=== PATIENT | female | born 1950 | race Caucasian/White ===

== ENCOUNTER 2018-01-25 16:06 | Outpatient (REF) | payer OTHER, SELFPAY | END 2018-01-25 16:26 | LOC: LBN 16:06 | PROVIDERS: PCP Nurse Practitioner; Visit Provider Nurse Practitioner Family | DX: J02.9 Acute pharyngitis, unspecified (principal) | CPT/HCPCS: 87070 ==

== ENCOUNTER 2018-03-23 11:44 | Emergency (ER) | payer OTHER, SELFPAY ==
[2018-03-23 11:50] VITALS: BP 147/70; PULSE 59; RESP 16; TEMP 36.7; O2SAT 98
--- NOTE | 2018-03-23 12:03 | W.ED.GENAD ---
Discharge Plan Disposition Patient Disposition: HOME Condition: Improving Discharge Details Chief Complaint: Headache Clinical Impression: Migraine Primary Care Provider: Sheree Deng ED Provider: Albert Paige Home Meds and New Rx's Prescriptions: Continue vit B fjrr-C-JN-iron-vit E [Vitamins B Complex] 1 EACH tablet 1 ea PO DAILY RF: 0 cholecalciferol (vitamin D3) 1,000 UNIT tablet 1,000 unit PO DAILY RF: 0 nujiagieutl-zqkhoyeio-rrv C-Mn 1 EACH tablet 1 ea PO DAILY RF: 0 sumatriptan succinate [Imitrex] 100 MG tablet 100 mg PO as directed Qty: 27 RF: 6 levothyroxine [Synthroid] 75 MCG tablet 75 mcg PO DAILY Qty: 90 RF: 3 atenolol 25 mg tablet 25 mg PO DAILY Qty: 90 RF: 3 citalopram [Celexa] 20 mg tablet 20 mg PO DAILY Qty: 90 RF: 3 Discharge Instructions Instructions: Migraine Headache (ED) Additional Instructions: Please follow-up with Sheree Deng in the office for recheck. Return to emerge department for worsening headache, or any other acute concerns. Home to rest this evening. Small, frequent sips of fluids to maintain hydration. Continue all regular medications Stand Alone Forms: Work Release Medical Decision Making 68-year-old female presents from primary care physician's office with severe right-sided headache. She had 2 migraine type headaches yesterday which responded to Imitrex. Recurrent again today and associated with some mild numbness of the tongue and a different pain type of pattern. She arrives afebrile, with unremarkable neurologic examination. Differential diagnosis includes typical versus atypical migraine such as basilar migraine or hemiplegic migraine, must exclude intracranial mass or hemorrhage. Patient IV access established, given parenteral medications and fluids, referred for laboratory testing and CT scan of the head. Labs are reassuring and CT without acute findings. Patient slept over 2+ hours time, awoke and felt near complete resolution. I did discuss with her the intermittent episodes of right-sided facial pain may be due to Tic Doloreaux/trigeminal neuralgia. We discussed treatment of this and she elects to defer medication such as carbamazepine. Patient will follow-up in Sheree Deng's office for recheck. She stable and improved, appropriate for discharge home at this time Medical Records Medical records reviewed: Yes I reviewed the patient's medical records. Lab Data Lab results reviewed: Yes I reviewed the patient's lab results. Laboratory Results - last 24 hr 03/23/18 03/23/18 12:15 12:15 WBC 4.36 L RBC 4.37 Hgb 13.4 Hct 40.6 MCV 92.9 MCH 30.7 MCHC 33.0 RDW 12.5 Plt Count 298 MPV 10.3 Immature Gran % 0.0 Neutrophils % 56.1 Lymphocytes % 27.1 Monocytes % 9.9 Eosinophils % 6.7 Basophils % 0.2 Absolute Neutrophils 2.45 Absolute Lymphocytes 1.18 L Absolute Monocytes 0.43 Absolute Eosinophils 0.29 Absolute Basophils 0.01 Sodium 142 Potassium 4.0 Chloride 102 Carbon Dioxide 31.5 Anion Gap 8.5 BUN 10 Creatinine 0.70 Estimated GFR/1.73 m2 >= 60.00 Glucose 98 Calcium 9.1 Total Bilirubin 1.0 AST 17 ALT 18 Alkaline Phosphatase 77 Total Protein 7.5 Albumin 3.1 L HPI General Mode of arrival: ambulatory. Date/Time Provider Initiated Documentation: 03/23/18 11:45. Limitations to Documentation: no limitations. Information obtained by: patient. History of Present Illness 68 year old F presents to the emergency department with the chief complaint of Severe right-sided headache, described as severe, Quality is described as stabbing and aching, and is localized to the head and right. Patient neck. Patient started experiencing this day(s) and it has been constant. No relieving factors improve symptom(s), No exacerbating factors reported . Patient notes no other symptoms.. 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 Today she developed severe right-sided headache that radiates to her ear and neck. Associated with sensation of numbness of her tongue. She has had no difficulty with speech or gait. No recent fall or illness. She denies fever, stiff neck, rash Related Data Home Medications Medication Instructions Recorded Confirmed vit B lnfc-T-BN-iron-vit E 1 ea PO DAILY 08/03/12 03/23/18 [Vitamins B Complex] cholecalciferol (vitamin D3) 1,000 unit PO DAILY 10/12/13 03/23/18 pweixkborrj-ugxjamdrx-kuv C-Mn 1 ea PO DAILY 12/16/16 03/23/18 levothyroxine [Synthroid] 75 mcg PO DAILY #90 tab 04/09/17 03/23/18 sumatriptan succinate [Imitrex] 100 mg PO as directed #27 tab 04/09/17 03/23/18 atenolol 25 mg tablet 25 mg PO DAILY #90 tab-cap 03/08/18 03/23/18 citalopram 20 mg tablet 20 mg PO DAILY #90 tab 03/08/18 03/23/18 Previous Rx's Medication Instructions Recorded levothyroxine [Synthroid] 75 mcg PO DAILY #90 tab 04/09/17 sumatriptan succinate [Imitrex] 100 mg PO as directed #27 tab 04/09/17 atenolol 25 mg tablet 25 mg PO DAILY #90 tab-cap 03/08/18 citalopram 20 mg tablet 20 mg PO DAILY #90 tab 03/08/18 Allergies Allergy/AdvReac Type Severity Reaction Status Date / Time No Known Allergies Allergy Verified 03/23/18 11:54 General Stated Complaint: Headache ESTEFANI: 3 Review of Systems Review of Systems 6 systems reviewed and otherwise negative PFSH Breast cancer Depression Hypothyroidism Family History Grandmother Personal history of malignant neoplasm Medical History Breast cancer Depression Hypothyroidism Social History caregiver/support person: No foster care: No household members: significant other housing: house number of children: 2 frequency: 3-4 times per week Smoking/Tobacco Use Status: Never alcohol intake: current alcohol intake frequency: holidays/special occasions only substance use type: does not use Surgical History Arthroplasty of knee (12/12/15) Breast, Mastectomy Social History caregiver/support person: No foster care: No household members: significant other housing: house number of children: 2 frequency: 3-4 times per week Smoking/Tobacco Use Status: Never alcohol intake: current alcohol intake frequency: holidays/special occasions only substance use type: does not use Exam Narrative Exam Narrative: GEN: awake, alert, oriented 3. Pleasant, well groomed, interactive. HEAD: Normocephalic, atraumatic ENT: Mucous membranes moist, oropharynx unremarkable, the right tympanic membrane is distended, no lesions appreciated. Normal sensation of the tongue EYES: PERRL, EOMI NECK: Full ROM, no STEVEN, no menigismus CHEST/RESP: Nontender, clear to auscultation bilateral, no wheeze/rhonchi/rales CARDIOVASCULAR: RRR, no murmur, rub torsten. 2+ Rad pulse bilateral ABDOMEN: Soft, nontender, no mass. +Bowel sounds EXT: Full ROM, no edema, no rash Neuro: Grossly normal neurologic exam, conversant, interactive. Psych: Speech fluent, thoughts congruent, affect normal Course Vital Signs Temperature 36.7 C 03/23/18 11:50 Pulse 59 L 03/23/18 11:50 Respiratory Rate 16 03/23/18 11:50 Blood Pressure 147/70 H 03/23/18 11:50 Pulse Oximetry 98 03/23/18 11:50 Temperature 36.7 C 03/23/18 11:50 Temperature Source Skin 03/23/18 11:50 Pulse 59 L 03/23/18 11:50 Respiratory Rate 16 03/23/18 11:50 Respiratory Effort Non-Labored 03/23/18 11:50 Blood Pressure 147/70 H 03/23/18 11:50 Blood Pressure Position Sitting 03/23/18 11:50 Pulse Oximetry 98 03/23/18 11:50 Oxygen Delivery Method Room Air 03/23/18 11:50 Oxygen Flow Rate 0 03/23/18 11:50 Pain Level 6 03/23/18 11:50
--- NOTE | 2018-03-23 12:07 | ED.GENADUL_ITS ---
Discharge Plan Disposition Patient Disposition: HOME Condition: Improving Discharge Details Chief Complaint: Headache Clinical Impression: Migraine Primary Care Provider: Sheree Deng ED Provider: Albert Paige Home Meds and New Rx's Prescriptions: Continue vit B zmxc-F-BX-iron-vit E [Vitamins B Complex] 1 EACH tablet 1 ea PO DAILY RF: 0 cholecalciferol (vitamin D3) 1,000 UNIT tablet 1,000 unit PO DAILY RF: 0 kiyllmucxrb-wqrjjcjjm-qmk C-Mn 1 EACH tablet 1 ea PO DAILY RF: 0 sumatriptan succinate [Imitrex] 100 MG tablet 100 mg PO as directed Qty: 27 RF: 6 levothyroxine [Synthroid] 75 MCG tablet 75 mcg PO DAILY Qty: 90 RF: 3 atenolol 25 mg tablet 25 mg PO DAILY Qty: 90 RF: 3 citalopram [Celexa] 20 mg tablet 20 mg PO DAILY Qty: 90 RF: 3 Discharge Instructions Instructions: Migraine Headache (ED) Additional Instructions: Please follow-up with Sheree Deng in the office for recheck. Return to emerge department for worsening headache, or any other acute concerns. Home to rest this evening. Small, frequent sips of fluids to maintain hydration. Continue all regular medications Stand Alone Forms: Work Release Medical Decision Making 68-year-old female presents from primary care physician's office with severe right-sided headache. She had 2 migraine type headaches yesterday which responded to Imitrex. Recurrent again today and associated with some mild numbness of the tongue and a different pain type of pattern. She arrives afebrile, with unremarkable neurologic examination. Differential diagnosis includes typical versus atypical migraine such as basilar migraine or hemiplegic migraine, must exclude intracranial mass or hemorrhage. Patient IV access established, given parenteral medications and fluids, referred for laboratory testing and CT scan of the head. Labs are reassuring and CT without acute findings. Patient slept over 2+ hours time, awoke and felt near complete resolution. I did discuss with her the intermittent episodes of right-sided facial pain may be due to Tic Doloreaux/ trigeminal neuralgia. We discussed treatment of this and she elects to defer medication such as carbamazepine. Patient will follow-up in Sheree Deng's office for recheck. She stable and improved, appropriate for discharge home at this time Medical Records Medical records reviewed: Yes I reviewed the patient's medical records. Lab Data Lab results reviewed: Yes I reviewed the patient's lab results. Laboratory Results - last 24 hr 03/23/18 03/23/18 12:15 12:15 WBC 4.36 L RBC 4.37 Hgb 13.4 Hct 40.6 MCV 92.9 MCH 30.7 MCHC 33.0 RDW 12.5 Plt Count 298 MPV 10.3 Immature Gran % 0.0 Neutrophils % 56.1 Lymphocytes % 27.1 Monocytes % 9.9 Eosinophils % 6.7 Basophils % 0.2 Absolute Neutrophils 2.45 Absolute Lymphocytes 1.18 L Absolute Monocytes 0.43 Absolute Eosinophils 0.29 Absolute Basophils 0.01 Sodium 142 Potassium 4.0 Chloride 102 Carbon Dioxide 31.5 Anion Gap 8.5 BUN 10 Creatinine 0.70 Estimated GFR/1.73 m2 >= 60.00 Glucose 98 Calcium 9.1 Total Bilirubin 1.0 AST 17 ALT 18 Alkaline Phosphatase 77 Total Protein 7.5 Albumin 3.1 L HPI General Mode of arrival: ambulatory . Date/Time Provider Initiated Documentation: 03/23/18 11:45 . Limitations to Documentation: no limitations . Information obtained by: patient . History of Present Illness 68 year old F presents to the emergency department with the chief complaint of Severe right-sided headache, described as severe, Quality is described as stabbing and aching, and is localized to the head and right. Patient neck. Patient started experiencing this day(s) and it has been constant. No relieving factors improve symptom(s), No exacerbating factors reported . Patient notes no other symptoms.. 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 Today she developed severe right-sided headache that radiates to her ear and neck. Associated with sensation of numbness of her tongue. She has had no difficulty with speech or gait. No recent fall or illness. She denies fever, stiff neck, rash Related Data Home Medications Medication Instructions Recorded Confirmed vit B qjds-N-TF-iron-vit E 1 ea PO DAILY 08/03/12 03/23/18 [Vitamins B Complex] cholecalciferol (vitamin D3) 1,000 unit PO DAILY 10/12/13 03/23/18 tkhqlbdabpc-ltnpvbuvz-atn C-Mn 1 ea PO DAILY 12/16/16 03/23/18 levothyroxine [Synthroid] 75 mcg PO DAILY #90 tab 04/09/17 03/23/18 sumatriptan succinate [Imitrex] 100 mg PO as directed #27 tab 04/09/17 03/23/18 atenolol 25 mg tablet 25 mg PO DAILY #90 tab-cap 03/08/18 03/23/18 citalopram 20 mg tablet 20 mg PO DAILY #90 tab 03/08/18 03/23/18 Previous Rx's Medication Instructions Recorded levothyroxine [Synthroid] 75 mcg PO DAILY #90 tab 04/09/17 sumatriptan succinate [Imitrex] 100 mg PO as directed #27 tab 04/09/17 atenolol 25 mg tablet 25 mg PO DAILY #90 tab-cap 03/08/18 citalopram 20 mg tablet 20 mg PO DAILY #90 tab 03/08/18 Allergies Allergy/AdvReac Type Severity Reaction Status Date / Time No Known Allergies Allergy Verified 03/23/18 11:54 General Stated Complaint: Headache ESTEFANI: 3 Review of Systems Review of Systems 6 systems reviewed and otherwise negative PFSH Breast cancer Depression Hypothyroidism Family History Grandmother Personal history of malignant neoplasm Medical History Breast cancer Depression Hypothyroidism Social History caregiver/support person: No foster care: No household members: significant other housing: house number of children: 2 frequency: 3-4 times per week Smoking/Tobacco Use Status: Never alcohol intake: current alcohol intake frequency: holidays/special occasions only substance use type: does not use Surgical History Arthroplasty of knee (12/12/15) Breast, Mastectomy Social History caregiver/support person: No foster care: No household members: significant other housing: house number of children: 2 frequency: 3-4 times per week Smoking/Tobacco Use Status: Never alcohol intake: current alcohol intake frequency: holidays/special occasions only substance use type: does not use Exam Narrative Exam Narrative: GEN: awake, alert, oriented 3. Pleasant, well groomed, interactive. HEAD: Normocephalic, atraumatic ENT: Mucous membranes moist, oropharynx unremarkable, the right tympanic membrane is distended, no lesions appreciated. Normal sensation of the tongue EYES: PERRL, EOMI NECK: Full ROM, no STEVEN, no menigismus CHEST/RESP: Nontender, clear to auscultation bilateral, no wheeze/rhonchi/rales CARDIOVASCULAR: RRR, no murmur, rub torsten. 2+ Rad pulse bilateral ABDOMEN: Soft, nontender, no mass. +Bowel sounds EXT: Full ROM, no edema, no rash Neuro: Grossly normal neurologic exam, conversant, interactive. Psych: Speech fluent, thoughts congruent, affect normal Course Vital Signs Temperature 36.7 C 03/23/18 11:50 Pulse 59 L 03/23/18 11:50 Respiratory Rate 16 03/23/18 11:50 Blood Pressure 147/70 H 03/23/18 11:50 Pulse Oximetry 98 03/23/18 11:50 Temperature 36.7 C 03/23/18 11:50 Temperature Source Skin 03/23/18 11:50 Pulse 59 L 03/23/18 11:50 Respiratory Rate 16 03/23/18 11:50 Respiratory Effort Non-Labored 03/23/18 11:50 Blood Pressure 147/70 H 03/23/18 11:50 Blood Pressure Position Sitting 03/23/18 11:50 Pulse Oximetry 98 03/23/18 11:50 Oxygen Delivery Method Room Air 03/23/18 11:50 Oxygen Flow Rate 0 03/23/18 11:50 Pain Level 6 03/23/18 11:50
[2018-03-23] MEDS: Normal Saline 1,000 ML 1000 ML IV (12:12)
[2018-03-23] MEDS: Ketorolac 30 MG/ML VIAL IVP (12:12)
[2018-03-23] MEDS: Dexamethasone 10 MG/ML VIAL IVP (12:13)
[2018-03-23] MEDS: diphenhydrAMINE 50 MG/ML VIAL 25 MG IVP (12:13)
[2018-03-23 12:25] LABS: Absolute Basophil Count 0.01 k/cumm (0.0-0.2); Absolute Eosinophil Count 0.29 k/cumm (0.0-0.7); Absolute Lymphocyte Count 1.18 k/cumm (1.2-3.4); Absolute Monocyte Count 0.43 k/cumm (0.11-0.7); Absolute Neutrophil Count 2.45 k/cumm (1.2-6.7); Basophils % 0.2; Eosinophils % 6.7; HCT 40.6 % (36.0-46.0); HGB 13.4 g/dL (12.0-15.5); Lymphocytes % 27.1; Mean Corpuscular Hemoglobin 30.7 pg (27.0-33.0); Mean Corpuscular Volume 92.9 fL (80-95); Mean Platelet Volume 10.3 fL (8.0-11.0); Monocytes % 9.9; Neutrophils % 56.1; Platelet Count 298 x1000/uL (130-400); RBC 4.37 m/cumm (4.00-5.20); RBC Distribution Width 12.5 % (11.7-14.6); White Blood Cell Count 4.36 k/cumm (4.4-10.8)
--- NOTE | 2018-03-23 12:31 | DI.CT_ITS ---
SYMPTOM/DIAGNOSIS: RT SIDED HEADACHE RADIATING TO NECK AND EAR NONCONTRAST HEAD CT: There are no prior comparison exams. No intracranial hemorrhage, mass or infarct is seen. The ventricles are normal in size. The orbits and visualized portions of the sinuses and mastoid air cells are unremarkable. IMPRESSION: Negative head CT.
[2018-03-23 12:41] LABS: ALT 18 U/L (12-78); AST 17 U/L (15-37); Albumin 3.1 g/dL (3.4-5.0); Alkaline Phosphatase 77 U/L (46-116); Anion Gap 8.5 mmol/L (3-11); BUN 10 mg/dL (7-18); CO2 31.5 mmol/L (21.0-32.0); Calcium 9.1 mg/dL (8.5-10.1); Chloride 102 mmol/L (98-107); Glucose 98 mg/dL (70-100); Sodium 142 mmol/L (136-145); Total Protein 7.5 g/dL (6.4-8.2)
--- NOTE | 2018-03-23 12:53 | NUR.NOTE ---
Pt. returned from CT scan, is still complaining of significant pain. MD Paige at the bedside assessing patient, no further medication orders at this time.
--- NOTE | 2018-03-23 14:06 | NUR.NOTE ---
Pt. resting, in NAD. Call hawkins in reach.
--- NOTE | 2018-03-23 14:42 | NUR.NOTE ---
continues to sleep, RR WNL.
[2018-03-23 15:59] VITALS: BP 134/57; PULSE 77; RESP 16; O2SAT 100
== END 2018-03-23 16:12 | disposition home or self-care (01) ==
PROVIDERS: Emergency Provider Emergency Medicine; PCP Nurse Practitioner
DX: G43.909 Migraine, unspecified, not intractable, without status migrainosus (principal)
CPT/HCPCS: 36415; 80053; 96361; 96374; 96375; 99284; 70450; 85025; J1100; J1200; J1885

== ENCOUNTER 2018-04-05 00:25 | Outpatient (CLI) | payer OTHER, SELFPAY ==
--- NOTE | 2018-04-05 11:10 | DI.MRI_ITS ---
SYMPTOMS/DIAGNOSIS: FACIAL DROOP, HEADACHE, TONGUE NUMBNESS, WORSE; FACIAL WEAKNESS, R29.810, R51, R20.0-ANESTHESIA OF SKIN BRAIN MRI: MRI examination of the brain was performed according to the usual protocol. Ventricular system is normal in appearance. No signal abnormality identified in the brain. There is normal flow void in the [place] vasculature. The orbital and temporal bone structures appear intact. Diffusion weighted imaging is within normal limits with no evidence of cerebral infarction. Susceptibility weighted imaging shows no evidence of hemorrhage. CONCLUSION: Normal brain MRI.
== END 2018-04-05 00:45 ==
PROVIDERS: PCP Nurse Practitioner; Visit Provider Nurse Practitioner
DX: R29.810 Facial weakness (principal); R51 Headache; R20.0 Anesthesia of skin; K14.8 Other diseases of tongue
CPT/HCPCS: 70551

== ENCOUNTER 2018-04-12 15:47 | Outpatient (CLI) | payer OTHER, SELFPAY ==
[2018-04-12 20:07] LABS: Cholesterol 220 mg/dL (50-200); HDL Cholesterol 78 mg/dL (40-60); LDL CHOLESTEROL 122 mg/dL (<100); TSH (W/Ref FT4) 0.65 uIU/mL (0.358-3.74); Triglyceride 60 mg/dL (30-150)
[2018-04-15 10:29] LABS: Lyme Ab w Rflx to Lyme Confirm Negative
== END 2018-04-12 16:07 ==
PROVIDERS: Family Medicine; PCP Nurse Practitioner; Visit Provider Nurse Practitioner
DX: G51.0 Bell's palsy (principal); E03.9 Hypothyroidism, unspecified; G43.909 Migraine, unspecified, not intractable, without status migrainosus
CPT/HCPCS: 36415; 80061; 83721; 84443; 86618

== ENCOUNTER 2019-03-31 11:00 | Outpatient (CLI) | payer OTHER, SELFPAY ==
--- NOTE | 2019-03-31 11:23 | DI.RAD_ITS ---
EXAM: XR FOOT LT COMPLETE CLINICAL HISTORY: FOOT PAIN TECHNIQUE: COMPARISON: No exams were available for comparison FINDINGS: Three views were obtained. There is a mild hallux valgus deformity with mild degenerative changes at the 1st MTP joint. Mild DJD also noted involving multiple joints of the midfoot. No other signific ant bony or soft tissue abnormality seen. IMPRESSION:
--- NOTE | 2019-03-31 11:25 | DI.RAD_ITS ---
EXAM: XR KNEE RT 3V AP,LAT,EDITH CLINICAL HISTORY: KNEE PAIN TECHNIQUE: COMPARISON: RIGHT KNEE 3 VIEWS from 05/11/2012 FINDINGS: Three views were obtained. There is marked narrowing of the medial tibiofemoral cartilaginous joint space with marked subchondral sclerosis and mild marginal osteophyte formation. There is mild medial subluxation of the femur on the tibia. Mild marginal osteophyte formation also noted involving torres llo femoral and to a lesser degree lateral tibiofemoral joints. IMPRESSION: Severe DJD predominantly involving medial tibiofemoral joint
== END 2019-03-31 11:20 ==
PROVIDERS: PCP Nurse Practitioner; Visit Provider Student in an Organized Health Care Education/Training Program
DX: M79.672 Pain in left foot (principal); M25.561 Pain in right knee; M20.12 Hallux valgus (acquired), left foot; M19.072 Primary osteoarthritis, left ankle and foot; M17.11 Unilateral primary osteoarthritis, right knee
CPT/HCPCS: 73562; 73630

== ENCOUNTER 2019-04-19 07:53 | Outpatient (CLI) | payer OTHER, SELFPAY ==
[2019-04-19 09:47] LABS: ALT 19 U/L (14-59); AST 15 U/L (15-37); Albumin 3.7 g/dL (3.4-5.0); Alkaline Phosphatase 75 U/L (46-116); BUN 23 mg/dL (7-18); Bilirubin, Total 0.8 mg/dL (0.2-1.0); CREATININE 0.87 mg/dL (0.55-1.02); Calcium 9.1 mg/dL (8.5-10.1); Calculated LDL 123 mg/dL; Chloride 106 mmol/L (98-107); Cholesterol 208 mg/dL (<200); Glucose 95 mg/dL (74-106); HDL Cholesterol 74 mg/dL (40-60); Sodium 144 mmol/L (136-145); TSH (W/Ref FT4) 1.31 uIU/mL (0.36-3.74); Total Protein 6.7 g/dL (6.4-8.2); Triglyceride 58 mg/dL (<150)
== END 2019-04-19 08:13 ==
PROVIDERS: PCP Nurse Practitioner; Visit Provider Nurse Practitioner
DX: I10 Essential (primary) hypertension (principal); E03.9 Hypothyroidism, unspecified; E78.00 Pure hypercholesterolemia, unspecified
CPT/HCPCS: 36415; 80053; 80061; 84443

== ENCOUNTER 2019-07-12 05:58 | Emergency (ER) | payer OTHER, SELFPAY ==
[2019-07-12] VITALS (50 sets, daily range): BP systolic 122–152; BP diastolic 55–84; PULSE 61–84; RESP 10–23; TEMP 36.4–37.1; O2SAT 94–99
--- NOTE | 2019-07-12 06:09 | ED.GENADUL_ITS ---
Discharge Plan Disposition Patient Disposition: HOME Condition: Stable Discharge Details Chief Complaint: Dizzy/Sync Clinical Impression: Chest discomfort, Syncope Primary Care Provider: Sheree Deng ED Provider: Wilder Cox Home Meds and New Rx's Prescriptions: New aspirin 81 mg tablet,delayed release (DR/EC) 81 mg PO DAILY Qty: 30 RF: 0 Continued ondansetron HCl [Zofran] 4 mg tablet 4 mg PO QID PRN (Reason: nausea and vomiting) Qty: 60 RF: 2 Vitamins B Complex 1 EACH tablet 1 ea PO DAILY RF: 0 cholecalciferol (vitamin D3) 1,000 UNIT tablet 1,000 unit PO DAILY RF: 0 levothyroxine [Synthroid] 75 mcg tablet 75 mcg PO DAILY Qty: 90 RF: 3 atenolol 25 mg tablet 25 mg PO DAILY Qty: 90 RF: 3 citalopram [Celexa] 20 mg tablet 20 mg PO DAILY Qty: 90 RF: 3 sumatriptan succinate [Imitrex] 100 mg tablet 100 mg PO as directed Qty: 27 RF: 6 Discharge Instructions Instructions: Chest Pain (ED), Syncope (ED) Additional Instructions: Please take aspirin 81 mg daily. Please schedule outpatient stress test to be performed ideally within the next 72 hours. Contact your primary care physician to arrange close outpatient follow-up. Please rest over the next few days with no exertional activities. Return to the ER for any worsening or new concerning symptoms. Referrals: Sheree Deng, [employer] [Primary Care Provider] - Discharge Data Discharge Date/Time-TO BE ENTERED AT DEPARTURE: 07/12/19 12:16 Medical Decision Making <Albert Paige MD - Last Filed: 07/12/19 19:56> 69-year-old female presents from home via EMS. States she awoke early this morning, went to the bathroom and while urinating felt lightheaded and simply passed out. She states she separately had one episode of nausea with emesis while being evaluated by EMS. She states she is now feeling improved. She was recently staying in [place] for the winter where she was evaluated at [facility] for transient chest pain. She was discharged uneventfully and recently traveled back home to [place] uneventfully. We have requested records from this visit. She arrives with unremarkable vital signs. She does state that her nausea seems to be somewhat worsened with movement of the head. She does not demonstrate nystagmus and her cranial nerves are otherwise unremarkable. She does have some mild right-sided abdominal tenderness on exam. IV was placed, labs obtained. Differential diagnosis includes vertigo, must exclude intracranial mass or hemorrhage. Given the abdominal tenderness, would consider ileus, small bowel obstruction, colitis or diverticulitis. Patient given fluids and antiemetic. Referred for chest x-ray, CT scan of the head, CT scan of the abdomen. Will sign out to Dr. Cox pending review of the diagnostic studies. Please see his note regarding final impression and disposition. Lab Data Lab results reviewed: Yes I reviewed the patient's lab results. Labs: Laboratory Results - last 24 hr 07/12/19 07/12/19 07/12/19 06:35 06:35 06:35 WBC 5.21 RBC 4.16 Hgb 12.5 Hct 37.8 MCV 90.9 MCH 30.0 MCHC 33.1 RDW 12.5 Plt Count 263 MPV 10.5 Immature Gran % 0.0 Neutrophils % 60.5 Lymphocytes % 23.6 Monocytes % 8.4 Eosinophils % 7.3 Basophils % 0.2 Absolute Neutrophils 3.15 Absolute Lymphocytes 1.23 Absolute Monocytes 0.44 Absolute Eosinophils 0.38 Absolute Basophils 0.01 Sodium 144 Potassium 3.7 Chloride 107 Carbon Dioxide 28.2 Anion Gap 8.8 BUN 24 H Creatinine 0.82 Estimated GFR/1.73 m2 >= 60.00 Glucose 125 H Calcium 8.9 Magnesium 2.0 Total Bilirubin 0.8 AST 15 ALT 18 Alkaline Phosphatase 67 Troponin I < 0.05 Total Protein 6.6 Albumin 3.6 Lipase 96 ECG Data Attestation: I personally reviewed and interpreted this ECG (s) as follows: Interpretation: Normal sinus rhythm, rate of 67, the QRS is narrow, there is no ST segment elevation present, QTC 433 <Wilder Cox MD - Last Filed: 07/12/19 12:01> 8:00 --care signed out by Dr. Paige. Please see his documentation regarding initial ED presentation and course. Briefly this is a 69-year-old female that presents after syncopal episode, presumed micturition syncope, also with recent chest discomfort and right lower quadrant abdominal pain. Work-up thus far has been nondiagnostic. CT of the head revealed no acute process. CT of the abdomen and pelvis noted no acute findings. Small hiatal hernia. Chest x-ray noted no acute findings. Initial ECG was nondiagnostic. Initial troponin negative. Patient receiving IVF. --Patient was reassessed and continues to note some mild chest pressure that seems positional. Given recent travel and nondiagnostic work-up thus far, consider pulmonary embolism. D-dimer was checked and noted to be slightly elevated. Plan to proceed to CT of the chest to assess for pulmonary embolism. -- Pt noted by nursing to be feeling much better. 11:00 -- Initial ECG was reviewed by me: There are very subtle ST depressions noted in leads II, 3, aVF, V3 to V6. Repeat ECG reviewed and interpreted by me: Sinus rhythm 63 bpm, normal axis, continues to have very subtle ST depressions noted with no change. Repeat troponin pending. 11:45 --repeat troponin negative. CT of the chest was reviewed and interpreted by radiology: FINDINGS: Pulmonary Arteries: No evidence of filling defect to suggest pulmonary emboli. Tracheobronchial tree: Patent where visualized. Mediastinum and Gail: No dominant adenopathy or fluid collection. Pulmonary parenchyma: No consolidation or dominant measurable mass. No architectural distortion. Pleura: No effusion or pneumothorax. Heart: The heart is not dilated. No coronary artery calcifications are seen. Aorta: Thoracic aorta non-dilated. Upper abdomen: Unremarkable. Bones: Degenerative changes are seen in the mid thoracic spine. Tubes, Catheters, and Lines: None A left breast implant is seen. A goiter is noted. IMPRESSION: No evidence of pulmonary embolism or other acute abnormality. Patient was reassessed and feeling better. I reviewed telemetry and patient has had no events here over the past 5 hours. Plan for discharge with outpatient follow-up. Patient should have outpatient stress test performed ideally within the next 72 hours. I have ordered the stress test to expedite outpatient work-up. Patient will also likely benefit from holter cardiac monitoring. Will ask care management to assist in scheduling outpatient care. Disposition decision was made weighing the risks and benefits of hospitalization versus outpatient treatment, the risk for further decompensation, and the patient's wishes. The patient was stable and requested discharge. Prior to discharge, my usual and customary return precautions were reviewed with the patient - this included follow-up instructions and reason to return to the emergency department if condition worsens, does not improve as expected, or other new concerns arise. I spoke with the patient's PCP and care management about outpatient plan and followup. HPI <Albert Paige MD - Last Filed: 07/12/19 19:56> General Mode of arrival: EMS . Date/Time Provider Initiated Documentation: 07/12/19 06:12 . Limitations to Documentation: no limitations . Information obtained by: patient and EMS . History of Present Illness 69 year old F presents to the emergency department with the chief complaint of Micturition syncope, described as mild, and is localized to the head. Patient reports no radiation. Patient started experiencing this minute(s) and it has been other (Improving). No relieving factors improve symptom(s), No exacerbating factors reported . Patient notes nausea/vomiting and syncope; denies chest pain and shortness of breath. Patient did receive the following treatments prior to arrival, other (Zofran) Related Data Home Medications Medication Instructions Recorded Confirmed Vitamins B Complex 1 ea PO DAILY 08/03/12 07/12/19 cholecalciferol (vitamin D3) 1,000 unit PO DAILY 10/12/13 07/12/19 ondansetron HCl 4 mg tablet 4 mg PO QID PRN #60 tab 04/12/18 07/12/19 atenolol 25 mg tablet 25 mg PO DAILY #90 tab-cap 03/02/19 07/12/19 citalopram 20 mg tablet 20 mg PO DAILY #90 tab 03/02/19 07/12/19 levothyroxine 75 mcg tablet 75 mcg PO DAILY #90 tab 03/02/19 07/12/19 sumatriptan succinate 100 mg tablet 100 mg PO as directed #27 tab 03/02/19 07/12/19 aspirin 81 mg PO DAILY #30 tab 07/12/19 Previous Rx's Medication Instructions Recorded ondansetron HCl 4 mg tablet 4 mg PO QID PRN #60 tab 04/12/18 atenolol 25 mg tablet 25 mg PO DAILY #90 tab-cap 03/02/19 citalopram 20 mg tablet 20 mg PO DAILY #90 tab 03/02/19 levothyroxine 75 mcg tablet 75 mcg PO DAILY #90 tab 03/02/19 sumatriptan succinate 100 mg tablet 100 mg PO as directed #27 tab 03/02/19 aspirin 81 mg PO DAILY #30 tab 07/12/19 Allergies Allergy/AdvReac Type Severity Reaction Status Date / Time No Known Allergies Allergy Verified 07/12/19 06:16 General ESTEFANI: 3 Review of Systems <Albert Paige MD - Last Filed: 07/12/19 19:56> Narrative: Recently returned from [facility] after a month stay. States she was seen at [facility] for chest pain recently. She denies cough, no known sick contacts. States she feels slightly vertiginous. 8 sy stems reviewed and otherwise negative. See HPI. PFSH <Albert Paige MD - Last Filed: 07/12/19 19:56> Medical History Toro's palsy (Chronic) Breast cancer Depressive disorder (Chronic 02/11/02) Hypothyroidism Migraine (Chronic) Surgical History Arthroplasty of knee (12/12/15) Dr Archuleta. right knee w/partial medial menisectomy Breast, Mastectomy L, 2009 Family History Grandmother , Cancer at age 70. Personal history of malignant neoplasm Colon CA, throat CA Social History Smoking/Tobacco Use Status: Never Alcohol Intake: current Alcohol Intake frequency: holidays/special occasions only Drug use: Never Substance use type: does not use Caregiver/Support person: No Foster care: No Household members: significant other Housing: house Number of Children: 2 What is your relationship status?: living with partner Panel score (0-1 are the most socially isolated patients): 1 What type of physical activity do you participate in: walking Frequency: 3-4 times per week Do you feel safe at home: Yes Do you feel safe in your relationship?: Yes Exam <Albert Paige MD - Last Filed: 07/12/19 19:56> Narrative Exam Narrative: GEN: awake, alert, oriented 3. Pleasant, well groomed, interactive. HEAD: Normocephalic, atraumatic ENT: Mucous membranes dry, oropharynx unremarkable, External ear exam unremarkable EYES: PERRL, EOMI NECK: Full ROM, no STEVEN, no menigismus CHEST/RESP: Nontender, clear to auscultation bilateral, no wheeze/rhonchi/rales CARDIOVASCULAR: RRR, no murmur, rub torsten. 2+ Rad pulse bilateral ABDOMEN: Soft, tender to palpation right mid abdomen, no mass. +Bowel sounds EXT: Full ROM, no edema, no rash Neuro: Cranial nerves II through XII intact. Did not appreciate nystagmus. Grossly normal neurologic exam, conversant, interactive. Psych: Speech fluent, thoughts congruent, affect normal Sign Out <Albert Paige MD - Last Filed: 07/12/19 19:56> Sign Out Data: Sign Out Comment: followup diagnostic studies and re-eval Last updated by Albert Paige MD at 07/12/19 07:25
--- NOTE | 2019-07-12 06:30 | DI.CT_ITS ---
EXAM: CT HEAD WO CLINICAL HISTORY: syncope, nausea. TECHNIQUE: Imaging Protocol: Axial computed tomography images with coronal and sagittal reformatted images were created and reviewed COMPARISON: CT HEAD WO from 03/23/2018 FINDINGS: Ventricles and Extra axial spaces: Normal in size and morphology for the patient's age. Hemorrhage: None. Cerebral parenchyma: Normal. Midline shift: None. Brainstem/Cerebellum: Normal. Calvarium: Normal. Visualized Paranasal sinuses/Mastoids: Clear. Soft Tissues: Unremarkable. IMPRESSION: No acute intracranial process. RADIATION DOSE DELIVERED: DATA REPOSITORY: All CT scans at this facility are submitted to the National Radiology Data Registry (NRDR) Dose Index Registry (DIR) with the [employer] (ACR). RADIATION OPTIMIZATION: All CT scans at this facility use at least one of these dose optimization te chniques: automated exposure control; mA and/or kV adjustment per patient size (includes targeted exa ms where dose is matched to clinical indication); or iterative reconstruction.
--- NOTE | 2019-07-12 06:30 | DI.CT_ITS ---
EXAM: CT ABDOMEN PELVIS W CLINICAL HISTORY: R mid abd pain, vomiting. Wait forCr. TECHNIQUE: Imaging Protocol: Axial computed tomography images with coronal and sagittal reformatted images were created and reviewed CONTRAST MATERIAL: Intravenous: Omnipaque 350 Contrast volume:100 cc Oral: no COMPARISON: No exams were available for comparison FINDINGS: Lung Bases: Normal where visualized. There is a left breast implant. Liver: Normal density. No measurable mass. Gallbladder and biliary tract: No radiodense calculus or dilation. Pancreas: Normal density, no abnormal calcifications or inflammatory process. Spleen: Normal. Kidneys: Normal size, contour and axis. No radiodense stones or obstructive uropathy. No masses seen. Adrenal glands: No masses seen. Abdominal Aorta: Abdominal portion non-dilated. Bladder: Symmetric distention, no gross wall thickening. Bowel: There is a small hiatal hernia. The stomach is decompressed. There is no obstruction or carlee l wall thickening. There is no evidence of a appendicitis. There is a moderate quantity of stool. Peritoneal cavity: No ascites, collection or mesenteric inflammatory response. Bones: Degenerative disc changes are seen in the lower lumbar spine. Reproductive organs: The ovaries are unremarkable. There is a small uterine fibroid. Lymph nodes: Unremarkable. Impression: Unremarkable CT scan of the abdomen and pelvis. DATA REPOSITORY: All CT scans at this facility are submitted to the National Radiology Data Registry (NRDR) Dose Index Registry (DIR) with the [employer] (ACR). RADIATION OPTIMIZATION: All CT scans at this facility use at least one of these dose optimization te chniques: automated exposure control; mA and/or kV adjustment per patient size (includes targeted exa ms where dose is matched to clinical indication); or iterative reconstruction.
--- NOTE | 2019-07-12 06:30 | DI.RAD_ITS ---
EXAM: XR PORTABLE CHEST AP CLINICAL HISTORY: syncope TECHNIQUE: 2D digital imaging was performed. COMPARISON: CHEST 2 VIEWS PA,LAT from 12/06/2013 FINDINGS: LUNGS: The lungs are suboptimally inflated but clear. No pleural abnormality seen. HEART: Normal. MEDIASTINUM: Normal. OTHER FINDINGS: There are degenerative changes in the spine and shoulders. IMPRESSION: No acute pulmonary findings.
[2019-07-12] MEDS: Normal Saline 1,000 ML 1000 ML IV (06:34)
[2019-07-12] MEDS: Ondansetron 4 MG/2 ML VIAL IVP (06:47)
[2019-07-12 06:51] LABS: Absolute Basophil Count 0.01 k/cumm (0.0-0.2); Absolute Eosinophil Count 0.38 k/cumm (0.0-0.7); Absolute Lymphocyte Count 1.23 k/cumm (1.2-3.4); Absolute Monocyte Count 0.44 k/cumm (0.11-0.7); Absolute Neutrophil Count 3.15 k/cumm (1.2-6.7); Basophils % 0.2; Eosinophils % 7.3; HCT 37.8 % (36.0-46.0); HGB 12.5 g/dL (12.0-15.5); Lymphocytes % 23.6; Mean Corp. HGB Concentration 33.1 g/dL (32.0-36.0); Mean Corpuscular Volume 90.9 fL (80-95); Mean Platelet Volume 10.5 fL (8.0-11.0); Monocytes % 8.4; Neutrophils % 60.5; Platelet Count 263 x1000/uL (130-400); RBC 4.16 m/cumm (4.00-5.20); RBC Distribution Width 12.5 % (11.7-14.6); White Blood Cell Count 5.21 k/cumm (4.4-10.8)
[2019-07-12 07:14] LABS: Lipase 96 U/L (73-393)
[2019-07-12 07:18] LABS: ALT 18 U/L (14-59); AST 15 U/L (15-37); Albumin 3.6 g/dL (3.4-5.0); Alkaline Phosphatase 67 U/L (46-116); Anion Gap 8.8 mmol/L (3-11); BUN 24 mg/dL (7-18); Bilirubin, Total 0.8 mg/dL (0.2-1.0); CO2 28.2 mmol/L (21.0-32.0); CREATININE 0.82 mg/dL (0.55-1.02); Calcium 8.9 mg/dL (8.5-10.1); Chloride 107 mmol/L (98-107); Glucose 125 mg/dL (74-106); Potassium 3.7 mmol/L (3.5-5.1); Sodium 144 mmol/L (136-145); Total Protein 6.6 g/dL (6.4-8.2)
[2019-07-12 07:26] LABS: Troponin I < 0.05 ng/Ml (<0.06)
[2019-07-12] MEDS: Omnipaque 350 MG/ML 100 ML BTL IJ ×2 (07:40→10:32)
[2019-07-12] MEDS: Normal Saline Flush 10 ML SYR IVP (07:40)
[2019-07-12] MEDS: Normal Saline - Diluent 50 ML VIAL IV ×2 (07:41→10:31)
--- NOTE | 2019-07-12 07:55 | DI.VRAD_ITS ---
PROCEDURE INFORMATION: Exam: CT Head Without Contrast Exam date and time: 07/12/2019 7:42 AM Age: 69 years old Clinical indication: Pain; Other: Nausea syncope TECHNIQUE: Imaging protocol: Computed tomography of the head without contrast. COMPARISON: CT HEAD WO 03/23/2018 12:24 PM FINDINGS: Generalized volume loss and periventricular white matter hypodensity consistent with chronic small vessel ischemic change. There is atherosclerotic calcification in the internal carotid arteries . There is no evidence of intraparenchymal hemorrhage, mass effect or extra-axial collection. Ventricular size is concordant with degree of volume loss. Visualized intraorbital soft tissues are normal. The sinuses are well-aerated. IMPRESSION: No acute intracranial process. Dictated and Authenticated by: Nimisha Pierce MD. Ordering:DASH Price MD
[2019-07-12] MEDS: Normal Saline 1,000 ML 150 ML IV (07:58)
--- NOTE | 2019-07-12 07:58 | DI.VRAD_ITS ---
PROCEDURE INFORMATION: Exam: XR Chest, 1 View Exam date and time: 07/12/2019 7:38 AM Age: 69 years old Clinical indication: Other: Syncope; Patient HX: Laparotomy, c section TECHNIQUE: Imaging protocol: XR of the chest Views: 1 view. COMPARISON: No relevant prior studies available. FINDINGS: Lungs: Unremarkable. No consolidation. Pleural space: Unremarkable. No pleural effusion. No pneumothorax. Heart/Mediastinum: Unremarkable. No cardiomegaly. Diaphragm: Mild elevation of the left hemidiaphragm. Bones/joints: Age related osseous changes. IMPRESSION: No acute findings. Dictated and Authenticated by: Nimisha Pierce MD. Ordering:DASH Price MD
--- NOTE | 2019-07-12 08:07 | DI.VRAD_ITS ---
PROCEDURE INFORMATION: Exam: CT Abdomen And Pelvis With Contrast Exam date and time: 07/12/2019 7:48 AM Age: 69 years old Clinical indication: Other: RT mid abd pain vomiting TECHNIQUE: Imaging protocol: Computed tomography of the abdomen and pelvis with intravenous contrast. Radiation optimization: All CT scans at this facility use at least one of these dose optimization techniques: automated exposure control; mA and/or kV adjustment per patient size (includes targeted exams where dose is matched to clinical indication); or iterative reconstruction. Contrast material: OMNI 350; Contrast volume: 100 ml; Contrast route: IV; COMPARISON: No relevant prior studies available. FINDINGS: Mediastinum: Small hiatus hernia. Liver: 1 cm enhancing finding is seen in the left liver which likely represents a hemangioma. There are a few scattered tiny hypodensities throughout the liver too small to characterize, likely cysts. Gallbladder and bile ducts: Normal. No calcified stones. No ductal dilation. Pancreas: Normal. No ductal dilation. Spleen: Normal. No splenomegaly. Adrenals: Normal. No mass. Kidneys and ureters: No renal stones or hydronephrosis. Stomach and bowel: Stomach is decompressed and not well evaluated. Small bowel is unremarkable. Unremarkable colon. Appendix: Normal appendix seen. Intraperitoneal space: Unremarkable. No free air. No significant fluid collection. Vasculature: Unremarkable. No abdominal aortic aneurysm. Lymph nodes: Unremarkable. No enlarged lymph nodes. Bladder: Unremarkable as visualized. Reproductive: Unremarkable as visualized. Bones/joints: Degenerative changes throughout the spine. Grade 1 anterolisthesis of L3 on L4. Soft tissues: There is a left breast implant. Small fat containing umbilical hernia. IMPRESSION: No acute findings. Small hiatus hernia. Dictated and Authenticated by: Nimisha Pierce MD. Ordering:DASH Price MD
[2019-07-12 08:15] LABS: Bilirubin Negative (Negative); Blood Negative (Negative); Clarity Clear (Clear); Glucose Negative (Negative); Ketones Negative (Negative); Leukocyte Esterase Negative (Negative); Nitrite Negative (Negative); Specific Gravity 1.025 (1.005-1.025); Urobilinogen 0.2 EU/dL (Up TO 0.2)
[2019-07-12 09:18] LABS: D-Dimer 750 ng/mlFEU (<500)
[2019-07-12 10:09] LABS: Troponin I < 0.05 ng/Ml (<0.06)
--- NOTE | 2019-07-12 10:44 | DI.CT_ITS ---
EXAM: CT CHEST PE CTA CLINICAL HISTORY: chest pressure, presyncope, ddimer elevated. TECHNIQUE: Imaging Protocol: Axial CT angiography was performed with multi-slice acquisition and mu lti-planar and/or 3D reconstructions. CONTRAST MATERIAL: Intravenous: Omnipaque 350 Contrast volume:100 cc COMPARISON: XR PORTABLE CHEST AP from 07/12/2019 FINDINGS: Pulmonary Arteries: No evidence of filling defect to suggest pulmonary emboli. Tracheobronchial tree: Patent where visualized. Mediastinum and Gail: No dominant adenopathy or fluid collection. Pulmonary parenchyma: No consolidation or dominant measurable mass. No architectural distortion. Pleura: No effusion or pneumothorax. Heart: The heart is not dilated. No coronary artery calcifications are seen. Aorta: Thoracic aorta non-dilated. Upper abdomen: Unremarkable. Bones: Degenerative changes are seen in the mid thoracic spine. Tubes, Catheters, and Lines: None A left breast implant is seen. A goiter is noted. IMPRESSION: No evidence of pulmonary embolism or other acute abnormality.. DATA REPOSITORY: All CT scans at this facility are submitted to the National Radiology Data Registry (NRDR) Dose Index Registry (DIR) with the [employer] (ACR). RADIATION OPTIMIZATION: All CT scans at this facility use at least one of these dose optimization te chniques: automated exposure control; mA and/or kV adjustment per patient size (includes targeted exa ms where dose is matched to clinical indication); or iterative reconstruction.
--- NOTE | 2019-07-12 18:33 | NUR.NOTE ---
Nursing Note: FAXED TO [facility]
== END 2019-07-12 12:16 | disposition home or self-care (01) ==
PROVIDERS: Emergency Medicine; Emergency Provider Student in an Organized Health Care Education/Training Program; PCP Nurse Practitioner
DX: R55 Syncope and collapse (principal)
CPT/HCPCS: 36415; 71275; 80053; 83690; 93005; 96361; 96374; 99285; 70450; 71045; 74177; 81003; 83735; 84484; 85025; 85379; 93010; J2405; J3490

== ENCOUNTER 2019-07-14 01:56 | Outpatient (CLI) | payer OTHER, SELFPAY ==
--- NOTE | 2019-07-14 09:00 | ETT_ITS ---
APPROVED REPORT Exam: Exercise Treadmill Patient Location: Out-Patient Room/Bed: Stress Nurse: Chloe Turpin RN BMI: 29.95 Baseline Rhythm: Sinus Bradycardia Indications: Patient presented to the ER on 07/12/2019 after she ???passed out??? at home while allanin g. She states when she woke she ???felt so weak??? and ???felt like I couldn???t move???. She denies any other associated symptoms until EMS was moving her in a chair to bring her down stairs, when she then become nauseated and vomited. Medical History Medical History: Toro???s Palsy, Hypothyroidism, Migraines, Depression. Cardiac Medications: Aspirin, Atenolol (for Migraines). Allergies: No known drug allergies Cardiac Risk Factors: FHX of CAD Previous Cardiac Procedures: None Pretest Chest Pain Characteristics: None Exercise History: Physically active Physical Disabilities: None Lung Sounds: Clear to auscultation Heart Sounds: Regular Stress Test Details Test: Exercise stress testing was performed using a Jimbo protocol. Rest Stress HR Resting HR Supine: 55 bpm Max Heart Rate (APMHR): 152 bpm Resting HR Standin bpm Target HR (85% APMHR): 129 bpm Max HR Achieved: 141 bpm % of APMHR: 92 HR response to stress: Normal HR response to stress BP Resting BP Supine: 140/76 mmHg Resting BP Standin/80 mmHg Max BP: 160/70 mmHg BP response to stress: Normal blood pressure response to stress. ECG Resting ECG: Sinus Bradycardia ST Change: Downsloping ST depression in Leads II, III, AVF and ST Depressions in Leads V3, V4, V5, and V 6 Stage: 2 and 3 Recovery ECG: Downsloping ST depression leads II III, aVF, V4 through V6 persisting through minute 8 Clinical Reason for Termination: Fatigue Stress Symptoms: Chest Heavyness (2/10) at 2 minutes 47 seconds of exercise and Bilateral Arm Weaknes s at 3 minutes and 51 seconds of exercise, both of which disapated upon immediate recovery. Exercise duration: 7 min35 sec Highest Stage Reached: Stage 3: 3.4 mph at 14% grade. Exercise capacity: 9.49 METs Functional Capacity: Above average capacity Stress ECG Conclusion 1. Resting electrocardiogram was within normal limits 2. Patient exercised on Jimbo protocol and completed a workload of 9.49 METS. She achieved 92% of pr edicted heart rate for age. Blood pressure and heart rate response to exercise were normal 3. Patient described chest heaviness with exertion which resolved with rest, consistent with angina p ectoris 4. Electrocardiographically the test was consistent with myocardial ischemia 5. There were no significant dysrhythmias Protocol Used: Jimbo Protocol Stress Test Summary STAGE Time (mins) Speed (mph) Grade (%) HR BP SYMPTOMS METS Supine 55 140/76 Standing 69 138/80 1 3 1.7 10 105 144/82 4.6 2 6 2.5 12 122 160/70 7 3 9 3.4 14 10.2 4 12 4.2 16 12.9 5 15 5.0 18 17.2 1 min recovery 91 160/58 3 min recovery 69 152/68 6 min recovery 65 144/60 9 min recovery 67 142/60 12 min recovery
== END 2019-07-14 02:16 ==
PROVIDERS: PCP Nurse Practitioner; Visit Provider Student in an Organized Health Care Education/Training Program
DX: R07.9 Chest pain, unspecified (principal); I20.8 Other forms of angina pectoris; R55 Syncope and collapse; E03.9 Hypothyroidism, unspecified; Z82.49 Family history of ischemic heart disease and other diseases of the circulatory system
CPT/HCPCS: 93016; 93018; 93017

== ENCOUNTER → 2019-08-11 11:18 | Outpatient (BNVA) | payer MEDICARE, OTHER, SELFPAY | PROVIDERS: PCP Nurse Practitioner; Referring Provider Nurse Practitioner; Visit Provider Internal Medicine Cardiovascular Disease | DX: R94.39 Abnormal result of other cardiovascular function study (principal) | CPT/HCPCS: 99204; 99443 ==

== ENCOUNTER 2019-09-06 10:07 | Outpatient (CLI) | payer OTHER, SELFPAY ==
[2019-09-07 14:44] LABS: COVID-19 RT-PCR UVMMC Result Negative (Negative)
== END 2019-09-06 10:27 ==
PROVIDERS: Nurse Practitioner Adult Health; PCP Nurse Practitioner; Visit Provider Nurse Practitioner
DX: Z11.59 Encounter for screening for other viral diseases (principal)
CPT/HCPCS: U0003

== ENCOUNTER 2019-09-14 01:52 | Outpatient (CLI) | payer OTHER, SELFPAY ==
--- NOTE | 2019-09-14 15:18 | DI.MAMMO_ITS ---
EXAM: MG MAMMO SCREENING 60 MIN DUR CLINICAL HISTORY: screening Z12.39, PERS HX BREAST CANCER, LT MASTECTOMY TECHNIQUE: Mammograms were interpreted according to the usual protocol including computer analysis w [employer] CAD system, tomosynthesis and C-view imaging. COMPARISON: FINDINGS: The patient has had a prior left mastectomy. No mass or clumped microcalcification identified in the right breast. Current examination is compared with previous examinations including January 2017 and there has been no gross interval change in appearance in comparison with the previous studies. IMPRESSION: No specific evidence of malignancy at this time. Routine screening examinations are suggested at yea rly intervals due to the history of breast carcinoma. Category: BI-RADS Cat 1 - Negative Breast Density - Category B - Scattered areas of fibroglandular density
== END 2019-09-14 02:12 ==
PROVIDERS: PCP Nurse Practitioner; Visit Provider Nurse Practitioner Adult Health
DX: Z12.31 Encounter for screening mammogram for malignant neoplasm of breast (principal); Z85.3 Personal history of malignant neoplasm of breast; Z90.12 Acquired absence of left breast and nipple
CPT/HCPCS: 77063; 77067

== ENCOUNTER 2019-10-03 08:27 | Outpatient (CLI) | payer OTHER, SELFPAY ==
[2019-10-04 23:52] LABS: SARS-CoV-2 RNA Undetected (Undetected); SARS-CoV-2 Specimen Source Nasopharynx
== END 2019-10-03 08:47 ==
PROVIDERS: PCP Nurse Practitioner; Visit Provider Surgery
DX: Z11.59 Encounter for screening for other viral diseases (principal)
CPT/HCPCS: U0003

== ENCOUNTER 2020-01-31 14:21 | Outpatient (CLI) | payer OTHER, SELFPAY ==
--- NOTE | 2020-01-31 14:30 | DI.RAD_ITS ---
EXAM: XR STANDING ALIGNMENT CLINICAL HISTORY: pre op TECHNIQUE: 2D digital imaging was performed. COMPARISON: No exams were available for comparison FINDINGS: Standing AP views were performed from the pelvis through the ankles. The hip joint spaces are well m aintained show mild periarticular spurring. There is no significant overall leg length discrepancy a t the level of the femoral heads. There are severe degenerative changes of the medial femoral tibial joint of the right knee causing mild varus angulation. The left knee joint spaces are well maintain ed. There is mild to moderate narrowing of both ankle joint spaces. IMPRESSION: Severe degenerative changes of the medial femoral tibial joint of the right knee.
== END 2020-01-31 14:41 ==
PROVIDERS: PCP Nurse Practitioner; Referring Provider Nurse Practitioner; Visit Provider Physician Assistant
DX: M17.11 Unilateral primary osteoarthritis, right knee (principal)
CPT/HCPCS: 77073

== ENCOUNTER 2020-02-03 01:40 | Outpatient (CLI) | payer OTHER, SELFPAY ==
[2020-02-03 14:34] LABS: HCT 37.1 % (36.0-46.0); HGB 12.4 g/dL (11.2-15.7); MCH 30.3 pg (27.0-33.0); MCHC 33.4 % (32.0-36.0); MCV 90.7 fL (80-95); MPV 10.4 fL (8.0-11.0); Platelet Count 270 10^3/uL (130-400); RBC 4.09 10^6/uL (3.93-5.22); RDW 12.3 % (11.7-14.6); RDW-SD 40.7 fL; WBC 4.26 10^3/uL (4.4-10.8)
[2020-02-03 15:01] LABS: Anion Gap 7.8 mmol/L (3-11); BUN 22 mg/dL (7-18); CO2 28.2 mmol/L (21.0-32.0); CREATININE 0.88 mg/dL (0.55-1.02); Calcium 8.7 mg/dL (8.5-10.1); Chloride 106 mmol/L (98-107); Glucose 105 mg/dL (74-106); Potassium 3.9 mmol/L (3.5-5.1); Sodium 142 mmol/L (136-145)
== END 2020-02-03 02:00 ==
PROVIDERS: PCP Nurse Practitioner; Visit Provider Student in an Organized Health Care Education/Training Program
DX: Z01.818 Encounter for other preprocedural examination (principal); M17.11 Unilateral primary osteoarthritis, right knee
CPT/HCPCS: 36415; 80048; 85027; U0003

== ENCOUNTER 2020-02-03 08:38 | Outpatient (CLI) | payer OTHER, SELFPAY ==
[2020-02-06 12:41] LABS: COVID-19 RT-PCR UVMMC Result Negative (Negative)
== END 2020-02-03 08:58 ==
PROVIDERS: PCP Nurse Practitioner; Visit Provider Student in an Organized Health Care Education/Training Program
DX: Z01.818 Encounter for other preprocedural examination (principal)
CPT/HCPCS: U0003

== ENCOUNTER 2020-02-08 09:59 | Observation (INO) | payer OTHER, SELFPAY ==
[2020-02-08] VITALS (7 sets, daily range): BP systolic 109–124; BP diastolic 47–66; PULSE 40–60; RESP 12–18; TEMP 36.1–36.7; O2SAT 92–100
--- NOTE | 2020-02-08 09:35 | DSE_ITS ---
Documented by User: Sharita Hewitt 02/08/20 09:40 DS: Diagnosis Discharge Diagnosis (1) Primary osteoarthritis of right knee: Status: Chronic Discharge Plan Disposition Patient Disposition: HOME Condition: Good Discharge Details Reason For Visit: Right knee TKA Admit Date/Time: 02/08/20 09:59 Admit Provider: Ta Mcgee Attending Provider: Ta Mcgee Primary Care Provider: Sheree Deng Hospital Course Hospital Course: Patient was admitted to the medical/surgical floor following the procedure. The surgery was tolerated well without any notable medical, surgical, or anesthetic complications. Mobilization began post-operatively. They were voiding spontaneously. Vitals were stable. Physical therapy worked with the patient and was cleared for discharge home. No acute medical issues. Pain was controlled on oral regimen. Home Meds and New Rx's Prescriptions: New acetaminophen 500 mg tablet 500 mg PO Q6H PRN (Reason: pain) Qty: 60 RF: 2 aspirin 81 mg tablet,delayed release (DR/EC) 81 mg PO BID 30 Days Qty: 60 RF: 0 celecoxib [Celebrex] 200 mg capsule 200 mg PO BID Qty: 60 RF: 1 docusate sodium [Colace] 100 mg capsule 100 mg PO BID Qty: 30 RF: 0 oxycodone 5 mg tablet 5 mg PO Q4H PRN (Reason: severe post-operative pain) Qty: 18 RF: 0 pantoprazole 40 mg tablet,delayed release (DR/EC) 40 mg PO DAILY Qty: 30 RF: 0 Continued ondansetron HCl [Zofran] 4 mg tablet 4 mg PO QID PRN (Reason: nausea and vomiting) Qty: 60 RF: 2 Vitamins B Complex 1 EACH tablet 1 ea PO DAILY RF: 0 cholecalciferol (vitamin D3) 1,000 UNIT tablet 1,000 unit PO DAILY RF: 0 levothyroxine [Synthroid] 75 mcg tablet 75 mcg PO DAILY Qty: 90 RF: 3 atenolol 25 mg tablet 25 mg PO DAILY Qty: 90 RF: 3 citalopram [Celexa] 20 mg tablet 20 mg PO DAILY Qty: 90 RF: 3 sumatriptan succinate [Imitrex] 100 mg tablet 100 mg PO as directed Qty: 27 RF: 6 Discontinued ibuprofen 200 mg Tablet 600 mg PO DAILY PRNRF: 0 aspirin 81 mg Capsule,Delayed Release(Dr/Ec) 81 mg PO DAILY RF: 0 No Action ibuprofen 600 mg Tablet 600 mg PO Q6H PRNRF: 0 Discharge Instructions Additional Instructions: Total Knee Discharge Instructions Activity: The most important activity is to walk. You should try to take short walks a few times a day. It is important that when resting you work on keeping the knee straight. Avoid putting a pillow behind the knee as this will encourage flexion. Work on range of motion exercises as provided by Physical Therapy. - Start outpatient physical therapy within 2 weeks. - You should wear the KAMI hose on both legs for 2 weeks. Dressing: Keep the surgical dressing in place for at least one week. After the first week it may be removed and replace with light gauze and tape or nothing. It may get wet after 3 days but avoid soaking the dressing. If it gets wet, just lightly pat dry. Medications: - You should take Tylenol and anti-inflammatory Celebrex as your primary pain control medications. If the Celebrex is too expensive or not covered, you may take Naproxen (Aleve) 2 tables twice a day. - You have been prescribed a stronger pain medication Oxycodone for breakthrough pain, take as needed as prescribed. - You have also been prescribed a stomach acid reduction agent Pantoprozole to help reduce stomach acid and reflux. - You will be taking Aspirin 81mg twice a day for DVT prevention unless instructed otherwise. - If you have constipation you should take Colace (which has been prescribed) or Miralax (which you may purchase [id number]). It takes most people 3-4 days to have a bowel movement. Follow-up: 2 weeks If you have any acute concerns or questions, please do not hesitate to contact the office at [phone]. You may contact Dr. Mcgee with any questions after hours through the hospital at [phone] or on his cell phone at [phone]. Referrals: Ta Mcgee MD [ [facility] STAFF PHYSICIAN] - Activity:: Activity as Tolerated Equipment/Supplies:: Walker Diet:: As Tolerated Discharge Orders Discharge Orders: Discharge Order (Routine); Ordered 02/08/20 Ordered By: Ta Mcgee DS: Data Vitals/I&O Vitals and I&O: Vital Signs Respiratory Effort 10/26/20 14:33 PFSH Medical History Abnormal stress test Toro's palsy Breast cancer In remission 10 years Depressive disorder (02/11/02) Hypothyroidism Migraine Surgical History Breast, Mastectomy L, 2009 History of section (~1973) History of laparotomy (~1971) Status post arthroscopy of right knee (12/12/15) Dr Archuleta - right knee w/partial medial menisectomy Status post left knee surgery For torn meniscus - unsure if arthroscopic or open Family History Grandmother , Cancer at age 70. Personal history of malignant neoplasm Colon CA, throat CA Social History Smoking/Tobacco Use Status: Never Smoking risk assessment performed?: Yes Alcohol Intake: current Alcohol Intake frequency: holidays/special occasions only Drug use: Never Substance use type: does not use Caregiver/Support person: No Foster care: No Household members: significant other Housing: house Number of Children: 2 What is your relationship status?: living with partner Panel score (0-1 are the most socially isolated patients): 1 What type of physical activity do you participate in: walking Frequency: 3-4 times per week Do you feel safe at home: Yes Do you feel safe in your relationship?: Yes Documented by User: Ta Mcgee MD 02/08/20 17:22 Date of service: 02/08/20 Time of Service: 17:21 Discharge Plan Disposition Patient Disposition: HOME Condition: Good Discharge Details Reason For Visit: Right knee TKA Admit Date/Time: 02/08/20 09:59 Admit Provider: Ta Mcgee Attending Provider: aT Mcgee Primary Care Provider: Sheree Deng Hospital Course Hospital Course: Patient was admitted to the medical/surgical floor following the procedure. The surgery was tolerated well without any notable medical, surgical, or anesthetic complications. Mobilization began post-operatively. They were voiding spontaneously. Vitals were stable. Physical therapy worked with the patient and was cleared for discharge home. No acute medical issues. Pain was controlled on oral regimen. Home Meds and New Rx's Prescriptions: New acetaminophen 500 mg tablet 500 mg PO Q6H PRN (Reason: pain) Qty: 60 RF: 2 aspirin 81 mg tablet,delayed release (DR/EC) 81 mg PO BID 30 Days Qty: 60 RF: 0 celecoxib [Celebrex] 200 mg capsule 200 mg PO BID Qty: 60 RF: 1 docusate sodium [Colace] 100 mg capsule 100 mg PO BID Qty: 30 RF: 0 oxycodone 5 mg tablet 5 mg PO Q4H PRN (Reason: severe post-operative pain) Qty: 18 RF: 0 pantoprazole 40 mg tablet,delayed release (DR/EC) 40 mg PO DAILY Qty: 30 RF: 0 Continued ondansetron HCl [Zofran] 4 mg tablet 4 mg PO QID PRN (Reason: nausea and vomiting) Qty: 60 RF: 2 Vitamins B Complex 1 EACH tablet 1 ea PO DAILY RF: 0 cholecalciferol (vitamin D3) 1,000 UNIT tablet 1,000 unit PO DAILY RF: 0 levothyroxine [Synthroid] 75 mcg tablet 75 mcg PO DAILY Qty: 90 RF: 3 atenolol 25 mg tablet 25 mg PO DAILY Qty: 90 RF: 3 citalopram [Celexa] 20 mg tablet 20 mg PO DAILY Qty: 90 RF: 3 sumatriptan succinate [Imitrex] 100 mg tablet 100 mg PO as directed Qty: 27 RF: 6 Discontinued ibuprofen 200 mg Tablet 600 mg PO DAILY PRNRF: 0 aspirin 81 mg Capsule,Delayed Release(Dr/Ec) 81 mg PO DAILY RF: 0 No Action ibuprofen 600 mg Tablet 600 mg PO Q6H PRNRF: 0 Discharge Instructions Additional Instructions: Total Knee Discharge Instructions Activity: The most important activity is to walk. You should try to take short walks a few times a day. It is important that when resting you work on keeping the knee straight. Avoid putting a pillow behind the knee as this will encourage flexion. Work on range of motion exercises as provided by Physical Therapy. - Start outpatient physical therapy within 2 weeks. - You should wear the KAMI hose on both legs for 2 weeks. Dressing: Keep the surgical dressing in place for at least one week. After the first week it may be removed and replace with light gauze and tape or nothing. It may get wet after 3 days but avoid soaking the dressing. If it gets wet, just lightly pat dry. Medications: - You should take Tylenol and anti-inflammatory Celebrex as your primary pain control medications. If the Celebrex is too expensive or not covered, you may take Naproxen (Aleve) 2 tables twice a day. - You have been prescribed a stronger pain medication Oxycodone for breakthrough pain, take as needed as prescribed. - You have also been prescribed a stomach acid reduction agent Pantoprozole to help reduce stomach acid and reflux. - You will be taking Aspirin 81mg twice a day for DVT prevention unless instructed otherwise. - If you have constipation you should take Colace (which has been prescribed) or Miralax (which you may purchase [id number]). It takes most people 3-4 days to have a bowel movement. Follow-up: 2 weeks If you have any acute concerns or questions, please do not hesitate to contact the office at [phone]. You may contact Dr. Mcgee with any questions after hours through the hospital at [phone] or on his cell phone at [phone]. Referrals: Ta Mcgee MD [ [facility] STAFF PHYSICIAN] - Activity:: Activity as Tolerated Equipment/Supplies:: Walker Diet:: As Tolerated Discharge Orders Discharge Orders: Discharge Order (Routine); Ordered 02/08/20 Ordered By: Ta Mcgee DS: Summary Status at Discharge Functional status at discharge: uses cane/walker Overall status at discharge: patient is progressing back to baseline Mental Status: mental status grossly normal Speech and Movement: speech and movement normal Mood: congruent mood Affect: normal affect Exam Psych Mental Status: mental status grossly normal Speech and Movement: speech and movement normal Mood: congruent mood Affect: normal affect [facility] Medical History Abnormal stress test Toro's palsy Breast cancer In remission 10 years Depressive disorder (02/11/02) Hypothyroidism Migraine Surgical History Breast, Mastectomy L, 2009 History of section (~1973) History of laparotomy (~1971) Status post arthroscopy of right knee (12/12/15) Dr Archuleta - right knee w/partial medial menisectomy Status post left knee surgery For torn meniscus - unsure if arthroscopic or open Family History Grandmother , Cancer at age 70. Personal history of malignant neoplasm Colon CA, throat CA Social History Smoking/Tobacco Use Status: Never Smoking risk assessment performed?: Yes Alcohol Intake: current Alcohol Intake frequency: holidays/special occasions only Drug use: Never Substance use type: does not use Caregiver/Support person: No Foster care: No Household members: significant other Housing: house Number of Children: 2 What is your relationship status?: living with partner Panel score (0-1 are the most socially isolated patients): 1 What type of physical activity do you participate in: walking Frequency: 3-4 times per week Do you feel safe at home: Yes Do you feel safe in your relationship?: Yes
[2020-02-08] MEDS: Acetaminophen 500 MG TAB 1000 MG PO ×2 (10:55→19:51)
[2020-02-08] MEDS: Celecoxib 200 MG CAP 400 MG PO (10:56)
[2020-02-08] MEDS: Gabapentin 300 MG CAP PO ×2 (10:57→22:54)
[2020-02-08] MEDS: Lactated Ringers 1,000 ML 80 ML IV ×2 (11:10→19:53)
[2020-02-08] MEDS: Midazolam 2 MG/2 ML VIAL (13:30)
[2020-02-08] MEDS: ceFAZolin 2 GM/50 ML BAG IVPB (13:34)
[2020-02-08] MEDS: Ondansetron 4 MG/2 ML VIAL 8 MG (13:35)
[2020-02-08] MEDS: Bupivacaine 0.25% Pres-Free 30 ML VIAL ×2 (14:50→15:45)
[2020-02-08] MEDS: Ketorolac 30 MG/ML VIAL (14:50)
[2020-02-08] MEDS: Normal Saline 20 ML VIAL (14:50)
[2020-02-08] MEDS: oxyCODONE 5 MG TAB PO (16:40)
--- NOTE | 2020-02-08 18:11 | NUR.NOTE ---
Nursing Note: 18:11 02/08/2020 Patient came up to floor reporting 2/10 pain at rest that jumped to a 7/10 with movement/ambulation. Patient reported feeling dizzy upon arrival to the floor and reported this is normal for her and she often passes out. Nurse administered oxycodone 10 mg for pain prior to physical therapy working with patient. Physical therapist was informed of patient reporting dizziness. Tonight at around 1800 patient reported feeling woozy and became nauseous with vomiting. Nurse informed patient that she does not need to go home if she is not comfortable being discharged tonight and can stay here at the hospital overnight, patient verbalized understanding.
[2020-02-08] MEDS: Aspirin E.C. 81 MG TABEC PO (19:51)
[2020-02-08] MEDS: Celecoxib 200 MG CAP PO (19:52)
[2020-02-08] MEDS: ceFAZolin 1 GM/50 ML BAG IVPB (19:52)
--- NOTE | 2020-02-08 21:09 | W.PM.OP ---
Date of service: 02/08/20 Time of Service: 15:09 Operative Note Operative Note DATE OF PROCEDURE: 02/08/20 PRE-OP DIAGNOSIS: Right Knee Osteoarthritis POST-OP DIAGNOSIS: same PROCEDURE: Right Total Knee Replacement SURGEON: Ta Mcgee HEAVY EQUIPMENT OPERATING ENGINEER: Sharita Hewitt ANESTHESIA: regional and spinal ESTIMATED BLOOD LOSS: 200 PATHOLOGY: none sent TOURNIQUET TIME: 0 COMPLICATIONS: None Patient was transported to: PACU Patient's condition: stable Implants: 1. Depuy Attune Cementless Cruciate Retaining Femoral Component, Size 7 2. Depuy Attune Cementless Rotating Platform Tibial Component, Size 5 3. Depuy Attune 7x7 CR/RP Poly 4. Depuy Attune Patellar Component, Size 38mm Indications: I have seen Karen in clinic for symptoms of knee arthritis, confirmed with radiographic findings. Karen has exhausted nonoperative methods and was having significant limitations in daily function and desired better function and less pain. I discussed the technical details of a knee replacement. I explained the risks of the procedure to include, but not limited to, bleeding, infection, pain, stiffness, fracture, damage to nerves and vessels, damage to muscles and tendons, loosening, need for repeat procedure, blood clot and cardiopulmonary demise. Despite these risks, she elected to proceed. Findings: There was significant signs of arthritis throughout the knee. Procedure Description: Karen was greeted in the preoperative holding area where the correct side was identified and marked. The consent was reviewed with the patient and signed. The history and physical was updated. All questions were answered. Preoperative medications were administered: Acetaminophen 1000mg, Celebrex 400mg, and Gabapentin 300mg. An adductor canal block was then administered by the anesthesia team in the PACU. Karen was taken back to the operating room. A spinal anesthestic was then administered. The patient was placed into the supine position on the operating room table. A nonsterile tourniquet was placed high onto the leg but only used for cementing. Posts were placed for positioning during the procedure. All bony prominences were well padded. Prophylactic antibiotics in the form of Cefazolin were administered. 1g of Tranxemic Acid was given intravenously within 30 minutes of incision. The right leg was then prepped with Chloraprep and draped in a standard fashion with impervious stockinette. A second prep with Chloraprep was performed prior to application of Iodine impregnated skin protection. A timeout to confirm correct identity, side and site, procedure, allergies, anesthesia, and medical concerns was performed. With the knee in some flexion, a midline incision was made overlying the knee. Full thickness skin flaps were raised once the extensor mechanism was encountered. These were raised medially and laterally. Any bleeding was controlled with electrocautery. Once the extensor mechanism was fully exposed, a medial parapatellar arthrotomy was performed in a flexed position. All bleeding from the arthrotomy and the geniculate arteries was coagulated. A medial subperiosteal peel was performed with electrocautery to the midcoronal plane. The fat pad was removed while keeping the patellar tendon protected. The anterior distal femur synovium was removed for later visualization. The ACL and PCL were resected and the anterior horn of the lateral meniscus was transected. The knee was then flexed with the patella everted. Large osteophytes from the tibia were removed. Large osteophytes from the femur were removed. Using a step drill, and based on preoperative templating, the femoral canal was entered. This was done with a step drill without any difficulty. The intramedullary distal femoral cut guide was inserted, set to a 5 degree valgus cut and 9mm cut thickness. The distal femoral cut guide was then held in position and pinned. With the soft tissues protected, the distal cut was performed. This was passed over a few times to ensure a planar cut. I then turned attention to the tibia. The extramedullary guide was placed onto the leg. The distal aspect was slid medial to adjust for position of center of ankle and stay in line with shaft of the tibia. Approximately 3-5 degrees of posterior slope was kept in the proximal cutting guide. The center of the guide was aligned with the PCL. The stylus was used to assess cut thickness. The medial side, most involved side, was set for a 3mm cut. This was then held in position and pinned into place with 2 additional pins and a cross pin for stability. The medial and lateral collateral ligaments were protected and the cut was performed. With this completed, it was assessed and noted to be of appropriate dimensions. The guide was removed. A spacer block was inserted and the knee was brought into extension. The 7mm spacer block provided full extension, without hyperextension and with stability of both the medial and lateral collateral ligaments was assessed. The pins from the femur and the tibia were then removed. The distal femur was then sized. The anterior stylus was placed onto the lateral ridge of the anterior femur. This indicated a size 7 femur. The external rotation of the guide was adjusted to 3 degrees to match the epicondylar axis, perpendicular to [place]?s line. The 4-in-1 cutting guide was the placed. The posterior medial femur cut was evaluated and appeared of good thickness. The spacer block was inserted underneath the cutting guide and stability was confirmed in 90 degrees of flexion. An nallely wing was used to confirm appropriate position of the anterior cut to avoid notching. This cutting guide was ensured to be flush on the cut surface and then pinned into place with headed pins. While protecting the soft tissues, quad tendon, and collateral ligaments, the anterior and posterior cuts were performed with a saw. The central two pins were removed and the posterior and anterior chamfers were cut next. The notch-cutting guide was placed. This was pinned to lateralize the femoral component as much as possible while keeping it flush on the cut surface. This was then pinned into position. A reciprocating saw was used to make the notch cut. A rasp smoothed the cut surfaces. The medial and lateral menisci were removed. A trial femoral component was then inserted, impacted down to the cut surfaces, and the lug holes were drilled. A provisional trial tibial component was placed and the knee was brought through range of motion. There was noted to be excellent extension and flexion. There was no significant instability. The patella was tracking without thumbs. A size 7mm polyethylene component provided the best range of motion and stability with less than 2mm gapping with medial and lateral stress and full extension without significant hyperextension. The tibial cut surface was fully exposed. The tibia was then sized as a 5. The tibia had been previously marked during trialing to correspond to the center of the tibial component to help with rotation. The trial was aligned to this giovanna, approximately rotated to the medial 1/3rd of the tibial tubercle. The trial was pinned into place. The tibia was prepared with a reamer and a keel punch and lug holes. The knee was then brought into extension and the patella was measured as 25mm. Using the patellar clamp and cut guide, this was resected to a flat surface with at least 13mm of thickness remaining. The size 38mm patella fit the best. This was oriented and then clamped into position. The lugs were drilled. The trial components were removed. The final components were opened on the back table. The periosteal and capsular tissues, especially posteriorly, around the knee were then systematically injected with a periarticular cocktail consisting of 50cc 0.25% Marcaine, 30mg Ketorolac, 20cc of Exparal and 50cc of injectable saline. The knee was thoroughly irrigated with a pulse lavage and dried. Irrisept was also used to irrigate the tissues. On the back table, with the implants opened, the cement was mixed. One batche of high viscosity cement were prepared with vacuum assistance. After the cement was ready a small amount was placed on the cut surface of the patella and the patellar button was clamped into position and held. During this process attention was turned to the gutters of the knee and for all interfaces for any excess cement. While the cement was hardening, the cementless knee components were placed. Starting with the tibial component, the tibia was subluxed anteriorly and the lug holes of the component were lined up. The tibia was then impacted with an impactor and mallet until the tibial component was in contact with the tibia. The final polyethylene component was inserted. Then, the femoral component was inserted. The lug holes were aligned and the component was impacted into position. The knee was irrigated with Irrisept chlorhexadine solution. This was allowed to sit in the knee for 3 minutes. After the cement had finally cured, approximately 15min, the clamp was removed from the patella and the knee was taken through range of motion. The patella was tracking with a no-thumbs technique. The capsule was then reapproximated with a No. 1 Vicryl at multiple locations. The capsule was finally closed with a No. 2 Stratafix, barbed suture. The tourniquet was then released and the arthrotomy appeared watertight without significant bleeding. The second dosing of 1g TXA was started. Deep tissues were then reapproximated with 0 Vicryl and 2-0 Vicryl. The skin was closed with a running 3-0 Monocryl in a subcuticular fashion. This was reinforced with skin glue. A Mepilex silver dressing was applied along with a [id number] BRONSON wrap. A CryoCuff was applied. Karen was transferred to the hospital bed without difficulty an suffering no apparent complication. Karen has a good prognosis. Physical therapy will start today and without restrictions, weight-bearing as tolerated. Aspirin 81mg BID will be used for DVT prophylaxis.
[2020-02-09 03:05] VITALS: BP 143/66; PULSE 65; RESP 17; TEMP 36.6; O2SAT 94
[2020-02-09] MEDS: ceFAZolin 1 GM/50 ML BAG IVPB (04:26)
[2020-02-09] MEDS: Levothyroxine 75 MCG TAB PO (06:22)
--- NOTE | 2020-02-09 07:07 | PT.INIE ---
PT Notes Visit Reasons: Right knee TKA Date: 02/08/2020 Referring: Ta Mcgee MD MD diagnosis: Status post right TKA PT diagnosis: Status post right TKA Subjective: Patient is alert and oriented x3 with complaints of some mild discomfort throughout the anterior aspect the knee with endrange knee flexion. No complaints of lightheadedness, dizziness or nausea. Objective: A 70-year-old female with osteoarthritis of the right knee, status post right TKA earlier today. Functional mobility: She is independent with assuming the supine to sitting to standing positions. She was independent with all ADLs prior to today's surgery. Social: Owns a home but is currently living with a significant other who can assist her with some of her ADLs such as donning and doffing her shoes and socks, meals and head athletic trainer. She is retired. She has a ranch-style home without adaptive equipment in her bathroom although she has a walk-in shower. Gait: Ambulated approximately 200 feet with a wheeled walker weightbearing as tolerated right lower extremity with stable gait. I provided standby supervision with minimal contact guarding. She was able to ascend and descend 4 steps with a railing with proper technique. Articular: She has good functional range of motion of her right hip, talocrural, subtalar joints without pain on movement. Right assistive right knee motion is -5 to 90 degrees with endrange joint throughout the anterior aspect of her knee. Her tibial external rotation is 30 degrees and internal rotation 10 degrees. She has +2 PA glides at the tibiofemoral joint. Did not test her patella movement. Neuro: Able to actively flex and extend her right ankle and digits are sensations intact to light touch. Treatment: [id number] Total treatment time: 45 minutes Assessment: Patient is a 70-year-old female with osteoarthritis of the right knee status post right total knee replacement earlier today. She was independent with all of her bed mobility activities and gait with appropriate range of motion of her right knee. Short-term goals: 6 weeks Increase range of motion of the right knee from -5 to 115 degrees, with ambulation up to 1/4 mile without an assistive device, independent with all ADLs Long-term goals: 12 weeks Range of motion 0 to 120 degrees and return to normal functional activities Plan: Today consisted of evaluation, patient education, manual mobilization of the right tibiofemoral joint and issuing her written and illustrated home exercise program consisting of quad and gluteal sets, ankle pumping, gentle prolonged stretch into knee flexion and extension as well as total knee replacement precautions. She will discuss outpatient PT appointments with her surgeon. Disclaimer: This note was created using [employer] voice recognition software. It was reviewed for major content. However, there may be multiple small discrepancies and errors due to the voice recognition aspects of the software. Please sign and return this document to [facility] as soon as possible if you agree with the above POC. Thank you. Provider Signature Date [facility]
[2020-02-09 07:37] VITALS: BP 122/62; PULSE 54; RESP 17; TEMP 36.7; O2SAT 96
[2020-02-09] MEDS: Vitamins B Comp w/C TAB 1 TAB PO (07:59)
[2020-02-09] MEDS: Cholecalciferol (Vitamin D3) 1,000 UNIT TAB 1000 UNITS PO (08:00)
[2020-02-09] MEDS: Citalopram 20 MG TAB PO (08:00)
[2020-02-09] MEDS: Pantoprazole 40 MG TABCR PO (08:00)
[2020-02-09] MEDS: Aspirin E.C. 81 MG TABEC PO (08:00)
[2020-02-09] MEDS: Acetaminophen 500 MG TAB 1000 MG PO (08:00)
[2020-02-09 08:04] VITALS: PULSE 58
[2020-02-09] MEDS: Celecoxib 200 MG CAP PO (08:04)
--- NOTE | 2020-02-09 08:05 | W.PM.PROGNOT ---
Date of Service Date of service: 02/09/20 Time of Service: 08:08 Assessment and Plan Assessment and plan (1) Localized osteoarthritis of right knee: Status: Acute Assessment and plan: Karen is a 70-year-old who is status post right knee replacement for knee arthritis. She is doing well. She did have some significant nausea yesterday with emesis. However, she is much better now. She does have some pain this morning but it is controlled on oral agents. We will discharge home today. Nursing may remove the Jonathan wrap and place a KAMI hose on the operative side. Subjective Subjective Interval history since last seen: Karen reports be doing better this morning. She was planning to discharge home yesterday but developed some nausea. She eventually had emesis x1 last night. She has been able to ambulate with nursing assistance. She has had some pain but can manage it with oral medications. She denies any chest pain or shortness of breath. Exam Narrative Exam Narrative: Right knee dressing is clean dry and intact. Straight leg raise intact. Knee is held about 15 degrees of flexion. She has intact ankle dorsiflexion, plantarflexion, eversion, inversion, EHL, FHL. Sensation intact light touch over the deep and superficial peroneal nerves and tibial nerve. Objective Last Vital Signs Temp 36.7 C 02/09/20 07:37 Pulse 58 L 02/09/20 08:04 Resp 17 02/09/20 07:37 BP 122/62 02/09/20 07:37 Pulse Ox 96 02/09/20 07:37
--- NOTE | 2020-02-09 09:38 | PT.INTREAT ---
PT Notes Visit Reasons: Right knee TKA Inpatient Physical Therapy Treatment Note [facility] Date: 02/09/20 PRECAUTIONS: R TKA, fall risk SUBJECTIVE: Karen reports being nauseous and faint feeling this morning. Seems to be getting better at time of PT visit. She is resting in bed with ice on right knee. Did have some breakfast. She is eager to get up this morning. OBJECTIVE: PAIN: right knee BED MOBILITY/TRANSFERS Supine-sit: Ind with use of rails Sit-supine: Ind with use of rails Sit-stand: SBA - cues for hand on bed Stand-sit: SBA Poor control GAIT Assistive Device: FWW Weight bearing: WBAT Assist: CGA to supervision Distance: 110' x2 Deviation: Posterior lean with ambulation, unsteady on feet, sometimes gets ahead of herself THEREX: Supine glute & quad sets, knee flexion, ankle pumps STAIRS: Step to gait with bilaterl rails, 5 steps up and down ASSESSMENT: Karen is independent with bed mobility. She needs a couple attempts for sit to stand and reminded to keep one hand on bed for better stability. She was able to walk 110' and take seated rest before doing stairs and returning to room. Her balance is unsteady in standing. Overall she reports pain in right knee and fatigue. At end of session returned to bed with ice on right knee and call light in reach. Instructed her to schedule outpatient PT, ice at home, do exercises given in protocol. PLAN: D/C home today with significant other, outpatient PT TREATMENT CODE/TIME: [id number] 9:00-9:25 25 minutes
== END 2020-02-09 11:40 | disposition home or self-care (01) ==
LOC: PDS 10:09 → MS 16:10 → PDS 21:33
PROVIDERS: Admitting Provider Student in an Organized Health Care Education/Training Program; PCP Nurse Practitioner; Visit Provider Student in an Organized Health Care Education/Training Program
PROC: (CPT 27447; principal; 2020-02-08 14:15)
DX: M17.11 Unilateral primary osteoarthritis, right knee (principal); E03.9 Hypothyroidism, unspecified; Z85.3 Personal history of malignant neoplasm of breast; F32.9 Major depressive disorder, single episode, unspecified
CPT/HCPCS: 27447; 76942; 97110; 97140; 97161; 97530; NC; G0378; J0690; J1885; J2001; J2250; J2405

== ENCOUNTER 2020-02-20 16:54 | Outpatient (REF) | payer OTHER, SELFPAY | END 2020-02-20 17:14 | LOC: LBN 16:54 | PROVIDERS: PCP Nurse Practitioner; Visit Provider Nurse Practitioner Adult Health | DX: R35.0 Frequency of micturition (principal) | CPT/HCPCS: 87077; 87086; 87186 ==

== ENCOUNTER 2020-02-23 15:08 | Outpatient (CLI) | payer OTHER, SELFPAY ==
--- NOTE | 2020-02-23 13:45 | DI.RAD_ITS ---
EXAM: XR STANDING ALIGNMENT and XR knee RT 1 the CLINICAL HISTORY: f/u R TKA. TECHNIQUE: 2D digital imaging was performed. COMPARISON: CR XR STANDING ALIGNMENT from 01/31/2020 FINDINGS: The hips are unremarkable. Postsurgical changes of a right total knee replacement are present. The orthopedic hardware appears in good position. The bones are intact. The soft tissues are unremarkab le. The left hip is grossly unremarkable. There is a well-circumscribed osseous density medial to t he medial femoral condyle which appears old. The ankles are unremarkable. The right lower extremity measures 89.8 cm. The left lower extremity measures 89.4 cm. IMPRESSION: 1. Stable right THR. 2. No significant leg length discrepancy. DATA REPOSITORY: RADIATION DOSE DELIVERED:
== END 2020-02-23 15:28 ==
PROVIDERS: PCP Nurse Practitioner; Referring Provider Nurse Practitioner; Visit Provider Student in an Organized Health Care Education/Training Program
DX: Z96.651 Presence of right artificial knee joint (principal)
CPT/HCPCS: 73560; 77073

== ENCOUNTER 2020-03-20 04:34 | Outpatient (CLI) | payer OTHER, SELFPAY ==
[2020-03-20 10:12] LABS: ALT 13 U/L (14-59); AST 12 U/L (15-37); Albumin 3.8 g/dL (3.4-5.0); Alkaline Phosphatase 85 U/L (46-116); Anion Gap 9.6 mmol/L (3-11); BUN 28 mg/dL (7-18); Bilirubin, Total 0.6 mg/dL (0.2-1.0); CO2 28.4 mmol/L (21.0-32.0); CREATININE 0.96 mg/dL (0.55-1.02); Calcium 8.6 mg/dL (8.5-10.1); Calculated LDL 101 mg/dL (<100); Chloride 104 mmol/L (98-107); Cholesterol 175 mg/dL (<200); Estimated GFR 57.63 (mL/min/1.73m2); Glucose 100 mg/dL (74-106); HDL Cholesterol 57 mg/dL (40-60); Sodium 142 mmol/L (136-145); TSH (W/Ref FT4) 1.25 uIU/mL (0.36-3.74); Total Protein 6.8 g/dL (6.4-8.2); Triglyceride 85 mg/dL (<150)
== END 2020-03-20 04:54 ==
PROVIDERS: PCP Nurse Practitioner; Visit Provider Nurse Practitioner
DX: E03.9 Hypothyroidism, unspecified (principal); I10 Essential (primary) hypertension
CPT/HCPCS: 36415; 80053; 80061; 84443

== ENCOUNTER 2020-10-25 01:34 | Outpatient (CLI) | payer OTHER, MEDICARE, SELFPAY ==
--- NOTE | 2020-10-25 07:05 | DI.MAMMO_ITS ---
Exam(s) MG MAMMO SCREENING 60 MIN DUR EXAM: MG MAMMO SCREENING 60 MIN DUR CLINICAL HISTORY: breast cancer screening,PERSONAL H/O BREAST CA,Z85.3,Z12.39. TECHNIQUE: Unilateral right full field digital CC and MLO mammographic images were obtained with 3D tomosynthesis and utilizing computer aided detection (CAD). This patient has had prior left mastectom y. COMPARISON: Prior mammograms dating back to 2010, the most recent being September 2019. FINDINGS: There are multiple asymmetric densities in the right breast which are unchanged from prior studies. Benign-appearing macro calcification also again noted. There are no new spiculated masses nor malignant appearing microcalcification groups. There is no significant architectural distortion nor skin thickening-retraction. IMPRESSION: Stable benign findings. No obvious radiographic evidence of malignancy in the right breast. BI-RADS Category 2 - Benign Findings Breast Density - Category B - Scattered areas of fibroglandular density Breast density Category C or D implies that the patient has dense breast tissue. Dense breast tissue can make it harder to find cancer on a mammogram. Dense breast tissue is also associated with an incr eased risk of breast cancer. This information about the result of the mammogram report was provided to the patient to raise their awareness. Use this report when you speak with the patient about their risks for breast cancer, which includes their family history. At that time, you may recommend additional screening tests (Ultrasoun d or MRI) as these tests may add significant information. A negative radiographic report should not delay biopsy if a dominant or clinically suspicious mass is present. Up to ten percent of cancers are not identified on mammography. A negative report may reinforce clinical impression. Adenosis and dense breasts may obscure an underlying neoplasm. False positive reports average 6 to 10%. Patient will receive a letter notifying them of these results.
== END 2020-10-25 01:54 ==
PROVIDERS: PCP Nurse Practitioner; Visit Provider Nurse Practitioner
DX: Z12.31 Encounter for screening mammogram for malignant neoplasm of breast (principal); R92.8 Other abnormal and inconclusive findings on diagnostic imaging of breast; Z85.3 Personal history of malignant neoplasm of breast
CPT/HCPCS: 77063; 77067

== ENCOUNTER 2021-03-14 10:36 | Outpatient (CLI) | payer OTHER, SELFPAY ==
--- NOTE | 2021-03-14 10:03 | DI.RAD_ITS ---
Exam(s) XR KNEE RT 2V AP,LAT EXAM: XR KNEE RT 2V AP,LAT CLINICAL HISTORY: ANNUAL F/U R TKA. TECHNIQUE: 2D digital imaging was performed. COMPARISON: CR XR KNEE RT 1V from 02/23/2020 FINDINGS: Is stable position alignment of the components of the prosthesis. No fracture or loosening evident IMPRESSION: DATA REPOSITORY: RADIATION DOSE DELIVERED:
== END 2021-03-14 10:37 | disposition home or self-care (01) ==
LOC: DIORS 10:38
PROVIDERS: PCP Nurse Practitioner; Visit Provider Student in an Organized Health Care Education/Training Program
DX: Z96.651 Presence of right artificial knee joint (principal)
CPT/HCPCS: 73560

== ENCOUNTER 2021-05-17 00:46 | Outpatient (CLI) | payer OTHER, SELFPAY ==
--- NOTE | 2021-05-17 08:00 | DI.DEXA_ITS ---
Exam(s) XR DEXA BONE DENSITY W/WO ANGIE EXAM: XR DEXA BONE DENSITY W/WO ANGIE CLINICAL HISTORY: screening FOR OSTEOPOROSIS IN POSTMENOPAUSAL WOMAN,Z78.0 TECHNIQUE: COMPARISON: Comparison examination is 01/16/2009. FINDINGS: Lateral Spine Image: Unremarkable. No compression deformities identified. Left hip: Total T-Score: -1.3. This compares to 0.4 on the prior examination. Total Z-Score: 0.3 T- and Z-scores: Findings consistent with osteopenia. Lumbar Spine: Total T-Score: -0.8. This compares to 1.9 on the prior examination. Total Z-Score: 1.3 T- and Z-scores: Within normal limits. IMPRESSION: Osteopenia in the left hip. No evidence of osteoporosis.
== END 2021-05-17 01:06 ==
PROVIDERS: PCP Nurse Practitioner; Visit Provider Nurse Practitioner
DX: M85.88 Other specified disorders of bone density and structure, other site (principal); Z78.0 Asymptomatic menopausal state
CPT/HCPCS: 77080

== ENCOUNTER 2021-09-24 02:36 | Outpatient (CLI) | payer OTHER, SELFPAY ==
[2021-09-24 08:55] LABS: Abs Immature Grans 0.01 10^3/uL (0.0-0.06); Absolute Basophil Count 0.02 10^3/uL (0.0-0.2); Absolute Eosinophil Count 0.37 10^3/uL (0.0-0.7); Absolute Lymphocyte Count 1.39 10^3/uL (1.2-3.4); Absolute Monocyte Count 0.49 10^3/uL (0.1-0.8); Absolute Neutrophil Count 2.32 10^3/uL (1.2-6.7); Basophils % 0.4; HCT 37.6 % (36.0-46.0); HGB 12.7 g/dL (11.2-15.7); Immature Grans % 0.2; Lymphocytes % 30.2; MCH 30.8 pg (27.0-33.0); MCHC 33.8 % (32.0-36.0); MCV 91 fL (80-95); MPV 10.6 fL (8.0-11.0); Monocytes % 10.7; Neutrophils % 50.5; Platelet Count 242 10^3/uL (130-400); RBC 4.12 10^6/uL (3.93-5.22); RDW 12.7 % (11.7-14.6); RDW-SD 41.8 fL
[2021-09-24 09:38] LABS: ALT < 6 U/L (14-59); AST 10 U/L (15-37); Albumin 3.7 g/dL (3.4-5.0); Alkaline Phosphatase 77 U/L (46-116); Anion Gap 8.2 mmol/L (3-11); BUN 27 mg/dL (7-18); Bilirubin, Total 0.6 mg/dL (0.2-1.0); CO2 27.8 mmol/L (21.0-32.0); CREATININE 0.9 mg/dL (0.55-1.02); Calcium 8.5 mg/dL (8.5-10.1); Calculated LDL 112 mg/dL (<100); Chloride 105 mmol/L (98-107); Cholesterol 198 mg/dL (<200); Glucose 102 mg/dL (74-106); HDL Cholesterol 76 mg/dL (40-60); Potassium 4.1 mmol/L (3.5-5.1); Sodium 141 mmol/L (136-145); TSH (W/Ref FT4) 1.01 uIU/mL (0.36-3.74); Total Protein 6.8 g/dL (6.4-8.2); Triglyceride 52 mg/dL (<150)
== END 2021-09-24 02:37 | disposition home or self-care (01) ==
LOC: LBO 02:37
PROVIDERS: Absent Provider Nurse Practitioner; PCP Nurse Practitioner; Referring Provider Nurse Practitioner; Visit Provider Nurse Practitioner
DX: I10 Essential (primary) hypertension (principal); E03.9 Hypothyroidism, unspecified; J45.909 Unspecified asthma, uncomplicated; Z13.220 Encounter for screening for lipoid disorders
CPT/HCPCS: 36415; 80053; 80061; 84443; 85025

== ENCOUNTER → 2021-10-10 01:36 | Outpatient (CLI) | payer OTHER, SELFPAY ==
--- NOTE | 2021-10-10 07:45 | DI.MRI_ITS ---
Exam(s) MR UPPER JOINT RT WO EXAM: MR UPPER JOINT RT WO CLINICAL HISTORY: rt shoulder pain, h/o rotator cuff tear,m25.511,r52,z87.39. TECHNIQUE: Multiplanar multisequence MRI was performed. COMPARISON: MR MRI R UPPER JOINT WO CONT from 07/05/2014 FINDINGS: The examination is limited due to patient motion artifact. BONES: There is no fracture or contusion pattern. There are postsurgical changes of a prior rotator c uff repair. JOINTS: Mild degenerative changes are seen at the acromioclavicular joint. There are degenerative ch anges seen at the glenohumeral joint with cartilage thinning and spurring of the humeral head. There is also superior subluxation of the humeral head relative to the glenoid consistent with rotator cuf f tear. TENDONS: Supraspinatus: There is a re-tear of the supraspinatus tendon with mild retraction almost to the acro mioclavicular joint. Infraspinatus: There is hyperintense signal seen in the region of the infraspinatus tendon near its i nsertion site next to supraspinatus tendon suspicious for partial tear. Subscapularis: Unremarkable. Teres Minor: Unremarkable. Biceps and [place]: Unremarkable. MUSCLES: Unremarkable. GLENOID LABRUM: Unremarkable on this noncontrast examination. SOFT TISSUES: Unremarkable. LIGAMENTS: The cortical clavicular ligaments are intact. OTHER: There is fluid in the subacromial subdeltoid bursa. IMPRESSION: 1. Examination limited by patient motion artifact. 2. Findings of a re-tear of the supraspinatus tendon with mild retraction almost to the acromioclavic ular joint. 3. Findings suspicious for tear of the superior aspect of the infraspinatus tendon. 4. Postsurgical changes seen in the humeral head consistent with prior rotator cuff repair. 5. Degenerative changes of the acromioclavicular and glenohumeral joints. DATA REPOSITORY:
--- NOTE | 2021-10-10 07:45 | DI.RAD_ITS ---
Exam(s) XR STERNUM EXAM: XR STERNUM CLINICAL HISTORY: bony abnormality,prominent sternum,q79.9. TECHNIQUE: 2D digital imaging was performed. Three images were obtained. COMPARISON: CT CT ABDOMEN PELVIS W from 07/12/[address] CHEST PE CTA from 07/12/2019 FINDINGS: BONES: No acute fracture is present. No bony destructive lesion is seen. There is mild prominence of the sternal costal joint, right greater than left. This has a similar appearance to that seen on th e CT scan of the chest from 07/12/2019. JOINTS: No dislocation present. SOFT TISSUE: Normal. IMPRESSION: No acute abnormality of the sternum. DATA REPOSITORY: RADIATION DOSE DELIVERED:
== END ==
PROVIDERS: PCP Nurse Practitioner; Visit Provider Nurse Practitioner
DX: M19.011 Primary osteoarthritis, right shoulder (principal); Z87.39 Personal history of other diseases of the musculoskeletal system and connective tissue
CPT/HCPCS: 71120; 73221

== ENCOUNTER 2021-10-22 11:19 | Outpatient (CLI) | payer OTHER, SELFPAY ==
--- NOTE | 2021-10-22 10:45 | DI.RAD_ITS ---
Exam(s) XR SHOULDER RT COMPLETE 2+V EXAM: XR SHOULDER RT COMPLETE 2+V CLINICAL HISTORY: right shoulder pain. TECHNIQUE: 2D digital imaging was performed of the right shoulder. Two images were obtained. AP an d axillary views were obtained. COMPARISON: CR RIGHT SHOULDER COMPLETE from 06/24/2014 MR MR UPPER JOINT RT WO from 10/10/2021 FINDINGS: BONES: No acute fracture is present. No bony destructive lesion is seen. Note is again made of an os acromiale. JOINTS: No dislocation present. Degenerative changes are seen at the acromioclavicular joint and the greater tuberosity. SOFT TISSUE: Normal. IMPRESSION: Mild degenerative changes about the shoulder. DATA REPOSITORY: RADIATION DOSE DELIVERED:
== END 2021-10-22 11:20 | disposition home or self-care (01) ==
LOC: DIORS 11:19
PROVIDERS: PCP Nurse Practitioner; Referring Provider Nurse Practitioner; Visit Provider Student in an Organized Health Care Education/Training Program
DX: M25.511 Pain in right shoulder (principal)
CPT/HCPCS: 73030

== ENCOUNTER 2021-10-28 14:37 | Outpatient (REF) | payer OTHER, SELFPAY | END 2021-10-28 14:38 | disposition home or self-care (01) | LOC: LBN 14:37 | PROVIDERS: PCP Nurse Practitioner; Visit Provider Nurse Practitioner | DX: R35.0 Frequency of micturition (principal) | CPT/HCPCS: 87086 ==

== ENCOUNTER → 2021-11-01 00:38 | Outpatient (CLI) | payer OTHER, SELFPAY ==
--- NOTE | 2021-11-01 10:45 | DI.MAMMO_ITS ---
Exam(s) MG MAMMO SCREENING 60 MIN DUR EXAM: MG MAMMO SCREENING 60 MIN DUR CLINICAL HISTORY: breast cancer screening,H/O BREAST CA,Z85.3 TECHNIQUE: Right mammogram images were performed according to the usual protocol including compute r analysis with CAD system, tomosynthesis and C-view imaging. COMPARISON: 2011 through 2020 FINDINGS: The right breast is composed of scattered fibroglandular densities, Breast Density category B. No suspicious masses or suspicious microcalcifications are seen. Mild post biopsy scarring is again noted inferiorly. No skin thickening or abnormal axillary lymph nodes are seen. . IMPRESSION: BI-RADS Cat 2 - Benign Findings Yearly screening mammography is recommended. Breast Density - Category B, scattered fibroglandular densities. A negative radiographic report should not delay biopsy if a dominant or clinically suspicious mass is present. Up to ten percent of cancers are not identified on mammography. A negative report may reinforce clinical impression. Adenosis and dense breasts may obscure an underlying neoplasm. False positive reports average 6 to 10%. Patient will receive a letter notifying them of these results.
== END ==
PROVIDERS: PCP Nurse Practitioner; Visit Provider Nurse Practitioner
DX: Z12.31 Encounter for screening mammogram for malignant neoplasm of breast (principal); R92.8 Other abnormal and inconclusive findings on diagnostic imaging of breast; Z85.3 Personal history of malignant neoplasm of breast
CPT/HCPCS: 77063; 77067

== ENCOUNTER 2022-03-14 10:44 | Outpatient (CLI) | payer OTHER, SELFPAY ==
--- NOTE | 2022-03-14 09:45 | DI.RAD_ITS ---
Exam(s) XR KNEE RT 2V AP,LAT EXAM: XR KNEE RT 2V AP,LAT INDICATION: ANNUAL F/U R TKA. COMPARISON: CR XR KNEE RT 2V AP,LAT from 03/14/2021 TECHNIQUE: 2D digital imaging was performed. Two views. FINDINGS: There has been no change in the alignment of the total knee prosthesis or appearance of the surroundi ng bone. DATA REPOSITORY: RADIATION DOSE DELIVERED:
== END 2022-03-14 10:45 | disposition home or self-care (01) ==
LOC: DIORS 10:44
PROVIDERS: PCP Nurse Practitioner; Referring Provider Nurse Practitioner; Visit Provider Student in an Organized Health Care Education/Training Program
DX: Z96.651 Presence of right artificial knee joint (principal)
CPT/HCPCS: 73560

== ENCOUNTER 2022-09-27 18:38 | Emergency (ER) | payer OTHER, SELFPAY ==
--- NOTE | 2022-09-27 18:30 | RT.EKG_ITS ---
APPROVED REPORT Exam: Resting ECG Reason for Exam: chest pain Patient Location: E HR:62 bpm ECG Measurements Heart Rate 62 AXIS RI 191 P 64 QRSd 74 QRS 61 QT 382 T 71 QTc 387 Conclusion Sinus rhythm...normal P axis, V-rate 60- 99 Consider left ventricular hypertrophy...(S V1+R V5/V6) >3.25mV I have reviewed and interpreted ECG and agree with software generated interpretation. There are no significant changes compared to prior EKG performed on 07/12/2019 at 10:18.
[2022-09-27 18:41] VITALS: BP 141/63; PULSE 63; RESP 18; TEMP 36.7; O2SAT 98
--- NOTE | 2022-09-27 18:44 | ED.GENADUL_ITS ---
Discharge Plan Disposition Patient Disposition: Home Condition: Good Discharge Details Clinical Impression: Mild reactive airways disease, URI (upper respiratory infection), Right thyroid nodule Primary Care Provider: Sheree Deng ED Provider: Walter Lua [place] Meds and New Rx's Prescriptions: New albuterol sulfate [Ventolin HFA] 90 mcg/actuation Hfa Aerosol Inhaler 2 puff inhalation Q4H PRN (Reason: cough, wheeze) Qty: 8.5 0RF Inhaler, Assist Devices [Pocket Chamber] 1 ea miscellaneous DIRECTED Qty: 1 0RF Continued ibuprofen 200 mg capsule 200 mg PO Q6H PRN Vitamins B Complex 1 EACH tablet 1 ea PO DAILY cholecalciferol (vitamin D3) 1,000 UNIT tablet 1,000 unit PO DAILY atenolol 25 mg tablet 25 mg PO DAILY Qty: 90 3RF Rx Instructions: migraine prevention levothyroxine [Synthroid] 75 mcg tablet 75 mcg PO DAILY Qty: 90 3RF Rx Instructions: thyroid hormone sertraline 50 mg tablet 75 mg PO DAILY Qty: 135 3RF sumatriptan succinate [Imitrex] 100 mg tablet 100 mg PO as directed Qty: 27 6RF Patient Comments: pt took half a pill 0n 02/07/2020 Rx Instructions: for Headaches, as directed, may repeat x1:up to 3 days/wk acetaminophen 500 mg tablet 500 mg PO Q6H PRN (Reason: pain) Qty: 60 2RF Discharge Instructions Instructions: Upper Respiratory Infection (ED), Reactive Airways Disease (ED) Additional Instructions: There is no evidence of pneumonia and your symptoms improved with use of nebulizer. Likely viral URI with reactive airway. You may use albuterol in haler 2 puffs every 4-6 hours to help with symptoms. Your labs were otherwise reassuring. As we discussed there is an enlarging nodule in the right side of your thyroid. Please follow-up with primary care and consider referral to ENT. Return to ED for any increased shortness of breath, new or worsening chest pain, confusion, other concerns. Medical Decision Making Patient presenting to ED with complaint of chest discomfort/heaviness, cough and shortness of breath. She does describe some pleuritic component but also reports cough caused by deep breathing. EKG is sinus rhythm with LVH no acute ST changes. There is no change from prior. Her lungs are clear but her symptoms seem consistent with reactive airway. Will give DuoNeb to see if there is any improvement. Will obtain chest x-ray and labs including one troponin though this does not appear to be cardiac. We will also check D-dimer given her complaint of shortness of breath and pleuritic type pain. Patient's laboratory studies with a normal white count and hemoglobin. Chemistries unremarkable. Troponin negative. D-dimer positive. Chest x-ray canceled and CTA chest obtained. There is no pulmonary embolus. There is no evidence of pneumonia or infiltrate. Of note there is an enlarging nodule in the right thyroid. She has a history of goiter but she is felt that things were changing. She will need to follow-up with primary care and may need referral to ENT given that the nodule has enlarged since 2019. Otherwise we will provide albuterol inhaler with spacer to help with her symptoms as the DuoNeb treatment did seem to help with her cough and her feeling of tightness and shortness of breath. Return precautions provided. Lab Data Lab results reviewed: Yes I reviewed the patient's lab results. ECG Data Attestation: I personally reviewed and interpreted this ECG (s) as follows: Prior ECG tracings: available for review Interpretation: see EKG HPI General Mode of arrival: ambulatory . Date/Time Provider Initiated Documentation: 09/27/22 18:43 . Limitations to Documentation: no limitations . Information obtained by: patient . HPI Narrative: Patient presents to ED with cough and URI type symptoms that began 4 days ago. She has had some chest discomfort but today it has been worse. She describes it as a tightness and heaviness in her chest. Her cough continues and she actually feels a little short of breath. Discomfort is not radiating. No fever that she is aware of. She has no abdominal pain but did have some nausea and diarrhea on Thursday when it started. She has no prior history of lung disease and does not smoke. Related Data Home Medications Medication Instructions Recorded Confirmed vit B gadyjad-U-UL-iron fum-vit E 1 ea PO DAILY 08/03/12 09/27/22 500 mg-400 mcg-18 mg iron tablet (Vitamins B Complex) cholecalciferol (vitamin D3) 25 1,000 unit PO DAILY 10/12/13 09/27/22 mcg (1,000 unit) tablet acetaminophen 500 mg tablet 500 mg PO Q6H PRN pain #60 tabs 02/08/20 09/27/22 ibuprofen 200 mg capsule 200 mg PO Q6H PRN 10/22/21 09/27/22 atenolol 25 mg tablet 25 mg PO DAILY #90 tab-caps 03/05/22 09/27/22 levothyroxine 75 mcg tablet 75 mcg PO DAILY #90 tabs 05/05/22 09/27/22 (Synthroid) sertraline 50 mg tablet 75 mg PO DAILY #135 tabs 05/05/22 09/27/22 sumatriptan succinate 100 mg 100 mg PO as directed #27 tabs 06/19/22 09/27/22 tablet (Imitrex) Inhaler, Assist Devices [Pocket 1 ea miscellaneous DIRECTED #1 09/27/22 Chamber] unit albuterol sulfate 90 mcg/actuation 2 puff inhalation Q4H PRN cough, 09/27/22 aerosol inhaler (Ventolin HFA) wheeze #8.5 grams Previous Rx's Medication Instructions Recorded acetaminophen 500 mg tablet 500 mg PO Q6H PRN pain #60 tabs 02/08/20 atenolol 25 mg tablet 25 mg PO DAILY #90 tab-caps 03/05/22 levothyroxine 75 mcg tablet 75 mcg PO DAILY #90 tabs 05/05/22 (Synthroid) sertraline 50 mg tablet 75 mg PO DAILY #135 tabs 05/05/22 sumatriptan succinate 100 mg 100 mg PO as directed #27 tabs 06/19/22 tablet (Imitrex) Inhaler, Assist Devices [Pocket 1 ea miscellaneous DIRECTED #1 09/27/22 Chamber] unit albuterol sulfate 90 mcg/actuation 2 puff inhalation Q4H PRN cough, 09/27/22 aerosol inhaler (Ventolin HFA) wheeze #8.5 grams Allergies Allergy/AdvReac Type Severity Reaction Status Date / Time No Known Allergies Allergy Verified 09/27/22 18:44 General Stated Complaint: Chest Pain ESTEFANI: 3 Review of Systems Narrative: Per HPI PFSH All Active Problems (Updated 09/27/22 @ 21:11 by Walter Lua MD) Mild reactive airways disease (Acute) URI (upper respiratory infection) (Acute) Right thyroid nodule (Acute) Rotator cuff arthropathy of right shoulder (Acute) Osteoarthritis of right shoulder (Acute) Mild cognitive impairment (Acute) Contact dermatitis and eczema due to plant (Acute) Screening for skin cancer (Acute) Numerous moles (Acute) Skin tag (Acute) Status post total right knee replacement (Acute 02/08/20) Chronic pain of right knee (Acute 09/20/15) Cyst of Bartholin's gland duct (Acute 10/14/11) Goiter (Acute 08/10/97) Hx of breast cancer (Acute 04/18/09) s/p L Mastectomy 04/18/2009 Hypothyroidism (Acute 12/06/98) Joint pain (Acute 05/27/11) Olvera's cyst R knee; DJD Migraine (Acute 04/12/93) ENT eval 2011 for vertigo; 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, UMASHANKAR Unspecified urinary incontinence (Acute 05/27/11) Primary osteoarthritis of right knee (Chronic) Posterior tibial tendon dysfunction (PTTD) of both lower extremities (Acute) Right hamstring muscle strain (Acute) Fatigue (Acute) Tubular adenoma (Chronic 10/19/19) Abnormal stress test (Acute) Depressive disorder (Chronic 02/11/02) [facility] 05/2021 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 Personal history of malignant neoplasm Colon CA, throat CA Father Emphysema lung Mother Arthritis Social History Smoking/Tobacco Use Status: Never Second Hand Exposure: No Smoking risk assessment performed?: Yes Alcohol Intake: current Alcohol Intake frequency: holidays/special occasions only Drug use: Never Substance use type: does not use Adopted: No Caregiver/Support person: No Foster care: No Household members: none Housing: house Number of Children: 2 number of grandchildren: 7 Communication Needs: Corrective Lenses Education Level: vocational Do you need help understanding health information?: Rarely current occupation: retired [employer] Pets and animals: Yes Pets and animals: cat(s), dog(s) and other Details: rabbit Sexually active: No Do you think of yourself as: straight/heterosexual Current gender identity: female What is your relationship status?: How often do you talk on the phone with friends or family?: three or more times per week How often do you get together with friends or relatives?: twice per week Do you belong to any clubs or organized social groups?: no Panel score (0-1 are the most socially isolated patients): 1 What type of physical activity do you participate in: walking and other Details: Kayaking Duration: 15-30 minutes/day Frequency: 1-2 times per week Desire/Buddhist: Mu-Ism Special desire needs: No Seatbelt use: always Helmet use: Yes Helmet use: never Drive intox or ride w/intox hook up driver: No Do you feel safe at home: Yes Do you feel safe in your relationship?: Yes Exam Narrative Exam Narrative: Const: WDWN female in NAD. HEENT: NC/AT. Normal facial exam. Eyes: Normal conjunctiva and sclera. Neck: Supple. Trachea midline. Lungs: Normal respiratory effort. Lungs are clear. Cor: RRR without murmur/gallop. Good radial pulses. GI: Soft. NT/ND. No guarding or rebound. Neuro: A+O x 3. Normal speech, mentation, gait. Cranial nerves II - XII grossly intact. No gross motor or sensory deficit. Ext: No C/C/E. Skin: Warm and dry without rash. Course Vital Signs Vital signs: Vital Signs Temperature 98.0 F 09/27/22 18:41 Pulse 63 09/27/22 18:41 Respiratory Rate 18 09/27/22 18:41 Blood Pressure 141/63 H 09/27/22 18:41 Pulse Oximetry 98 09/27/22 18:41 Temperature 98.0 F 09/27/22 18:41 Temperature Source Oral 09/27/22 18:41 Pulse 63 06/17/23 18:41 Respiratory Rate 18 09/27/22 18:41 Blood Pressure 141/63 H 09/27/22 18:41 Pulse Oximetry 98 09/27/22 18:41 Oxygen Delivery Method Room Air 09/27/22 18:41 Oxygen Flow Rate 0 09/27/22 18:41
[2022-09-27 19:16] VITALS: RESP 18
[2022-09-27 19:18] LABS: Abs Immature Grans 0.02 10^3/uL (0.0-0.06); Absolute Basophil Count 0.03 10^3/uL (0.0-0.2); Absolute Eosinophil Count 0.39 10^3/uL (0.0-0.7); Absolute Lymphocyte Count 1.67 10^3/uL (1.2-3.4); Absolute Monocyte Count 0.49 10^3/uL (0.1-0.8); Absolute Neutrophil Count 4.17 10^3/uL (1.2-6.7); Basophils % 0.4; Eosinophils % 5.8; HCT 39.2 % (36.0-46.0); Immature Grans % 0.3; Lymphocytes % 24.7; MCH 30.4 pg (27.0-33.0); MCHC 33.2 % (32.0-36.0); MCV 92 fL (80-95); Monocytes % 7.2; Neutrophils % 61.6; Platelet Count 304 10^3/uL (130-400); RBC 4.28 10^6/uL (3.93-5.22); RDW 12.6 % (11.7-14.6); RDW-SD 41.6 fL; WBC 6.77 10^3/uL (4.4-10.8)
[2022-09-27 19:19] VITALS: RESP 1
[2022-09-27] MEDS: Albuterol/Ipratropium 3 ML UPD VIAL UPD (19:19)
[2022-09-27 19:40] LABS: ALT 23 U/L (14-59); AST 17 U/L (15-37); Albumin 3.9 g/dL (3.4-5.0); Alkaline Phosphatase 92 U/L (46-116); Anion Gap 8.8 mmol/L (3-11); BUN 23 mg/dL (7-18); Bilirubin, Total 0.8 mg/dL (0.2-1.0); CO2 30.2 mmol/L (21.0-32.0); CREATININE 0.9 mg/dL (0.55-1.02); Calcium 9.2 mg/dL (8.5-10.1); Chloride 107 mmol/L (98-107); Estimated GFR 68.35 (mL/min/1.73m2); Glucose 101 mg/dL (74-106); Magnesium 2.2 mg/dL (1.8-2.4); Potassium 3.6 mmol/L (3.5-5.1); Sodium 146 mmol/L (136-145); Total Protein 7.6 g/dL (6.4-8.2); Troponin I < 50 ng/L (<or=60)
--- NOTE | 2022-09-27 19:45 | DI.CT_ITS ---
Exam(s) CT CHEST PE CTA EXAM: CT CHEST PE CTA CLINICAL HISTORY: pleuritic pain, + d-dimer. TECHNIQUE: Imaging Protocol: CT angiography of the chest was performed using pulmonary embolus daisha col. Multi planar reconstructions were performed. CONTRAST MATERIAL: Intravenous: Omnipaque 350 Contrast volume: 100 cc COMPARISON: CT CT CHEST PE CTA from 07/12/2019 FINDINGS: CHEST: Unilateral left breast prosthesis again noted. PULMONARY ARTERIES: No obvious intraluminal filling defects to suggest acute pulmonary emboli. LUNGS: There are no infiltrates nor evidence of pulmonary infarction.. No ominous pulmonary nodules. No pleural effusions. MEDIASTINUM: There is no hilar nor mediastinal adenopathy. Grossly enlarged thyroid gland, particular ly the isthmus and none left lobes with shift of the trachea to the right side. Left lobe measures 6 .5 cm AP x 5 cm wide by 7.5 cm cephalocaudal. Also peripherally calcified nodule in the right lobe. CARDIAC: Heart size is upper normal. There is no pericardial effusion.Caliber of the thoracic aorta is within normal limits. No evidence of aortic dissection. There is no significant shift of the inte rventricular septum. PARTIALLY VISUALIZED UPPERMOST ABDOMEN: No significant findings. OSSEOUS: No significant osseous lesions.. IMPRESSION: 1. No evidence of acute pulmonary emboli. No evidence of pulmonary infarction.No pleural effusions. No ominous pulmonary nodules. No confluent infiltrates. 2. Grossly enlarged thyroid gland again noted. Both lobes are enlarged and contain nodules. The lef t lobe is again noted be significantly larger than the right and there is shift of the trachea again noted to the right side. Recommend follow-up thyroid ultrasound. Cannot exclude significant maligna ncy here. 3. Other findings as above RADIATION DOSE DELIVERED: 331.79mGy.cm Total DLP DATA REPOSITORY: All CT scans at this facility are submitted to the National Radiology Data Registry (NRDR) Dose Index Registry (DIR) with the [employer] (ACR). RADIATION OPTIMIZATION: All CT scans at this facility use at least one of these dose optimization te chniques: automated exposure control; mA and/or kV adjustment per patient size (includes targeted exa ms where dose is matched to clinical indication); or iterative reconstruction.
[2022-09-27 19:48] LABS: D-Dimer 965 ng/mlFEU (<500)
[2022-09-27] MEDS: Normal Saline - Diluent 50 ML VIAL IV (20:00)
[2022-09-27] MEDS: Omnipaque 350 MG/ML 100 ML BTL IJ (20:01)
--- NOTE | 2022-09-27 20:59 | DI.VRAD_ITS ---
PROCEDURE INFORMATION: Exam: CTA Chest With Contrast Exam date and time: 09/27/2022 8:02 PM Age: 72 years old Clinical indication: Cough and shortness of breath; Other: Pleuritic pain TECHNIQUE: Imaging protocol: Computed tomographic angiography of the chest with contrast. Exam focused on the arteries. 3D rendering (Not supervised by radiologist): MIP and/or 3D reconstructed images were created by the technologist. Contrast material: OMNIPAQUE 350; Contrast volume: 100 ml; Contrast route: INTRAVENOUS (IV); COMPARISON: CT CHEST PE CTA 07/12/2019 10:20 AM FINDINGS: Pulmonary arteries: No large central pulmonary emboli were identified. Assessment of the small peripheral subsegmental branches in the left lung base was nondiagnostic due to gross respiratory motion. Aorta: Mild aortic ectasia/tortuosity and calcific atherosclerosis. Variant ductus bump configuration again noted. No aortic aneurysm or dissection. No mediastinal hematoma. Thyroid: There is a large mass lesion arising in the left thyroid lobe measuring up to 6.7 cm AP x 5.0 cm transverse and at least 8 cm craniocaudal. This appears mildly increased in size from 07/12/2019. The right thyroid lobe and isthmus are also enlarged with calcifications and smaller nodules in the right thyroid lobe. This may represent chronic changes of multinodular goiter, however the enlarging left lobe mass raises concern for potential neoplasm. Consider ENT referral and excisional biopsy. There is 1.8 cm rightward tracheal shift which is mildly increased from 2020, with no significant airway stenosis. Lungs: No acute tracheobronchial abnormalities. No gross pulmonary infiltrates or edema pattern. Mild atelectasis in the lung bases. No pulmonary mass lesions are identified. Pleural spaces: No pleural effusion. No pneumothorax. Heart: Mild cardiomegaly. No coronary artery calcification. No pericardial effusion. Lymph nodes: No supraclavicular or axillary adenopathy. No mediastinal or hilar adenopathy. Diaphragm: Small hiatal hernia. Liver: Subcentimeter low-density probable cysts in the left hepatic lobe measuring up to 5 mm, too small to characterize well. These do not require further assessment based on current consensus criteria. Bones/joints: No acute osseous abnormalities are identified. Osteopenia. Moderate thoracic spondylosis. Soft tissues: Left breast prosthesis without gross complication or change. IMPRESSION: 1. No large central pulmonary emboli are identified. Assessment of the small peripheral branches in the left base was nondiagnostic due to gross respiratory motion in this region. No suspected peripheral emboli were identified however. 2. Thyroid enlargement, with a large mass in the left lobe measuring at least 8 cm maximum dimension, which is increased in size from 07/12/2019. Although there are diffuse underlying changes of probable multinodular goiter in the thyroid, the enlarging mass raises concern for the possibility of neoplasm, recommend ENT referral with consideration for excisional biopsy. There is mildly increased rightward tracheal shift of 1.8 cm without tracheal stenosis. No regional adenopathy. 3. Additional nonemergent findings detailed above. Dictated and Authenticated by: Aristides Loyd MD. Ordering:DANA Watson MD
[2022-09-27] MEDS: Albuterol HFA 8 GM 60 PUFF INH IH (21:20)
[2022-09-27 21:38] VITALS: BP 128/70; PULSE 70; RESP 18; O2SAT 99
== END 2022-09-27 21:31 | disposition home or self-care (01) ==
PROVIDERS: Emergency Provider Emergency Medicine; PCP Nurse Practitioner
DX: J45.909 Unspecified asthma, uncomplicated (principal); J06.9 Acute upper respiratory infection, unspecified; E04.1 Nontoxic single thyroid nodule; R06.02 Shortness of breath
CPT/HCPCS: 71275; 80053; 93005; 94640; 99285; 83735; 84484; 85025; 85379; 93010; 99284; J3490; J7620

== ENCOUNTER 2022-10-15 02:36 | Outpatient (CLI) | payer OTHER, SELFPAY ==
[2022-10-15 08:38] LABS: ALT 21 U/L (14-59); AST 16 U/L (15-37); Albumin 3.4 g/dL (3.4-5.0); Alkaline Phosphatase 78 U/L (46-116); Anion Gap 8.6 mmol/L (3-11); BUN 21 mg/dL (7-18); Bilirubin, Total 0.6 mg/dL (0.2-1.0); CO2 28.4 mmol/L (21.0-32.0); CREATININE 0.8 mg/dL (0.55-1.02); Calcium 8.8 mg/dL (8.5-10.1); Calculated LDL 110 mg/dL (<100); Chloride 108 mmol/L (98-107); Cholesterol 179 mg/dL (<200); Estimated GFR 78.72 (mL/min/1.73m2); Glucose 102 mg/dL (74-106); HDL Cholesterol 58 mg/dL (40-60); Sodium 145 mmol/L (136-145); TSH (W/Ref FT4) 0.68 uIU/mL (0.36-3.74); Total Protein 6.9 g/dL (6.4-8.2); Triglyceride 56 mg/dL (<150)
== END 2022-10-15 02:37 | disposition home or self-care (01) ==
LOC: LBO 02:36
PROVIDERS: PCP Nurse Practitioner; Visit Provider Nurse Practitioner
DX: E03.9 Hypothyroidism, unspecified (principal); I10 Essential (primary) hypertension
CPT/HCPCS: 36415; 80053; 80061; 84443

== ENCOUNTER 2022-10-31 00:13 | Outpatient (CLI) | payer OTHER, SELFPAY ==
--- NOTE | 2022-10-31 07:45 | DI.US_ITS ---
Exam(s) US THYROID EXAM: US THYROID CLINICAL HISTORY: enlargement THYROID ON CHEST CT,THYROI NODULE,E04.1,E04.9. TECHNIQUE: Ultrasound thyroid performed using standard protocol. COMPARISON: CT CT CHEST PE CTA from 09/27/2022 FINDINGS: ISTHMUS: 10 mm RIGHT LOBE: Size: 5.5 x 2.4 x 2.4 cm Echogenicity: heterogeneous. Vascularity: Normal. Nodules: Innumerable nodules. Largest nodule midportion 2.9 x 1.7 x 1.9 cm solid isoechoic with smoo th margins without echogenic foci. Three points, TR 3 in a recommended. LEFT LOBE: Size: 9.7 x 5.2 x 6.3 cm Echogenicity: heterogeneous. Vascularity: Normal. Nodules: Large nodule mid to lower pole measuring 5.4 x 4.4 x 5.5 cm, solid, decreased echogenicity, smoothly marginated with macrocalcifications, 5 points, FNA recommended. OTHER FINDINGS: None. IMPRESSION: Findings consistent with multinodular goiter. FNA of the largest nodules is recommended. DATA REPOSITORY:
== END 2022-10-31 00:33 ==
LOC: DI 00:13
PROVIDERS: PCP Nurse Practitioner; Visit Provider Nurse Practitioner
DX: E04.2 Nontoxic multinodular goiter (principal)
CPT/HCPCS: 76536

== ENCOUNTER → 2022-12-16 01:05 | Outpatient (CLI) | payer OTHER, SELFPAY ==
--- NOTE | 2022-12-16 08:00 | DI.US_ITS ---
Exam(s) US NEEDLE LOCAL OTHER WO RAD EXAM: Multinodular thyroid goiter, 2 nodules,ultrasound guided bx,e04.1,e04.9,nod COMPARISON: No exams were available for comparison TECHNIQUE: Ultrasound performed using standard protocol. FINDINGS: Sonography was provided for Dr. Ca during the performance of a ultrasound-guided biopsy of bilat eral thyroid nodules. Please refer to the procedure report for complete details. DATA REPOSITORY:
--- NOTE | 2022-12-16 12:50 | PAPNONF_PTH ---
PATIENT: Karen Stratton LOC: [facility] U#:[id number] AGE/SX: 75/F ROOM: RE12/16/[address]: Luiza Birmingham : 1950 BED: DIS: SPEC #: [id number] RECD: 12/16/22 14:02 STATUS: REMBERTO MCDANIELS #: [id number] JAQUAN: 12/16/22 12:[address]: Luiza Birmingham DEPT: [facility] Cytology RECD BY: Chari Sal ENTERED: 12/16/22 14:04 SP TYPE: JAVIER LEONG DR: Sheree Deng APRN Tissues: 1 - BODY FLUID CYTO-FINE NEEDLE [facility] 2 - BODY FLUID CYTO-FINE NEEDLE [facility]ATE[facility] Procedures: BODY FLUID CYTO-FINE NEEDLE ASPIRATE[facility] Comments: [id number] (PATH FNA CONSULT) (REFRIGERATED)
--- NOTE | 2022-12-16 13:17 | OPPNE_ITS ---
Date of service: 12/16/22 Time of Service: 13:22 Procedure Note Date of procedure: 12/16/22 Procedure: Ultrasound-guided FNA, bilateral thyroid nodules, pathology available Surgeon/Proceduralist/Physician: Mike Ca Procedure Diagnosis: Bilateral thyroid nodules meeting criteria for biopsy Procedure Indications: Patient with the above diagnosis. Options were explained to the patient regarding further management. She elected to undergo the above procedure. Consent was obtained prior to the procedure. Procedure Description: The patient was prepped and draped in appropriate fashion after being positioned in supine position with her head slightly extended. Ultrasound was used to localize the thyroid nodules of concern and 1% lidocaine with 1/100,000 epinephrine injected into the skin and subcutaneous tissues overlying the nodules. The left was approached first. A 25-gauge needle was passed into the thyroid nodule and pathology confirmed adequate cellularity. Following this 2 additional passes for potential Afirma testing were taken. Attention was then turned to the right nodule. Using the ultrasound for guidance once again, a 25- gauge needle was passed into the thyroid nodule. Slide preparations revealed significant colloid but only scattered clusters of cells. As such, 2 additional passes were made into the thyroid nodule, with similar colloid, but no significant cellularity. On both in the subsequent passes, a significant amount of heme entered the needle before it was withdrawn. All of the additional heme and aspirate was placed in CytoLyt and sent to pathology. 2 additional passes were made for potential Afirma. The patient tolerated the procedure well. Sterile dressing was applied. The patient was then allowed to sit and then stand. Her vital signs remained stable. She was able to ambulate without difficulty. There was no significant bleeding. She will call if she does not hear from me within 1 week. She will call with any signs of infection. She will use ibuprofen or Tylenol for any discomfort. She will remove the bandage tonight and not replace it.
== END ==
PROVIDERS: PCP Nurse Practitioner; Visit Provider Registered Nurse Maternal Newborn
DX: E04.2 Nontoxic multinodular goiter; C73 Malignant neoplasm of thyroid gland
CPT/HCPCS: 10005; 76942; 88104

== ENCOUNTER → 2022-12-23 00:37 | Outpatient (CLI) | payer OTHER, SELFPAY ==
--- NOTE | 2022-12-23 11:26 | DI.MAMMO_ITS ---
Exam(s) MG MAMMO SCREENING 60 MIN DUR EXAM: MG MAMMO SCREENING 60 MIN DUR CLINICAL HISTORY: breast cancer screening,personal h/o breast ca,z12.39,z85.3 TECHNIQUE: Mammograms were interpreted according to the usual protocol including computer analysis w [employer] CAD system, tomosynthesis and C-view imaging. COMPARISON: 2013 through 2021 FINDINGS: The patient is status post left mastectomy. The right breast is composed of scattered fibroglandular densities, Breast Density category B. No suspicious masses or suspicious microcalcifications are seen. Mild scarring again noted. No skin thickening or abnormal axillary lymph nodes are seen. There has been no significant change from prior exams. IMPRESSION: BI-RADS Cat 2 - Benign Findings Yearly screening mammography is recommended. Breast Density - Category B, scattered fibroglandular densities. A negative radiographic report should not delay biopsy if a dominant or clinically suspicious mass is present. Up to ten percent of cancers are not identified on mammography. A negative report may reinforce clinical impression. Adenosis and dense breasts may obscure an underlying neoplasm. False positive reports average 6 to 10%. Patient will receive a letter notifying them of these results.
== END ==
PROVIDERS: PCP Nurse Practitioner; Visit Provider Nurse Practitioner
DX: Z12.39 Encounter for other screening for malignant neoplasm of breast (principal); Z85.3 Personal history of malignant neoplasm of breast
CPT/HCPCS: 77063; 77067

== ENCOUNTER 2023-05-21 15:55 | Outpatient (CLI) | payer OTHER, SELFPAY ==
[2023-05-21 16:07] LABS: Abs Immature Grans 0.01 10^3/uL (0.0-0.06); Absolute Basophil Count 0.04 10^3/uL (0.0-0.2); Absolute Eosinophil Count 0.26 10^3/uL (0.0-0.7); Absolute Lymphocyte Count 1.78 10^3/uL (1.2-3.4); Absolute Monocyte Count 0.41 10^3/uL (0.1-0.8); Absolute Neutrophil Count 2.56 10^3/uL (1.2-6.7); Basophils % 0.8; Eosinophils % 5.1; HCT 36.8 % (36.0-46.0); HGB 12.3 g/dL (11.2-15.7); Immature Grans % 0.2; Lymphocytes % 35.2; MCH 30.4 pg (27.0-33.0); MCHC 33.4 % (32.0-36.0); MCV 91 fL (80-95); MPV 9.9 fL (8.0-11.0); Monocytes % 8.1; Neutrophils % 50.6; Platelet Count 276 10^3/uL (130-400); RBC 4.04 10^6/uL (3.93-5.22); RDW 13.1 % (11.7-14.6); WBC 5.06 10^3/uL (4.4-10.8)
[2023-05-21 16:29] LABS: ALT 15 U/L (14-59); AST 15 U/L (15-37); Albumin 3.7 g/dL (3.4-5.0); Alkaline Phosphatase 77 U/L (46-116); Anion Gap 10.8 mmol/L (3-11); BUN 23 mg/dL (7-18); Bilirubin, Direct 0.2 mg/dL (0.0-0.2); Bilirubin, Total 0.7 mg/dL (0.2-1.0); CO2 28.2 mmol/L (21.0-32.0); CREATININE 0.8 mg/dL (0.55-1.02); Calcium 8.7 mg/dL (8.5-10.1); Chloride 105 mmol/L (98-107); Estimated GFR 78.24 (mL/min/1.73m2); Glucose 96 mg/dL (74-106); Potassium 3.8 mmol/L (3.5-5.1); Sodium 144 mmol/L (136-145); TSH 4.13 uIU/mL (0.36-3.74); Total Protein 7.2 g/dL (6.4-8.2)
== END 2023-05-21 15:56 | disposition home or self-care (01) ==
LOC: LBO 15:56
PROVIDERS: PCP Nurse Practitioner; Visit Provider Emergency Medicine
DX: R21 Rash and other nonspecific skin eruption (principal); I10 Essential (primary) hypertension; E03.9 Hypothyroidism, unspecified
CPT/HCPCS: 36415; 80048; 80076; 84443; 85025

== ENCOUNTER → 2023-06-18 09:12 | Outpatient (CLI) | payer OTHER, SELFPAY ==
--- NOTE | 2023-06-18 11:03 | DI.RAD_ITS ---
Exam(s) XR LUMBAR SPINE COMPLETE EXAM: XR LUMBAR SPINE COMPLETE CLINICAL HISTORY: right sciatica, M54.31. TECHNIQUE: 2D digital imaging was performed. Five views. COMPARISON: CR XR DEXA BONE DENSITY W/WO ANGIE from 05/17/[address] CHEST PE CTA from 09/27/2022 FINDINGS: BONES: No fracture or destructive lesion. There is a mild compression fracture of the superior endpl ate of L3. This appears chronic. The remain vertebral body heights are maintained. DISKS: The L1-2 and L2-3 intervertebral disc spaces are maintained. There is moderate narrowing of the L 3 4 disc. There is mild retro wrist listhesis secondary to facet degenerative changes. There is severe narrowing of the L4-5 disc. Facet degenerative changes are present at this level. There a re mild degenerative changes at L5-S1. SOFT TISSUE: Normal. IMPRESSION: Degenerative disc changes greatest at L3-4 and L4-5. Mild L3 compression fracture. DATA REPOSITORY: RADIATION DOSE DELIVERED:
== END ==
PROVIDERS: PCP Nurse Practitioner; Visit Provider Emergency Medicine
DX: M54.31 Sciatica, right side (principal)
CPT/HCPCS: 72110

== ENCOUNTER 2023-06-19 13:03 | Emergency (ER) | payer OTHER, SELFPAY ==
[2023-06-19] VITALS (7 sets, daily range): BP systolic 150–174; BP diastolic 69–89; PULSE 53–65; RESP 12–16; TEMP 36.5–37.1; O2SAT 95–98
--- NOTE | 2023-06-19 13:15 | DI.CT_ITS ---
Exam(s) CT ABDOMEN PELVIS WO/W EXAM: CT ABDOMEN PELVIS WO/W CLINICAL HISTORY: RUQ pain, to flank, stone vs. GB TECHNIQUE: Imaging Protocol: Axial computed tomography images with coronal and sagittal reformatted images were created and reviewed. CONTRAST MATERIAL: Intravenous: Omnipaque 350 Contrast volume:100 mL Oral: No COMPARISON: CT CT ABDOMEN PELVIS W from 07/12/[address] CHEST PE CTA from 07/12/2019 CR XR DEXA BONE DENSITY W/WO ANGIE from 05/17/[address] CHEST PE CTA from 09/27/2022 CR XR LUMBAR SPINE COMPLETE from 06/18/2023 FINDINGS: ABDOMEN: Lung Bases: Normal where visualized. Liver: Normal density. There are few tiny hypodensities in the liver. They are too small for further characterization but likely reflect small cysts. There is a well-circumscribed homogeneously enhanc ing lesion in the left lobe of the liver measuring 1.3 cm most consistent with a hemangioma. This is unchanged compared to the prior examination. No suspicious hepatic masses are seen. Portal, Superior Mesenteric, and Splenic Veins: Unremarkable. Gallbladder and Biliary Tract: No radiodense calculus or dilation. Pancreas: Normal density, no abnormal calcifications or inflammatory process. Spleen: Normal. Adrenals: No masses seen. Kidneys: Normal size, contour and axis. No nephrolithiasis. There is mild prominence of the renal co llecting systems bilaterally. No masses seen. Abdominal Aorta: Abdominal portion non-dilated. Atherosclerotic calcification is present. Bowel: No obstruction or bowel wall thickening. Appendix is unremarkable. Peritoneal Cavity: No ascites, collection or mesenteric inflammatory response. No free air. Lymph Nodes: Within normal limits. Bones: Within normal limits for the patient's age. There is again seen mild compression of the super ior endplate of L3. This was not present on the DEXA scan from 05/17/2021. However, the acuity is ind eterminate. Soft Tissues: The inferior aspect of the patient's left breast implant is seen. There is a small fat containing umbilical hernia. PELVIS: Bladder: There is mild thickening of the wall of the urinary bladder. Reproductive Organs: Unremarkable as visualized. Lymph Nodes: Within normal limits. Bones: Within normal limits for the patient's age. IMPRESSION: 1. No evidence of nephrolithiasis. No ureterolithiasis is seen. 2. There is mild dilatation of the ureters bilaterally. No obstructing calcified stone is seen. Thi s may represent noncalcified stone or infection. Recently passed stones can not be excluded. Please correlate clinically. 3. Age-indeterminate mild L3 superior endplate compression fracture deformity. 4. Mild thickening of the wall of the urinary bladder. This may in part be due to underdistention bu t infectious or inflammatory process can not be excluded. Chronic bladder outlet obstruction should also be considered. Please correlate clinically. RADIATION DOSE DELIVERED: Total DLP Total DLP DATA REPOSITORY: All CT scans at this facility are submitted to the National Radiology Data Registry (NRDR) Dose Index Registry (DIR) with the [employer] (ACR). RADIATION OPTIMIZATION: All CT scans at this facility use at least one of these dose optimization te chniques: automated exposure control; mA and/or kV adjustment per patient size (includes targeted exa ms where dose is matched to clinical indication); or iterative reconstruction.
--- NOTE | 2023-06-19 13:16 | ED.GENADUL_ITS ---
Discharge Plan Disposition Patient Disposition: Home Condition: Good Discharge Details Clinical Impression: Kidney stone, Stress at home, Abdominal pain Primary Care Provider: Sheree Deng ED Provider: Marla Peralta Home Meds and New Rx's Prescriptions: Continued ibuprofen 200 mg capsule 200 mg PO Q6H PRN triamcinolone acetonide 0.1 % ointment 1 applic topical DAILY Qty: 80 0RF Vitamins B Complex 1 EACH tablet 1 ea PO DAILY cholecalciferol (vitamin D3) 1,000 UNIT tablet 1,000 unit PO DAILY sumatriptan succinate [Imitrex] 100 mg tablet 100 mg PO as directed Qty: 27 6RF Patient Comments: pt took half a pill 0n 02/07/2020 Rx Instructions: for Headaches, as directed, may repeat x1:up to 3 days/wk atenolol 25 mg tablet 25 mg PO DAILY Qty: 90 3RF Hold Instructions: Adverse Reaction Rx Instructions: migraine prevention sertraline 50 mg tablet 75 mg PO DAILY Qty: 20 3RF levothyroxine 125 mcg tablet 125 mcg PO DAILY Qty: 90 1RF acetaminophen 500 mg tablet 500 mg PO Q6H PRN (Reason: pain) Qty: 60 2RF albuterol sulfate [Ventolin HFA] 90 mcg/actuation Hfa Aerosol Inhaler 2 puff inhalation Q4H PRN (Reason: cough, wheeze) Qty: 8.5 0RF Inhaler, Assist Devices [Pocket Chamber] 1 ea miscellaneous DIRECTED Qty: 1 0RF Discharge Instructions Instructions: Kidney Stones (ED), Abdominal Pain (ED) Additional Instructions: Labs are reassuring. No acute abnormalities. Imaging shows dilation of your ureters. As we discussed, this could be a kidney stone that has passed or stone that is not able to be visualized. No evidence of infection in the urine. Please continue to encourage hydration. Tylenol and ibuprofen as needed for discomfort. Please take as directed the packaging. Please follow-up with primary care next week. If you develop fever/chills, increased pain, inability stay hydrated or other new/worsening symptoms to seek care urgently once again. I am Also worried about the amount of stress that you are currently dealing with. Please consider counseling further. You may call [facility] at any time, please call at [phone] Referrals: Sheree Deng, [employer]INE[employer] [Primary Care Provider] - [facility] General Date/Time Provider Initiated Documentation: 06/19/23 13:08 . Limitations to Documentation: no limitations . Information obtained by: patient and RN notes reviewed . History of Present Illness 73 year old F presents to the emergency department with the chief complaint of RUQ pain, described as moderate, Quality is described as aching, Patient started experiencing this hour(s) and it has been intermittent. No relieving factors improve symptom(s), No exacerbating factors reported . Patient notes loss of appetite; denies chest pain, fever/chills, headaches, nausea/vomiting, rash, shortness of breath and weakness. Patient did receive the following treatments prior to arrival, none Related Data Home Medications Medication Instructions Recorded Confirmed vit B [id number] fum-vit E 1 ea PO DAILY 08/03/12 06/12/23 500 mg-400 mcg-18 mg iron tablet (Vitamins B Complex) cholecalciferol (vitamin D3) 25 1,000 unit PO DAILY 10/12/13 06/12/23 mcg (1,000 unit) tablet acetaminophen 500 mg tablet 500 mg PO Q6H PRN pain #60 tabs 02/08/20 06/12/23 ibuprofen 200 mg capsule 200 mg PO Q6H PRN 10/22/21 06/12/23 sumatriptan succinate 100 mg 100 mg PO as directed #27 tabs 06/19/22 06/12/23 tablet (Imitrex) Inhaler, Assist Devices [Pocket 1 ea miscellaneous DIRECTED #1 09/27/22 06/12/23 Chamber] unit albuterol sulfate 90 mcg/actuation 2 puff inhalation Q4H PRN cough, 09/27/22 06/12/23 aerosol inhaler (Ventolin HFA) wheeze #8.5 grams atenolol 25 mg tablet 25 mg PO DAILY #90 tab-caps 03/09/23 06/12/23 triamcinolone acetonide 0.1 % 1 applic topical DAILY #80 grams 05/21/23 06/12/23 topical ointment sertraline 50 mg tablet 75 mg (1.5 x 50 mg) PO DAILY #20 05/29/23 06/12/23 tabs levothyroxine 125 mcg tablet 125 mcg PO DAILY #90 tabs 06/03/23 06/12/23 Previous Rx's Medication Instructions Recorded acetaminophen 500 mg tablet 500 mg PO Q6H PRN pain #60 tabs 02/08/20 sumatriptan succinate 100 mg 100 mg PO as directed #27 tabs 06/19/22 tablet (Imitrex) Inhaler, Assist Devices [Pocket 1 ea miscellaneous DIRECTED #1 09/27/22 Chamber] unit albuterol sulfate 90 mcg/actuation 2 puff inhalation Q4H PRN cough, 09/27/22 aerosol inhaler (Ventolin HFA) wheeze #8.5 grams atenolol 25 mg tablet 25 mg PO DAILY #90 tab-caps 03/09/23 triamcinolone acetonide 0.1 % 1 applic topical DAILY #80 grams 05/21/23 topical ointment sertraline 50 mg tablet 75 mg (1.5 x 50 mg) PO DAILY #20 05/29/23 tabs levothyroxine 125 mcg tablet 125 mcg PO DAILY #90 tabs 06/03/23 Allergies Allergy/AdvReac Type Severity Reaction Status Date / Time No Known Allergies Allergy Verified 06/12/23 11:01 General Stated Complaint: Abd Prob ESTEFANI: 3 Review of Systems Constitutional Constitutional: Reports as per HPI, Denies chills, Denies fatigue, Denies fever(s) and Denies headache(s) ENT Ears, Nose, Mouth, and Throat: Denies headache(s) Cardiovascular Cardiovascular: Reports as per HPI, Denies chest pain, Denies syncope, Reports rapid heart rate, Reports lightheadedness (constant today) and Denies dyspnea Respiratory Respiratory: Reports as per HPI, Denies cough and Denies dyspnea Gastrointestinal Gastrointestinal: Reports as per HPI, Reports abdominal pain, Denies melena, De nies bloating, Denies hematochezia, Denies change in bowel habits, Denies coffee ground emesis, Denies constipation, Denies cramping and Denies vomiting Genitourinary Genitourinary: Reports as per HPI, Denies abnormal vaginal bleeding and Denies vaginal discharge Musculoskeletal Musculoskeletal: Reports as per HPI and Denies back pain Integumentary/Breasts Skin/Breast: Reports as per HPI and Denies rash Neurologic Neurologic: Reports as per HPI, Denies confusion, Denies syncope and Denies headache(s) Psychiatric Psychiatric: Denies abnormal sleep pattern, Reports anxiety, Denies confusion, Reports anhedonia, Denies mood swings, Denies panic attacks, Denies homicidal ideation and Denies suicidal ideation Endocrine Endocrine: Denies fatigue Exam Const General: cooperative, healthy appearing, comfortable, no acute distress and well developed Nutritional Appearance: average body habitus and well nourished Orientation: alert and awake [facility] Head: normal to inspection Mouth: moist mucous membranes Resp Effort & Inspection: normal respiratory effort, able to speak in complete sentences and no respiratory distress Auscultation: clear to auscultation bilaterally, no rales, no rhonchi and no wheezes Cardio Rate: tachycardic Rhythm: regular rhythm Heart Sounds: S1 normal and S2 normal GI Inspection: normal to inspection Palpation: soft, no hepatosplenomegaly, not firm, no guarding, no masses, not rigid and nontender Percussion: normal to percussion Auscultation: hypoactive bowel sounds Back/Spine/Pelvis Back: CVA tenderness (right sided) Skin General skin exam: no rashes or lesions noted Trauma: no lacerations or abrasions Neuro General: patient alert and patient awake Cognition: normal cognition Speech: speech normal Gait: normal gait Extrem General: normal to inspection, capillary refill normal, no edema and other (2+ distal pulses) Psych Appearance: grossly normal and well kempt Mental Status: mental status grossly normal Speech and Movement: speech and movement normal Course Vital Signs Vital signs: Vital Signs Temperature 36.5 C 06/19/23 13:07 Pulse 63 06/19/23 13:07 Respiratory Rate 14 06/19/23 13:07 Blood Pressure 153/83 H 06/19/23 13:07 Pulse Oximetry 95 06/19/23 13:07 Temperature 36.5 C 06/19/23 13:07 Temperature Source Oral 06/19/23 13:07 Pulse 63 06/19/23 13:07 Respiratory Rate 14 06/19/23 13:07 Blood Pressure 153/83 H 06/19/23 13:07 Blood Pressure Position Sitting 06/19/23 13:07 Pulse Oximetry 95 06/19/23 13:07 Oxygen Delivery Method Room Air 06/19/23 13:07 Oxygen Flow Rate 0 06/19/23 13:07 Pain Level 5 06/19/23 13:07 Medical Decision Making Patient is a pleasant 73 year old female with H signficant for Diana palsy, breast cancer, hypothyroid, presenting with intermittent RUQ pain that began this AM. Not associated with PO intake. Endorses nausea, no vomiting. No change in bowel habits, no black/bloody stool. Has had increased urination but no dysurea. Past surgical history is pertinent for exploratory laparotomy associated with vaginal bleeding. She has not had any surgical excisions. states the pain has been very intermittent. States that when it comes on it can be quite severe and that she can have some nausea associated with this but otherwise no nausea or vomiting. On exam, patient appears non-toxic. Lungs are clear, normal cardiac exam. She denies any shortness of breath or chest pain. Indicates fairly far right lower lateral side as area of tenderness. She does have some CVA tenderness along the side with percussion. Some generalized discomfort, no peritoneal findings. Indicates the right upper quadrant as area of maximal tenderness but this is not reproducible on exam, she is not actively having pain. Negative Hsu's. 2+ distal pulses in lower extremities. No calf tenderness. No lower extremity edema. Shortly after the exam, patient became very anxious will speak with the nurse, tearful. She reports to me that she has a large amount of social stressors. She denies any suicidality or thoughts of self-harm. Her brother has committed suicide in the past. Multiple family members are struggling with substance use disorder. She is agreeable to speaking with mental health but has not unsafe at this time. Primarily concerned at this time for nephrolithiasis. She does report that she has had a decrease in her fluid intake with her increasing stress. Also consi dered gallbladder pathology also low arthritis less likely given the description, negative Hsu's and lack of association with p.o. intake. She has had previous surgeries, considered potential obstruction although she is still passing flatus and having bowel movements. Will obtain CT. Will obtain a Noncon and a contrast CT as I am concerned for potential stone versus other pathology. Discussed this plan with the patient who is in agreement. She declines any analgesics at this time. Labs reviewed, no significant abnormality. No leukocytosis. Stable H&H. No significant abnormalities on CMP. Urinalysis without blood or evidence of infection. ABDOMEN: Lung Bases: Normal where visualized. Liver: Normal density. There are few tiny hypodensities in the liver. They are too small for further characterization but likely reflect small cysts. There is a well-circumscribed homogeneously enhancing lesion in the left lobe of the liver measuring 1.3 cm most consistent with a hemangioma. This is unchanged compared to the prior examination. No suspicious hepatic masses are seen. Portal, Superior Mesenteric, and Splenic Veins: Unremarkable. Gallbladder and Biliary Tract: No radiodense calculus or dilation. Pancreas: Normal density, no abnormal calcifications or inflammatory process. Spleen: Normal. Adrenals: No masses seen. Kidneys: Normal size, contour and axis. No nephrolithiasis. There is mild prominence of the renal collecting systems bilaterally. No masses seen. Abdominal Aorta: Abdominal portion non-dilated. Atherosclerotic calcification is present. Bowel: No obstruction or bowel wall thickening. Appendix is unremarkable. Peritoneal Cavity: No ascites, collection or mesenteric inflammatory response. No free air. Lymph Nodes: Within normal limits. Bones: Within normal limits for the patient's age. There is again seen mild compression of the superior endplate of L3. This was not present on the DEXA scan from 05/17/2021. However, the acuity is indeterminate. Soft Tissues: The inferior aspect of the patient's left breast implant is seen. There is a small fat containing umbilical hernia. PELVIS: Bladder: There is mild thickening of the wall of the urinary bladder. Reproductive Organs: Unremarkable as visualized. Lymph Nodes: Within normal limits. Bones: Within normal limits for the patient's age. IMPRESSION: 1. No evidence of nephrolithiasis. No ureterolithiasis is seen. 2. There is mild dilatation of the ureters bilaterally. No obstructing calcified stone is seen. This may represent noncalcified stone or infection. Recently passed stones can not be excluded. Please correlate clinically. 3. Age-indeterminate mild L3 superior endplate compression fracture deformity. 4. Mild thickening of the wall of the urinary bladder. This may in part be due to underdistention but infectious or inflammatory process can not be excluded. Chronic bladder outlet obstruction should also be considered. Please correlate clinically. Discussed these findings with the patient. Advised that likely she had recent stone or noncalcified stone given her symptoms and findings on imaging. No evidence to suggest infectious etiology at this time. Encouraged hydration and supportive care. Encourage close follow-up with primary care. Return precautions were discussed. She was able to meet with mental health. Does not want to schedule follow-up with them acutely but is agreeable to considering a therapist. Mental health provider feels that she is safe for discharge home and patient agrees with this is URI. She is aware that she may contact them at any time and contact information was given. Strict return precautions discussed. All of her questions and concerns were addressed and she is in agreement this plan. Quality:[facility] Health Related Social Needs: No Data to Display PFSH All Active Problems (Updated 06/19/23 @ 15:25 by LIZETTE Castellanos) Abdominal pain (Acute) Stress at home (Acute) Kidney stone (Chronic) Rash (Acute) History of total thyroidectomy (Acute) with Central neck dissection 01/24/[address] 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, UMASHANKAR Unspecified urinary incontinence (Acute 05/27/11) Primary osteoarthritis of right knee (Chronic) Posterior tibial tendon dysfunction (PTTD) of both lower extremities (Acute) Right hamstring muscle strain (Acute) Abnormal stress test (Acute) Fatigue (Acute) Tubular adenoma (Chronic 10/19/19) Status post total right knee replacement (Acute 02/08/20) Skin tag (Acute) Numerous moles (Acute) Screening for skin cancer (Acute) Contact dermatitis and eczema due to plant (Acute) Mild cognitive impairment (Acute) Osteoarthritis of right shoulder (Acute) Rotator cuff arthropathy of right shoulder (Acute) Multinodular thyroid (Acute) Medical History Toro's palsy Breast cancer In remission 10 years Generalized anxiety disorder (05/16/21) [facility] Hypothyroidism Migraine Surgical History Breast, Mastectomy L, 2009 History of section (~1973) History of laparotomy (~1971) Status post arthroscopy of right knee (12/12/15) Dr Archuleta - right knee w/partial medial menisectomy Status post left knee surgery For torn meniscus - unsure if arthroscopic or open Family History Grandmother , Cancer at age 70. Personal history of malignant neoplasm Colon CA, throat CA Father Emphysema lung Mother Arthritis Social History Smoking/Tobacco Use Status: Never Second Hand Exposure: No Smoking risk assessment performed?: Yes Alcohol Intake: current Alcohol Intake frequency: holidays/special occasions only Drug use: Never Substance use type: does not use Adopted: No Caregiver/Support person: No Foster care: No Household members: none Housing: house Number of Children: 2 number of grandchildren: 7 Communication Needs: Corrective Lenses Education Level: vocational Do you need help understanding health information?: Rarely 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 Pets and animals: Yes Pets and animals: cat(s), dog(s) and other Details: rabbit Sexually active: No Do you think of yourself as: straight/heterosexual Current gender identity: female What is your relationship status?: How often do you talk on the phone with friends or family?: three or more times per week How often do you get together with friends or relatives?: twice per week Do you belong to any clubs or organized social groups?: no Panel score (0-1 are the most socially isolated patients): 1 What type of physical activity do you participate in: walking and other Details: Kayaking Duration: 15-30 minutes/day Frequency: 1-2 times per week Desire/Nondenominational: Mandaeism Special desire needs: No Seatbelt use: always Helmet use: Yes Helmet use: never Drive intox or ride w/intox 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
[2023-06-19 13:32] LABS: Absolute Basophil Count 0.02 10^3/uL (0.0-0.2); Absolute Eosinophil Count 0.35 10^3/uL (0.0-0.7); Absolute Lymphocyte Count 1.07 10^3/uL (1.2-3.4); Absolute Monocyte Count 0.37 10^3/uL (0.1-0.8); Absolute Neutrophil Count 3.56 10^3/uL (1.2-6.7); Basophils % 0.4; Eosinophils % 6.5; HCT 37.4 % (36.0-46.0); HGB 12.4 g/dL (11.2-15.7); Lymphocytes % 19.9; MCH 30.1 pg (27.0-33.0); MCHC 33.2 % (32.0-36.0); MCV 91 fL (80-95); Monocytes % 6.9; Neutrophils % 66.3; Platelet Count 250 10^3/uL (130-400); RBC 4.12 10^6/uL (3.93-5.22); RDW 12.8 % (11.7-14.6); RDW-SD 42.5 fL; WBC 5.37 10^3/uL (4.4-10.8)
[2023-06-19 13:47] LABS: ALT 17 U/L (14-59); AST 17 U/L (15-37); Albumin 3.7 g/dL (3.4-5.0); Alkaline Phosphatase 87 U/L (46-116); BUN 22 mg/dL (7-18); Bilirubin, Total 0.5 mg/dL (0.2-1.0); CREATININE 0.9 mg/dL (0.55-1.02); Calcium 9.1 mg/dL (8.5-10.1); Chloride 106 mmol/L (98-107); Estimated GFR 67.92 (mL/min/1.73m2); Glucose 100 mg/dL (74-106); Lipase 35 U/L (16-77); Magnesium 2.1 mg/dL (1.8-2.4); Sodium 145 mmol/L (136-145); Total Protein 7.1 g/dL (6.4-8.2)
[2023-06-19 14:07] LABS: Bilirubin Negative (Negative); Blood Negative (Negative); Clarity Clear (Clear); Glucose Negative (Negative); Ketones Negative (Negative); Leukocyte Esterase Negative (Negative); Nitrite Negative (Negative); Specific Gravity 1.015 (1.005-1.025); Urobilinogen 0.2 mg/dL (Up to 0.2)
[2023-06-19] MEDS: Normal Saline - Diluent 50 ML VIAL IJ (14:13)
[2023-06-19] MEDS: Omnipaque 350 MG/ML 100 ML BTL IJ (14:14)
[2023-06-19] MEDS: Normal Saline Flush 10 ML SYR IVP (14:15)
[2023-06-19] MEDS: Ondansetron 4 MG/2 ML VIAL IVP (14:30)
== END 2023-06-19 15:41 | disposition home or self-care (01) ==
PROVIDERS: Emergency Provider Physician Assistant; PCP Nurse Practitioner
DX: R10.11 Right upper quadrant pain (principal); Z63.8 Other specified problems related to primary support group; N20.0 Calculus of kidney
CPT/HCPCS: 80053; 83690; 96374; 99285; 74178; 81003; 83735; 85025; 99284; J2405; J3490

== ENCOUNTER 2023-09-22 16:26 | Outpatient (CLI) | payer OTHER, SELFPAY ==
[2023-09-22 16:27] LABS: Bilirubin Negative (Negative); Blood Negative (Negative); Clarity Clear (Clear); Glucose Negative (Negative); Ketones Negative (Negative); Leukocyte Esterase Negative (Negative); Nitrite Negative (Negative); Specific Gravity 1.025 (1.005-1.025); Urobilinogen 0.2 mg/dL (Up to 0.2); pH 5.5 (5-8)
[2023-09-22 16:29] LABS: Absolute Basophil Count 0.02 10^3/uL (0.0-0.2); Absolute Lymphocyte Count 1.09 10^3/uL (1.2-3.4); Absolute Neutrophil Count 1.58 10^3/uL (1.2-6.7); Basophils % 0.6 %; Eosinophils % 2.9 %; HCT 38.6 % (36.0-46.0); HGB 12.7 g/dL (11.2-15.7); Lymphocytes % 31.2 %; MCH 30.9 pg (27.0-33.0); MCHC 32.9 % (32.0-36.0); MCV 94 fL (80-95); MPV 10.1 fL (8.0-11.0); Monocytes % 20.1 %; Neutrophils % 45.2 %; Platelet Count 200 10^3/uL (130-400); RBC 4.11 10^6/uL (3.93-5.22); RDW 12.3 % (11.7-14.6); RDW-SD 42.9 fL; WBC 3.49 10^3/uL (4.4-10.8)
[2023-09-22 17:10] LABS: ALT 22 U/L (14-59); AST 18 U/L (15-37); Albumin 3.6 g/dL (3.4-5.0); Alkaline Phosphatase 80 U/L (46-116); BUN 20 mg/dL (7-18); Bilirubin, Total 0.8 mg/dL (0.2-1.0); CREATININE 0.9 mg/dL (0.55-1.02); Calcium 8.7 mg/dL (8.5-10.1); Chloride 105 mmol/L (98-107); Estimated GFR 67.92 (mL/min/1.73m2); Glucose 102 mg/dL (74-106); Potassium 3.8 mmol/L (3.5-5.1); Sodium 141 mmol/L (136-145); TSH (W/Ref FT4) 0.14 uIU/mL (0.36-3.74)
[2023-09-22 17:28] LABS: FREE T4 0.98 ng/dL (0.76-1.46)
[2023-09-24 12:00] LABS: Lyme Ab w Rflx to Lyme Confirm Negative (Negative)
[2023-09-25 23:37] LABS: Anaplasma phagocytophilum Negative (Negative); B. miyamotoi PCR Negative (Negative); Babesia divergens/MO-1 Negative (Negative); Babesia duncani Negative (Negative); Babesia microti Negative (Negative); Ehrlichia chaffeensis Negative (Negative); Ehrlichia ewingii/canis Negative (Negative); Ehrlichia muris eauclairensis Negative (Negative)
== END 2023-09-22 16:27 | disposition home or self-care (01) ==
LOC: LBO 16:27
PROVIDERS: PCP Nurse Practitioner; Visit Provider Nurse Practitioner
DX: E03.9 Hypothyroidism, unspecified (principal); R10.9 Unspecified abdominal pain; R11.0 Nausea; R14.3 Flatulence; R50.9 Fever, unspecified
CPT/HCPCS: 36415; 80053; 87798; 81003; 84439; 84443; 85025; 86618; 87086

== ENCOUNTER 2023-09-23 11:36 | Emergency (ER) | payer OTHER, SELFPAY ==
[2023-09-23] VITALS (12 sets, daily range): BP systolic 120–163; BP diastolic 66–97; PULSE 51–57; RESP 16; TEMP 36.7; O2SAT 95–99
--- NOTE | 2023-09-23 11:30 | RT.EKG_ITS ---
APPROVED REPORT Exam: Resting ECG Reason for Exam: syncope Patient Location: E HR:57 bpm ECG Measurements Heart Rate 57 AXIS SC 203 P 63 QRSd 71 QRS 65 QT 401 T 68 QTc 392 Conclusion Sinus bradycardia...rate< 60 Abnrm R prog, consider ASMI or lead placement...Q >30mS, diminished R, V1-V2 PHysician: no stemi, unchanged from prior
--- NOTE | 2023-09-23 12:00 | ED.GENADUL_ITS ---
Discharge Plan Disposition Patient Disposition: Home Condition: Stable Discharge Details Clinical Impression: Dizzinesses, Chest pain Primary Care Provider: Sheree Deng ED Provider: Lakeshia Bowden Home Meds and New Rx's Prescriptions: Continued ibuprofen 200 mg capsule 200 mg PO Q6H PRN levothyroxine [Synthroid] 125 mcg tablet 125 mcg PO DAILY Qty: 90 3RF Rx Instructions: Brand name medically necessary. sumatriptan succinate [Imitrex] 100 mg tablet 100 mg PO as directed Qty: 27 6RF Patient Comments: pt took half a pill 0n 02/07/2020 Rx Instructions: for Headaches, as directed, may repeat x1:up to 3 days/wk levothyroxine [Synthroid] 150 mcg tablet 150 mcg PO DAILY ondansetron HCl 4 mg tablet 4 mg PO TID PRN (Reason: nausea and vomiting) Qty: 20 0RF Vitamins B Complex 1 EACH tablet 1 ea PO DAILY cholecalciferol (vitamin D3) 1,000 UNIT tablet 1,000 unit PO DAILY atenolol 25 mg tablet 25 mg PO DAILY Qty: 90 3RF Hold Instructions: Adverse Reaction Rx Instructions: migraine prevention sertraline 50 mg tablet 75 mg PO DAILY Qty: 20 3RF acetaminophen 500 mg tablet 500 mg PO Q6H PRN (Reason: pain) Qty: 60 2RF Inhaler, Assist Devices [Pocket Chamber] 1 ea miscellaneous DIRECTED Qty: 1 0RF Discharge Instructions Instructions: Dizziness, Adult ED, Chest pain Additional Instructions: At this time head CT is within normal limits, reported no evidence for cardiac involvement to explain the dizziness and chest pain. No evidence of pneumonia. This could be an exacerbation of your vertigo, please continue take the meclizine at night as previously scheduled. Please follow-up closely with your primary care provider. Return to the ER for any worsening chest pain, shortness of breath, fainting episodes or concerns. Thank you for allowing us to care for you today. Referrals: Sheree Deng PERSONNEL INTERVIEWER [Primary Care Provider] - 3 days (ER follow up ) Discharge Data Discharge Date/Time-TO BE ENTERED AT DEPARTURE: 09/23/23 15:27 HPI General Mode of arrival: ambulatory . Date/Time Provider Initiated Documentation: 09/23/23 11:39 . Limitations to Documentation: no limitations . Information obtained by: patient, RN notes reviewed and old records reviewed . HPI Narrative: 73-year-old female presents to the ER with a chief complaint of near syncopal, lightheadedness with chest heaviness which began on Thursday. She describes this as intermittent and achiness. She reports that her whole body hurts. She does have a history of thyroidectomy and thyroid cancer she just recently increased her levothyroxine medication. Denies any nausea vomiting diarrhea. She reports couple head injuries 3 weeks ago and another head injury with a branch last week, no loss of consciousness she reports that it did days her. She does have a history of vertigo. She reports that this feels different. Other past medical history include breast cancer, Toro's palsy, migraines generalized anxiety disorder, hypertension she has had a mastectomy. Thyroidectomy, C- section. She also reports some intermittent right lower leg swelling which has resolved. None currently upon arrival. Denies any other associated symptoms or concerns. Related Data Home Medications Medication Instructions Recorded Confirmed vit B [id number] fum-vit E 1 ea PO DAILY 08/03/12 09/23/23 500 mg-400 mcg-18 mg iron tablet (Vitamins B Complex) cholecalciferol (vitamin D3) 25 1,000 unit PO DAILY 10/12/13 09/23/23 mcg (1,000 unit) tablet acetaminophen 500 mg tablet 500 mg PO Q6H PRN pain #60 tabs 02/08/20 09/23/23 ibuprofen 200 mg capsule 200 mg PO Q6H PRN 10/22/21 09/23/23 Inhaler, Assist Devices [Pocket 1 ea miscellaneous DIRECTED #1 09/27/22 09/23/23 Chamber] unit atenolol 25 mg tablet 25 mg PO DAILY #90 tab-caps 03/09/23 09/23/23 sertraline 50 mg tablet 75 mg (1.5 x 50 mg) PO DAILY #20 05/29/23 09/23/23 tabs Synthroid 125 mcg tablet 125 mcg PO DAILY #90 tabs 07/08/23 09/23/23 (levothyroxine) sumatriptan succinate 100 mg 100 mg PO as directed #27 tabs 07/08/23 09/23/23 tablet (Imitrex) levothyroxine 150 mcg tablet 150 mcg PO DAILY 09/22/23 09/23/23 (Synthroid) ondansetron HCl 4 mg tablet 4 mg PO TID PRN nausea and 09/22/23 09/23/23 vomiting #20 tabs Previous Rx's Medication Instructions Recorded acetaminophen 500 mg tablet 500 mg PO Q6H PRN pain #60 tabs 02/08/20 Inhaler, Assist Devices [Pocket 1 ea miscellaneous DIRECTED #1 09/27/22 Chamber] unit atenolol 25 mg tablet 25 mg PO DAILY #90 tab-caps 03/09/23 sertraline 50 mg tablet 75 mg (1.5 x 50 mg) PO DAILY #20 05/29/23 tabs Synthroid 125 mcg tablet 125 mcg PO DAILY #90 tabs 07/08/23 (levothyroxine) sumatriptan succinate 100 mg 100 mg PO as directed #27 tabs 07/08/23 tablet (Imitrex) ondansetron HCl 4 mg tablet 4 mg PO TID PRN nausea and 09/22/23 vomiting #20 tabs Allergies Allergy/AdvReac Type Severity Reaction Status Date / Time No Known Allergies Allergy Verified 09/23/23 11:46 General Stated Complaint: Chest Pain ESTEFANI: 3 Review of Systems All systems reviewed & are unremarkable except as noted in HPI and below ENT Ears, Nose, Mouth, and Throat: Reports dizziness Cardiovascular Cardiovascular: Reports chest pain and Reports lightheadedness Neurologic Neurologic: Reports dizziness Exam Narrative Exam Narrative: Constitutional: Alert and oriented x3. Appears stated age. Normal body habitus. Head: Normocephalic, no trauma. She does have a slight right-sided facial droop with which patient reports is at her baseline. Eyes: Pupils PERRL, Red reflex noted, EOM's intact. Eyelids symmetrical without lesions, discharge, or swelling. ENT: Bilateral TM's WNL, External ear normal to inspection, no mastoid TTP, swelling, or erythema, Nasal turbinates WNL, no nasal discharge. Normal dentition, Posterior pharynx WNL, no exudate. Chest: RRR, Normal S1, S2, distal pulses intact. Resp: Lungs clear to auscultation bilaterally, no wheezes, rales, or rhonchi. Abdomen: Soft, non-distended, Normoactive bowel sounds all 4 quads. Musculoskeletal: Normal gait, Moves all 4 extremities without difficulty. Does have some kyphosis, no pitting edema noted to bilateral lower extremities. Skin: No suspicious rashes or lesions. Capillary refill less than 2 sec. Neurologic: Cranial nerves II-XII intact. Alert and oriented x 3. Motor: No de ficits noted. Sensory: Intact bilaterally all 4 extremities. Hematologic/Lymphatic: No ecchymosis, no lymphadenopathy. Course Vital Signs Vital signs: Vital Signs Temperature 36.7 C 09/23/23 11:42 Pulse 57 L 09/23/23 11:42 Respiratory Rate 16 09/23/23 11:42 Blood Pressure 143/81 H 09/23/23 11:42 Pulse Oximetry 98 09/23/23 11:42 Temperature 36.7 C 09/23/23 11:42 Pulse 57 L 09/23/23 11:42 Respiratory Rate 16 09/23/23 11:42 Respiratory Effort Normal 09/23/23 11:49 Blood Pressure 143/81 H 09/23/23 11:42 Pulse Oximetry 98 09/23/23 11:42 Oxygen Delivery Method Room Air 09/23/23 11:42 Oxygen Flow Rate 0 09/23/23 11:42 Medical Decision Making 73-year-old female presents to the ER with a chief complaint of near syncopal, lightheadedness with chest heaviness which began on Thursday. She describes this as intermittent and achiness. She reports that her whole body hurts. She does have a history of thyroidectomy and thyroid cancer she just recently increased her levothyroxine medication. Denies any nausea vomiting diarrhea. She reports couple head injuries 3 weeks ago and another head injury with a branch last week, no loss of consciousness she reports that it did days her. She does have a history of vertigo. She reports that this feels different. Other past medical history include breast cancer, Toro's palsy, migraines generalized anxiety disorder, hypertension she has had a mastectomy. Thyroidectomy, C- section. She also reports some intermittent right lower leg swelling which has resolved. None currently upon arrival. Denies any other associated symptoms or concerns. Cardiac workup ordered including serial troponins, chest x-ray head CT without contrast TSH with reflex free T4, urinalysis reviewed from yesterday's lab draw, no UTI, TSH was 0.14 T4 within normal limits. Those were canceled and urinalysis not needed at this time. EKG was reviewed by Dr. Taylor and myself ER attending, old EKG available for review. Please see official report. Does show sinus bradycardia, no obvious STEMI. On patient reevaluation she has no new complaints, she is complaining of little bit of nausea little bit of dizziness. She does have meclizine at home which she does take periodically, I did offer some nausea antiemetic or meclizine which she declines at this time. CT head shows no acute findings, chest x-ray also within normal limits, will repeat troponin now give 500 cc bolus and discharged with close follow-up with PCP. Instructed on plan of care and discussed she verbalized understanding. This text was generated using [employer] system, please disregard any oddities of phrase or misspellings. Medical Records Medical records reviewed: Yes I reviewed the patient's medical records. Lab Data Lab results reviewed: Yes I reviewed the patient's lab results. ECG Data Prior ECG tracings: available for review Quality:SDOH Health Related Social Needs: No Data to Display PFSH All Active Problems (Updated 09/23/23 @ 15:10 by Lakeshia Bowden NP) Chest pain (Acute) Dizzinesses (Acute) Blood pressure instability (Acute) Osteopenia (Acute) per 2021 DEXA (hip)(worse from 2008, but still osteopenia) Rash (Acute) History of total thyroide[place] (Acute) with [place] [facility] [place]illary carcinoma of thyroid (Acute) Chronic pain of right knee (Acute 09/20/15) Cyst of Bartholin's gland duct (Acute 10/14/11) Depressive disorder (Chronic 02/11/02) [facility] 05/2021 Goiter (Acute 08/10/97) Hx of breast cancer (Acute 04/18/09) s/p L Mastectomy 04/18/2009 Hypothyroidism (Acute 12/06/98) Joint pain (Acute 05/27/11) Olvera's cyst R knee; DJD Migraine (Acute 04/12/93) ENT eval 2011 for vertigo; 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, UMASHANKAR Unspecified urinary incontinence (Acute 05/27/11) Primary osteoarthritis of right knee (Chronic) Posterior tibial tendon dysfunction (PTTD) of both lower extremities (Acute) Right hamstring muscle strain (Acute) Abnormal stress test (Acute) Fatigue (Acute) Tubular adenoma (Chronic 10/19/19) Status post total right knee replacement (Acute 02/08/20) Skin tag (Acute) Numerous moles (Acute) Screening for skin cancer (Acute) Contact dermatitis and eczema due to plant (Acute) Mild cognitive impairment (Acute) Osteoarthritis of right shoulder (Acute) Rotator cuff arthropathy of right shoulder (Acute) Multinodular thyroid (Acute) Medical History Generalized anxiety disorder (05/16/21) [facility] Migraine 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 Personal history of malignant neoplasm Colon CA, throat CA Father Emphysema lung Mother Arthritis Social History Smoking/Tobacco Use Status: Never Second Hand Exposure: No Smoking risk assessment performed?: Yes Alcohol Intake: current Alcohol Intake frequency: holidays/special occasions only Drug use: Never Substance use type: does not use Counseling given: Yes Adopted: No Caregiver/Support person: No Foster care: No Household members: none Housing: house Number of Children: 2 number of grandchildren: 7 Communication Needs: Corrective Lenses Education Level: vocational Do you need help understanding health information?: Rarely current occupation: retired [employer] Pets and animals: Yes Pets and animals: cat(s), dog(s) and other Details: rabbit Sexually active: No Do you think of yourself as: straight/heterosexual Current gender identity: female What is your relationship status?: How often do you talk on the phone with friends or family?: three or more times per week How often do you get together with friends or relatives?: twice per week Do you belong to any clubs or organized social groups?: no Panel score (0-1 are the most socially isolated patients): 1 What type of physical activity do you participate in: walking and other Details: Kayaking Duration: 15-30 minutes/day Frequency: 1-2 times per week Desire/Yazidi: Tenriism Special desire needs: No Seatbelt use: always Helmet use: Yes Helmet use: never Drive intox or ride w/intox rivet driver: No Working smoke detector in home: Yes Fire extinguisher in home: No Carbon monox detector in home: Yes Do you feel safe at home: Yes Do you feel safe in your relationship?: Yes
--- NOTE | 2023-09-23 12:00 | DI.CT_ITS ---
Exam(s) CT HEAD WO EXAM: CT HEAD WO CLINICAL HISTORY: Dizziness, Near Syncope. TECHNIQUE: Imaging Protocol: Axial computed tomography images with coronal and sagittal reformatted images were created and reviewed COMPARISON: CT CT HEAD WO from 07/12/2019 FINDINGS: There are no skull fractures. There is no fluid in the visualized paranasal sinuses. There is no evidence of intracranial hemorrhage, mass effect, or shift of midline structures. There are no extra-axial fluid collections. The ventricles are not enlarged or shifted and there is no blo od within the ventricular system nor within the basal cisterns. IMPRESSION: No acute intracranial findings on this noninfused CT scan of the brain. Called by myself to ER. RADIATION DOSE DELIVERED: 781.69mGy.cm Total DLP DATA REPOSITORY: All CT scans at this facility are submitted to the National Radiology Data Registry (NRDR) Dose Index Registry (DIR) with the [employer] (ACR). RADIATION OPTIMIZATION: All CT scans at this facility use at least one of these dose optimization te chniques: automated exposure control; mA and/or kV adjustment per patient size (includes targeted exa ms where dose is matched to clinical indication); or iterative reconstruction.
[2023-09-23 12:11] LABS: Absolute Basophil Count 0.02 10^3/uL (0.0-0.2); Absolute Eosinophil Count 0.14 10^3/uL (0.0-0.7); Absolute Lymphocyte Count 1.22 10^3/uL (1.2-3.4); Basophils % 0.5 %; Eosinophils % 3.8 %; HCT 38.7 % (36.0-46.0); HGB 12.8 g/dL (11.2-15.7); Lymphocytes % 33.2 %; MCH 31.1 pg (27.0-33.0); MCHC 33.1 % (32.0-36.0); MCV 94 fL (80-95); MPV 10.7 fL (8.0-11.0); Monocytes % 16.3 %; Neutrophils % 46.2 %; Platelet Count 193 10^3/uL (130-400); RBC 4.11 10^6/uL (3.93-5.22); RDW 12.4 % (11.7-14.6); WBC 3.68 10^3/uL (4.4-10.8)
[2023-09-23 12:35] LABS: ALT 22 U/L (14-59); AST 16 U/L (15-37); Albumin 3.5 g/dL (3.4-5.0); Alkaline Phosphatase 78 U/L (46-116); Anion Gap 7.4 mmol/L (3-11); BUN 27 mg/dL (7-18); Bilirubin, Total 0.6 mg/dL (0.2-1.0); CO2 28.6 mmol/L (21.0-32.0); CREATININE 0.9 mg/dL (0.55-1.02); Calcium 8.6 mg/dL (8.5-10.1); Chloride 105 mmol/L (98-107); Estimated GFR 67.92 (mL/min/1.73m2); Glucose 101 mg/dL (74-106); Potassium 3.9 mmol/L (3.5-5.1); Sodium 141 mmol/L (136-145); TSH (W/Ref FT4) 0.19 uIU/mL (0.36-3.74); Total Protein 6.9 g/dL (6.4-8.2); Troponin I < 50 ng/L (< or =60)
--- NOTE | 2023-09-23 12:37 | DI.RAD_ITS ---
Exam(s) XR CHEST 2V PA LATERAL EXAM: XR CHEST 2V PA LATERAL CLINICAL HISTORY: Near Syncope Chest Pains,. TECHNIQUE: 2D digital imaging was performed. COMPARISON: CR XR STERNUM from 10/10/2021 FINDINGS: 2 views: Heart size is normal. The mediastinum is not widened. Lungs are clear. No infiltrates nor pleural effusions. IMPRESSION: No acute pulmonary findings. DATA REPOSITORY: RADIATION DOSE DELIVERED:
[2023-09-23] MEDS: Normal Saline 500 ML IV (14:25)
[2023-09-23 14:59] LABS: Troponin I < 50 ng/L (< or =60)
== END 2023-09-23 15:27 | disposition home or self-care (01) ==
PROVIDERS: Emergency Provider Registered Nurse Emergency; PCP Nurse Practitioner
DX: R07.9 Chest pain, unspecified (principal); R42 Dizziness and giddiness; Z79.899 Other long term (current) drug therapy; I10 Essential (primary) hypertension; R55 Syncope and collapse
CPT/HCPCS: 36415; 80053; 93005; 99284; 70450; 71046; 83735; 84443; 84484; 85025; 93010; 93306

== ENCOUNTER 2023-11-18 17:35 | Outpatient (CLI) | payer OTHER, SELFPAY ==
[2023-11-18 17:31] LABS: Vitamin B12 471 pg/mL (193-986)
--- OUTSIDE RECORDS SUMMARY | 2023-11-18 17:37 | XMS_ITS | Encounter Summary ---
Author Organization [facility] Address [facility] [place] [address] Care Team Providers Care Adobe Cq Developer Name Role Phone Sheree Deng APRN Primary Care Provider [phone] Encounter Details Date Type Department Care Team (Latest Contact Info) Description 03/11/2023 Travel Social History Tobacco Use Types Packs/Day Years Used Date Smoking Tobacco: Never Smokeless Tobacco: Never Alcohol Use Standard Drinks/Week Comments No 0 (1 standard drink = 0.6 oz pur e alcohol) once in a while [facility] Utilities Answer Date Recorded In the past 12 months has e electric, gas, oil, or water company threatened to shut off services in your home? No 03/11/2023 Overall Financial Resource Strain (CARDIA) Answe r Date Recorded How hard is it for you to pa y for the very basics like food, housing, medical care, and heating? Not hard at all 03/11/2023 Hunger Vital Sign Answer Date Recorded Within the past 12 months, y ou worried that your food would run out before you got the money to buy more. Never true 03/11/20 23 Within the past 12 months, t he food you bought just didn't last and you didn't have money to get more. Never true 03/11/2023 PRAPARE - Transportation Answer Date Re corded In the past 12 months, has l ack of transportation kept you from medical appointments or from getting medications? No 02/12 In the past 12 months, has l ack of transportation kept you from meetings, work, or from getting things needed for daily living? No 03/11/2023 Housing Stability Vital Sign Answer Surinder e Recorded In the last 12 months, was t here a time when you were not able to pay the mortgage or rent on time? No 03/11/2023 In the last 12 months, how many places have you lived? 1 03/11/2023 In the last 12 months, was t here a time when you did not have a steady place to sleep or slept in a jail (including now)? No 03/11/2023 DH IPV Inpatient Questions Answer Date Recorded Does Anyone Try to Keep You From Having Contact with Others or Doing Things Outside Your Home? unable to answer (comment required) 2023 Feels Threatened by Someone unable to an swer (comment required) 2023 Feels Unsafe at Home or Work/School unab le to answer (comment required) 2023 Physical Signs of Abuse Present no 2023 Sex and Gender Information Value Date Recorded Sex Assigned at Not on file Gender Identity Not on file Sexual Orientation Not on file documented as of this encounter Plan of Treatment Not on file documented as of this encounter Visit Diagnoses Not on filedocumented in this encounter Care Teams Adobe Cq Developer Relationship Specialty Start Date End Date Sheere Deng APRN [address] [place] [address] PCP - General Internal Medicine 08/12/19 documented as of this encounter
--- OUTSIDE RECORDS SUMMARY | 2023-11-18 17:37 | XMS_ITS | Encounter Summary ---
Author Organization [facility] [place] [address] Care Team Providers Care Technologist Development Name Role Phone Sheree Deng Kenzie SOLARES Primary Care Provider [phone] Reason for Visit * Auth/Cert (Routine) Specialty Diagnoses / Procedures Referred By Contac t Referred To Contact Diagnoses Malignant neoplasm of thyroid gland Nontoxic multinodular goiter THYROID CANCER Procedures PRO THYROIDECTOMY, MALIG, LTD NECK SURG PRG EMG, LARYNX THYROIDECTOMY, FOR MALIGNANCY, LIMITED NECK DISSECTION (WRVU 22.01) FACIAL NERVE MONITORING, SETUP LARYNGEAL (WRVU 1.57) Ita Mueller MD [facility] [place] [address] [facility] Referral ID Status Reason Start Date Expiration Date Visits Re quested Visits Authorized [id number] 1 1 Encounter Details Date Type Department Care Team (Late st Contact Info) Description 2023 1:29 PM EDT Anesthesia Event [place] [address] Nimisha Carrillo MD [facility] [place] [address] Rakan Bañuelos MD [facility] [place] [address] Anesthesia Record Procedure Summary Procedure Name Responsible Anesthesiologist Anesthesia Start Time Anesthesia Stop Time THYROIDECTOMY, FOR MALIGNANCY, LIMITED NECK DISSECTION [facility] (Neck) Nimisha Carrillo MD 01/23/23 1329 01/23/23 1625 Events Date Time Event Comment 2023 1227 1329 AN Verify 1329 Start 1331 An Start Data 1339 An Induction 1341 An Intubation 1345 Anesthesia Ready 1355 Procedure Start Time out com plete. Team does not want abx 1617 Extubation/LMA Out 1625 an stop data 1625 Recovery or ICU Handoff Radha ent care was transferred to the destination unit staff after review of the patient's medical history, current anesthetic/surgical status and plan, according to the Provider Handoff Checklist. 1625 Stop Meds Name Total Propofol 400 mg ePHEDrine 15 mg Ondansetron 8 mg Dexamethasone 8 mg Succinylcholine 100 mg Propofol INF 767 mg REMIfentanil INF 1.47 mg HYDROmorphone (PF) 1 mg/mL 0.2 mg lactated ringers infusion 600 mL Lactated Ringers 50 mL * Agents Name O2 * Blood No blood administrations on file. Lines, Drains, and Airways Type Details Placement Removal Incision 01/23/23; 1409; thro at; horizontal; thyroidectomy incision: dermabond over sutures 01/23/23 1409 by Allie Jiménez, RN (RETIRED) Peripheral IV Line - Single Lumen 01/23/23; 1157; median cubital vein (antecubital fossa), left; pfys-mib-bslqih catheter system; 20 gauge; age-appropriate response; 01/24/23; 1114 01/23/23 1157 by Duran Sams, RN 01/24/23 1114 by Prosper Rice, RN ETT Mask Ventilation: Ea sy (1); ETT Type: Cuffed, Oral, NIM; ETT Size: 6 mm; Mac Blade: 3; Indirect: Video; Notes: Asleep, Pre-O2, Cricoid Pressure, Stylette; Attempts: 1; Laryngoscopy Grade: 2; ETT Placement Verified By: Visual, Capnometry; Secured at Teeth: 20 cm; Inserted by: Abrahan Haq CRNA; Removal Date: 01/23/23; Removal Time: 1617 01/23/23 1346 by Karo Haq CRNA 01/23/23 1617 by Karo Haq CRNA (RETIRED) Peripheral IV Line - Single Lumen 01/23/23; 1349; metacarpal vein (top of hand), right; pywy-rwd-kyvtvt catheter system; 18 gauge; Abrahan Haq CRNA; (under GA); 01/24/23; 1114 01/23/23 1349 by Karo Haq CRNA 01/24/23 1114 by Prosper Rice RN documented in this encounter Social History Tobacco Use Types Packs/Day Years Used Date Smoking Tobacco: Never Smokeless Tobacco: Never Alcohol Use Standard Drinks/Week Comments No 0 (1 standard drink = 0.6 oz pur e alcohol) once in a while DH IPV Inpatient Questions Answer Date Recorded [...] on file documented as of this encounter OR Notes * Anesthesia Postprocedure Evaluation - Nimisha Carrillo MD - 2023 4:57 PM EDT Department of Anesthesiology Post-procedure Note Patient: Karen Stratton Procedure Summary Date: 01/23/23 Room / Location: [facility] OR [address] [place] [address] MAIN OR Anesthesia Start: 1329 Anesthesia Stop: 1625 Procedures: THYROIDECTOMY, FOR MALIGNANCY, LIMITED NECK DISSECTION (WRVU 22.01) (Neck) FACIAL NERVE MONITORING, SETUP LARYNGEAL (WRVU 1.57) (Neck) Diagnosis: (THYROID CANCER) Surgeons: Ita Mueller MD Responsible Provider: Nimisha Carrillo MD Anesthesia Type: general ASA Status: 2 All Anesthesia Providers: Anesthesiologist: Nimisha Carrillo MD; Naina Cueto MD INSTRUMENT MAKER APPRENTICE: Karo Haq CRNA Vitals Value Taken Time BP 177/81 01/23/23 1648 Temp Pulse 76 01/23/23 1656 Resp 10 01/23/23 1656 SpO2 90 % 01/23/23 1656 Pain Level 5 01/23/23 1647 Vitals shown include unvalidated device data. Patient Location: PACU/[facility] Level of Consciousness: Conscious but Sleepy Pain Management: Satisfactory Analgesia PONV: None Cardiovascular Status: At Baseline Respiratory Status: At Baseline Postoperative Fluid Status: Intravascular EUvolemia Possible Anesthetic Complications: NONE apparent at time of evaluation Final Primary Anesthesia Type: General (The anesthetic type performed was the same as planned.) Comments: * Anesthesia Preprocedure Evaluation - Nimisha Carrillo MD - 01/22/2023 1:54 PM EDT Pre-Anesthesia Evaluation for: Karen Stratton a 72 y.o. female. Procedure(s): THYROIDECTOMY, FOR MALIGNANCY, LIMITED NECK DISSECTION (WRVU 22.01) FACIAL NERVE MONITORING, SETUP LARYNGEAL (WRVU 1.57) Patient Active Problem List Diagnosis Date Noted Primary osteoarthritis of right knee 08/03/2020 Syncope 08/03/2020 Skin tag Multiple melanocytic nevi Tubular adenoma 10/19/2019 Osteoarthrosis 10/04/2019 Chronic pain of right knee 09/20/2015 Cyst of Bartholin's gland duct 10/14/2011 Urinary incontinence 05/27/2011 History of malignant neoplasm of breast 04/18/2009 Depressive disorder 02/11/2002 Hypothyroidism 12/06/1998 Past Medical History: Diagnosis Date Abnormal cardiovascular stress test 08/03/2020 Toro's palsy Breast cancer Depression H/O breast reconstruction, left 01/26/2013 Hypothyroid Hypothyroidism Migraines Multiple melanocytic nevi Skin tag Status post total right knee replacement 02/08/2020 Past Surgical History: Procedure Laterality Date 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 Physical Exam: Preprocedure Vitals Current as of 01/22/23 1354 No BP, pulse, respiration, SpO2, or temperature recorded. Height: Weight: BMI: IBW: Airway Assessment: Mallampati: II TM distance: >3 FB Neck ROM: limited Cardiovascular Assessment: Rhythm: regular Rate: normal Pulmonary Assessment: unlabored breathing Dental Assessment: - normal exam Misc Assessment: IV access: Peripheral line Last Filed Perioperative Cognitive Screening None Anesthesia Plan: ASA 2 general, with a(n) intravenous induction Karen Stratton is a 73 y.o. female with BMI of 29.18 kg/m2 scheduled for the following: Procedure(s): THYROIDECTOMY, FOR MALIGNANCY, LIMITED NECK DISSECTION (WRVU 22.01) FACIAL NERVE MONITORING, SETUP LARYNGEAL (WRVU 1.57) Medical History: - Hypothyroid on Synthroid - OA - Thyroid malignancy with compression symptoms (dysphagia, voice changes) - Angina with abnormal stress test s/p [facility] Other notable medications: Atenolol (for migraine), Methylprednisolone Surgical History: R TKA, breast surgeries, laparoscopies Anesthetic History: None on file Relevant allergies: tape Notable Labs: Lab Results Component Value Date HGB 12.1 08/19/2019 PLATELET 256 08/19/2019 NA 145 08/19/2019 K 4.4 08/19/2019 CREATININE 0.75 08/19/2019 Exercise tolerance: >4 mets per chart review EKG: Sinus bradycardia ECHO: TTE 2019- LVEF 65%, no valvulopathy or wma Other Testing: Stress test 2019- EKG evidence of ischemia [facility] 2019- normal coronary arteries, elevated LVEDP NPO status at time of surgery: NPO > 8 hours Anesthetic Plan: -GA w/ NIM ETT. No long-term NMBs (facial nerve monitoring) -Standard ASA monitoring -PIV access Rakan Bañuelos MD Purse Maker, PGY2/CA1 Pager # [phone] Region - Other Informed Consent: Anesthetic plan and risks discussed with patient. Plan discussed with attending and resident. Anesthesia Screening documented in this encounter Plan of Treatment Not on file documented as of this encounter Visit Diagnoses Not on filedocumented in this encounter Administered Medications Inactive Administered Medications - up to 3 most recent administrations Medication Order MAR Action Action Date Dose Rate Site dexAMETHasone (Decadron) injection Intravenous, PRN, Starting on Thu01/23/23 at 1350, Until Thu01/23/23 at 1629, Anesthesia Intra-op, Routine Given 2023 1:50 PM EDT 8 mg ePHEDrine sulfate (5 mg/mL) multi-dose injection Intravenous, PRN, Starting on Thu01/23/23 at 1422, Until Thu01/23/23 at 1629, Anesthesia Intra-op, Routine Given 2023 4:07 PM EDT 5 mg Given 2023 3:16 PM EDT 5 mg Given 2023 2:22 PM EDT 5 mg HYDROmorphone (PF) (Dilaudid) (1 mg/mL) injection solution Intravenous, PRN, Starting on Thu01/23/23 at 1559, Until Thu01/23/23 at 1629, Anesthesia Intra-op, Routine Given 2023 3:59 PM EDT 0.2 mg lactated ringers infusion 1,000 mL, at 100 mL/hr, Intravenous, CONTINUOUS, Starting on Thu01/23/23 at 1200, Until Thu01/23/23 at 1812, Day of Surgery (Day of Procedure) New Bag 2023 1:29 PM EDT lactated ringers infusion Intravenous, CONTINUOUS PRN, Starting on Thu01/23/23 at 1345, Until Thu01/23/23 at 1629, Anesthesia Intra-op New Bag 2023 1:45 PM EDT ondansetron (pf) (Zofran) (2 mg/mL) injection Intravenous, PRN, Starting on Thu01/23/23 at 1350, Until Thu01/23/23 at 1629, Anesthesia Intra-op, Routine Given 2023 4:04 PM EDT 4 mg Given 2023 1:50 PM EDT 4 mg propofoL (Diprivan) (10 mg/mL) infusion Intravenous, CONTINUOUS PRN, Starting on Thu01/23/23 at 1345, Until Thu01/23/23 at 1629, Anesthesia Intra-op, Routine Rate/Dose Change 2023 2:22 PM EDT 75 mcg/kg/min 34.515 mL/hr New Bag 2023 1:45 PM EDT 100 mcg/kg/min 46.02 mL/ hr propofoL (Diprivan) 10 mg/mL bolus injection (Anesthesia) Intravenous, PRN, Starting on Thu01/23/23 at 1339, Until Thu01/23/23 at 1629, Anesthesia Intra-op Given 2023 1:49 PM EDT 50 mg Given 2023 1:47 PM EDT 50 mg Given 2023 1:45 PM EDT 50 mg remifentaniL (Ultiva) (0.02 mg/mL) infusion (Anesthesia) Intravenous, CONTINUOUS PRN, Starting on Thu01/23/23 at 1345, Until Thu01/23/23 at 1629, Anesthesia Intra-op Rate/Dose Change 2023 3:11 PM EDT 0.15 mcg/kg/min 34.515 mL/hr Rate/Dose Change 2023 2:51 PM EDT 0.2 mcg/kg/min 46. 02 mL/hr Rate/Dose Change 2023 2:33 PM EDT 0.15 mcg/kg/min 34 .515 mL/hr succinylcholine (Anectine;Quelicin) (20 mg/mL) injection Intravenous, PRN, Starting on Thu01/23/23 at 1339, Until Thu01/23/23 at 1629, Anesthesia Intra-op, Routine Given 2023 1:39 PM EDT 100 mg documented in this encounter Care Teams Technologist Development Relationship Specialty Start Date End Date Sheree Deng APRN [address] [place] [address] PCP - General Internal Medicine 08/12/19 documented as of this encounter
--- OUTSIDE RECORDS SUMMARY | 2023-11-18 17:37 | XMS_ITS | Encounter Summary ---
[place] [address] Care Team Providers Care Customer Account Coordinator Name Role Phone Sheree Deng APRN Primary Care Provider [phone] Encounter Details Date Type Department Care Team (Late st Contact Info) Description 12/31/2022 [place] [id number] Provider, Scanning Social History Tobacco Use Types Packs/Day Years Used Date Smoking Tobacco: Never Smokeless Tobacco: Never Alcohol Use Standard Drinks/Week Comments No 0 (1 standard drink = 0.6 oz pur e alcohol) Sex and Gender Information Value Date Recorded Sex Assigned at Not on file Gender Identity Not on file Sexual Orientation Not on file documented as of this encounter Plan of Treatment Not on file documented as of this encounter Procedures Procedure Name Priority Date/Time Associated Diagnosis Comments CYTOLOGY SCAN Routine 12/31/2022 documented in this encounter Results * Scan Doc: Cytology (12/31/2022) Historical Provider MD VÁZQUEZ MGR SCAN EX T ORDR/RSLT documented in this encounter Visit Diagnoses Not on filedocumented in this encounter Care Teams Customer Account Coordinator Relationship Specialty Start Date End Date Sheree Deng APRN [address] [place] [address] PCP - General Internal Medicine 08/12/19 documented as of this encounter
--- OUTSIDE RECORDS SUMMARY | 2023-11-18 17:37 | XMS_ITS | Encounter Summary ---
[place] [address] Care Team Providers Care Community Health Planning Director Name Role Phone Sheree Deng MAGNETO REPAIRER Primary Care Provider [phone] Encounter Details Date Type Department Care Team (Late st Contact Info) Description 10/31/2022 Ancillary Procedure [place] [address] Sheree Deng, MAGNETO REPAIRER [address] [place], [place] [address] Social History Tobacco Use Types Packs/Day Years [...] Procedure Name Priority Date/Time Associated Diagnosis Comments FILM LIBRARY STORAGE ONLY ULTRASOUND STUDY Routine 10/31/2022 12:00 AM EDT documented in this encounter Results * Film Library- Storage Only Ultrasound Study (10/31/2022 12:00 AM EDT) Narrative [facility] - 01/05/2023 4:48 PM EDT This exam is auto-finalizing. It's purpose is for storage only. Sheree Deng APRN IM FILM LIBRARY ORD ERABLES [facility] [place], [place] documented in this encounter Visit Diagnoses Not on filedocumented in this encounter Care Teams Community Health Planning Director Relationship Specialty Start Date End Date Sheree Deng APRN [address] [place] [address] PCP - General Internal Medicine 08/12/19 documented as of this encounter
--- OUTSIDE RECORDS SUMMARY | 2023-11-18 17:37 | XMS_ITS | Encounter Summary ---
Author Organization [facility] [place] [address] Care Team Providers Care Medical Lab Assistant Name Role Phone Sheree Deng APRN Primary Care Provider [phone] Encounter Details Date Type Department Care Team (Late st Contact Info) Description 08/08/2020 External [place] [id number] Provider, Scanning Social History Tobacco Use Types [...] Procedure Name Priority Date/Time Associated Diagnosis Comments SURGICAL PATHOLOGY SCAN Routine 08/08/2020 documented in this encounter Results * Scan Doc: Surgical Pathology (08/08/2020) Historical Provider MEDIA MGR SCAN EX T ORDR/RSLT documented in this encounter Visit Diagnoses Not on filedocumented in this encounter Care Teams Medical Lab Assistant Relationship Specialty Start Date End Date Sheree Deng APRN [address] [place] [address] PCP - General Internal Medicine 08/12/19 documented as of this encounter
--- OUTSIDE RECORDS SUMMARY | 2023-11-18 17:37 | XMS_ITS | Clinical Summary ---
Author Organization [facility] Address [facility] [place] [address] Care Team Providers Care Site Acquisition Specialist Name Role Phone Aleida Dengyce Kenzie SOLARES Primary Care Provider [phone] Allergies Active Allergy Reactions Criticality Noted Date Comments Adhesive Tape Rash High Medications Medication Sig Dispensed Refills Start Date End Date Status SUMAtriptan (IMITREX) 50 mg tablet 50mg, PO, QID,PRN 12/20/2009 Activ e atenolol (TENORMIN) 25 mg tablet Take 25 mg by mouth daily. 12/20/2009 Active b complex vitamins (VITAMIN B COMPLEX) tablet 12/20/2009 Active SUMAtriptan (Imitrex) 100 mg tablet 12/15/2022 Active sertraline (Zoloft) 50 mg tablet Take 75 mg by mouth daily. 1.5 tablets daily 11/13/2022 Active ergocalciferol, vitamin D2, (VITAMIN D ORAL) Take by mouth. Active acetaminophen (Tylenol) 325 mg tablet Take 3 tablets by mouth every 6 hours. 30 tablet 1 01/24/2023 Active ibuprofen (Motrin) 400 mg tablet Take 1 tablet by mouth every 6 hours as needed for Pain. 30 tablet 12 01/24/2023 Active Synthroid 150 mcg tablet Take 1 tablet by mouth daily. 90 tablet 3 08/18/2023 Active Active Problems Problem Noted Date Diagnosed Date Thyroid cancer 2023 Cancer Staging:Pathologic:Stage II(pT3a, pN0, cM0, Age at diagnosis: >= 55 years) - Signed by Bethel Prater MD on 03/11/2023 Primary osteoarthritis of right knee 08/03/2020 Syncope 08/03/2020 Tubular adenoma 10/19/2019 Osteoarthrosis 10/04/2019 Chronic pain of right knee 09/20/2015 Cyst of Bartholin's gland duct 10/14/2011 Urinary incontinence 05/27/2011 History of malignant neoplasm of breast 04/18/19 10 Depressive disorder 02/11/2002 Hypothyroidism 12/06/1998 Skin tag Multiple melanocytic nevi Resolved Problems Problem Noted Date Diagnosed Date Resolved Date Abnormal cardiovascular stress test 08/03/2020 08/03/2020 Status post total right knee replacement 02/08/2020 08/03/2020 H/O breast reconstruction, left 01/26/2013 08/03/2020 Encounters Date Type Department Care Team Description 08/18/2023 Telephone [place] [address] Fartun Sherwood MD from Last 3 Months Social History Tobacco Use Types Packs/Day Years Used Date Smoking Tobacco: Never Smokeless Tobacco: Never Tobacco Cessation:Counseling Given: Not Answered Alcohol Use Standard Drinks/Week Comments No 0 (1 standard drink = 0.6 oz pur e alcohol) once in a while [facility] Utilities Answer Date Recorded In the past [...] place to sleep or slept in a longterm (including now)? No 03/11/2023 DH IPV Inpatient [...] on file Sexual Orientation Not on file Last Filed Vital Signs Vital Sign Reading Time Taken Comments Blood Pressure 125/66 08/17/2023 3:00 PM EDT Pulse 63 08/17/2023 3:00 PM EDT Temperature 36.2 ??C (97.1 ??F) 08/17/2023 3:00 PM ED T Respiratory Rate 16 03/11/2023 10:08 AM EST Oxygen Saturation 98% 08/17/2023 3:00 PM EDT Inhaled Oxygen Concentration - - Weight 82.1 kg (181 lb) 08/17/2023 3:00 PM EDT Height 162.6 cm (5' 4) 08/17/2023 3:00 PM EDT Body Mass Index 31.07 08/17/2023 3:00 PM EDT Plan of Treatment Health Maintenance Due Date Last Done Comments CT Colonography 1951 Colonoscopy 1951 Colorectal Cancer Screening 1951 FIT DNA 1951 FIT 1951 Sigmoidoscopy (10 year) with FIT yearly 1951 Sigmoidoscopy 1950 Hepatitis C Screening 1969 Lipid Screening 1969 Tdap adult 1970 Tetanus vaccine 1970 Breast Cancer Share Decision Needed 1991 Breast Cancer screening 1991 Zoster vaccine (1 of 2) 2001 Advance Directive 2006 Bone Density Scan 01/24/2016 Pneumoccocal Vaccine: 65+ (1 of 1 - PCV) 01/24/2016 Covid-19 Vaccine (1 - 2022-24 season) 2022 Influenza (Flu) vaccine (1 o f 1 - Influenza standard series) 12/13/2023 Diabetes Screening (HgbA1C or Glucose) Discontinued Procedures Procedure Name Priority Date/Time Associated Diagnosis Comments HC VENIPUNCTURE STAT 08/19/2019 9:33 AM EDT from Last 3 Months or Most Recently Relevant to Health Maintenance Results * (ABNORMAL) BMP w/fasting Glucose (08/19/2019 9:33 AM EDT) Glucose Fasting 100(H) 65 - 99 mg/dL [facility] Comment: ?Fasting* Glucose Interpretive Criteria Normal ?65-99 mg/dL Impaired Fasting glucose ?100-125 mg/dL Consistent with Diabetes Mellitus ? >or= 126 mg/dL *Fasting is defined as no caloric intake for at least 8 hours In the absence of unequivocal hyperglycemia a plasma glucose value of >or= 126 mg/dL should be repeated on a subsequent day. Diagnosis and Classification of Diabetes Mellitus, Position Statement from the [place] [employer]. ??Diabetes Care, Volume 33, Supplement 1, Apr 2009 Blood Urea Nitrogen 19(H) 8 - 18 mg/dL [facility] Creatinine 0.75 0.70 - 1.20 mg/dL [facility] Sodium 145 135 - 145 mmol/L [facility] Potassium 4.4 3.5 - 5.0 mmol/L [facility] Comment: Please note: ??Patients with WBC >100,000 may have falsely elevated Potassium levels. ??For accurate Potassium quantification in these patients send serum separator tube (gold top) for subsequent determinations. ??Contact the Clinical Chemistry Laboratory if there are any questions. Chloride 106 98 - 107 mmol/L [facility] Carbon Dioxide 26 22 - 31 mmol/L [facility] Anion Gap 13 5 - 15 mmol/L [facility] Calcium 9.4 8.5 - 10.5 mg/dL [facility] Est Glomerular Filtration Rate 82 >=60 mL/min/1. 73 m?? [facility] Comment: The eGFR was calculated using the CKD-EPI equation. As with all creatinine based estimates of kidney function, eGFR values calculated with the CKD-EPI equation are not accurate in patients with acute kidney failure, extremes of body mass or the acutely ill. http://[employer]/Figgunkf eGFR 95 >=60 mL/min/1. 73 m?? [facility] Comment: The eGFR was calculated using the CKD-EPI equation. As with all creatinine based estimates of kidney function, eGFR values calculated with the CKD-EPI equation are not accurate in patients with acute kidney failure, extremes of body mass or the acutely ill. [email or web address]/DHMCnkf Blood specimen (specimen) 08/19/2019 9:33 AM EDT 08/19/2019 9:50 AM EDT Narrative Resulting Agency Comment Spec In Lab Aristides Jurado MD CHEMISTRY ORDERABLES [facility] [place] [address] from Last 3 Months or Most Recently Relevant to Health Maintenance Advance Directives * Attempt Cardiopulmonary Resuscitation - Inpatient (Latest Code Status on File) Date Activated Date Inactivated Comments 2023 4:39 PM 01/24/2023 1:35 PM Question Answer Comments Code Status decision made by: Patient * Full Code Date Activated Date Inactivated Comments 08/19/2019 10:01 AM 08/19/2019 5:38 PM Question Answer Comments Does patient have capacity to make decision: Yes Care Teams Site Acquisition Specialist Relationship Specialty Start Date End Date Sheree Deng, GARMENT SORTER [address] [place] [address] PCP - General Internal Medicine 08/12/19
--- OUTSIDE RECORDS SUMMARY | 2023-11-18 17:37 | XMS_ITS | Encounter Summary ---
[facility] [place] [address] Care Team Providers Care Sql Report Analyst Name Role Phone Sheree Deng Kenzie SOLARES Primary Care Provider + [phone] Reason for Referral * Consultation (Routine) - Closed Specialty Diagnoses / Procedures Referred By Contakua t Referred To Contact General Surgery Diagnoses Malignant neoplasm of thyroid gland Mike Ca MD [address] [place] [address] [place] [address] [place] [address] Referral ID Status Reason Start Date Expiration Date V isits Requested Visits Authorized [id number] Closed Consult, Test & Treat 12/24/2022 12/24/2023 1 1 Encounter Details Date Type Department Care Team (Late st Contact Info) Description 12/24/2022 Transcribe Orders eDH Incoming Referrals [phone] Mike Ca MD [address] [place] [address] [place], [place] [id number] Malignant neoplasm of thyroid gland Social History Tobacco Use Types Packs/Day Years Used Date Smoking Tobacco: Never Smokeless Tobacco: Never Alcohol Use Standard Drinks/Week Comments No 0 (1 standard drink = 0.6 oz pur e alcohol) Sex and Gender Information Value Date Recorded Sex Assigned at Not on file Gender Identity Not on file Sexual Orientation Not on file documented as of this encounter Plan of Treatment Scheduled Referrals Name Type Priority Associated Diagnoses Orde r Schedule Referral to General Surgery Outpatient Referral Routine Malignant neoplasm of thyroid gland Ordered: 12/24/2022 documented as of this encounter Visit Diagnoses Diagnosis Malignant neoplasm of thyroid gland documented in this encounter Care Teams Sql Report Analyst Relationship Specialty Start Date End Date Sheree Deng APRN [address] [place] [address] PCP - General Internal Medicine 08/12/19 documented as of this encounter
--- OUTSIDE RECORDS SUMMARY | 2023-11-18 17:37 | XMS_ITS | Encounter Summary ---
Author Organization [facility] [place] [address] Care Team Providers Care Boiler Tester Name Role Phone Sheree Deng BECK Primary Care Provider [phone] Encounter Details Date Type Department Care Team (Late st Contact Info) Description 02/19/2023 Multidisciplinary Ca re Committee [place] [id number] Ita Mueller MD [facility] [place] [address] Social History Tobacco Use Types Packs/Day Years Used Date Smoking Tobacco: Never Smokeless Tobacco: Never Alcohol Use Standard Drinks/Week Comments No 0 (1 standard drink = 0.6 oz pur e alcohol) once in a while [facility] Inpatient Questions Answer Date Recorded Does Anyone [...] on file documented as of this encounter Progress Notes * Ita Mueller MD - 02/19/2023 4:21 PM EST Endocrine - Tumor Board Note Date Presented: 02/19/2023 Presenting Physician: Ami Diagnosis/Tumor Site: Thyroid Is this Metastatic Disease: No Synopsis of History/HPI: Ms. Karen Stratton is a 72 y.o. year old female with multiple thyroid nodules, the left sided nodule enlarging over the past several months, and FNA demonstrating suspicious for malignancy ([place] 5) cytology on the left and AUS on the right. She does not have suspicious adenopathy on CT or ultrasound. I therefore recommended total thyroidectomy with central node dissection, which she underwent on 01/23. Imaging: Thyroid Isthmus: Thickness: 0.61 cm Nodules: none Right lobe: Lobe: 4.32 x 1.99 x 1.93 cm Nodules: There is a hypoechoic nodule measuring 2.24 x 1.30 x1.24 cm. It has irregular borders. There are macrocalcifications. There is no/low vascularity Left lobe: Lobe: difficult to measure due to enlargement and ? 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) Mitotic Rate: 13 mitoses per 2 mm2 Tumor Necrosis: Present Angioinvasion (vascular invasion): Not identified Lymphatic Invasion: Not identified Extrathyroidal Extension: Not identified Margin Status: All margins negative for carcinoma Distance from Invasive Carcinoma to Closest Margin: Less than 1 mm Regional Lymph Nodes Regional Lymph Node Status: All regional lymph nodes negative for tumor Number of Lymph Nodes Examined: 3 Nicole Level(s) Examined: Cannot be determined - One lymph node at level 6/7 (left central neck), two other lymph nodes identified on the surface of thyroid tissue Stage: Pathologic Stage Classification (pTNM, AJCC 8th Edition) pT Category: pT3a pN Category: pN0a Clinical Data (Exams, Labs, etc.): post-operative Tg due 03/13 Molecular Pathology Results: N/A Recommendations: Radiation Oncology consult for I-131 (already scheduled 03/11). Referral to endocrinology for surveillance. DISCLAIMER: The patient was discussed and the tumor board made recommendations but it is ultimatelyup to the treatment provider(s) and the patient to determine the patient???s care. documented in this encounter Plan of Treatment Not on file documented as of this encounter Visit Diagnoses Not on filedocumented in this encounter Care Teams Boiler Tester Relationship Specialty Start Date End Date Sheree Deng, BECK [address] [place] [address] PCP - General Internal Medicine 08/12/19 documented as of this encounter
--- OUTSIDE RECORDS SUMMARY | 2023-11-18 17:37 | XMS_ITS | Encounter Summary ---
Author Organization [facility] [place] [address] Care Team Providers Care Belling Machine Operator Name Role Phone Aleida Dengyce Kenzie SOLARES Primary Care Provider [phone] Reason for Visit * Auth/Cert (Routine) Specialty Diagnoses / Procedures Referred By Contac t Referred To Contact Diagnoses Malignant neoplasm of thyroid gland Nontoxic multinodular goiter THYROID CANCER Procedures PRO THYROIDECTOMY, MALIG, LTD NECK SURG PRG EMG, LARYNX THYROIDECTOMY, FOR MALIGNANCY, LIMITED NECK DISSECTION (WRVU 22.01) FACIAL NERVE MONITORING, SETUP LARYNGEAL (WRVU 1.57) Sophia Mcwilliams MD [facility] [place] [address] [facility] Referral ID Status Reason Start Date Expiration Date Visits Re quested Visits Authorized [id number] 1 1 Encounter Details Date Type Department Care Team (Latest Contact Info) Description 2023 11:13 AM EDT - 01/24/2023 11:35 AM EDT Hospital Encounter [place] [address] Sophia Mcwilliams MD [facility] [place] [address] Thyroid cancer Discharge Disposition: Home Social History Tobacco Use Types Packs/Day Years [...] on file documented as of this encounter Last Filed Vital Signs Vital Sign Reading Time Taken Comments Blood Pressure 116/59 01/24/2023 7:35 AM EDT Pulse 68 2023 6:00 PM EDT Temperature 36.5 ??C (97.7 ??F) 01/24/2023 7:35 AM ED T Respiratory Rate 14 2023 6:00 PM EDT Oxygen Saturation 95% 01/24/2023 7:35 AM EDT Inhaled Oxygen Concentration - - Weight 76.7 kg (169 lb) 2023 11:30 AM EDT Height 162.6 cm (5' 4) 2023 11:30 AM EDT Body Mass Index 29.01 2023 11:30 AM EDT documented in this encounter Discharge Summaries * Pio Ray MD - 01/24/2023 9:13 AM EDT Images from the original note were not included. Endocrine Surgery Inpatient - Discharge Summary Patient Name: Karen Stratton Patient Age: 73 y.o. Birthdate: 1950 Admit date: 2023 Discharge date: 01/24/23 Admitting Physician: Sophia Mcwilliams MD Primary Diagnosis: Thyroid cancer Secondary Diagnosis: Active Hospital Problems Diagnosis Thyroid cancer Resolved Hospital Problems No resolved problems to display. Active Non-Hospital Problems Diagnosis Primary osteoarthritis of right knee Syncope Skin tag Multiple melanocytic nevi Tubular adenoma Osteoarthrosis Chronic pain of right knee Cyst of Bartholin's gland duct Urinary incontinence History of malignant neoplasm of breast Depressive disorder Hypothyroidism HPI: Karen Stratton is a 73 y.o. female with a history of multiple thyroid nodules including a rapidly enlarging left-sided nodule suspicious for malignancy who presents to [facility] for total thyroidectomy and central neck dissection. Please see Dr. Lua's 01/07 clinic note for additional information. Operations/Major Procedures: Operations: 2023 Surgeon(s) and Role: * Sophia Mcwilliams MD - Primary * Cortez Brenner Jr., MD - Resident - Assisting: Procedure(s): THYROIDECTOMY, FOR MALIGNANCY, LIMITED NECK DISSECTION (WRVU 22.01) FACIAL NERVE MONITORING, SETUP LARYNGEAL (WRVU 1.57) Operative Findings: Massive left thyroid lobe with macrocalcifications. Nodular right thyroid lobe with macrocalcifications. Both RLNs preserved. Both lower parathyroids and candidates for both upperparathyroids preserved. Limited left central neck dissection done, but no obvious gross disease Other Major Procedures: N/A Hospital Course: Karen Stratton was [facility]. She was brought to the operating room on [address] Nugent for total thyroidectomy and central neck dissection. She tolerated the operation well and without complication. She was admitted post-operatively for continued rehabilitation, clinical monitoring and further management. The patient's hospital course was uncomplicated and she was determined to be ready fordischarge on post-op day 1. Important Studies and Lab Data: See below. Pathology: Final surgical pathology pending Microbiology: N/A Labs: N/A Pending Lab Data at Discharge: N/A Studies: N/A Discharge Exam: Last value Range last 12 hrs Temperature Temp: 36.5 ??C (97.7 ??F) Temp: [36.5 ??C (97.7 ??F)-36.7 ??C (98.1 ??F)] Heart Rate Heart Rate: 68 Heart Rate: -- Blood Pressure BP: 116/59 BP: (116-129)/(59-61) Respiratory Rate Resp: 14 Resp: -- SpO2 SpO2: 95 % SpO2: [92 %-95 %] I/Os: I/O last 3 completed shifts: In: 920 [P.O.:270; I.V.:650] Out: 1043 [Urine:1000; Blood:43] No intake/output data recorded. GEN: A&O, NAD, resting comfortably HEENT: anicteric sclerae, neck incision intact without hematoma CV: regular rate and rhythm PULM: no increased work of breathing on RA ABD: soft, non-tender, non-distended EXT: WWP, no LE edema NEURO: grossly intact Drains/lines at discharge: None Discharge Plans: Discharge to: Home VNA: No Discharge Conditions/Prognosis: Stable Discharge Medications: The following medications have been prescribed for you. If you notice any adverse reactions to your medications, please contact your primary care physician immediately or go tothe nearest Emergency Department. Your Medications Continued medications with new dosing Dose Details * acetaminophen 325 mg tablet Commonly known as: Tylenol What changed: Another medication with the same name was added. Make sure you understand how and when to take each. Refills: 0 * acetaminophen 325 mg tablet Commonly known as: Tylenol Take 3 tablets by mouth every 6 hours. What changed: You were already taking a medication with the same name, and this prescription was added. Make sure you understand how and when to take each. 975 mg Quantity: 30 tablet Refills: 1 * AdviL 200 mg tablet Generic drug: ibuprofen What changed: Another medication with the same name was added. Make sure you understand how and when to take each. Refills: 0 * ibuprofen 400 mg tablet Commonly known as: Motrin Take 1 tablet by mouth every 6 hours as needed for Pain. What changed: You were already taking a medication with the same name, and this prescription was added. Make sure you understand how and when to take each. 400 mg Quantity: 30 tablet Refills: 12 levothyroxine 125 mcg tablet Commonly known as: Synthroid Take 1 tablet by mouth daily. What changed: medication strength how much to take 125 mcg Quantity: 30 tablet Refills: 3 * This list has 4 medication(s) that are the same as other medications prescribed for you. Read thedirections carefully, and ask your doctor or other care provider to review them with you. Continued medications, unchanged Dose Details atenoloL 25 mg tablet Commonly known as: Tenormin 50mg, PO, QD Refills: 0 * Imitrex 50 mg tablet 50mg, PO, QID,PRN Generic drug: SUMAtriptan Refills: 0 * SUMAtriptan 100 mg tablet Commonly known as: Imitrex Refills: 0 sertraline 50 mg tablet Commonly known as: Zoloft Refills: 0 VITAMIN D ORAL Take by mouth. Refills: 0 Vitamins B Complex Tablet Generic drug: b complex vitamins Refills: 0 * This list has 2 medication(s) that are the same as other medications prescribed for you. Read thedirections carefully, and ask your doctor or other care provider to review them with you. Updated Allergies/ADRs: Allergies Allergen Reactions Adhesive Tape Rash Scheduled Appointments: Future Appointments Date Time Provider Department Center 03/13/2023 10:00 AM LAB[facility] 03/13/2023 11:00 AM Lisa Cortes APRN [facility] SURG [facility] Outpatient Services/Studies: PTH Standing Status: Future Standing Exp. Date: 01/24/24 TSH Standing Status: Future Standing Exp. Date: 08/25/23 Calcium Standing Status: Future Standing Exp. Date: 08/25/23 Thyroglobulin Standing Status: Future Standing Exp. Date: 08/25/23 Instructions Given to Patient at Discharge:. An After Visit Summary was printed and given to the patient. Patient Instructions TOTAL THYROIDECTOMY PATIENT DISCHARGE INSTRUCTIONS What to Expect Following Surgery: Swelling and/or bruising under and around the incision is normal. It is usually greatest on the second or third day following surgery. You may also feel the sensation of swelling or firmness that canlast for a month or more Your scar will be most visible for 1-2 months following your operation and will gradually fade overthe next 6-8 months. As it heals, a scar often looks more pink or red than the skin around it. You may feel a ???healing ridge?? directly under the incision. This is completely normal and is the result of swelling, healing, and scar formation. Usually, this will go away when healing is complete in 3-6 months. The skin just above and below your incision will feel numb. This will improve over several months but some patients may have a long-term decrease in sensation over these areas. You may notice minor difficulty in swallowing which will improve over time. Your voice may be hoarse or weak at first--this is normal and does not mean there was damage done to the nerves that make the vocal cords move. Your voice will usually go back to normal after severaldays to a few weeks. Incision Care: Neck incisions heal rapidly--usually within a week or two. The incision can get wet in the shower 24 hours after surgery. However, do not submerge the incision underwater (i.e. bath tub, swimming pool, hot tub, etc.) for at least 2 weeks after your operation. Pat the incision dry immediately following your shower. Do not scrub the area vigorously for the next 2 weeks. You have a skin glue closure, and you may notice tiny pieces of yellow/white/love material on your washcloth or there may be a thin clear or purplish/love crust around the edges of the incision. Thisis normal. The glue will start to come off about a week after surgery. Do not pull off the skin glue in order to allow time for the incision to heal completely. If there is still some glue on your skin 2 weeks after surgery, you may gently wash it away. Do not use any ointments/salves/Vitamin E on the incision for 2 weeks as these may impair early wound healing. After 2 weeks (and after the skin glue is gone), you may apply vitamin E oil or scar creams to the incision. Gentle massage may help soften your scar tissue. Incisions are sensitive to sunlight. For at least 1 year after surgery you should use sunscreen when outdoors for long periods of time to prevent permanent darkening of the scar. This includes tanning booths. Pain Management: You may apply ice or cold packs to the incision for 15-20 minutes several times a day for the first2-3 days following surgery to help with discomfort. You may feel some stiffness/soreness in your shoulders, back, and neck. This may take a few days orweeks to go away completely. You may use moist warm heat, a heating pad, or massage to these areas for 15-20 minutes several times a day. Do not be afraid to move your neck - gently flexing and stretching your neck muscles and light massage will help prevent stiffness NSAIDs (non-steroidal anti-inflammatory drugs) such as ibuprofen (Motrin, Advil) and naproxen (Naprosyn, Aleve) or acetaminophen (Tylenol) are most helpful for the pain experienced after surgery. Generally, these are even more effective than the stronger pain medications (narcotics or opioids) after thyroid surgery. Take NSAIDS and/or Tylenol every 6 hours [id number] for the first 3-5 days following surgery to help minimize pain. It is unusual to require opioid pain medications after thyroid surgery. If you were prescribed oxycodone, use only for severe pain, and never take with alcohol. Opioid medications typically cause constipation, so we suggest using a stool softener in addition (metamucil, colace...etc.). Diet & Activity: No restrictions in your diet are necessary. Activity as tolerated by your comfort level. You may return to work as soon as you would like. However, if your job requires heavy lifting or strenuous physical activity, your surgeon may ask you to wait to return to work for two weeks. NO DRIVING for at least 8 hours following any dose of an opioid pain medication if one was prescribed for you. Thyroid Hormone: If you had a total thyroid operation, you will be prescribed thyroid hormone replacement (levothyroxine, synthroid, levothroid) to take daily. Take this at the same time each day. You should take your thyroid hormone on an empty stomach and by itself. If possible, avoid taking your calcium supplementation or any other medication within one hour of taking your thyroid hormone pill. A blood test will performed in approximately 6 weeks (the same day as your follow-up visit) to ensure dosing is correct for you. Pathology Report: All specimens removed at surgery are analyzed by a pathologist. This report usually takes approximately 5-7 business days to be ready. As of July 2020, the reports are released directly to your electronic patient portal as soon as they are available. THIS MAY MEAN THAT YOU WILL SEE THE RESULTS BEFORE YOUR SURGEON DOES!!! Dr. Mcwilliams or Lisa Cortes APRN, will call you to discuss the report within 72 hours of its release. Follow-up Appointment: Will be scheduled with Dr. Mcwilliams and/or Lisa Cortes APRN, in 6 weeks If you do not already have a follow up appointment, the date and time as well as any required labs will be mailed to you Please call [phone] to confirm the date and time of your appointment if you do not hear from us in the next 2 weeks Call Doctor for: Call if you have trouble talking or breathing (call [phone] if this is severe) Call if you develop numbness or tingling around your mouth/lips or on the tips of your fingers or your hands, as this may mean your calcium is low. This may also be related to pain medication, where the breathing tube was positioned against your lips, the positioning of your arms and hands in the operating room, or how you were positioned when sleeping. If the sensation does not go away within a half hour, or if it worsens prior to that, call us immediately so we can discuss increasing your calcium if we think you need it. Call if your incision becomes red or begins to drain fluid. Call if you have fevers greater than 101 degrees F Call if you have persistent nausea or vomiting (this may be related to opioid pain medications). Call if you begin feeling worse, rather than better, several days after surgery. Information about Calcium Supplementation WHAT IS THE EFFECT OF SURGERY ON MY CALCIUM LEVELS? The parathyroid glands are responsible for controlling the body???s calcium levels, and they frequently do not work perfectly after surgery on the thyroid. This can result in a decrease in blood calcium levels. This is usually temporary and the parathyroid glands almost always make a full recovery. WHAT ARE THE SYMPTOMS OF LOW CALCIUM? If the calcium level in the blood stream decreases after surgery, you may experience symptoms of numbness, tingling, or cramps in the fingers, toes, legs, or around the mouth. WHAT ARE CALCIUM SUPPLEMENTS? Each over the counter calcium supplement tablet is approximately 500-600 mg. There are several different types of calcium sold over the counter. Some of the more common brands you will see include: Tums, Viactiv, Citracal, Caltrate. The two main forms of calcium in supplements are carbonate and citrate. Calcium carbonate (Tums, Viactiv) is absorbed most efficiently when taken with food, whereas calcium citrate (Citracal) is absorbed equally well when taken with or without food. HOW MUCH CALCIUM SHOULD I TAKE AFTER SURGERY? The exact dose of calcium that is right for you after surgery depends on several factors including the type and extent of surgery. After a total thyroidectomy, most patients will temporarily require some extra calcium as the parathyroid glands recover. You probably already purchased calcium supplements after reviewing your preoperative handout. A good guideline is to start with 600-1200 mg (1-2 over the counter supplements) twice a day. If you notice symptoms of numbness/tingling, you may need to take it more frequently (up to 3-4 times perday). If you have no symptoms, the dose can be gradually decreased and the extra calcium stopped altogether within a few days of surgery. WHAT ABOUT VITAMIN D? Vitamin D can be very helpful with calcium levels, as adequate vitamin D stores in the body help your body absorb calcium. If you were on Vitamin D prior to surgery, this should be resumed post-operatively. Additional Vitamin D may be included in your calcium supplement, this is fine as well. If you are not on Vitamin D and would like to start after surgery, an over the counter supplement of 400-800 IU is the usual recommended dosage, however, if you are on other medications or have otherhealth issues, you will want to discuss this with your PCP. If your surgeon is concerned about your calcium levels, (s)he may prescribe a different form of vitamin D called Rocaltrol (Calcitriol). This should be taken as instructed. Note that this is not a replacement for calcium, it should be taken in addition to the recommended calcium supplements to helpwith absorption. COMMONLY ASKED QUESTIONS: Are there side effects to calcium supplements? The most common side effect is constipation and stomach upset. If you are taking high doses of calcium after surgery, be sure to include a stool softener or laxative as needed. Minimize narcotics, as these can also cause constipation. Finally, decreaseyour calcium supplements if you note no symptoms of low calcium as noted above. Do I need a blood test after surgery to check my calcium levels? No, not usually. Your body will signal you that the calcium level is low with the symptoms noted above. If you do not have these symptoms, then most likely your calcium level is just fine. Phone number for questions: [phone] before 5 PM on weekdays [phone] after 5 PM and on weekends/holidays. Ask for the general surgery resident quality control director. General Instructions None Future Appointments and Orders Future Appointments and Orders Future Appointments Provider Department Dept Phone 03/13/2023 10:00 AM LAB, THREE L Lab 3L [facility] Arrive at: [facility] 03/13/2023 11:00 AM Lisa Cortes APRN General Surgery at [facility] Arrive at: [facility] 4L [phone] Future Orders Complete By Expires Calcium [LAB53 Custom] 02/23/2023 (Approximate) 08/25/2023 Process Instructions: Scheduling Instructions: Comments: Questions: PTH [[id number] Custom] 02/23/2023 (Approximate) 01/24/2024 Process Instructions: Interpretation of PTH results should include a recent calcium concentration Scheduling Instructions: Comments: Questions: Thyroglobulin [[id number] Custom] 02/23/2023 (Approximate) 08/25/2023 Process Instructions: This order includes both Thyroglobulin and Thyroglobulin Antibody assays. Scheduling Instructions: Comments: Questions: TSH [[id number] Custom] 02/23/2023 (Approximate) 08/25/2023 Process Instructions: Scheduling Instructions: Comments: Questions: Discharge References/Attachments: Discharge References/Attachments None Follow-up Recommendations for Providers: Medication changes: Synthroid dose increased to 125mcg daily to reflect full thyroid hormone replacement dose Diet changes: None Other: N/A CC: Sheree Deng, BECK [phone] Signed: Pio Ray MD Endocrine Surgery Service Team Pager #[phone] 01/24/2023 9:14 AM For questions regarding this document or issues relating to this hospitalization on the Endocrine Surgery Service, please contact Radha Nichols MD's office at [phone] (Endocrine Surgery) documented in this encounter Discharge Instructions * Patient Instructions* Cortez Brenner Jr., MD - 2023 4:44 PM EDT TOTAL THYROIDECTOMY PATIENT DISCHARGE INSTRUCTIONS What to Expect Following Surgery: Swelling and/or bruising under and around the incision is normal. It is usually greatest on the second or third day following surgery. You may also feel the sensation of swelling or firmness that canlast for a month or more Your scar will be most visible for 1-2 months following your operation and will gradually fade overthe next 6-8 months. As it heals, a scar often looks more pink or red than the skin around it. You may feel a ???healing ridge?? directly under the incision. This is completely normal and is the result of swelling, healing, and scar formation. Usually, this will go away when healing is complete in 3-6 months. The skin just above and below your incision will feel numb. This will improve over several months but some patients may have a long-term decrease in sensation over these areas. You may notice minor difficulty in swallowing which will improve over time. Your voice may be hoarse or weak at first--this is normal and does not mean there was damage done to the nerves that make the vocal cords move. Your voice will usually go back to normal after severaldays to a few weeks. Incision Care: Neck incisions heal rapidly--usually within a week or two. The incision can get wet in the shower 24 hours after surgery. However, do not submerge the incision underwater (i.e. bath tub, swimming pool, hot tub, etc.) for at least 2 weeks after your operation. Pat the incision dry immediately following your shower. Do not scrub the area vigorously for the next 2 weeks. You have a skin glue closure, and you may notice tiny pieces of yellow/white/love material on your washcloth or there may be a thin clear or purplish/love crust around the edges of the incision. Thisis normal. The glue will start to come off about a week after surgery. Do not pull off the skin glue in order to allow time for the incision to heal completely. If there is still some glue on your skin 2 weeks after surgery, you may gently wash it away. Do not use any ointments/salves/Vitamin E on the incision for 2 weeks as these may impair early wound healing. After 2 weeks (and after the skin glue is gone), you may apply vitamin E oil or scar creams to the incision. Gentle massage may help soften your scar tissue. Incisions are sensitive to sunlight. For at least 1 year after surgery you should use sunscreen when outdoors for long periods of time to prevent permanent darkening of the scar. This includes tanning booths. Pain Management: You may apply ice or cold packs to the incision for 15-20 minutes several times a day for the first2-3 days following surgery to help with discomfort. You may feel some stiffness/soreness in your shoulders, back, and neck. This may take a few days orweeks to go away completely. You may use moist warm heat, a heating pad, or massage to these areas for 15-20 minutes several times a day. Do not be afraid to move your neck - gently flexing and stretching your neck muscles and light massage will help prevent stiffness NSAIDs (non-steroidal anti-inflammatory drugs) such as ibuprofen (Motrin, Advil) and naproxen (Naprosyn, Aleve) or acetaminophen (Tylenol) are most helpful for the pain experienced after surgery. Generally, these are even more effective than the stronger pain medications (narcotics or opioids) after thyroid surgery. Take NSAIDS and/or Tylenol every 6 hours [id number] for the first 3-5 days following surgery to help minimize pain. It is unusual to require opioid pain medications after thyroid surgery. If you were prescribed oxycodone, use only for severe pain, and never take with alcohol. Opioid medications typically cause constipation, so we suggest using a stool softener in addition (metamucil, colace...etc.). Diet & Activity: No restrictions in your diet are necessary. Activity as tolerated by your comfort level. You may return to work as soon as you would like. However, if your job requires heavy lifting or strenuous physical activity, your surgeon may ask you to wait to return to work for two weeks. NO DRIVING for at least 8 hours following any dose of an opioid pain medication if one was prescribed for you. Thyroid Hormone: If you had a total thyroid operation, you will be prescribed thyroid hormone replacement (levothyroxine, synthroid, levothroid) to take daily. Take this at the same time each day. You should take your thyroid hormone on an empty stomach and by itself. If possible, avoid taking your calcium supplementation or any other medication within one hour of taking your thyroid hormone pill. A blood test will performed in approximately 6 weeks (the same day as your follow-up visit) to ensure dosing is correct for you. Pathology Report: All specimens removed at surgery are analyzed by a pathologist. This report usually takes approximately 5-7 business days to be ready. As of July 2020, the reports are released directly to your electronic patient portal as soon as they are available. THIS MAY MEAN THAT YOU WILL SEE THE RESULTS BEFORE YOUR SURGEON DOES!!! Dr. Mcwilliams or Lisa Cortes APRN, will call you to discuss the report within 72 hours of its release. Follow-up Appointment: Will be scheduled with Dr. Mcwilliams and/or Lisa Cortes APRN, in 6 weeks If you do not already have a follow up appointment, the date and time as well as any required labs will be mailed to you Please call [phone] to confirm the date and time of your appointment if you do not hear from us in the next 2 weeks Call Doctor for: Call if you have trouble talking or breathing (call [phone] if this is severe) Call if you develop numbness or tingling around your mouth/lips or on the tips of your fingers or your hands, as this may mean your calcium is low. This may also be related to pain medication, where the breathing tube was positioned against your lips, the positioning of your arms and hands in the operating room, or how you were positioned when sleeping. If the sensation does not go away within a half hour, or if it worsens prior to that, call us immediately so we can discuss increasing your calcium if we think you need it. Call if your incision becomes red or begins to drain fluid. Call if you have fevers greater than 101 degrees F Call if you have persistent nausea or vomiting (this may be related to opioid pain medications). Call if you begin feeling worse, rather than better, several days after surgery. Information about Calcium Supplementation WHAT IS THE EFFECT OF SURGERY ON MY CALCIUM LEVELS? The parathyroid glands are responsible for controlling the body???s calcium levels, and they frequently do not work perfectly after surgery on the thyroid. This can result in a decrease in blood calcium levels. This is usually temporary and the parathyroid glands almost always make a full recovery. WHAT ARE THE SYMPTOMS OF LOW CALCIUM? If the calcium level in the blood stream decreases after surgery, you may experience symptoms of numbness, tingling, or cramps in the fingers, toes, legs, or around the mouth. WHAT ARE CALCIUM SUPPLEMENTS? Each over the counter calcium supplement tablet is approximately 500-600 mg. There are several different types of calcium sold over the counter. Some of the more common brands you will see include: Tums, Viactiv, Citracal, Caltrate. The two main forms of calcium in supplements are carbonate and citrate. Calcium carbonate (Tums, Viactiv) is absorbed most efficiently when taken with food, whereas calcium citrate (Citracal) is absorbed equally well when taken with or without food. HOW MUCH CALCIUM SHOULD I TAKE AFTER SURGERY? The exact dose of calcium that is right for you after surgery depends on several factors including the type and extent of surgery. After a total thyroidectomy, most patients will temporarily require some extra calcium as the parathyroid glands recover. You probably already purchased calcium supplements after reviewing your preoperative handout. A good guideline is to start with 600-1200 mg (1-2 over the counter supplements) twice a day. If you notice symptoms of numbness/tingling, you may need to take it more frequently (up to 3-4 times perday). If you have no symptoms, the dose can be gradually decreased and the extra calcium stopped altogether within a few days of surgery. WHAT ABOUT VITAMIN D? Vitamin D can be very helpful with calcium levels, as adequate vitamin D stores in the body help your body absorb calcium. If you were on Vitamin D prior to surgery, this should be resumed post-operatively. Additional Vitamin D may be included in your calcium supplement, this is fine as well. If you are not on Vitamin D and would like to start after surgery, an over the counter supplement of 400-800 IU is the usual recommended dosage, however, if you are on other medications or have otherhealth issues, you will want to discuss this with your PCP. If your surgeon is concerned about your calcium levels, (s)he may prescribe a different form of vitamin D called Rocaltrol (Calcitriol). This should be taken as instructed. Note that this is not a replacement for calcium, it should be taken in addition to the recommended calcium supplements to helpwith absorption. COMMONLY ASKED QUESTIONS: Are there side effects to calcium supplements? The most common side effect is constipation and stomach upset. If you are taking high doses of calcium after surgery, be sure to include a stool softener or laxative as needed. Minimize narcotics, as these can also cause constipation. Finally, decreaseyour calcium supplements if you note no symptoms of low calcium as noted above. Do I need a blood test after surgery to check my calcium levels? No, not usually. Your body will signal you that the calcium level is low with the symptoms noted above. If you do not have these symptoms, then most likely your calcium level is just fine. Phone number for questions: [phone] before 5 PM on weekdays [phone] after 5 PM and on weekends/holidays. Ask for the general surgery resident quality control director. documented in this encounter Medications at Time of Discharge Medication Sig Dispensed Refills Start Date End Date acetaminophen (Tylenol) 325 mg tablet Take 3 tablets by mouth every 6 hours. 30 tablet 1 01/24/2023 ibuprofen (Motrin) 400 mg tablet Take 1 tablet by mouth every 6 hours as needed for Pain. 30 tablet 12 01/24/2023 SUMAtriptan (Imitrex) 100 mg tablet 12/15/2022 sertraline (Zoloft) 50 mg tablet Take 75 mg by mouth daily. 1.5 tablets daily 11/13/2022 ergocalciferol, vitamin D2, (VITAMIN D ORAL) Take by mouth. SUMAtriptan (IMITREX) 50 mg tablet 50mg, PO, QID,PRN 12/20/2009 atenolol (TENORMIN) 25 mg tablet Take 25 mg by mouth daily. 12/20/2009 b complex vitamins (VITAMIN B COMPLEX) tablet 12/20/2009 levothyroxine (Synthroid) 125 mcg tablet Take 1 tablet by mouth daily. 30 tablet 3 2023 08/18/2023 acetaminophen (Tylenol) 500 mg tablet Take by mouth every 6 hours as needed. 12/20/2009 03/11/2023 ibuprofen (ADVIL) 200 mg tablet 12/20/2009 03/11/2023 documented as of this encounter Progress Notes * Prosper Rice RN - 01/24/2023 11:15 AM EDT [facility] Short Stay Unit Discharge Note All relevant discharge milestones have been met by the patent. After Visit Summary and discharge teaching reviewed with the patient. IV access has been discontinued. All personal belongings have been returned to the patient/family upon their departure from the unit. Patient has been discharged to home The patient has been discharged without VNA services. * Angela Edgar MD - 2023 9:06 PM EDT Surgical Oncology Post-Operative Progress Note Karen Stratton 01/24/2023 Surgery/Issue: Procedure(s): THYROIDECTOMY, FOR MALIGNANCY, LIMITED NECK DISSECTION (WRVU 22.01) FACIAL NERVE MONITORING, SETUP LARYNGEAL (WRVU 1.57) Attending: Dr. Sophia Mcwilliams Date of surgery: 2023 Findings: massive left thyroid lobe with macrocalcifications. Nodular right thyroid lobe with macrocalcifications. Both RLNs preserved. Both lower parathyroids and candidates for both upper parathyroids preserved. Limited left central neck dissection done, but no obvious gross disease Subjective/Events: Pt was seen and examined. Pain well controlled, reports only mild pain near incision site. Denies nausea, vomiting, chest pain, shortness of breath. Patient has had a urinary void since surgery. Objcetive: Temp: [36.7 ??C (98.1 ??F)-36.9 ??C (98.4 ??F)] Heart Rate: [59-79] Resp: [10-16] BP: (122-171)/(59-91) Intake/Output Summary (Last 24 hours) at 01/24/2023 0637 Last data filed at 01/24/2023 0556 Gross per 24 hour Intake 920 ml Output 1043 ml Net -123 ml Lab Results Component Value Date NA 145 08/19/2019 K 4.4 08/19/2019 CL 106 08/19/2019 CO2 26 08/19/2019 BUN 19 (H) 08/19/2019 CREATININE 0.75 08/19/2019 GLUCFASTING 100 (H) 08/19/2019 CALCIUM 9.4 08/19/2019 Lab Results Component Value Date WBC 4.0 08/19/2019 HGB 12.1 08/19/2019 HCT 38.9 08/19/2019 MCV 95.8 (H) 08/19/2019 PLATELET 256 08/19/2019 Exam: General: appears in no acute distress, A/O x 3 HEENT: NC/AT Chest: CTAB Cardiac: RRR Abdomen: soft, NT/ND Extremity: no c/c/e Incision: neck incision intact with Dermabond, no signs of bleeding or swelling A/P: Karen Stratton is a 73 y.o. female patient s/p thyroidectomy with limited left central neck dissection. Currently recovering well, no complaints. Physical exam non-concerning. Has had urinary void since surgery. 1. Pain- controlled 2. Nausea- denies 3. Specific c/o- none 4. Diet: Regular Angela Edgar MD General Surgery * Prosper Rice RN - 2023 7:19 PM EDT [facility] Short Stay Unit Shift Note The patient is progressing as expected except Pain Management. Details: Pt stood up to commode and voided. Pain 5/10, tylenol given. Incision CDI Patient Vitals for the past 24 hrs: Temp Heart Rate From SP02 Pulse Resp BP SpO2 O2 Flow Rate (L/min) O2 Device 01/23/23 1130 36.7 ??C (98.1 ??F) -- 59 16 135/69 97 % -- RA 01/23/23 1645 -- 79 bpm 79 15 (!) 171/91 (!) 89 % -- -- 01/23/23 1700 -- 73 bpm 74 12 169/77 97 % 2 L/min NC 01/23/23 1715 -- 70 bpm 70 10 166/75 96 % 2 L/min NC 01/23/23 1730 -- 68 bpm 68 14 156/71 97 % -- -- 01/23/23 1745 -- 68 bpm 68 11 155/72 96 % -- -- 01/23/23 1800 -- 68 bpm 68 14 163/74 96 % 2 L/min NC Intake/Output Summary (Last 24 hours) at 2023 1919 Last data filed at 2023 1830 Gross per 24 hour Intake 650 ml Output 743 ml Net -93 ml Will continue to progress the patient as tolerated to meet their relevant discharge milestones. * Nimisha Urrutia RN - 2023 5:01 PM EDT 1700- RN Break Coverage documented in this encounter H&P Notes * Cortez Brenner Jr., MD - 2023 12:23 PM EDT Pre-operative H&P Note ID: Patient Name: Karen Stratton : 1950 Karen Stratton is a 73 y.o. female with a history of multiple thyroid nodules including a rapidly enlarging left-sided nodule suspicious for malignancy who presents to [facility] for total thyroidectomy andcentral neck dissection. Please see Dr. Lua's 01/07 clinic note for additional information. 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 The patient has no new questions or concerns. O: Temp: [36.7 ??C (98.1 ??F)] Heart Rate: [59] Resp: [16] BP: (135)/(69) SpO2: [97 %] Heart Rate from SpO2: -- Physical Exam: GEN: A&O, NAD, resting comfortably CV: regular rate, extremities WWP PULM: no increased work of breathing on RA ABD: soft, non-tender, non-distended NEURO: grossly intact A/P: Kaern Stratton is a 73 y.o. female who presents for planned total thyroidectomy and central neck dissection. Informed consent was obtained, and the consent form has been uploaded to the patient'schart. Plan to proceed to the OR for planned operation. Cortez Brenner Jr, MD General Surgery PGY-3 2023 12:23 PM documented in this encounter Miscellaneous Notes * Brief Op Note - Sophia Mcwilliams MD - 2023 4:07 PM EDT Brief Operative Note Patient Name: Karen Stratton : [id number] MR#: [id number] Case Date: 2023 Surgeon: Surgeon(s) and Role: * Sophia Mcwilliams MD - Primary * Cortez Brenner Jr., MD - Resident - Assisting Preoperative diagnosis: THYROID CANCER Postoperative diagnosis: THYROID CANCER Procedure(s) (LRB): THYROIDECTOMY, FOR MALIGNANCY, LIMITED NECK DISSECTION (WRVU 22.01) (N/A) FACIAL NERVE MONITORING, SETUP LARYNGEAL (WRVU 1.57) (N/A) Anesthesia: General Findings: massive left thyroid lobe with macrocalcifications. Nodular right thyroid lobe with macrocalcifications. Both RLNs preserved. Both lower parathyroids and candidates for both upper parathyroids preserved. Limited left central neck dissection done, but no obvious gross disease Complications: none apparent Intake: Intraprocedure Crystalloid Total Intake Lactated Ringers 50.00 mL lactated ringers infusion 400.00 mL Total Intake 450 mL Output Blood Loss 43 mL Total Output 43 mL Net Net Volume 407 mL Transfusion No data found in the last 1 encounters. Output: Estimated Blood Loss: 43 mL Urine Output:: (no urine output recorded) Other Output: (no other output recorded) Drains: none Specimens removed during surgery: Order Name Source Comment Collection Info Order Time SPECIMEN TO PATHOLOGY Total thyroid stitch at right upper pole for permanent THYROID CANCER Total thyroid stitch at right upper pole excision 2023 3:29 PM Time specimen removed from patient: 3:28 PM Number of tissue samples (in container) 1 SPECIMEN TO PATHOLOGY Left central neck contents for permanent THYROID CANCER Left central neck contents excision 2023 3:31 PM Time specimen removed from patient: 3:29 PM Number of tissue samples (in container) 1 Disposition: awakened from anesthesia, extubated and taken to the recovery room in a stable condition, having suffered no apparent untoward event. Condition: doing well without problems Attestation: Case Date: 2023 I was present and I participated during the entire procedure (does not need to include opening and closing). (Please see the Surgical Encounter Summary for any Implant and Specimen details pertinent to this patient.) Surgical Infection Prevention Bundle Used? N/A * Op Note - Sophia Mcwilliams MD - 2023 2:09 PM EDT [facility] Operative Note Patient Name: Karen Stratton : [id number] MR#: [id number] Case Date: 2023 Surgeon: Surgeon(s) and Role: * Sophia Mcwilliams MD - Primary * Cortez Brenner Jr., MD - Resident - Assisting Preoperative diagnosis: THYROID CANCER Postoperative diagnosis: THYROID CANCER Procedure(s) (LRB): THYROIDECTOMY, FOR MALIGNANCY, LIMITED NECK DISSECTION (WRVU 22.01) (N/A) FACIAL NERVE MONITORING, SETUP LARYNGEAL (WRVU 1.57) (N/A) Anesthesia: General Estimated Blood Loss: 43 mL Specimens removed during surgery: Order Name Source Comment Collection Info Order Time SPECIMEN TO PATHOLOGY Total thyroid stitch at right upper pole for permanent THYROID CANCER Total thyroid stitch at right upper pole excision 2023 3:29 PM Time specimen removed from patient: 3:28 PM Number of tissue samples (in container) 1 SPECIMEN TO PATHOLOGY Left central neck contents for permanent THYROID CANCER Left central neck contents excision 2023 3:31 PM Time specimen removed from patient: 3:29 PM Number of tissue samples (in container) 1 Drains: * No LDAs found * Surgical Closure: Primary Closure - skin incision is completely closed without any wires, alicia, drains or other devices Disposition: awakened from anesthesia, extubated and taken to the recovery room in a stable condition, having suffered no apparent untoward event. Condition: doing well without problems (Please see the Surgical Encounter Summary for any Implant and Specimen details pertinent to this patient.) HPI/Surgical Indications: Ms. Karen Stratton is a 72 y.o. year old female with multiple thyroid nodules, the left sided nodule enlarging over the past several months, and FNA demonstrating suspicious for malignancy (Allison 5) cytology on the left and AUS on the right. She does not have suspicious adenopathy on CT or ultrasound. I therefore recommended total thyroidectomy with central node dissection. Procedure Description: The patient was correctly identified in the preoperative holding area. The risks, benefits, and indications of a thyroidectomy were reviewed with the patient. She was then taken to the operating room and placed on the operating table in the supine position and an identification procedure was performed. Adequate general anesthesia was achieved by anesthesiology with the [employer] recurrent laryngeal nerve monitoring system. A natural crease in the anterior neck was marked with a marking pen. This area was infiltrated with 0.25% Sensorcaine with epinephrine. The patient'santerior neck was then prepped and draped in sterile fashion. A timeout procedure was done and all members of the OR team were in agreement. We made a curvilinear incision along the previously marked crease with a scalpel. The incision was carried down through the subcutaneous tissue and platysma muscle using electrocautery. Subplatysmal flaps were created in the cranial and caudal directions. The median raphe of the strap muscles was id entified and this was divided in vertical fashion using electrocautery. This exposed the thyroid gland, which was from its lateral attachments to the strap muscles on the left side using electrocautery. The left thyroid lobe was markedly enlarged and there were obvious scattered calcifications. The middle thyroidal veins were ligated with 3-0 silk sutures and Ligasure device. The inferior thyroid vessels were identified and divided using a combination of hand ties and Ligasure device.We then identified the recurrent laryngeal nerve as it ran in the tracheoesophageal groove. It was noted to be distorted along the lateral aspect of the gland, but was easily as there was aclear plane between the nerve and the gland. It remained intact throughout. We then took down the upper pole thyroid vessels with a combination of 2-0 and 3-0 silk sutures and Ligasure device. The left lower and a candidate for the left upper parathyroid glands were seen and preserved on their vascular pedicles. We then divided the attachments of the ligament of Yadav with sharp dissection and 3-0 silk sutures and divided the attachments of the thyroid off the pretracheal fascia past the midline with electrocautery. We performed an identical procedure on the right thyroid lobe, which was nodular and also containedobvious calcifications. Again, the right lower and a candidate for the right upper parathyroid glands were identified and preserved. The recurrent laryngeal nerve was fully functional upon completion. The thyroid specimen was removed, marked with a suture on the right upper pole and sent to pathology. We then performed a prophylactic left central neck dissection. We dissected the lymph nodes from the hyoid bone cranially to the sternal notch caudally and between the common carotid artery laterallyand the trachea medially. The level 6 and 7 lymph nodes were carefully dissected away from the paratracheal and paraesophageal space and off the recurrent laryngeal nerve posteriorly. There was relatively scant tissue other than one nodule near the upper pole, which may have actually been an avulsed nodule rather than a lymph node. The left recurrent laryngeal nerve was carefully preserved and was anatomically intact and functional on the nerve monitor with stimulation. Care was taken to preserve the parathyroid glands on their vascular pedicles. The left central neck contents were removed and sent to pathology as a permanent section. We visually examined and palpated the right central neck, but ultimately decided that there was relatively scant tissue there and no concern for pathology, so we did not perform a right central neck dissection. We then irrigated the operative field. A Valsalva to 30 millimeters of mercury was accomplished by Anesthesia. Hemostasis was assured. Surgicel was placed in the paratracheal spaces bilaterally. We then closed the strap muscles using running 3-0 Vicryl suture, the platysma with interrupted 3-0Vicryl suture, and the skin with running 5-0 Prolene subcuticular suture, followed by placement of Dermabond and removal of the Prolene suture. The patient tolerated the procedure well. Sponge and needle counts were correct upon completion of the procedure. Surgical Infection Prevention Bundle Used? N/A Attestation: Case Date: 2023 I was present and I participated during the entire procedure (does not need to include opening and closing). SOPHIA MCWILLIAMS MD 2023 documented in this encounter Plan of Treatment Not on file documented as of this encounter Procedures Procedure Name Priority Date/Time Associated Diagnosis Comments SPECIMEN TO PATHOLOGY Routine 2023 3:31 PM EDT SPECIMEN TO PATHOLOGY Routine 2023 3:29 PM EDT SURGICAL PATHOLOGY REPORT Routine 2023 3:28 PM EDT Needle Electromyography, Larynx Global (03330) Yes 2023 1:30 PM EDT THYROID CANCER Thyroidectomy, [employer] Neck Surg ([id number]) Yes 2023 1:30 PM EDT THYROID CANCER documented in this encounter Results * (ABNORMAL) Thyroglobulin (03/09/2023 1:54 PM EST) Thyroglobulin 0.2(L) 1.3 - 31.8 ng/mL [facility] Comment: INTERPRETIVE INFORMATION: Thyroglobulin, Serum or Plasma Specimens negative for thyroglobulin antibodies (TgAb) are tested for thyroglobulin (Tg) by chemiluminescent immunoassay (ELENI) using the [employer] Access DxI method. Specimens with TgAb results above the upper reference limit are tested for Tg by high-performance liquid chromatography-tandem mass spectrometry (LC-MS/MS). Results obtained with different test methods or kits cannot be used interchangeably. Tg results, regardless of concentration, should not be interpreted as absolute evidence for the presence or absence of papillary or follicular thyroid cancer. Tg testing is not recommended for use as a screening procedure to detect the presence of thyroid cancer in the general population. Thyroglob Ab <0.9 0.0 - 4.0 IU/mL [facility] Comment: INTERPRETIVE INFORMATION: Thyroglobulin Antibody A value of 4.0 IU/mL or less indicates a negative result for thyroglobulin antibodies. The Thyroglobulin Antibody assay is being performed using the [place] Access DxI method. Please note that as 01/08/22 this testing is performed at [facility]. This change is associated with a change in testing method and reference intervals. Values from other methods may not correlate with this method. Please review the results of this test in assocaition with the posted reference intervals. Thyroglobulin by LC-MS/MS Not Applicable 1.3 - 31.8 ng/mL [facility] Comment: INTERPRETIVE INFORMATION: Thyroglobulin by LC-MS/MS, Serum/Plasma Lower limit of detection for Thyroglobulin by LC-MS/MS is 0.5 ng/mL. This test was developed and its performance characteristics determined by [facility]. It has not been cleared or approved by the [place] Food and Drug Administration. This test was performed in a CLIA certified laboratory and is intended for clinical purposes. Performed By: [facility] [address] [place] [id number] [employer] Associate: Harish Fernandez MD, PhD CLIA Number: [id number] Blood 03/09/2023 1:54 PM EST 03/10/2023 1:42 PM EST Narrative Resulting Agency Comment Spec In Lab Sophia Mcwilliams MD LAB SEND OUT ORDE RABLES Performing Organization Address [facility] Co de Phone Number [facility] [place] [address] * Calcium (03/09/2023 1:54 PM EST) Calcium 9.2 8.5 - 10.5 mg/dL [facility] Blood 03/09/2023 1:54 PM EST 03/09/2023 2:13 PM EST Narrative Resulting Agency Comment Spec In Lab Sophia Mcwilliams MD CHEMISTRY ORDERAB LES Performing Organization Address [facility] de Phone Number [facility] [place] [address] * (ABNORMAL) TSH (03/09/2023 1:54 PM EST) Thyroid Stimulating Hormone 9.04(H) 0.27 - 4.20 mcIU/mL [facility] Comment: Reference Interval (mcIU/mL): Females: ??First Trimester: 0.23-3.88 ??Second Trimester: 0.22-3.90 ??Third Trimester: 0.44-4.66 Blood 03/09/2023 1:54 PM EST 03/09/2023 2:13 PM EST Narrative Resulting Agency Comment Spec In Lab Sophia Mcwilliams MD CHEMISTRY ORDERAB LES Performing Organization Address [facility] Co de Phone Number [facility] [place] [address] * PTH (03/09/2023 1:54 PM EST) Parathyroid Hormone 57 15 - 65 pg/mL [facility] Blood 03/09/2023 1:54 PM EST 03/09/2023 2:13 PM EST Narrative Resulting Agency Comment Spec In Lab Sophia Mcwilliams MD CHEMISTRY ORDERAB LES Performing Organization Address [facility] Co de Phone Number [facility] [place] [address] * Specimen to Pathology (2023 3:31 PM EDT) AP Specimen 2023 3:31 PM EDT 2023 3:31 PM EDT Narrative [facility] - 2023 3:31 PM EDT Specimen requisition ordered. ??Separate Pathology report to follow Sophia Mcwilliams MD PATHOLOGY/CYTOLOG Y ORDERABLES Performing Organization Address [facility] Co de Phone Number [facility] [place] [address] * Specimen to Pathology (2023 3:29 PM EDT) AP Specimen 2023 3:29 PM EDT 2023 3:29 PM EDT Narrative [facility] - 2023 3:29 PM EDT Specimen requisition ordered. ??Separate Pathology report to follow Sophia Mcwilliams MD PATHOLOGY/CYTOLOG Y ORDERABLES Performing Organization Address [facility] Co de Phone Number [facility] [place] [address] * (ABNORMAL) Surgical Pathology Report (2023 3:28 PM EDT) Final Diagnosis [id number] ? Location: U; 08; A The signing pathologist has (i) examined the relevant preparation(s) for the specimen(s) and (ii) rendered or confirmed the diagnosis(es). . 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 - Background nodular thyroid tissue with a dominant nodule (3.5 cm, right lobe). - Normocellular parathyroid tissue. - Two lymph nodes, ??negative for malignancy. (0/2) B - Left central neck contents, excision - Nodular thyroid tissue, macrofollicular pattern. - One lymph node, ??negative for malignancy. (0/1) Electronically signed by: ?EMILY STILES Verified: ??02/05/2023 13:41 Performed at: ??-[facility] Dept. of Pathology, [place] [address] Family Manager: Boby Sanders MD, FCAP, ??CLIA Certificate: [id number] SYNOPTIC Specimen ? Procedure: ??Total thyroidectomy Tumor ? Tumor Focality: ??Unifocal ? 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 Histologic Type Comment: ??With tumor necrosis and mitotic count >5 per 2 ?mm2, this tumor is best classified as differentiated high grade thyroid ?carcinoma ([facility]) ?Mitotic Rate: ??13 mitoses per 2 mm2 ?Tumor Necrosis: ??Present ?Angioinvasion (vascular invasion): ??Not identified ?Lymphatic Invasion: ??Not identified ?Extrathyroidal Extension: ??Not identified ?Margin Status: ??All margins negative for carcinoma ? Distance from Invasive Carcinoma to Closest Margin: ??Less than 1 mm Regional Lymph Nodes ? Regional Lymph Node Status: ??All regional lymph nodes negative for tumor ? Number of Lymph Nodes Examined: ??3 ?Nicole Level(s) Examined: ??Cannot be determined - One lymph node at level ? 6/7 (left central neck), two other lymph nodes identified on the surface ? of thyroid tissue Pathologic Stage Classification (pTNM, AJCC 8th Edition) ? pT Category: ??pT3a ? pN Category: ??pN0a Best Tumor Blocks for Future Studies ? Tumor Block(s): ??A30, A33 ? [facility] 2021 Q2 Release . DISCUSSION Nuclear features vary throughout the tumor, there are patchy areas with features of papillary thyroid carcinoma, including nuclear clearing, margination and nuclear grooves. THIS RESULT REQUIRES PHYSICIAN/A.P.P. FOLLOW UP ADDITIONAL STUDIES Immunohistochemistry Studies: Formalin-fixed, paraffin-embedded tissue sections are studied using the polymer technique with appropriate positive and negative controls. ?These IHC studies provide the pathologist with adjunctive diagnostic information. Antibody specificity has been verified by testing antibodies on a series of in-house tissues with known immunohistochemical performance characteristics. The clinical interpretation of any antibody positive staining or its absence is evaluated within the context of clinical presentation, morphology, histopathological criteria and other diagnostic tests. Block ? Antibody ?Result (Positive/Negative) A56 ?CD31 ? Negative for vascular invasion SPECIMEN(S) SUBMITTED A - Total thyroid stitch at right upper pole, excision (1) B - Left central neck contents, excision (1) CLINICAL INFORMATION Thyroid cancer SPECIMEN PROCESSING A - Labeled/Fixative: Total thyroid stitch at right upper pole, fresh. Quantity/Size/Weight : Single, 9.4 x 7.5 x 4.7 cm, 125 g. SPECIMEN DESCRIPTION: Resection Specimen: Intact, total thyroidectomy, consisting of right thyroid lobe, left thyroid lobe, isthmus. External Surface: Intact, watson to brown, 2.8 x 1.6 cm pedunculated nodule in the left upper pole. ??LESION ?Location: Mid-lobe, upper pole. ?Description: Watson to white circumscribed, firm. ?Size: 5.1 x 5.1 x 4.2 cm. ?Contour/capsule: Circumscribed, left lobe. ??LESION (2) ?Location: Mid-lobe, upper pole. ?Description: Watson to yellow calcified. ?Size: 3.5 x 2.7 x 1.5 cm. ?Contour/capsule: Encapsulated, right lobe. Parenchyma: Watson to brown. Hemorrhagic. Inking: The thyroid capsule is inked black. Sections/Processing: Blocks submitted for decalcification: A71-A82. Newsroom Intern sections in 83 cassettes as follows: ?A1-A6: ??Nodule located on the superior pole left serially sectioned and entirely ? submitted ?A7-A13: ??Robertson of left lobe perpendicularly sectioned and entirely submitted to ? include lesion ?A14-A66: ??Capsule surrounding the lesion in left lobe entirely submitted ?A67: ??Newsroom Intern normal appearing left lobe parenchyma ?A68: ??Newsroom Intern isthmus ?A69-A70: ??Newsroom Intern left lobe lesional parenchyma ?A71-A82: ??Right lobe lesion entirely submitted following decalcification ?A83: ??Newsroom Intern normal-appearing right lobe parenchyma . SPECIMEN PROCESSING B - Labeled/Fixative: Left central neck contents, fresh. Quantity/Size: Two, 2.3 x 1.5 x 0.7 cm, 7 x 0.3 cm. Tissue Description: Two portions of firm rubbery tissue, one covered in adipose tissue and one is watson-pink. Sections/Processing: Serially sectioned and entirely submitted in 3 cassettes labeled B1-B3. ?B1: One nodule serially sectioned and entirely submitted ?B2-B3: One nodule serially sectioned and entirely submitted ??kjs pps(A) 02/05/2023 1:41 PM EDT [facility] LYMPH NODE SPECIMEN / Unknown 2023 3:28 PM EDT 2023 3:28 PM EDT LYMPH NODE SPECIMEN / Unknown 2023 3:28 PM EDT 2023 3:28 PM EDT Sophia Mcwilliams MD PATHOLOGY/CYTOLOG Y ORDERABLES [facility] [address] [place] [address] documented in this encounter Visit Diagnoses Diagnosis Thyroid cancer- Primary Malignant neoplasm of thyroid gland Thyroid cancer Malignant neoplasm of thyroid gland documented in this encounter Admitting Diagnoses Diagnosis Thyroid cancer Malignant neoplasm of thyroid gland documented in this encounter Administered Medications Inactive Administered Medications - up to 3 most recent administrations Medication Order MAR Action Action Date Dose Rate Site acetaminophen (Tylenol) tablet 975 mg 975 mg, Oral, ONCE, 1 dose, On Thu01/23/23 at 1200, Administer with a SIP of water only. Maximum dose of acetaminophen is 4,000 mg from all sources in 24 hours., Day of Surgery (Day of Procedure), Routine Given 2023 11:59 AM EDT 975 mg acetaminophen (Tylenol) tablet 975 mg 975 mg, Oral, EVERY 6 HOURS SCHEDULED, First dose on Thu01/23/23 at 1800, Until Discontinued, Maximum dose of acetaminophen is 4,000 mg from all sources in 24 hours. When ordered for pain, acetaminophen should be given even when other ordered pain medications are indicated. , Routine Given 01/24/2023 11:05 AM EDT 975 mg Given 01/24/2023 5:54 AM EDT 975 mg Given 2023 11:58 PM EDT 975 mg atenoloL (Tenormin) tablet 25 mg 25 mg, Oral, DAILY, First dose on Thu01/23/23 at 1830, Until Discontinued, Routine Given 01/24/2023 9:07 AM EDT 25 mg fentaNYL (pf) (50 mcg/mL) multi-dose injection 12.5 mcg 12.5 mcg, Intravenous, EVERY 5 MIN PRN, Starting on Thu01/23/23 at 1600, Until Thu01/23/23 at 1812, Pain, Mild to moderate pain (1-5 out of 10), Hold for respiratory rate less than 10 per minute. Maximum dose 200 mcg over one hour, including OR administration. If ordered with HYDROmorphone or morphine, give HYDROmorphone or morphine first and use fentaNYL for breakthrough pain., PACU Recovery, Routine Given 2023 4:42 PM EDT 12.5 mcg Given 2023 4:35 PM EDT 12.5 mcg HYDROmorphone (Dilaudid) (2 mg/mL) multi-dose injection solution 0.2 mg 0.2 mg, Intravenous, EVERY 10 MIN PRN, Starting on Thu01/23/23 at 1600, Until Thu01/23/23 at 1812, Pain, For Mild to Moderate Pain (1-5 out of 10), Hold for respiratory rate less than 10 per minute. Maximum dose 3 mg over one hour including administrations in the OR. If multiple pain medications are ordered, start with HYDROmorphone or morphine and use fentaNYL for breakthrough pain., PACU Recovery, Routine Given 2023 4:47 PM EDT 0.2 mg ibuprofen (Motrin) tablet 400 mg 400 mg, Oral, EVERY 6 HOURS PRN, Starting on Thu01/23/23 at 1707, Until Thu01/24/23 at 1335, Pain, Administer orally with milk or food to minimize GI irritation. Maximum dose of 3,200 mg from all sources in 24 hours, Routine Given 01/24/2023 11:05 AM EDT 400 mg Given 01/24/2023 3:52 AM EDT 400 mg Given 2023 6:23 PM EDT 400 mg levothyroxine (Synthroid) tablet 125 mcg 125 mcg, Oral, EVERY MORNING, First dose on 01/24/23 at 0600, Until Discontinued, Routine Given 01/24/2023 5:54 AM EDT 125 mcg sertraline (Zoloft) tablet 50 mg 50 mg, Oral, DAILY, First dose on Thu01/23/23 at 1830, Until Discontinued, Routine Given 01/24/2023 9:07 AM EDT 50 mg sodium chloride 0.9 % (flush) (BD PosiFlush Normal Saline 0.9) flush 5 mL 5 mL, Intravenous, 2 TIMES DAILY, First dose on Thu01/23/23 at 2100, Until Discontinued, Routine Given 01/24/2023 9:07 AM EDT 5 mLs Given 2023 9:08 PM EDT 5 mLs documented in this encounter Active and Recently Administered Medications Times are shown in EDT. Scheduled Medication Order 01/22/2023 2023 01/24/2023 acetaminophen (Tylenol) tablet 975 mg (COMPLETED) 975 mg, Oral, ONCE, 1 dose, On Thu01/23/23 at 1200, Administer with a SIP of water only. Maximum dose of acetaminophen is 4,000 mg from all sources in 24 hours., Day of Surgery (Day of Procedure), Routine 1159 (Given - Provider: Duran Sams RN) acetaminophen (Tylenol) tablet 975 mg 975 mg, Oral, EVERY 6 HOURS SCHEDULED, First dose on Thu01/23/23 at 1800, Until Discontinued, Maximum dose of acetaminophen is 4,000 mg from all sources in 24 hours. When ordered for pain, acetaminophen should be given even when other ordered pain medications are indicated. , Routine 1852 (Given - Provider: Prosper Rice RN)2358 (Given - Provider: Karo Mata, ASHISH) 0554 (Given - Provider: Karo Mata, ASHISH)1105 (Given - Provider: Prosper Rice RN) atenoloL (Tenormin) tablet 25 mg 25 mg, Oral, DAILY, First dose on Thu01/23/23 at 1830, Until Discontinued, Routine 1830 (Due) 0907 (Given - Provider: Prosper Rice RN) levothyroxine (Synthroid) tablet 125 mcg 125 mcg, Oral, EVERY MORNING, First dose on Thu01/24/23 at 0600, Until Discontinued, Routine 0554 (Given - Provid er: Karo Mata RN) sertraline (Zoloft) tablet 50 mg 50 mg, Oral, DAILY, First dose on Thu01/23/23 at 1830, Until Discontinued, Routine 183 (Due) 0907 (Given - Provider: Prosper Rice RN) sodium chloride 0.9 % (flush) (BD PosiFlush Normal Saline 0.9) flush 5 mL 5 mL, Intravenous, 2 TIMES DAILY, First dose on Thu01/23/23 at 2100, Until Discontinued, Routine 2107 (Given - Provider: Karo Mata RN) 0907 (Given - Provider: Prosper Rice RN) Continuous Medication Order 01/22/2023 2023 01/24/2023 lactated ringers infusion (CANCELED) 1,000 mL, at 100 mL/hr, Intravenous, CONTINUOUS, Starting on Thu01/23/23 at 1200, Until Thu01/23/23 at 1812, Day of Surgery (Day of Procedure) 1329 (New Bag - Provider: Karo Haq CRNA)1351 (Anesthesia Volume Adjustment - Provider: Karo Haq CRNA)1625 (Stopped - Provider: Karo Haq CRNA) PRN Medication Order 01/22/2023 2023 01/24/2023 BUpivacaine-EPINEPHrine (Marcaine-epiNEPHrine) 0.25 %-1:200,000 injection (CANCELED) PRN, Starting on Thu01/23/23 at 1355, Until 01/24/23 at 1335, Intra-Operative (Intra-Procedure), Routine 1355 (Given - Provider: Cortez Brenner Jr., MD - Comment: neck) fentaNYL (pf) (50 mcg/mL) multi-dose injection 12.5 mcg (CANCELED)(Linked Group 1) 12.5 mcg, Intravenous, EVERY 5 MIN PRN, Starting on Thu01/23/23 at 1600, Until Thu01/23/23 at 1812, Pain, Mild to moderate pain (1-5 out of 10), Hold for respiratory rate less than 10 per minute. Maximum dose 200 mcg over one hour, including OR administration. If ordered with HYDROmorphone or morphine, give HYDROmorphone or morphine first and use fentaNYL for breakthrough pain., PACU Recovery, Routine 1635 (Given - Provider: Kimberly Ruiz RN)1642 (Given - Provider: Kimberly Ruiz RN) HYDROmorphone (Dilaudid) (2 mg/mL) multi-dose injection solution 0.2 mg (CANCELED)(Linked Group 2) 0.2 mg, Intravenous, EVERY 10 MIN PRN, Starting on Thu01/23/23 at 1600, Until Thu01/23/23 at 1812, Pain, For Mild to Moderate Pain (1-5 out of 10), Hold for respiratory rate less than 10 per minute. Maximum dose 3 mg over one hour including administrations in the OR. If multiple pain medications are ordered, start with HYDROmorphone or morphine and use fentaNYL for breakthrough pain., PACU Recovery, Routine 1647 (Given - Provider: Kimberly Ruiz RN) ibuprofen (Motrin) tablet 400 mg 400 mg, Oral, EVERY 6 HOURS PRN, Starting on Thu01/23/23 at 1707, Until 01/24/23 at 1335, Pain, Administer orally with milk or food to minimize GI irritation. Maximum dose of 3,200 mg from all sources in 24 hours, Routine 1823 (Given - Provider: Kimberly Ruiz RN) 0352 (Given - Provider: Karo Mata, ASHISH)1105 (Given - Provider: Prosper Rice RN) lidocaine (Xylocaine) 1% (10 mg/mL) injection 3 mg 3 mg (0.3 mL), Subcutaneous, ONCE PRN, 1 dose, Starting on Thu01/23/23 at 1812, Until 01/24/23 at 1335, for discomfort with PIV insertion, Routine sodium chloride 0.9 % (flush) (BD PosiFlush Normal Saline 0.9) flush 5-20 mL 5-20 mL, Intravenous, EVERY 1 MIN PRN, Starting on Thu01/23/23 at 1812, Until 01/24/23 at 1335, flush, Flush pertains to all indwelling lines. Flush per protocol found in the job aid using the link provided on this medication record., Routine Linked Groups Order Group 1: fentaNYL (pf) (50 mcg/mL) multi-dose injection 12.5 mcg (CANCELED)Jump to med 12.5 mcg, Intravenous, EVERY 5 MIN PRN, Starting on Thu01/23/23 at 1600, Until Thu01/23/23 at 1812, Pain, Mild to moderate pain (1-5 out of 10), Hold for respiratory rate less than 10 per minute. Maximum dose 200 mcg over one hour, including OR administration. If ordered with HYDROmorphone or morphine, give HYDROmorphone or morphine first and use fentaNYL for breakthrough pain., PACU Recovery, Routine Or fentaNYL (pf) (50 mcg/mL) multi-dose injection 25 mcg (CANCELED) 25 mcg, Intravenous, EVERY 5 MIN PRN, Starting on Thu01/23/23 at 1600, Until Thu01/23/23 at 1812, Pain, Moderate to severe pain (6-10 out of 10), Hold for respiratory rate less than 10 per minute. Maximum dose 200 mcg over one hour, including OR administration. If ordered with HYDROmorphone or morphine, give HYDROmorphone or morphine first and use fentaNYL for breakthrough pain., PACU Recovery, Routine Group 2: HYDROmorphone (Dilaudid) (2 mg/mL) multi-dose injection solution 0.2 mg (CANCELED)Jump to med 0.2 mg, Intravenous, EVERY 10 MIN PRN, Starting on Thu01/23/23 at 1600, Until Thu01/23/23 at 1812, Pain, For Mild to Moderate Pain (1-5 out of 10), Hold for respiratory rate less than 10 per minute. Maximum dose 3 mg over one hour including administrations in the OR. If multiple pain medications are ordered, start with HYDROmorphone or morphine and use fentaNYL for breakthrough pain., PACU Recovery, Routine Or HYDROmorphone (Dilaudid) (2 mg/mL) multi-dose injection solution 0.4 mg (CANCELED) 0.4 mg, Intravenous, EVERY 10 MIN PRN, Starting on Thu01/23/23 at 1600, Until Thu01/23/23 at 1812, Pain, For Moderate to Severe Pain (6-10 out of 10), Hold for respiratory rate less than 10 per minute. Maximum dose 3 mg over one hour including administrations in the OR. If multiple pain medications are ordered, start with HYDROmorphone or morphine and use fentaNYL for breakthrough pain., PACU Recovery, Routine documented in this encounter Care Teams Belling Machine Operator Relationship Specialty Start Date End Date Sheree Deng APRN [address] [place] [address] PCP - General Internal Medicine 08/12/19 documented as of this encounter
--- OUTSIDE RECORDS SUMMARY | 2023-11-18 17:37 | XMS_ITS | Encounter Summary ---
[place] [address] Care Team Providers Care Senior Product Development Scientist Name Role Phone IshKathryne Kenzie SOLARES Primary Care Provider + [phone] Reason for Referral * Consultation (Routine) - Closed Specialty Diagnoses / Procedures Referred By Tom eaton Referred To Contact Endocrinology Diagnoses Primary thyroid cancer Ita Mueller MD [facility] [address] [facility] Endocrinology [address] [place] [phone] Referral ID Status Reason Start Date Expiration Date V isits Requested Visits Authorized [id number] Closed Consult, Test & Treat 02/11/2023 02/11/2024 1 1 * Consultation (Routine) - Closed Specialty Diagnoses / Procedures Referred By Contac t Referred To Contact Radiation Oncology Diagnoses Primary thyroid cancer Ita Mueller MD [facility] [place] [address] Bethel Prater MD [facility] RADIATION [place] [address] Referral ID Status Reason Start Date Expiration Date V isits Requested Visits Authorized [id number] Closed Consult, Test & Treat 02/11/2023 02/11/2024 1 1 Encounter Details Date Type Department Care Team (Late st Contact Info) Description 02/11/2023 Telephone [place] [address] Ita Mueller MD [facility] DR GENERAL [place] [address] Social History Tobacco Use Types Packs/Day Years Used Date Smoking Tobacco: Never Smokeless Tobacco: Never Alcohol Use Standard Drinks/Week Comments No 0 (1 standard drink = 0.6 oz pur e alcohol) once in a while [facility] Inpatient Questions Answer Date Recorded Does Anyone [...] on file documented as of this encounter Miscellaneous Notes * Telephone Encounter - Ita Mueller MD - 02/11/2023 8:32 AM EDT I called . Karen Stratton today to discuss the results of her pathology. Specifically, this demonstrated: Specimen Procedure: Total thyroidectomy Tumor Tumor Focality: Unifocal [...] mm Regional Lymph Nodes Regional Lymph Node S tatus: All regional lymph nodes negative for tumor Number of Lymph Nodes Examined: 3 Nicole Level(s) Examined: Cannot be determined - One lymph node at level 6/7 (left central neck), two other lymph nodes identified on the surface of thyroid tissue Pathologic Stage Classification (pTNM, AJCC 8th Edition) pT Category: pT3a pN Category: pN0a She is doing well. Her voice sounds normal. She is not complaining of perioral numbness/tingling, numbness/tingling in the hands, or muscle spasms. She will stop her calcium supplementation. I answered her questions, and we will discuss further at her regularly-scheduled postoperative follow up appointment. documented in this encounter Plan of Treatment Scheduled Referrals Name Type Priority Associated Diagnoses Order Schedule Referral to Radiation Oncology Outpatient Referral Routine Primary thyroid cancer Ordered: 02/11/2023 Referral to Endocrinology Outpatient Referral Routine Primary thyroid cancer Ordered: 02/11/2023 documented as of this encounter Visit Diagnoses Diagnosis Primary thyroid cancer Malignant neoplasm of thyroid gland documented in this encounter Care Teams Senior Product Development Scientist Relationship Specialty Start Date End Date Sheree Deng, INCOME TAX MANAGER [address] [place] [address] PCP - General Internal Medicine 08/12/19 documented as of this encounter
--- OUTSIDE RECORDS SUMMARY | 2023-11-18 17:37 | XMS_ITS | Encounter Summary ---
[place] [address] Care Team Providers Care Reverser Name Role Phone Sheree Deng APRN Primary Care Provider [phone] Encounter Details Date Type Department Care Team (Latest Contact Info) Description 01/07/2023 Travel Social History Tobacco Use Types Packs/Day [...] on filedocumented in this encounter Care Teams Reverser Relationship Specialty Start Date End Date Sheree Deng APRN [address] [place] [address] PCP - General Internal Medicine 08/12/19 documented as of this encounter
--- OUTSIDE RECORDS SUMMARY | 2023-11-18 17:37 | XMS_ITS | Encounter Summary ---
Author Organization [facility] [place] [address] Care Team Providers Care Bander And Cellophaner Machine Name Role Phone Aleida Dengyce Kenzie SOLARES Primary Care Provider [phone] Reason for Visit * Auth/Cert (Routine) Specialty Diagnoses / Procedures Referred By Contac t Referred To Contact Diagnoses Malignant neoplasm of thyroid gland Nontoxic multinodular goiter THYROID CANCER Procedures PRO THYROIDECTOMY, MALIG, LTD NECK SURG PRG EMG, LARYNX THYROIDECTOMY, FOR MALIGNANCY, LIMITED NECK DISSECTION (WRVU 22.01) FACIAL NERVE MONITORING, SETUP LARYNGEAL (WRVU 1.57) Sophia Mcwilliams MD [facility] [place] [address] [facility] Referral ID Status Reason Start Date Expiration Date Visits Re quested Visits Authorized [id number] 1 1 Encounter Details Date Type Department Care Team (Late st Contact Info) Description 2023 1:00 PM EDT - 2023 5:45 PM EDT Surgery [place] [id number] Sophia Mcwilliams MD [facility] [place] [address] THYROIDECTOMY, FOR MALIGNANCY, LIMITED NECK DISSECTION (WRVU 22.01) Social History Tobacco Use Types Packs/Day Years [...] Sign Reading Time Taken Comments Blood Pressure 155/72 2023 5:45 PM EDT Pulse 68 2023 5:45 PM EDT Temperature 36.7 ??C (98.1 ??F) 2023 11:30 AM E DT Respiratory Rate 11 2023 5:45 PM EDT Oxygen Saturation 96% 2023 5:45 PM EDT Inhaled Oxygen Concentration - - [...] nodule suspicious for malignancy who presents to [facility] [place] total thyroidectomy and central neck dissection. [...] Hospital Course: Karen Stratton was admitted to [facility] on [facility]23 [facility] Day [facility]. She [...] Time Provider Department Center 03/13/2023 10:00 AM CALEB BAUTISTA L Lab 3L [facility] 03/13/2023 11:00 AM Lisa Cortes APRN [facility] Outpatient Services/Studies: PTH Standing Status: Future Standing [...] Take NSAIDS and/or Tylenol every 6 hours [id number] for the first 3-5 days following surgery [...] will be mailed to you Please call [phone] to confirm the date and time of [...] is just fine. Phone number for questions: [phone] before 5 PM on weekdays [phone] after 5 PM and on weekends/holidays. Ask for the general surgery resident transformation analyst. General Instructions None Future Appointments and Orders Future Appointments and Orders Future Appointments Provider Department Dept Phone 03/13/2023 10:00 AM LAB, THREE L Lab 3L [facility] Arrive at: Pvc Loader Area 3L [phone] 03/13/2023 11:00 AM Lisa Cortes APRN General Surgery at [facility] Arrive at: [facility] Area 4L [phone] Future Orders Complete By Expires Calcium [LAB53 Custom] 02/23/2023 (Approximate) 08/25/2023 Process Instructions: Scheduling Instructions: Comments: Questions: PTH [[id number] Custom] 02/23/2023 (Approximate) 01/24/2024 Process Instructions: Interpretation of PTH results should include a recent calcium concentration Scheduling Instructions: Comments: Questions: Thyroglobulin [ITY257 Custom] 02/23/2023 (Approximate) 08/25/2023 Process Instructions: This order includes both Thyroglobulin and Thyroglobulin Antibody assays. Scheduling Instructions: Comments: Questions: TSH [EAM565 Custom] 02/23/2023 (Approximate) 08/25/2023 Process Instructions: Scheduling Instructions: Comments: Questions: Discharge References/Attachments: Discharge References/Attachments None Follow-up Recommendations for Providers: Medication changes: Synthroid dose increased to 125mcg daily to reflect full thyroid hormone replacement dose Diet changes: None Other: N/A CC: Sheree Deng APRN [phone] Signed: Pio Ray MD Endocrine Surgery Service Team Pager #[phone] 01/24/2023 9:14 AM For questions regarding this document or issues relating to this hospitalization on the Endocrine Surgery Service, please contact Radha Nichols MD's office at [phone] (Endocrine Surgery) documented in this encounter Discharge [...] Take NSAIDS and/or Tylenol every 6 hours [id number]-ynmgz for the first 3-5 days following surgery [...] will be mailed to you Please call [phone] to confirm the date and time of [...] is just fine. Phone number for questions: [phone] before 5 PM on weekdays [phone] after 5 PM and on weekends/holidays. Ask for the general surgery resident transformation analyst. documented in this encounter Medications at Time [...] Rice RN - 01/24/2023 11:[address] [facility] Short Stay Unit Discharge Note All relevant [...] Rice RN - 2023 7:[address] [facility] Short Stay Unit Shift Note The patient [...] nodule suspicious for malignancy who presents to [facility] for total thyroidectomy andcentral neck dissection. Please see Dr. Lua's 01/07 clinic note for additional information. Past Medical History: Diagnosis Date Abnormal cardiovascular stress test 08/03/2020 Toro's palsy Breast cancer Depression H/O breast reconstruction, left 01/26/2013 Hypothyroid Hypothyroidism Migraines Multiple melanocytic nevi Skin tag Status post total right knee replacement 02/08/2020 Past Surgical History: Procedure Laterality Date BREAST RECONSTRUCTION 04/13/2009 Dry Finisher then silicon implant BREAST RECONSTRUCTION 04/13/2009 BREAST [...] soft, non-tender, non-distended NEURO: grossly intact A/P: Karen Stratton is a 73 y.o. female who [...] Operative Note Patient Name: Karen Stratton : [id number] MR#: [id number] Case Date: 2023 Surgeon: Surgeon(s) and Role: [...] Mcwilliams MD - 2023 2:09 PM EDT [facility] Operative Note Patient Name: Karen Stratton : [id number] MR#: [id number] Case Date: 2023 Surgeon: Surgeon(s) and Role: [...] months, and FNA demonstrating suspicious for malignancy ([place] 5) cytology on the left and AUS [...] anesthesia was achieved by anesthesiology with the [employer] recurrent laryngeal nerve monitoring system. A natural [...] 3:28 PM EDT Needle Electromyography, Larynx Global ([id number]) Yes 2023 1:30 PM EDT THYROID CANCER Thyroidectomy, Malig, Ltd Neck Surg ([id number]) Yes 2023 1:30 PM EDT THYROID CANCER documented in this encounter Results * (ABNORMAL) Thyroglobulin (03/09/2023 1:54 PM EST) Thyroglobulin 0.2(L) 1.3 - 31.8 ng/mL [facility] Comment: INTERPRETIVE INFORMATION: Thyroglobulin, Serum or Plasma Specimens negative for thyroglobulin antibodies (TgAb) are tested for thyroglobulin (Tg) by chemiluminescent immunoassay (ELENI) using the Lyndon [employer] Access DxI method. Specimens with TgAb results [...] Thyroglob Ab <0.9 0.0 - 4.0 IU/mL [facility] Comment: INTERPRETIVE INFORMATION: Thyroglobulin Antibody A value of 4.0 IU/mL or less indicates a negative result for thyroglobulin antibodies. The Thyroglobulin Antibody assay is being performed using the Lyndon Beverly Access DxI method. Please note that as 01/08/22 this testing is performed at [facility]. This change is associated with a change in testing method and reference intervals. Values from other methods may not correlate with this method. Please review the results of this test in assocaition with the posted reference intervals. Thyroglobulin by LC-MS/MS Not Applicable 1.3 - 31.8 ng/mL [facility] Comment: INTERPRETIVE INFORMATION: Thyroglobulin by LC-MS/MS, Serum/Plasma Lower limit of detection for Thyroglobulin by LC-MS/MS is 0.5 ng/mL. This test was developed and its performance characteristics determined by [facility]. It has not been cleared or approved by the US Food and Drug Administration. This test was performed in a CLIA certified laboratory and is intended for clinical purposes. Performed By: [facility] [address] [place] [id number] Vp Rheumatology: Harish Fernandez MD, PhD CLIA Number: [id number] Blood 03/09/2023 1:54 PM EST 03/10/2023 1:42 PM EST Narrative Resulting Agency Comment Spec In Lab Sophia Mcwilliams MD LAB SEND OUT ORDE RABLES Performing Organization Address [facility] Co de Phone Number [facility] [place] [address] * Calcium (03/09/2023 1:54 PM EST) Calcium 9.2 8.5 - 10.5 mg/dL [facility] Blood 03/09/2023 1:54 PM EST 03/09/2023 2:13 PM EST Narrative Resulting Agency Comment Spec In Lab Sophia Mcwilliams MD CHEMISTRY ORDERAB LES Performing Organization Address [facility] Phone Number [facility] [place] [address] * (ABNORMAL) TSH (03/09/2023 1:54 PM EST) Thyroid Stimulating Hormone 9.04(H) 0.27 - 4.20 mcIU/mL [facility] Comment: Reference Interval (mcIU/mL): Females: ??First Trimester: 0.23-3.88 ??Second Trimester: 0.22-3.90 ??Third Trimester: 0.44-4.66 Blood 03/09/2023 1:54 PM EST 03/09/2023 2:13 PM EST Narrative Resulting Agency Comment Spec In Lab Sophia Mcwilliams MD CHEMISTRY ORDERAB LES Performing Organization Address [facility]/ZIP Co de Phone Number [facility] [place] [address] * PTH (03/09/2023 1:54 PM EST) Parathyroid Hormone 57 15 - 65 pg/mL [facility] Blood 03/09/2023 1:54 PM EST 03/09/2023 2:13 PM EST Narrative Resulting Agency Comment Spec In Lab Sophia Mcwilliams MD CHEMISTRY ORDERAB LES Performing Organization Address [facility] Co de Phone Number [facility] [place] [address] * Specimen to Pathology (2023 3:31 PM EDT) AP Specimen 2023 3:31 PM EDT 2023 3:[address] [facility] - 2023 3:31 PM EDT Specimen requisition ordered. ??Separate Pathology report to follow Sophia Mcwilliams MD PATHOLOGY/CYTOLOG Y ORDERABLES Performing Organization Address [facility] Co de Phone Number [facility] [place] [address] * Specimen to Pathology (2023 3:29 PM EDT) AP Specimen 2023 3:29 PM EDT 2023 3:[address] [facility] - 2023 3:29 PM EDT Specimen requisition ordered. ??Separate Pathology report to follow Sophia Mcwilliams MD PATHOLOGY/CYTOLOG Y ORDERABLES Performing Organization Address [facility] Co de Phone Number [facility] [place] [address] * (ABNORMAL) Surgical Pathology Report (2023 3:28 PM EDT) Final Diagnosis [id number] ? Location: SSU; SS08; A The signing pathologist has (i) examined [...] ?EMILY STILES Verified: ??02/05/2023 13:41 Performed at: ??-[facility] Dept. of Pathology, [place] [address] Warp Clamper: Boby Sanders MD, FCAP, ??CLIA Certificate: [id number] SYNOPTIC Specimen ? Procedure: ??Total thyroidectomy Tumor ? Tumor Focality: ??Unifocal ? 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 Tumor Block(s): ??A30, A33 ? [facility] 2021 Q2 Release . DISCUSSION Nuclear features [...] black. Sections/Processing: Blocks submitted for decalcification: A71-A82. Marketing And Communications Officer sections in 83 cassettes as follows: ?A1-A6: ??Nodule located on the superior pole left serially sectioned and entirely ? submitted ?A7-A13: ??[place] of left lobe perpendicularly sectioned and entirely submitted to ? include lesion ?A14-A66: ??Capsule surrounding the lesion in left lobe entirely submitted ?A67: ??Marketing And Communications Officer normal appearing left lobe parenchyma ?A68: ??Marketing And Communications Officer isthmus ?A69-A70: ??Marketing And Communications Officer left lobe lesional parenchyma ?A71-A82: ??Right lobe lesion entirely submitted following decalcification ?A83: ??Marketing And Communications Officer normal-appearing right lobe parenchyma . SPECIMEN PROCESSING [...] submitted ??kjs pps(A) 02/05/2023 1:41 PM EDT [facility] LYMPH NODE SPECIMEN / Unknown 2023 3:28 PM EDT 2023 3:28 PM EDT LYMPH NODE SPECIMEN / Unknown 2023 3:28 PM EDT 2023 3:28 PM EDT Sophia Mcwilliams MD PATHOLOGY/CYTOLOG Y ORDERABLES Performing Organization Address City/State/[facility] Co de Phone Number [facility] [place] [address] [facility] [place] [address] documented in this encounter Visit Diagnoses Not on filedocumented in this encounter Admitting Diagnoses Diagnosis Thyroid [...] Given 01/24/2023 9:07 AM EDT 25 mg BUpivacaine-EPINEPHrine (Marcaine-epiNEPHrine) 0.25 %-1:200,000 injection PRN, Starting on Thu01/23/23 at 1355, Until 01/24/23 at 1335, Intra-Operative (Intra-Procedure), Routine Given 2023 1:55 PM EDT 10 mLs 19- Surgical Site fentaNYL (pf) (50 mcg/mL) multi-dose injection 12.5 [...] on Thu01/24/23 at 0600, Until Discontinued, Routine Given 01/24/2023 [...] Routine 1852 (Given - Provider: Prosper Rice RN)3268 (Given - Provider: Karo Mata, ASHISH) 0554 (Given - Provider: Karo Mata RN)1105 (Given - Provider: Prosper Rice RN) atenoloL (Tenormin) tablet 25 mg 25 mg, Oral, DAILY, First dose on Thu01/23/23 at 1830, Until Discontinued, Routine 183 (Due) 09 (Given - Provider: Prosper Rice RN) levothyroxine (Synthroid) tablet 125 mcg 125 mcg, Oral, EVERY MORNING, First dose on Thu01/24/23 at 0600, Until Discontinued, Routine 0554 (Given - Provid er: Karo Mata RN) sertraline (Zoloft) tablet 50 mg 50 mg, Oral, DAILY, First dose on Thu01/23/23 at 1830, Until Discontinued, Routine 1829 (Due) 09 (Given - Provider: Prosper Rice RN) sodium [...] PRN, Starting on Thu01/23/23 at 1812, Until Thu01/24/23 at 1335, flush, Flush pertains to all [...] Routine documented in this encounter Care Teams Bander And Cellophaner Machine Relationship Specialty Start Date End Date Sheree Deng, BECK [address] [place] [address] PCP - General Internal Medicine 08/12/19 documented as of this encounter
--- OUTSIDE RECORDS SUMMARY | 2023-11-18 17:37 | XMS_ITS | Encounter Summary ---
[place] [address] Care Team Providers Care Mail Forwarding System Markup Clerk Name Role Phone IshSheree APRN Primary Care Provider [phone] Encounter Details Date Type Department Care Team (Latest Contact Info) Description 08/07/2020 9:49 PM EDT - 08/07/2020 11:59 PM EDT Hospital [place] [address] Discharge Disposition: Home Social History Tobacco Use Types Packs/Day Years Used Date Smoking Tobacco: Never Smokeless Tobacco: Never Alcohol Use Standard Drinks/Week Comments No 0 (1 standard drink = 0.6 oz pur e alcohol) Sex and Gender Information Value Date Recorded Sex Assigned at Not on file Gender Identity Not on file Sexual Orientation Not on file documented as of this encounter Medications at Time of Discharge Medication Sig Dispensed Refills Start Date End Date SUMAtriptan (IMITREX) 50 mg tablet 50mg, PO, QID,PRN 12/20/2009 atenolol (TENORMIN) 25 mg tablet Take 25 mg by mouth daily. 12/20/2009 b complex vitamins (VITAMIN B COMPLEX) tablet 12/20/2009 levothyroxine (SYNTHROID) 75 mcg tablet Take 75 mcg by mouth daily. 2023 citalopram (CELEXA) 20 mg tablet 20mg, PO, QD 12/20/2009 01/07/2023 Calcium Carbonate-Vitamin D3 (CALCIUM 600 WITH VITAMIN D3) 600 mg(1,500mg) -400 unit Cap 12/20/2009 acetaminophen (Tylenol) 500 mg tablet Take by mouth every 6 hours as needed. 12/20/2009 03/11/2023 ibuprofen (ADVIL) 200 mg tablet 12/20/2009 03/11/2023 documented as of this encounter Plan of Treatment Not on file documented as of this encounter Visit Diagnoses Not on filedocumented in this encounter Care Teams Mail Forwarding System Markup Clerk Relationship Specialty Start Date End Date Sheree Deng APRN [address] [place] [address] PCP - General Internal Medicine 08/12/19 documented as of this encounter
--- OUTSIDE RECORDS SUMMARY | 2023-11-18 17:37 | XMS_ITS | Encounter Summary ---
Author Organization [facility] Address [facility] [place] [address] Care Team Providers Care Director Of Finance Name Role Phone Sheree Deng APRN Primary Care Provider [phone] Encounter Details Date Type Department Care Team (Latest Contact Info) Description 08/17/2023 Travel Social History Tobacco Use Types Packs/Day Years Used Date Smoking Tobacco: Never Smokeless Tobacco: Never Alcohol Use Standard Drinks/Week Comments No 0 (1 standard drink = 0.6 oz pur e alcohol) once in a while [facility] Utilities Answer Date Recorded In the past [...] place to sleep or slept in a long-term (including now)? No 03/11/2023 DH IPV Inpatient [...] on filedocumented in this encounter Care Teams Director Of Finance Relationship Specialty Start Date End Date Sheree Deng APRN [address] [place] [address] PCP - General Internal Medicine 08/12/19 documented as of this encounter
--- OUTSIDE RECORDS SUMMARY | 2023-11-18 17:37 | XMS_ITS | Encounter Summary ---
[place] [address] Care Team Providers Care Material Mover Name Role Phone Sheree Deng DIET CONSULTANT Primary Care Provider [phone] Encounter Details Date Type Department Care Team (Late st Contact Info) Description 09/27/2022 Ancillary Procedure [place] [address] Sheree Deng, DIET CONSULTANT [address], [place] [address] Social History Tobacco Use Types Packs/Day Years [...] Associated Diagnosis Comments FILM LIBRARY STORAGE ONLY CT CHEST Routine 09/27/2022 12:00 AM EDT documented in this encounter Results * Film Library- Storage Only CT Chest (09/27/2022 12:00 AM EDT) Narrative [facility] - 01/05/2023 4:48 PM EDT This exam is auto-finalizing. It's purpose is for storage only. Sheree Deng APRN IM FILM LIBRARY ORD ERABLES DH [place], [place] documented in this encounter Visit Diagnoses Not on filedocumented in this encounter Care Teams Material Mover Relationship Specialty Start Date End Date Sheree Deng APRN [address] [place] [address] PCP - General Internal Medicine 08/12/19 documented as of this encounter
--- OUTSIDE RECORDS SUMMARY | 2023-11-18 17:37 | XMS_ITS | Encounter Summary ---
[place] [address] Care Team Providers Care Play Back Operator Name Role Phone Sheree Deng APRN Primary Care Provider [phone] Encounter Details Date Type Department Care Team (Late st Contact Info) Description 12/31/2022 External [place] [id number] Provider, Scanning Social History Tobacco Use Types [...] on filedocumented in this encounter Care Teams Play Back Operator Relationship Specialty Start Date End Date Sheree Deng APRN [address] [place] [address] PCP - General Internal Medicine 08/12/19 documented as of this encounter
--- OUTSIDE RECORDS SUMMARY | 2023-11-18 17:37 | XMS_ITS | Encounter Summary ---
[place] [address] Care Team Providers Care Mat Inspector Name Role Phone IshSheree APRN Primary Care Provider [phone] Encounter Details Date Type Department Care Team (Latest Contact Info) Description 12/31/2022 10:27 AM EDT - 12/31/2022 11:59 PM EDT Hospital [place] [address] Discharge Disposition: Home Social History Tobacco Use [...] Dispensed Refills Start Date End Date SUMAtriptan (Imitrex) 100 mg tablet 12/15/2022 sertraline (Zoloft) 50 mg tablet Take 75 mg by mouth daily. 1.5 tablets daily 11/13/2022 SUMAtriptan (IMITREX) 50 mg tablet 50mg, PO, [...] D3) 600 mg(1,500mg) -400 unit Cap 12/20/2009 01/07/2023 acetaminophen (Tylenol) 500 mg tablet Take by mouth every 6 hours as needed. 12/20/2009 03/11/2023 ibuprofen (ADVIL) 200 mg tablet 12/20/2009 03/11/2023 documented as of this encounter Plan of Treatment Not on file documented as of this encounter Procedures Procedure Name Priority Date/Time Associated Diagnosis Comments NON-ELECTRICAL EQUIPMENT TESTER FINAL REPORT Routine 12/31/2022 10:27 AM EDT documented in this encounter Results * Non-Metalizing Machine Operator Automatic Final Report (12/31/2022 10:27 AM EDT) Non-Metalizing Machine Operator Automatic Final Report [id number] ? Location: OPW The signing pathologist has (i) examined the relevant preparation(s) for the specimen(s) and (ii) rendered or confirmed the diagnosis(es). . ? Non-Metalizing Machine Operator Automatic Final DIAGNOSIS See Discussion Electronically signed by: ?Vidya RAUSCH, Maxime Ireland Verified: ??01/16/2023 15:22 ??Cytopathologist Performed at: ??-[facility] Dept. of Pathology, [place] [address] Electron Beam Photo Mask Technician: Boby Sanders MD, FCAP, ??CLIA Certificate: [id number] DISCUSSION A. Thyroid nodule (5.2cm): left (US-guided FNA) - Suspicious for a follicular neoplasm. The smears contain large clusters of follicular epithelial cells. Focal cell crowding and focal cytologic atypia (nuclear hypochromasia; nuclear grooves) are noted. Colloid is not conspicuous. See note. Note: The differential diagnosis includes the follicular variant of papillary thyroid carcinoma as well as its indolent counterpart, non-invasive follicular thyroid neoplasm with papillary-like nuclear features (NIFTP). Suggest correlation with molecular studies. B. Thyroid nodule (2.4cm): right (US-guided FNA) - Atypia of Undetermined Significance. See note. Hypocellular aspirate consisting predominantly of abundant, obscuring blood. Follicular epithelial cells arranged predominantly as microfollicles, macrophages, and some colloid are focally seen. Note: Suggest correlation with molecular studies. Dr. Humphreys has reviewed the cases and concurs with the diagnoses. CLINICAL INFORMATION CONSULTATION CASE A. Thyroid nodule (5.2cm): left (US-guided FNA) Clinical History: ?5.2cm left thyroid nodule. Received 4 slide(s) labeled [id number] Received 0 block(s). B. Thyroid nodule (2.4cm): right (US-guided FNA) Clinical History: ?2.4cm right thyroid nodule. Received 10 slide(s) labeled [id number] Received 0 block(s). Specimen collection date: ? 12/16/2022. For the full text of the [facility] report(s), please refer to eDH. . CLINICAL INFORMATION [facility] Tracking #: ? [id number] . Report to: [facility] Cytopathology [address], [place] [address] [facility] 12/31/2022 10:2 7 AM EDT Ita Mueller MD PATHOLOGY/CYTOLOG Y ORDERABLES [facility] [place] [address] documented in this encounter Visit Diagnoses Not on filedocumented in this encounter Care Teams Mat Inspector Relationship Specialty Start Date End Date Sheree Deng APRN [address] [place] [address] PCP - General Internal Medicine 08/12/19 documented as of this encounter
--- OUTSIDE RECORDS SUMMARY | 2023-11-18 17:37 | XMS_ITS | Encounter Summary ---
Author Organization [facility] Address [facility] [place] [address] Care Team Providers Care Log Carrier Operator Name Role Phone Sheree Deng APRN Primary Care Provider [phone] Encounter Details Date Type Department Care Team (Late st Contact Info) Description 08/17/2023 3:00 PM EDT Office [place] [address] Fartun Sherwood MD [facility] [place] [address] Thyroid cancer Social History Tobacco Use Types Packs/Day Years Used Date Smoking Tobacco: Never Smokeless Tobacco: Never Alcohol Use Standard Drinks/Week Comments No 0 (1 standard drink = 0.6 oz pur e alcohol) once in a while [facility] Utilities Answer Date Recorded In the past 12 months has FOBO, gas, oil, or water [employer] threatened to shut off services in your [...] place to sleep or slept in a senior living (including now)? No 03/11/2023 DH IPV Inpatient [...] 08/17/2023 3:00 PM ED T Respiratory Rate - - Oxygen Saturation 98% 08/17/2023 3:00 PM EDT Inhaled Oxygen Concentration - - Weight 82.1 kg (181 lb) 08/17/2023 3:00 PM EDT Height 162.6 cm (5' 4) 08/17/2023 3:00 PM EDT Body Mass Index 31.07 08/17/2023 3:00 PM EDT documented in this encounter Progress Notes * Fartun Sherwood MD - 08/17/2023 3:00 PM EDT Images from the original note were not included. Endocrinology Follow-up Note Name: Karen Stratton : 1950 Date: 08/17/23 Reason for Consult: Hx of thyroid carcinoma s/p total thyroidectomy HPI: Karen Stratton is a 73 y.o. female with a hx of multinodular thyroid with FNA demonstrating suspicious for malignancy (Julian 5) cytology on the left and AUS on the right. She underwent a total thyroidectomy with Dr. Mueller on 01/23, and is currently doing well since surgery. She presents today to have a thyroid bed ultrasound (first since surgery) and for thyroid levels and tumor markers monitoring. 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 Karen had an appt with Dr. Prater to discuss the possibility of I-131, and he was in favor of it given the type and size of tumor. Today she states she is doing well and her main complaint is weight gain since the surgery. She is taking Synthroid 125mcg daily, on an empty stomach and waits 30 min to have breakfast. She does not miss any doses. She denies any feeling of heart racing. She also denies numbness, tingling, and muscle weakness. She is not taking any calcium supplementation. Review of Systems: all negative except for what is mentioned in HPI Past Medical History: Diagnosis Date Abnormal cardiovascular stress test 08/03/2020 Toro's palsy Breast cancer Depression H/O breast reconstruction, left 01/26/2013 Hypothyroid Hypothyroidism Migraines Multiple melanocytic nevi Skin tag Status post total right knee replacement 02/08/2020 Past Surgical History: Procedure Laterality Date BREAST RECONSTRUCTION 04/13/2009 Road [employer] then silicon implant BREAST RECONSTRUCTION 04/13/2009 BREAST REDUCTION SURGERY 04/13/2009 SECTION LAPAROSCOPY LAPAROTOMY PRG EMG, LARYNX N/A 2023 FACIAL NERVE MONITORING, SETUP LARYNGEAL (WRVU 1.57) performed by Ita Mueller MD at [facility] MAIN OR PRO THYROIDECTOMY, MALIG, LTD NECK SURG N/A 2023 THYROIDECTOMY, FOR MALIGNANCY, LIMITED NECK DISSECTION (WRVU 22.01) performed by Randy Mueller MD at [facility] MA[facility] OR TOTAL KNEE ARTHROPLASTY Right No family history on file. Social History Socioeconomic History Marital status: Domestic Partner Spouse name: Not on file Number of children: Not on file Years of education: Not on file Highest education level: Not on file Occupational History Not on file Tobacco Use Smoking status: Never Smokeless tobacco: Never Vaping Use Vaping Use: Never used Substance and Sexual Activity Alcohol use: No Comment: once in a while Drug use: No Sexual activity: Not on file Other Topics Concern Not on file Social History Narrative Not on file Social Determinants of Health Financial Resource Strain: Low Risk (03/11/2023) Overall Financial Resource Strain (CARDIA) Difficulty of Paying Living Expenses: Not hard at all Food Insecurity: No Food Insecurity (03/11/2023) Hunger Vital Sign Worried About Running Out of Food in the Last Year: Never true Ran Out of Food in the Last Year: Never true Transportation Needs: No Transportation Needs (03/11/2023) PRAPARE - Transportation Lack of Transportation (Medical): No Lack of Transportation (Non-Medical): No Physical Activity: Not on file Intimate Partner Violence: Patient Unable To Answer (2023) IPV Inpatient Questions Prevent Contact with Others: unable to answer (comment required) Feels Threatened by Someone: unable to answer (comment required) Feels Unsafe at Home: unable to answer (comment required) Physical Signs of Abuse Present: no Housing Stability: Low Risk (03/11/2023) Housing Stability Vital Sign Unable to Pay for Housing in the Last Year: No Number of Places Lived in the Last Year: 1 Unstable Housing in the Last Year: No 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 Allergies Allergen Reactions Adhesive Tape Rash Vitals BP 125/66 (BP Location (NBP): Left arm) Pulse 63 Temp 36.2 ??C (97.1 ??F) (Temporal) Ht 162.6cm (5' 4) Wt 82.1 kg (181 lb) SpO2 98% BMI 31.07 kg/m?? Physical Exam: General appearance: pleasant female pt, appears stated age, not in distress HEENT: anicteric, EOMI, NATALIIA, no lymphadenopathy, moist mucus membranes, well healed scar in the anterior neck Pulm: breathing comfortably in room air Abd: soft, non-tender, non-distended, no rebound or guarding Neurological: Non-focal Thyroid exam: absent thyroid, no tachycardia, resting tremor. Normal reflexes. Warm dry skin. Surgical Pathology DIAGNOSIS A - Total thyroid, excision - Differentiated high grade thyroid carcinoma, 5.1 cm, left lobe, see synoptic report. 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 - Background nodular thyroid tissue with a dominant nodule (3.5 cm, right lobe). - Normocellular parathyroid tissue. - Two lymph nodes, negative for malignancy. (0/2) B - Left central neck contents, excision - Nodular thyroid tissue, macrofollicular pattern. - One lymph node, negative for malignancy. (0/1) Electronically signed by: EMILY STILES Verified: 02/05/2023 13:41 Performed at: -[facility] Dept. of Pathology, [place] [address] Instructional Design Manager: Boby Sanders MD, FCAP, CLIA Certificate: [id number] SYNOPTIC Specimen Procedure: Total thyroidectomy Tumor Tumor Focality: [...] Edition) pT Category: pT3a pN Category: pN0a Best Tumor Blocks for Future Studies Tumor Block(s): A30, A33 [facility] 2021 Q2 Release DISCUSSION Nuclear features vary throughout the tumor, there are patchy areas with features of papillary thyroid carcinoma, including nuclear clearing, margination and nuclear grooves. Assessment and plan: Karen Stratton is a 73 y.o. female with a hx of multinodular thyroid with FNA demonstrating suspicious for malignancy (Julian 5) cytology on the left and AUS on the right. She underwent a total thyroidectomy with Dr. Mueller on 01/23. Onc History: pT3a pN0 (Stage II) papillary thyroid cancer, s/p total thyroidectomy and central lymph node dissection 01/23/23, well differentiated high grade thyroid carcinoma (DHGTC) solid/trabecular variant, 5.1cm, ETE (-), AI (-), LI (-), SM (-), LN 0/3 involved. Patient's classification on the JENN risk stratification system is considerate intermediate, and therefore her TSH goal should be between 0.1 and 0.5. She is currently on LT4 125mcg daily, and today we will be checking TSH and thyroglobulin levels to evaluate if we will need to do any dose adjustment. Thyroid bed ultrasound from today without any abnormalities or signs of reoccurrence. Thank you for allowing us participate in the care of this patient. Patient was discussed with Dr. Sebastian. Fartun Sherwood, PGY6 Endocrinology Fellow Pager: [phone] * Fartun Sherwood MD - 08/17/2023 3:00 PM EDT ENDOCRINOLOGY THYROID ULTRASOUND REPORT Patient:Karen Stratton, [id number] Date of exam: 08/17/2023 Indication: Hx of thyroid carcinoma Performed by: Fartun Sherwood MD Supervised by: Harlan Sebastian MD Real time images of the thyroid gland were obtained using a BK US machine. All measurements are given as Longitudinal/Sagittal x AP x Transverse. Right Neck: Thyroid is surgically absent No abnormal lymph nodes Left Neck: Thyroid is surgically absent No abnormal lymph nodes Impression: No evidence of thyroid cancer recurrence * Harlan Sebastian MD - 08/17/2023 3:00 PM EDT I saw this patient with Dr. Sherwood. I reviewed the lugo portions of the history and physical exam, and reviewed pertinent lab data. I answered all patient questions. I was involved in all medical decision making and agree with this plan. I supervised thyroid US. Harlan Sebastian MD documented in this encounter Plan of Treatment Not on file documented as of this encounter Procedures Procedure Name Priority Date/Time Associated Diagnosis Comments THYROGLOBULIN Routine 08/17/2023 4:08 PM EDT Thyroid cancer TSH Routine 08/17/2023 4:08 PM EDT Thyroid cancer documented in this encounter Results * (ABNORMAL) Thyroglobulin (08/17/2023 4:08 PM EDT) Thyroglobulin 0.1(L) 1.3 - 31.8 ng/mL [facility] Comment: INTERPRETIVE INFORMATION: Thyroglobulin, Serum or Plasma Specimens negative for thyroglobulin antibodies (TgAb) are tested for thyroglobulin (Tg) by chemiluminescent immunoassay (ELENI) using the [place] Access DxI method. Specimens with TgAb results [...] Thyroglob Ab <0.9 0.0 - 4.0 IU/mL [facility] Comment: INTERPRETIVE INFORMATION: Thyroglobulin Antibody A value of 4.0 IU/mL or less indicates a negative result for thyroglobulin antibodies. The Thyroglobulin Antibody assay is being performed using the [place] Access DxI method. Please note that as 01/08/22 this testing is performed at [facility]. This change is associated with a change in testing method and reference intervals. Values from other methods may not correlate with this method. Please review the results of this test in assocaition with the posted reference intervals. Thyroglobulin by LC-MS/MS Not Applicable 1.3 - 31.8 ng/mL [facility] Comment: INTERPRETIVE INFORMATION: Thyroglobulin by LC-MS/MS, Serum/Plasma Lower limit of detection for Thyroglobulin by LC-MS/MS is 0.5 ng/mL. This test was developed and its performance characteristics determined by [facility]. It has not been cleared or approved by the US Food and Drug Administration. This test was performed in a CLIA certified laboratory and is intended for clinical purposes. Performed By: [facility] [address] [place] [id number] Framing And Hanging: Harish Fernandez MD, PhD CLIA Number: [id number] Blood 08/17/2023 4:08 PM EDT 08/18/2023 11:32 AM EDT Narrative Resulting Agency Comment Spec In Lab Harlan Sebastian MD LAB SEND OUT ORDER VENKATA Performing Organization Address City/[facility] Co de Phone Number [facility] [place] [place] [address] * TSH (08/17/2023 4:08 PM EDT) Thyroid Stimulating Hormone 3.16 0.27 - 4.20 mcIU/mL [facility] Comment: Reference Interval (mcIU/mL): Females: ??First Trimester: 0.23-3.88 ??Second Trimester: 0.22-3.90 ??Third Trimester: 0.44-4.66 Blood 08/17/2023 4:08 PM EDT 08/17/2023 4:27 PM EDT Narrative Resulting Agency Comment Spec In Lab Harlan Sebastian MD CHEMISTRY ORDERABL ES Performing Organization Address City/[facility]/ZIP Co de Phone Number [facility] [place] [place] [address] documented in this encounter Visit Diagnoses Diagnosis Thyroid cancer Malignant neoplasm of thyroid gland documented in this encounter Care Teams Log Carrier Operator Relationship Specialty Start Date End Date Sheree Deng APRN [address] [place] [address] PCP - General Internal Medicine 08/12/19 documented as of this encounter
--- OUTSIDE RECORDS SUMMARY | 2023-11-18 17:37 | XMS_ITS | Encounter Summary ---
Author Organization Replaced By [facility] Address [facility] [place] [address] Care Team Providers Care Radiology Supervisor Name Role Phone IshSheree APRN Primary Care Provider [phone] Reason for Visit * Reason Comments Establish Care * Consultation (Routine) - Closed Specialty Diagnoses / Procedures Referred By Tom eaton Referred To Contact General Surgery Diagnoses Malignant neoplasm of thyroid gland Mike Ca MD [address] [place] [id number] Ita Mueller MD [facility] [place] [address] Referral ID Status Reason Start Date Expiration Date V isits Requested Visits Authorized [id number] Closed Consult, Test & Treat 12/24/2022 12/24/2023 1 1 Encounter Details Date Type Department Care Team (Late st Contact Info) Description 01/07/2023 10:00 AM EDT Office Visit [place] [address] Ita Mueller MD [facility] GENERAL SURGERY [place], [place] [id number] Primary thyroid cancer; Multiple thyroid nodules Social History Tobacco Use Types Packs/Day Years [...] Sign Reading Time Taken Comments Blood Pressure 136/67 01/07/2023 10:05 AM EDT Pulse 52 01/07/2023 10:05 AM EDT Temperature - - Respiratory Rate 18 01/07/2023 10:05 AM EDT Oxygen Saturation 98% 01/07/2023 10:05 AM EDT Inhaled Oxygen Concentration - - Weight 77.1 kg (170 lb) 01/07/2023 10:05 AM EDT Height 162.6 cm (5' 4) 01/07/2023 10:05 AM EDT Body Mass Index 29.18 01/07/2023 10:05 AM EDT documented in this encounter Progress Notes * Ita Mueller MD - 01/07/2023 10:00 AM EDT Endocrine Surgery Initial Consultation HPI: Ms. Karen Stratton is a 72 y.o. year old female referred by Dr. Ca who presents for evaluation of multiple thyroid nodules. This was initially noted by the patient. She's been aware of a goiter since the and has been on synthroid since then, but noted the left side enlarging over the summer. It doesn't seem to be rapidly growing, but is distinctly different that before. She reports subtle compressive symptoms including occasional dysphagia and voice changes. She denies symptoms of hyperthyroidism or hypothyroidism, and recent thyroid function tests have been normal on a stabledose of synthroid. There is not personal history of radiation exposure, and the patient has not hadprior anterior neck surgery. There is not a known family history of endocrine tumors or malignancy--mother, brother, and sister all take levothyroxine but no one has had thyroid removed. Imaging studies to date include thyroid ultrasound performed most recently by radiology at [facility], which demonstrated a 2.9cm TR 3 nodule in the right thyroid, and a 9.7cm left thyroid lobe with a 5.4cm TR5 nodule with calcifications occupying the mid/lower pole. She also had a CT scan in September 2022 (done for possible PE workup--negative--and not related to the thyroid nodule workup). This showed the large thyroid mass with rightward tracheal deviation and enlargement since the last imaging done in 2019. There is not a reported substernal component; however, on my read, the lobe extends at leastdown to the level of the clavicle. Fine needle aspiration biopsy has been performed by Dr. Ca and cytology was suspicious for malignancy ([place] 5) on the left and AUS ([place] 3) on the right. Molecular testing was sent, but has not yet been done due to some sort of administrative issue at [facility]. She is now referred to me for consideration of surgical management of her thyroid disease. Past Medical History: Diagnosis Date Abnormal cardiovascular stress test 08/03/2020 Toro's palsy Breast cancer Depression H/O breast reconstruction, left 01/26/2013 Hypothyroid Hypothyroidism Migraines Multiple melanocytic nevi Skin tag Status post total right knee replacement 02/08/2020 Past Surgical History: Procedure Laterality Date BREAST RECONSTRUCTION 04/13/2009 Emergency Room Clinician then silicon implant BREAST RECONSTRUCTION 04/13/2009 BREAST REDUCTION SURGERY 04/13/2009 SECTION LAPAROSCOPY LAPAROTOMY TOTAL KNEE ARTHROPLASTY Right Current Outpatient Medications on File Prior to Visit Medication Sig Dispense Refill SUMAtriptan (Imitrex) 100 mg tablet sertraline (Zoloft) 50 mg tablet ergocalciferol, vitamin D2, (VITAMIN D ORAL) Take by mouth. levothyroxine (SYNTHROID) 75 mcg tablet Take 75 mcg by mouth daily. SUMAtriptan (IMITREX) 50 mg tablet 50mg, PO, QID,PRN atenolol (TENORMIN) 25 mg tablet 50mg, PO, QD b complex vitamins (VITAMIN B COMPLEX) tablet acetaminophen (TYLENOL) 325 mg tablet ibuprofen (ADVIL) 200 mg tablet No current facility-administered medications on file prior to visit. Allergies Allergen Reactions Adhesive Tape Rash Family History: No thyroid cancer, but several family members on synthroid. No pituitary, pancreas or adrenal tumors. No parathyroid disease. Daughter has breast cancer. Grandmother had colon and throat cancer. Social History: never smoker, very rare EtOH. Accompanied by her [id number]. Her grandson lives with her. Good support--son and ivcgiqnc-pw-vvy live close. Daughter in town. 7 grandkids. 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 She does not do any professional public speaking or singing. Review of Systems: 10 of 14 systems reviewed and all negative except as per HPI Vitals Flowsheet Row Office Visit from 01/07/2023 in General Surgery at [facility] Weight 77.1 kg (170 lb) Height 162.6 cm (5' 4) BSA (Calculated - sq m) 1.87 sq meters BMI (Calculated) 29.18 Heart Rate 52 Resp 18 BP 136/67 SpO2 98 % Body mass index is 29.18 kg/m??. Physical Exam: General: well-appearing, NAD Neuro: Alert and oriented x 3. Cranial nerves II-XII grossly intact. Eyes: no lid lag or proptosis ENT: Moist mucus membranes. Trachea midline MSK: poor neck extension Thyroid: massively enlarged, firm left thyroid. Mobile with swallowing. Lymph: No palpable cervical lymphadenopathy CV: RRR Respiratory: Normal respiratory effort. Lungs clear bilaterally. Extremities well-perfused without edema Skin: warm and dry. No rashes Psych: appropriate affect Labs: TSH 0.68 (October 2022) Imaging: Thyroid, Parathyroid and Cervical Ultrasound I performed a thyroid, parathyroid and cervical ultrasound at the time of the clinic visit today using the 12 mHz linear ultrasound transducer. The thyroid, parathyroid and central and bilateral lateral neck lymph node basins were evaluated. Thyroid Isthmus: Thickness: 0.61 cm Nodules: none [...] subtly lobulated borders and containing scattered calcifications Cervical lymph nodes Central neck: Normal ultrasonographic appearing lymph nodes. Right lateral neck: Normal ultrasonographic appearing lymph nodes. Left lateral neck: Normal ultrasonographic appearing lymph nodes. A/P: Ms. Karen Stratton is a 72 y.o. year old female with multiple thyroid nodules, the left sided nodule enlarging over the past several months, and FNA demonstrating suspicious for malignancy ([place] 5) cytology on the left and AUS on the right. She does not have suspicious adenopathy on CT or ultrasound. I therefore recommended total thyroidectomy with central node dissection. Given the pace of growth and the overall size of this nodule, I recommended doing this case relatively urgently. I discussed the risks of thyroidectomy including, but not limited to, laryngeal nerve injury resultingin voice changes or hoarseness, low calcium due to damage or removal of one or more parathyroid glands, bleeding which may require return to the operating room, post-operative infection and other complications related to anesthesia. The patient's questions were answered, and consent was obtained today. We will schedule surgery for the next mutually convenient date. She has a history of difficultywith anesthesia and would feel more comfortable being observed overnight, which we agreed is quite r easonable for a thyroid this large. CESQIP Data Thyroid Body mass index is 29.18 kg/m??. Prior neck irradiation:No Prior anterior neck surgery: No Pre-operative laryngoscopy: No Anti-coagulation meds (warfarin, heparin, oral thrombin or factor Xa inhibitors): No. Will the patient stop this medication for surgery? N/A Anti-platelet meds (aspirin, clopidogrel): No, Will the patient stop this medication for surgery? N/A Substernal component: YES Symptoms of compression: YES FNA: yes FNA Classification: [place] V documented in this encounter Plan of Treatment Not on file documented as of this encounter Visit Diagnoses Diagnosis Primary thyroid cancer Malignant neoplasm of thyroid gland Multiple thyroid nodules Nontoxic multinodular goiter documented in this encounter Care Teams Radiology Supervisor Relationship Specialty Start Date End Date Sheree Deng APRN [address] [place] [address] PCP - General Internal Medicine 08/12/19 documented as of this encounter
--- OUTSIDE RECORDS SUMMARY | 2023-11-18 17:37 | XMS_ITS | Encounter Summary ---
Author Organization [facility] Address [facility] [place] [address] Care Team Providers Care Sprayer Automatic Spray Machine Name Role Phone Sheree Deng APRN Primary Care Provider [phone] Encounter Details Date Type Department Care Team (Latest Contact Info) Description 03/09/2023 Travel Social History Tobacco Use Types Packs/Day Years Used Date Smoking Tobacco: Never Smokeless Tobacco: Never Alcohol Use Standard Drinks/Week Comments No 0 (1 standard drink = 0.6 oz pur e alcohol) once in a while IPV Inpatient Questions Answer Date Recorded Does [...] on filedocumented in this encounter Care Teams Sprayer Automatic Spray Machine Relationship Specialty Start Date End Date Sheree Deng APRN [address] [place] [address] PCP - General Internal Medicine 08/12/19 documented as of this encounter
--- OUTSIDE RECORDS SUMMARY | 2023-11-18 17:37 | XMS_ITS | Encounter Summary ---
Author Organization [facility] [place] [address] Care Team Providers Care Bank Vault Attendant Name Role Phone Sheree Deng APRN Primary Care Provider [phone] Encounter Details Date Type Department Care Team (Latest Contact Info) Description 03/18/2023 5:50 PM EST - 03/18/2023 11:59 PM [facility] [[email or web address] [place] [address] Discharge Disposition: Home Social History Tobacco Use Types Packs/Day Years Used Date Smoking Tobacco: Never Smokeless Tobacco: Never Alcohol Use Standard Drinks/Week Comments No 0 (1 standard drink = 0.6 oz pur e alcohol) once in a while [facility] Utilities Answer Date Recorded In the past 12 months has th e electric, gas, oil, or water company [...] mouth daily. 30 tablet 3 2023 08/18/2023 documented as of this encounter Plan of Treatment Not on file documented as of this encounter Procedures Procedure Name Priority Date/Time Associated Diagnosis Comments SURGICAL PATHOLOGY REPORT Routine 03/18/2023 4:03 PM EST documented in this encounter Results * Surgical Pathology Report (03/18/2023 4:03 PM EST) Final Diagnosis [id number] ? Location: [facility] The signing pathologist has (i) examined the relevant preparation(s) for the specimen(s) and (ii) rendered or confirmed the diagnosis(es). . ?Surgical Pathology DIAGNOSIS A - Sigmoid Polyp: - ??Hyperplastic polyp. CR-PX Electronically signed by: ?Jaime RAUSCH, Cynthia Verified: ??03/28/2023 18:03 ??Pathologist Performed at: ??-[facility] Dept. of Pathology, [place] [address] Case Management Manager: Boby Sanders MD, FCAP, ??CLIA Certificate: [id number] SPECIMEN(S) SUBMITTED A - Sigmoid Polyp Referring Identifier: ?(not provided) Copy To: (not provided) CLINICAL INFORMATION History of colon polyps; sigmoid polyp SPECIMEN PROCESSING A - Labeled/Fixativ e: Sigmoid polyp, formalin. Quantity/Size: Single, 0.3 cm. Tissue Description: Soft, watson-pink tissue. Sections/Proces sing: Submitted in toto ??in 1 cassette labeled A1. ??sns 03/28/2023 6:03 PM EST [facility] GI Biopsy 03/18/2023 4:03 PM EST 03/18/2023 4:03 PM EST Neo Leahy DO PATHOLOGY/CYT OLOGY ORDERABLES [facility] [place] [address] [place] [address] documented in this encounter Visit Diagnoses Not on filedocumented in this encounter Care Teams Bank Vault Attendant Relationship Specialty Start Date End Date Sheree Deng APRN [address] [place] [address] PCP - General Internal Medicine 08/12/19 documented as of this encounter
--- OUTSIDE RECORDS SUMMARY | 2023-11-18 17:37 | XMS_ITS | Encounter Summary ---
Author Organization [facility] Address [facility] [place] [address] Care Team Providers Care Oil Well Perforator Operator Name Role Phone Sheree Deng Kenzie SOLARES Primary Care Provider + [phone] Reason for Visit * Consultation (Routine) - Closed Specialty Diagnoses / Procedures Referred By Tom t Referred To Contact Radiation Oncology Diagnoses Primary thyroid cancer Ita Mueller MD [facility] [place] [address] Bethel Prater MD [facility] [place] [address] Referral ID Status Reason Start Date Expiration Date V isits Requested Visits Authorized [id number] Closed Consult, Test & Treat 02/11/2023 02/11/2024 1 1 Encounter Details Date Type Department Care Team (Late st Contact Info) Description 03/11/2023 10:00 AM EST Office Visit Radiation Oncology at [address] [id number] Bethel Prater MD [facility] [place] [address] Thyroid cancer Social History Tobacco Use Types Packs/Day Years Used Date Smoking Tobacco: Never Smokeless Tobacco: Never Alcohol Use Standard Drinks/Week Comments No 0 (1 standard drink = 0.6 oz pur e alcohol) once in a while [facility] Utilities Answer Date Recorded In the [...] place to sleep or slept in a chcf (including now)? No 03/11/2023 DH IPV Inpatient [...] Sign Reading Time Taken Comments Blood Pressure 130/67 03/11/2023 10:08 AM EST Pulse 56 03/11/2023 10:08 AM EST Temperature 37.1 ??C (98.8 ??F) 03/11/2023 10:[address] Respiratory Rate 16 03/11/2023 10:08 AM EST Oxygen Saturation 97% 03/11/2023 10:08 AM EST Inhaled Oxygen Concentration - - Weight 79.1 kg (174 lb 6.4 oz) 03/11/2023 10:08 AM EST Height - - Body Mass Index 29.02 03/09/2023 12:30 PM EST documented in this encounter Patient Instructions * Patient Instructions* Bethel Prater MD - 03/11/2023 10:00 AM EST GENERAL INFORMATION FOR I-131 OUTPATIENT As your doctor will have explained to you, you will be receiving a therapeutic dose of radioactive iodine (LEVINE) as treatment for your medical condition. Radioactive iodine decreases the function of thyroid cells and inhibits their ability to grow. It is given to you in pill form and goes directly to the thyroid gland where it is absorbed by the thyroid tissue. Most of the LEVINE will be received by your thyroid gland. Any LEVINE not collected by the thyroid gland will be eliminated during the first two days through urine, feces, saliva, and sweat. You will need to follow steps that will be given toyou to help ensure that the excreted radiation from your body does not contaminate the environment or cause harm to other people. Radioactive iodine may be given after surgery, to kill any cancer cells that may have been left behind to treat thyroid cancer that has spread to treat thyroid cancer that has come back after it was first treated Some side affects you may have include: Metallic taste in your mouth Fatigue Dry mouth Sore throat or neck pain Upset stomach or vomiting Salivary glands may become swollen and hurt Dry eyes Some men may have problems having children Some women may have changes in their periods LOW-IODINE DIET Start two weeks prior to LEVINE administration In preparation for your LEVINE ablation, you are asked to go on a low-iodine diet two weeks prior to LEVINE. The point of the low-iodine diet is to deplete the body of its natural iodine, which will make the LEVINE treatment more effective. The premise is that when the radioactive iodine is given, the thyroid will ???suck?? up the iodine because it has been depleted. You will be given a copy of the low-iodine diet instructions as found on the thyca.org website, where you can find the Low Iodine Cookbook. We give the guideline summary so you can see where to access it online. Please let us know if you do not have access to the internet and we can provide you with the whole cookbook. Please be aware that there are variations in low-iodine diet instructions and if you are consultingmore than one source you may find minor differences. You may call us with any questions or concernsabout differences in instructions, but generally if food is eaten in moderation there will not be aproblem. This is a low-iodine diet, not a no-iodine diet. We don't want following this diet to be anxiety producing. The main items to avoid for the two weeks prior to ablation are: Seafood and products from the sea Iodized and sea salt Dairy products Margarine Egg yolks (whites are fine) Red dye #3 Blackstrap Molasses Chocolate Soy products Bread products containing iodate dough conditioner Iodine in CT scan contrast dye 4 week prior Iodine in nutritional supplements or medications Link to website and cookbook: http://www.thyca.org/ This material was adapted from ThyCa: [employer] Revised 01/2012 THYROGEN INJECTIONS First Injection Second Injection Thyrogen helps any thyroid cancer cells in the body to take up the radioactive iodine. I-131 works best when the levels of TSH (thyroid stimulating hormone) are high. Thyrogen is given as an injection into the muscle of the buttock for two days in a row, 24 hours apart. These injections are given here in the office, or sometimes other arrangements can be made. Thyrogen is used to help identify thyroid disease by testing the blood for a hormone called thyroglobulin that will be drawn on day 3, prior to LEVINE. Patients should remain well hydrated prior to treatment with Thyrogen. The most common side effectsreported were nausea and headache. DAY OF ADMINISTRATION: Report to 2K You will need to have your blood drawn a couple of hours before your visit. This allows time for your blood work to be processed. We need these results before we can administer LEVINE. Go to 3K, the outpatient blood draw area two hours before your schedule appointment with us. After your blood is drawn, please report to 2K for your intake and instructions about LEVINE. You will need to come alone. Bring a bottle of water to swallow the pill(s). Start sour candies 24 hours after administration. HOME ISOLATION After receiving radioiodine, drive home immediately, with no extra stops. Remain in designated areas within the residence to minimize contact and spread of iodine contamination. Post emergency phone numbers near the phone. Drink plenty of fluids the first three days to enhance elimination of radioiodine. Make sure you move your bowels by the second day (using stool softeners if needed). Flush toilet twice, with the lid down, and wash hands thoroughly after each use. Men should sit to urinate to avoid unnecessary splashing. Bathe and shower at least daily. Visitors should be discouraged except for personal safety checks, deliver groceries, prescription medications, etc. Maintain distance of six feet or more from any visitor and limit visit to less than [address] disposable trash in separate containers and hold for two weeks before disposal. Use disposable plastic utensils and rinse before disposal. Do not leave premises or visit public areas for three days. Clothing, bedding, and linens may be washed in residence, separate from other laundry. Discourage common use of premises for two weeks. Avoid physical contact for one week, especially with women and children. Expect a call from your healthcare provider produce service team member after 24 hours. In case of a medical emergency, call one of the following numbers: Days 8AM - 5PM: [phone] Nights 5PM - 8AM: [phone] and ask to speak with Radiation Oncology doctor operations vocational instructor. MEALS You will continue to follow a low iodine diet for 2-3 days as specified by the physician, though itdoesn't need to be as strictly followed as before. MEDICATIONS If you are on medications, please continue to take them as prescribed. Radiation continues to leave your body for about 1 week. Take good care of yourself: Drink 6-8 glasses of water and fluids each day to help remove the LEVINE from your body. Take a shower each day and wash hands often. You can use your normal soap and pecan cleaner. Have a private bathroom and toilet if possible. Suck on sour candy or chew gum to help prevent swelling in your mouth. POST TREATMENT INSTRUCTIONS (3 DAYS AFTER) You will resume your regular diet and restart any medications that may have been stopped. Minimize contact (staying at least 6 feet away) with small children or women for 1 week after administration. Do not sleep in the same bed with anyone for 1 week after LEVINE. THIS INCLUDES PETS Wash your eating utensils separately for 1 week after LEVINE. For 1 week, clean up any spills after using the toilet with toilet paper. Flush twice (with lid down), and wash hands well after each use. Sexual activity may resume after 1 week, but an appropriate control method must be used. Discuss with your doctor if you want to become or you want to father a child. should be discontinued 2 months prior to the iodine administration, but can be resumed with subsequent births. Minimize contact with household pets. There are no restrictions or special precautions for going back to work after 1 week, unless you have a job that puts you in frequent or close contact with women, children, or involves food preparation. Discuss your job situation with your doctor if you have questions. Do not prepare meals for others for 1 week. Do not wear contact lenses for 1 week after iodine administration. Showering is encouraged to be done daily. CONTAMINATION CONTROL These guidelines are provided to assist patients with control of radioiodine during treatment. LEVINE has been administered to control a hyper functioning thyroid gland or to help eradicated thyroid cancer metastases. The LEVINE readily seeks out this tissue to do its job, but a fraction is also releasedfrom the body in normally secreted fluids. Urine, feces, perspiration, tears, and saliva all contain a small fraction of the administered dose of LEVINE. Anything this material comes into contact with may become contaminated with the LEVINE material. In order to control the contamination to acceptable levels, you need to be aware of these potential sources and take the following precautions: Wipe down bathroom and kitchen surfaces and discard contaminated trash in a designated bag. Cover nose and mouth with disposable tissues when sneezing or coughing. Double bag all waste and hold for two weeks. Clothing, bedding and linens can be laundered in your residence after 1 week, separate from other laundry. You do not need special soap, and you don't need to clean the washer/dryer. Prevent anyone from using or contacting the same household items you have been using for 1 week, including phones, remotes, I pads, etc. Anyone assisting you should be wearing disposable gloves. After 2 weeks, all danger from contamination has passed. The LEVINE decays away and approaches normal environmental levels. documented in this encounter Progress Notes * Dennis Young MD - 03/11/2023 10:00 AM EST Images from the original note were not included. 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 female with PMHx of left breast cancer (s/p mastectomy) and [place] palsy who has had a longstanding history of multinodular thyroid goiter and synthroid use since the .She noticed a change in the Summer of 2022 in the size of her goiter, on the left, with noticeable increase in size over the course of a few months. She brought this to the attention of her PCP, and she received an US-guided biopsy with Dr. Ca revealing cytology suspicious for neoplasm. She subsequently underwent total thyroidectomy with Dr. Nugent on 01/23/23 revealing a PTC variant classified as differentiated high grade thyroid carcinoma. she has no history of radiation exposure as a child or family history of endocrine malignancies. Staging & Therapy US Thyroid US-Guided Thyroid Bx 12/31/2022 DISCUSSION A. Thyroid nodule (5.2cm): left (US-guided FNA) - Suspicious for a follicular neoplasm. B. Thyroid nodule (2.4cm): right (US-guided FNA) - Atypia of undetermined significance (AUS) Total Thyroidectomy & Central Lymph Node Dissection 2023 -Findings: massive left thyroid lobe with macrocalcifications. Nodular right thyroid lobe with macrocalcifications. Both RLNs preserved. Limited left central neck dissection done, but no obvious gross disease -Path: Specimen Procedure: Total thyroidectomy Tumor Tumor Focality: [...] identified on the surface of thyroid tissue Pertinent Lab Hx: Date Tg Tg Ab TSH 03/09/23 0.2 <0.9 9.04 Post Tx Doing well postoperatively. Levothyroxine Dose: 125 mcg Other pertinent information: Currently, she has the following symptoms: Symptom Description Intervention Neck Sx Mild tenderness to palpation Voice Changes Denies Xerostomia Baseline xerostomia 2/2 [place] palsy Dysphagia Denies Sx Hyperthyroidisim Reports some hot flashes, otherwise denies emotional lability, tremor, palpitations,excessive perspiration Sx Hypothyroidisim 6 lb weight gain in 6 weeks, otherwise, denies cold intolerance, myalgias Fatigue Occasional Other I have personally reviewed the imaging studies referenced above. Review of Systems: I reviewed and agree with the nursing review of systems accompanying this encounter. The remainder of the comprehensive review of systems was negative with the exception of the pertinent positives and negatives noted above. Medications and Allergies: Current Outpatient Medications: acetaminophen (Tylenol) 325 mg tablet, Take 3 tablets by mouth every 6 hours., Disp: 30 tablet, Rfl: 1 ibuprofen (Motrin) 400 mg tablet, Take 1 tablet by mouth every 6 hours as needed for Pain., Disp: 30 tablet, Rfl: 12 levothyroxine (Synthroid) 125 mcg tablet, Take 1 tablet by mouth daily., Disp: 30 tablet, Rfl: 3 SUMAtriptan (Imitrex) 100 mg tablet, , Disp: , Rfl: sertraline (Zoloft) 50 mg tablet, , Disp: , Rfl: ergocalciferol, vitamin D2, (VITAMIN D ORAL), Take by mouth., Disp: , Rfl: SUMAtriptan (IMITREX) 50 mg tablet, 50mg, PO, QID,PRN, Disp: , Rfl: atenolol (TENORMIN) 25 mg tablet, 50mg, PO, QD, Disp: , Rfl: b complex vitamins (VITAMIN B COMPLEX) tablet, , Disp: , Rfl: Allergies Allergen Reactions Adhesive Tape Rash Exam: Patient Vitals for the past 24 hrs: Temp Pulse Resp BP SpO2 03/11/23 1008 37.1 ??C (98.8 ??F) 56 16 130/67 97 % Physical Exam Constitutional: Appearance: Normal appearance. HENT: Head: Normocephalic and atraumatic. Eyes: General: No scleral icterus. Right eye: No discharge. Neck: Comments: Incision c/d/I. Cardiovascular: Rate and Rhythm: Normal rate and regular rhythm. Pulmonary: Effort: Pulmonary effort is normal. No respiratory distress. Musculoskeletal: Cervical back: Normal range of motion. No rigidity. Lymphadenopathy: Cervical: No cervical adenopathy. Skin: General: Skin is warm and dry. Neurological: General: No focal deficit present. Mental Status: She is alert and oriented to person, place, and time. Psychiatric: Mood and Affect: Mood normal. Behavior: Behavior normal. Performance Status: KPS 70-80% ECOG 1 Restricted in physically strenuous activity but ambulatory and able to carry out work of a light or sedentary nature, e.g., light house work, office work Contraindications to Radiotherapy NO YES: Date, site, dose (women only) X Prior Radiotherapy X Collagen-Vascular dz X Summary/Recommendations: Cancer Staging: Cancer Staging Thyroid cancer Staging form: Thyroid - Differentiated, AJCC 8th Edition - Clinical stage from 03/11/2023: Stage II (cT3a, cN0a, cM0, Age at diagnosis: >= 55 years) - Signed by Dennis Young MD on 03/11/2023 Impression: Thyroid Cancer Staging US of thyroid, central neck and bilateral neck (DH) Pathologic Evaluation of the Primary Oncologic Resection, now ~ 6 weeks out from surgery Further Staging None Required Therapy Discussion Karen Stratton has received an oncologic resection of her malignancy. she has features that increasethe risk of recurrence including histology - she has a differentiated high grade thyroid carcinoma (DHGTC). This subtype has been associated with a higher risk of locoregional and distant recurrence;some data suggests diminished radiosensitivity, but data are sparse. In addition her tumor was >4cm in size. Per NCCN guidelines adjuvant radioactive iodine 131 (LEVINE) Is indicated based on size. We discussed the histology of her cancer, the recommendation to proceed with I-131, and the risks andbenefits therein. We discussed the rationale, logistics (including the need for a low iodine diet prior to LEVINE administration, the use of thyrogen injections in the two days prior to LEVINE administration, differences inoutpatient and inpatient LEVINE administration, radioactivity precautions in both scenarios, and the need for a post-administration LEVINE scan) and efficacy of adjuvant LEVINE. We discussed the risks of therapy, including but not limited to short term sequelae (fatigue, esophagitis, skin erythema, cough, parotitis, dysgeusia, nausea/vomiting, cytopenias) and long-term sequelae (radiation pneumonitis, alteration of anterior neck skin cosmesis, dysphagia, xerostomia, risk of second malignancies, and the rare possibility of other significant damage to soft tissue, bone or skin requiring surgical or medical intervention). Ms. Stratton expressed an understanding of these risks. The patient had a number of questions regardingoptimal therapy and potential side effects. These questions were answered to her satisfaction Plan: She wished to proceed as an outpatient. We will check creatinine and CBC prior to I-131. Attending Statement: I saw the patient with Dr. Young and agree with the history, physical, assessment, and plan as stated. Ms. Stratton has a DHGTC, and high risk features including size, putting her in a high risk category for recurrence. We discussed the risks and benefits of I-131 in detail, and shewished to proceed as an outpatient. -Bethel Prater MD, PhD 45 minutes of this 60 minute visit were spent discussing treatment options. Thank you for allowing me to participate in the care of Karen Stratton. Bethel Prater MD, PhD [facility] Radiation oncology [phone] No orders of the defined types were placed in this encounter. The following information is automatically imported from [facility]. It has been reviewed, and pertinent information is noted above in HPI: PAST HISTORY Patient Active Problem List Diagnosis Date Noted Thyroid cancer 2023 Primary osteoarthritis of right knee 08/03/2020 Syncope 08/03/2020 Skin tag Multiple melanocytic nevi Tubular adenoma 10/19/2019 Osteoarthrosis 10/04/2019 Chronic pain of right knee 09/20/2015 Cyst of Bartholin's gland duct 10/14/2011 Urinary incontinence 05/27/2011 History of malignant neoplasm of breast 04/18/2009 Depressive disorder 02/11/2002 Hypothyroidism 12/06/1998 Social History Socioeconomic History Marital status: Domestic [...] Activity: Not on file Intimate Partner Violence: Not on file Housing Stability: Low Risk (03/11/2023) Housing Stability Vital Sign Unable to Pay for Housing in the Last Year: No Number of Places Lived in the Last Year: 1 Unstable Housing in the Last Year: No No family history on file. [facility] [employer] Commission on Cancer (ACS [place]) Accredited Cancer Program [employer] ([employer]) Accredited Radiation Oncology Program * Lelo Torrez RN - 03/11/2023 10:00 AM EST RADIATION ONCOLOGY NURSING INITIAL NURSING ASSESSMENT IDENTIFICATION: Karen Stratton is a 73 y.o. year-old female with thyroid cancer. PRESENTING SYMPTOMS/CHIEF COMPLAINT: NPW Smoking History: never Drug History: no Alcohol History: rare Family History of Cancer: REVIEW OF SYSTEMS: Review of Systems - Oncology 03/11/2023 9:46 AM REVIEW OF SYSTEMS Constitutional Weight gain Hot flashes Ear / nose / throat / mouth Dry mouth Eyes None of the above Cardiovascular None of the above Gastrointestinal Feeling bloated Skin, hair Dry skin Musculoskeletal Joint stiffness Joint pain Reduced range of motion Neurological Balance difficulty, dizziness Headaches Hematologic / Lymphatic Easy bruising or bleeding Genitourinary Dribbling IN THE PAST 12 MONTHS HAVE YOU: Fallen more than one time? Yes Injured yourself as result of the fall? No Experienced difficulty with walking/problems with balance? Yes Do you use any assistive devices? No Any history of collagen vascular diseases:No Any Implanted Devices/Hardware: Yes If yes please put alert in ARIA patient summary Prior Radiotherapy: No Prior Chemotherapy: No Prior Hormone Therapy: No LEARNING ASSESSMENT REVIEWED: Yes ADVANCED DIRECTIVE: PAIN ASSESSMENT: 0 out of 10 *eD-H Adult PCS Flow Sheet if 4 or above SOCIAL ASSESSMENT: See ED social assessment information entered. Support Systems: Barriers to treatment: None identified. Referrals/Interventions: FAST FOOD CASHIER per routine. RADIATION SPECIFIC TEACHING: [facility] Radiation Therapy and You Site specific teaching : Other: PLAN: Per Dr. Prater Answers submitted by the patient for this visit: (Submitted on 03/11/2023) Distress: 2 documented in this encounter Plan of Treatment Not on file documented as of this encounter Visit Diagnoses Diagnosis Thyroid cancer Malignant neoplasm of thyroid gland documented in this encounter Care Teams Oil Well Perforator Operator Relationship Specialty Start Date End Date Sheree Deng APRN [address] [place] [address] PCP - General Internal Medicine 08/12/19 documented as of this encounter
--- OUTSIDE RECORDS SUMMARY | 2023-11-18 17:37 | XMS_ITS | Encounter Summary ---
Author Organization Formerly [facility] [place] [address] Care Team Providers Care Drip Pumper Name Role Phone Aleida Dengyce Kenzie SOLARES Primary Care Provider + [phone] Reason for Visit * Consultation (Routine) - Closed Specialty Diagnoses / Procedures Referred By Tom eaton Referred To Contact Endocrinology Diagnoses Primary thyroid cancer Ita Mueller MD [facility] [address] [facility] [address] [place] [address] Referral ID Status Reason Start Date Expiration Date V isits Requested Visits Authorized [id number] Closed Consult, Test & Treat 02/11/2023 02/11/2024 1 1 Encounter Details Date Type Department Care Team (Late st Contact Info) Description 03/09/2023 1:00 PM EST Office [place] [address] Fartun Sherwood MD [facility] [place] [address] Thyroid cancer Social History Tobacco Use Types Packs/Day Years Used Date Smoking Tobacco: Never Smokeless Tobacco: Never Alcohol Use Standard Drinks/Week Comments No 0 (1 standard drink = 0.6 oz pur e alcohol) once in a while [facility] Utilities Answer Date Recorded In [...] place to sleep or slept in a custodial (including now)? No 03/11/2023 DH IPV Inpatient [...] Sign Reading Time Taken Comments Blood Pressure 111/69 03/09/2023 12:30 PM EST Pulse 55 03/09/2023 12:30 PM EST Temperature 36.2 ??C (97.1 ??F) 03/09/2023 12:[address] Respiratory Rate - - Oxygen Saturation 98% 03/09/2023 12:30 PM EST Inhaled Oxygen Concentration - - Weight 78.6 kg (173 lb 3.2 oz) 03/09/2023 12:30 PM EST Height 165.1 cm (5' 5) 03/09/2023 12:30 PM EST Body Mass Index 28.82 03/09/2023 12:30 PM EST documented in this encounter Progress Notes * Fartun Sherwood MD - 03/09/2023 1:00 PM EST Images from the original note were not included. Endocrinology Consult Note Name: Karen Stratton : 1950 Date: 03/09/23 Reason for Consult: Hx of thyroid carcinoma s/p total thyroidectomy HPI: Karen Stratton is a 73 y.o. female with a hx of multinodular thyroid with FNA demonstrating suspicious for malignancy (Hayward 5) cytology on the left and AUS on the right. She underwent a total thyroidectomy with Dr. Mueller on 01/23, and is currently doing well since surgery. 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 Karen has an upcoming appointment thisWednday with Dr. Prater to discuss the possibility of I-131 in the setting of having differentiated high grade thyroid carcinoma. Patient is doing well since her surgery. Her only complaint today is having episodes of hot flashesthat started post-surgery. She denies any feeling of heart racing. She also denies numbness, tingling, and muscle weakness. She is not taking any calcium supplementation. Takes Levothyroxine 125mcg daily, on an empty stomach and waits 30 min to have breakfast. She does not miss any doses. Asides from a mild discomfort on the surgical site, she does not have any difficulties eating or breathing. She is very active outdoors during the summer time, so her energy levelsare typically lower during the winter. Review of Systems: all negative except for what is mentioned in HPI Past Medical History: Diagnosis Date Abnormal cardiovascular stress test 08/03/2020 Toro's palsy Breast cancer Depression H/O breast reconstruction, left 01/26/2013 Hypothyroid Hypothyroidism Migraines Multiple melanocytic nevi Skin tag Status post total right knee replacement 02/08/2020 Past Surgical History: Procedure Laterality Date BREAST RECONSTRUCTION 04/13/2009 Featherer then silicon implant BREAST RECONSTRUCTION 04/13/2009 BREAST REDUCTION SURGERY 04/13/2009 SECTION LAPAROSCOPY LAPAROTOMY PRG EMG, LARYNX N/A 2023 FACIAL NERVE MONITORING, SETUP LARYNGEAL (WRVU 1.57) performed by Ita Mueller MD at [facility] MAIN OR PRO THYROIDECTOMY, MALIG, LTD NECK SURG N/A 2023 THYROIDECTOMY, FOR MALIGNANCY, LIMITED NECK DISSECTION (WRVU 22.01) performed by Randy Mueller MD at [facility] MAIN OR TOTAL KNEE ARTHROPLASTY Right [...] Social Determinants of Health Financial Resource Strain: Not on file Food Insecurity: Not on file Transportation Needs: Not on file Physical Activity: Not on file Intimate Partner Violence: Not on file Housing Stability: Not on file 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 Allergies Allergen Reactions Adhesive Tape Rash Vitals BP 111/69 Pulse 55 Temp 36.2 ??C (97.1 ??F) Ht 165.1 cm (5' 5) Wt 78.6 kg (173 lb 3.2 oz) SpO2 98% BMI 28.82 kg/m?? Physical Exam: General appearance: pleasant female [...] EMILY STILES Verified: 02/05/2023 13:41 Performed at: -[facility] [place]ology, [place] [address] Gm: Boby Sanders MD, FCAP, CLIA Certificate: [id number] SYNOPTIC Specimen Procedure: Total thyroidectomy Tumor Tumor [...] for Future Studies Tumor Block(s): A30, A33 [facility] 2021 Q2 Release DISCUSSION Nuclear features vary throughout the tumor, there are patchy areas with features of papillary thyroid carcinoma, including nuclear clearing, margination and nuclear grooves. Assessment and plan: Karen Stratton is a 73 y.o. female with a hx of multinodular thyroid with FNA demonstrating suspicious for malignancy (Hayward 5) cytology on the left and AUS [...] and today we will be checking TSH levels to evaluate if we will need to do any dose adjustment. I also explained to patient it is best not to check the thyroglobulin within the first 3 months of surgery since ittakes longer for the levels to decrease. She needs to return to clinic around July for a thyroid bed ultrasound. Appointment already made. Thank you for allowing us participate in the care of this patient. Patient was discussed with Dr. Street. Fartun Sherwood, PGY6 Endocrinology Fellow Pager: [phone] * Albert Street MD - 03/09/2023 1:00 PM EST I saw this patient with Dr Cavanaugh . I reviewed the lugo portions of the history and physical exam, and reviewed pertinent lab data. I answered all patient questions. I was involved in all medical decision making and agree with this plan. documented in this encounter Plan of Treatment Scheduled Referrals Name Type Priority Associated Diagnoses Order Schedule Referral to Endocrinology Outpatient Referral Routine Primary thyroid cancer Ordered: 02/11/2023 documented as of this encounter Visit Diagnoses Diagnosis Thyroid cancer Malignant neoplasm of thyroid gland documented in this encounter Care Teams Drip Pumper Relationship Specialty Start Date End Date Sheree Deng APRN [address] [place] [address] PCP - General Internal Medicine 08/12/19 documented as of this encounter
--- OUTSIDE RECORDS SUMMARY | 2023-11-18 17:37 | XMS_ITS | Encounter Summary ---
[place] [address] Care Team Providers Care Maintenance Machinist Name Role Phone Sheree Deng APRN Primary Care Provider [phone] Encounter Details Date Type Department Care Team (Latest Contact Info) Description 03/09/2023 2:00 PM EST Laboratory Appointment Lab [address] [place] [id number] Thyroid cancer Social History Tobacco Use Types Packs/Day Years Used Date Smoking Tobacco: Never Smokeless Tobacco: Never Alcohol Use Standard Drinks/Week Comments No 0 (1 standard drink = 0.6 oz pur e alcohol) once in a while [facility] Utilities Answer Date Recorded In [...] place to sleep or slept in a skilled nursing (including now)? No 03/11/2023 DH IPV Inpatient [...] Procedure Name Priority Date/Time Associated Diagnosis Comments PTH Routine 03/09/2023 1:54 PM EST Thyroid cancer THYROGLOBULIN Routine 03/09/2023 1:54 PM EST Thyroid cancer TSH Routine 03/09/2023 1:54 PM EST Thyroid cancer CALCIUM Routine 03/09/2023 1:54 PM EST Thyroid cancer documented in this encounter Results * PTH (03/09/2023 1:54 PM EST) Parathyroid Hormone 57 15 - 65 pg/mL [facility] Blood 03/09/2023 1:54 PM EST 03/09/2023 2:13 PM EST Narrative Resulting Agency Comment Spec In Lab Ita Mueller MD CHEMISTRY ORDERAB LES Performing Organization Address City/[facility] Co de Phone Number [facility] [place] [address] * (ABNORMAL) TSH (03/09/2023 1:54 PM EST) Thyroid Stimulating Hormone 9.04(H) 0.27 - 4.20 mcIU/mL [facility] Comment: Reference Interval (mcIU/mL): Females: ??First Trimester: 0.23-3.88 ??Second Trimester: 0.22-3.90 ??Third Trimester: 0.44-4.66 Blood 03/09/2023 1:54 PM EST 03/09/2023 2:13 PM EST Narrative Resulting Agency Comment Spec In Lab Ita Mueller MD CHEMISTRY ORDERAB LES Performing Organization Address [facility] Co de Phone Number [facility] [place] [address] * Calcium (03/09/2023 1:54 PM EST) Calcium 9.2 8.5 - 10.5 mg/dL [facility] Blood 03/09/2023 1:54 PM EST 03/09/2023 2:13 PM EST Narrative Resulting Agency Comment Spec In Lab Ita Mueller MD CHEMISTRY ORDERAB LES Performing Organization Address [facility] Co de Phone Number [facility] [place] [address] * (ABNORMAL) Thyroglobulin (03/09/2023 1:54 PM EST) Thyroglobulin 0.2(L) 1.3 - 31.8 ng/mL [facility] Comment: INTERPRETIVE INFORMATION: Thyroglobulin, Serum or Plasma Specimens negative for thyroglobulin antibodies (TgAb) are tested for thyroglobulin (Tg) by chemiluminescent immunoassay (ELENI) using the [employer] Access DxI method. Specimens with TgAb results [...] Thyroglob Ab <0.9 0.0 - 4.0 IU/mL [facility] Comment: INTERPRETIVE INFORMATION: Thyroglobulin Antibody A value of 4.0 IU/mL or less indicates a negative result for thyroglobulin antibodies. The Thyroglobulin Antibody assay is being performed using the [employer] Access DxI method. Please note that as 01/08/22 this testing is performed at [facility]. This change is associated with a change in testing method and reference intervals. Values from other methods may not correlate with this method. Please review the results of this test in assocaition with the posted reference intervals. Thyroglobulin by LC-MS/MS Not Applicable 1.3 - 31.8 ng/mL [facility] Comment: INTERPRETIVE INFORMATION: Thyroglobulin by LC-MS/MS, Serum/Plasma Lower limit of detection for Thyroglobulin by LC-MS/MS is 0.5 ng/mL. This test was developed and its performance characteristics determined by [facility]. It has not been cleared or approved by the US Food and Drug Administration. This test was performed in a CLIA certified laboratory and is intended for clinical purposes. Performed By: [facility] [address] [place] [id number] [employer] Manager Consultant: Harish Fernandez MD, PhD CLIA Number: [id number] Blood 03/09/2023 1:54 PM EST 03/10/2023 1:42 PM EST Narrative Resulting Agency Comment Spec In Lab Ita Mueller MD LAB SEND OUT [facility] [place] [address] documented in this encounter Visit Diagnoses Diagnosis Thyroid cancer Malignant neoplasm of thyroid gland documented in this encounter Care Teams Maintenance Machinist Relationship Specialty Start Date End Date Sheree Deng APRN [address] [place] [address] PCP - General Internal Medicine 08/12/19 documented as of this encounter
--- OUTSIDE RECORDS SUMMARY | 2023-11-18 17:37 | XMS_ITS | Encounter Summary ---
Author Organization [facility] Address [facility] [place] [address] Care Team Providers Care Receiving Associate Name Role Phone Sheree Deng APRN Primary Care Provider [phone] Encounter Details Date Type Department Care Team (Late st Contact Info) Description 08/18/2023 [place]phone [place] [phone] Fartun Sherwood MD [facility] [place] [address] Social History Tobacco Use Types Packs/Day Years Used Date Smoking Tobacco: Never Smokeless Tobacco: Never Alcohol Use Standard Drinks/Week Comments No 0 (1 standard drink = 0.6 oz pur e alcohol) once in a while [facility] Utilities Answer Date Recorded In the past 12 months has [employer], gas, oil, or water [employer] threatened to shut off services in your [...] place to sleep or slept in a retirement (including now)? No 03/11/2023 DH IPV Inpatient [...] encounter Miscellaneous Notes * Telephone Encounter - Fartun Sherwood MD - 08/18/2023 2:02 PM EDT Today I called patient to go over the lab results from 08/17/23: Latest Reference Range & Units 08/17/23 16:08 TSH 0.27 - 4.20 mcIU/mL 3.16 TSH elevated, above the goal of 0.1 to 0.5. Will increase Synthroid dose from 125 to 150mcg daily. Will repeat TSH and thyroglobulin levels in 6 to 8 weeks. Lab orders faxed to [facility] per patient's request. Thyroglobulin from yesterday still pending. I explained to patient that if they are elevated it is expected in the setting of having a higher TSH. New rx sent to preferred pharmacy. D/w Dr. Sebastian documented in this encounter Plan of Treatment Scheduled Orders Name Type Priority Associated Diagnoses Orde r Schedule TSH Lab Routine Thyroid cancer Expected: 10/06/2023 (Approximate), Expires: 04/06/2024 Thyroglobulin Lab Routine Thyroid cancer Expected: 10/06/2023, Expires: 04/06/2024 documented as of this encounter Visit Diagnoses Diagnosis Thyroid cancer Malignant neoplasm of thyroid gland documented in this encounter Care Teams Receiving Associate Relationship Specialty Start Date End Date Sheree Deng APRN [address] [place] [address] PCP - General Internal Medicine 08/12/19 documented as of this encounter
--- OUTSIDE RECORDS SUMMARY | 2023-11-18 17:37 | XMS_ITS | Encounter Summary ---
[place] [address] Care Team Providers Care Tour Driver Name Role Phone Sheree Deng Kenzie SOLARES Primary Care Provider [phone] Reason for Visit * Reason Comments Skin Lesion bilateral upper ches t, right groin, right shoulder blade, right shoulder, bilateral arms Encounter Details Date Type Department Care Team (Late st Contact Info) Description 08/07/2020 10:45 AM EDT Office Visit Dermatology at [place] [address] [facility] [place] [phone] Issac Evans MD [address] [facility] [place] [address] Nevus; Seborrheic keratosis Social History Tobacco Use Types Packs/Day Years Used Date Smoking Tobacco: Never Smokeless Tobacco: Never Alcohol Use Standard Drinks/Week Comments No 0 (1 standard drink = 0.6 oz pur e alcohol) Sex and Gender Information Value Date Recorded Sex Assigned at Not on file Gender Identity Not on file Sexual Orientation Not on file documented as of this encounter Progress Notes * Issac Evans MD - 08/07/2020 10:45 AM EDT Problem: Skin lesions of concern Karen follows up after last seeing me in 2004. She has some new lesions of concern. Physical examination reveals a pleasant 70-year-old woman who has a benign examination of the head and the neck the chest the back the hands informs thighs and the calves. She has 2 diffuse seborrheic keratoses 1 on the right and 1 in the left upper chest. She has a compound was intradermal nevus on the central back and a large tag in the right medial thigh. She has mild diffuse seborrheic keratosis formation on the bilateral arms. Assessment and plan: Irritated nevi/tag versus soft fibroma 1. After obtaining informed consent sites were anesthetized and site A central back and site B right upper medial thigh were submitted for pathologic analysis. 2. Wound care instructions and supplies given 3. We will notify patient of biopsy results in 1 week 4. Return to clinic here will be as needed. Benign skin examination 1. Patient reassured about her benign skin examination today. Cc: Sheree Deng APRN documented in this encounter Plan of Treatment Not on file documented as of this encounter Procedures Procedure Name Priority Date/Time Associated Diagnosis Comments SURGICAL PATHOLOGY REPORT Routine 08/07/2020 11:30 AM EDT documented in this encounter Results * Surgical Pathology Report (08/07/2020 11:30 AM EDT) Final Diagnosis [id number] ? Location: [facility] The signing pathologist has (i) examined the relevant preparation(s) for the specimen(s) and (ii) rendered or confirmed the diagnosis(es). . ?Surgical Pathology DIAGNOSIS A - Central back, skin shave ?? biopsy: - ??Intradermal melanocytic nevus, transected at the base B - Right upper medial thigh, skin shave ?biopsy: - ??Acrochordon Electronically signed by: ?Kate Perkins MD Verified: ??08/14/2020 17:14 ??Dermatopatholo gist Performed at: ??-[facility] Dept. of Pathology, [place], [place] ADDITIONAL STUDIES A - Examination of two BAP1 stains performed on different regions of the tissue does not reveal significant loss of expression among the lesional melanocytes. SPECIMEN(S) SUBMITTED A - central back, skin shave ?? biopsy B - R upper medial thigh, skin shave ?? biopsy CLINICAL INFORMATION Irritated papules, clinical diagnosis: Seborrheic keratosis vs nevus SPECIMEN PROCESSING A - Labeled/Fixative : A, formalin. Quantity/Size: ??Single, 0.9 x 0.6 cm. Tissue Description: Shave of watson-white skin with a 0.3 cm polypoid watson-pink skin papule. Sections/Process ing: Inked, quadrisected and entirely submitted in 2 cassettes as follows: ?A1: ??Tips ?A2: ??Body with papule B - Labeled/Fixative : B, formalin. Quantity/Size: ??Single, 0.8 x 0.8 x 0.4 cm. Tissue Description: Shave excision of a wrinkled, rubbery pink polypoid skin papule. Sections/Process ing: Inked, quadrisected and entirely submitted in 1 cassette labeled B1. ??ajw 08/14/2020 5:[address] [facility] SPECIMEN FROM SKIN / Unknown 08/07/2020 11:30 AM EDT 08/07/2020 11:30 AM EDT SPECIMEN FROM SKIN / Unknown 08/07/2020 11:30 AM EDT 08/07/2020 11:30 AM EDT Issac Evans MD PATHOLOGY/CYTOLOGY [facility] [place] [address] documented in this encounter Visit Diagnoses Diagnosis Nevus Benign neoplasm of skin, site unspecified Seborrheic keratosis Other seborrheic keratosis documented in this encounter Care Teams Tour Driver Relationship Specialty Start Date End Date Sheree Deng, ASSET MANAGEMENT COORDINATOR [address] [place] [address] PCP - General Internal Medicine 08/12/19 documented as of this encounter
--- OUTSIDE RECORDS SUMMARY | 2023-11-18 17:38 | XMS_ITS | Encounter Summary ---
[place] [address] Care Team Providers Care Physiatrist Name Role Phone Cortez Tipton MD Primary Care Provider [phone] Encounter Details Date Type Department Care Team (Latest Contact Info) Description 01/26/2013 1:14 PM EDT - 01/26/2013 11:59 PM EDT Hospital [place] [address] Breast reconstruction deformity Social History Tobacco Use Types Packs/Day Years Used Date Smoking Tobacco: Never Alcohol Use Standard Drinks/Week Comments [...] Procedure Name Priority Date/Time Associated Diagnosis Comments MAMMO BREAST US LIMITED Routine 01/26/2013 2:40 PM EDT Deformity of reconstructed breast documented in this encounter Results * Mammo breast US unilateral bilateral (01/26/2013 2:40 PM EDT) Anatomical Region Laterality Modality Breast N/A Mammography 01/26/2013 2:40 PM EDT Impressions 01/26/2013 7:19 PM EDT IMPRESSION: ?? The Left breast prosthesis appears intact. However, if there is a strong clinical suspicion of implant rupture then further evaluation with MRI is recommended as MRI is a more sensitive exam to evaluate implant integrity. Narrative 01/26/2013 7:19 PM EDT LEFT BREAST ULTRASOUND ON 01/26/13: ?? CLINICAL INDICATION: Question implant integrity. Pain and change in sensation of the Left breast implant. ?? TECHNIQUE: Ultrasound targeted to the Left breast prosthesis. ?? FINDINGS: The Left breast prosthesis appears anechoic with near field reverberation artifact but no step ladder echoes. There are no sonographic findings of implant rupture. ?? Procedure Note Luis Alberto English MD - 01/26/2013 LEFT BREAST ULTRASOUND ON 01/26/13: CLINICAL INDICATION: Question implant integrity. Pain and change insensation of the Left breast implant. TECHNIQUE: Ultrasound targeted to the Left breast prosthesis. FINDINGS: The Left breast prosthesis appears anechoic with near field reverberation artifact but no step ladder echoes. There are nosonographic findings of implant rupture. IMPRESSION IMPRESSION: The Left breast prosthesis appears intact. However, if there is a strong clinical suspicion of implant rupture then further evaluation with MRI is recommended as MRI is a more sensitive exam to evaluate implantintegrity. Angela Teixeira MD IMG MAMMO ORDERABLES documented in this encounter Visit Diagnoses Diagnosis Breast reconstruction deformity Deformity of reconstructed breast documented in this encounter Care Teams Physiatrist Relationship Specialty Start Date End Date Cortez Tipton MD [address] [place] [address] PCP - General 03/05/10 08/11/19 documented as of this encounter
--- OUTSIDE RECORDS SUMMARY | 2023-11-18 17:38 | XMS_ITS | Encounter Summary ---
Author Organization [facility] Address [facility] [place] [address] Care Team Providers Care Wood Mill Supervisor Name Role Phone Sheree Deng APRN Primary Care Provider [phone] Encounter Details Date Type Department Care Team (Late st Contact Info) Description 02/14/2009 [place] [id number] Corinne Ruiz MD [facility] [place] [address] Social History Tobacco Use Types Packs/Day Years Used Date Smoking Tobacco: Never Assessed [facility] Utilities Answer Date Recorded In the [...] to sleep or slept in a senior care (including now)? No 03/11/2023 DH IPV Inpatient [...] Associated Diagnosis Comments SURGICAL PATHOLOGY REPORT Routine 02/14/2009 11:31 AM EST documented in this encounter Results * Surgical Pathology Report (02/14/2009 11:31 AM EST) Surgical Pathology Report [id number] ? Location: [facility] The signing pathologist has (i) examined the relevant preparation(s) for the specimen(s) and (ii) rendered or confirmed the diagnosis(es). . ?Pathology Surgical Pathology Final Report Clinical Information Specimen Submitted: A - Lt breast stereo 1 of 2: B - Lt stereo breast, lesion 2 of 2: Clinical History: A - Calcs, area 1 B - Group 2 calcs 2% Clinical Diagnosis: DCIS, FCD, FAD Report to: [facility] [address] [place] [id number] Gross Description A - Specimen: ?Received in two containers. 1 - Labeled/Fixative : ??LT breast stereo 1 of 2 with calcifications, ? formalin. Qty/Size/Weight: ? Multiple needle core biopsies, aggregating ? 2.5 x 2.3 x 0.4 cm. Sections/Process ing: ?? Submitted in (A1-A2). 2 - Labeled/Fixative : ??LT breast stereo 1 of 2 without calcs, formalin. Qty/Size/Weight: ? Fragments of watson-yellow soft tissue admixed with ? clot, aggregating 3.0 x 2.5 x 0.6 cm. Sections/Process ing: ?? Submitted in (A3-A4). ??(T4) B - Specimen: ?Received in two containers. 1 - Labeled/Fixative : ??LT stereo breast 2 of 2 with calcifications, ? formalin. Qty/Size/Weight: ? Four fragments of watson-yellow fibroadipose tissue, ? ranging from 0.3 x 0.2 x 0.2 cm to ? 1.5 x 0.2 x 0.2 cm. Sections/Process ing: ?? Submitted in (B1). 2 - Labeled/Fixative : ??LT stereo breast 2 of 2 without calcification, ? formalin. Qty/Size/Weight: ? Multiple irregular fragments of watson-yellow ? fibroadipose tissue, aggregating 1.4 x 0.9 x 0.4 cm. Sections/Process ing: ?? Submitted in (B2). ??(T2) ??aje/PPS Microscopic Description Slides reviewed, microscopic description not recorded.3 Diagnosis Needle biopsies: ?A - Left breast, 1 of 2. 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 Diagnosis ?Atypical ductal hyperplasia (ADH) ?Benign ductal hyperplasia Microcalcificati ons: ??Identified in DCIS and ADH Needle biopsies: ?B - Left breast, 2 of 2. 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 Jerson Caro MD ?Pathologist ?(Electronic Signature) The attending pathologist whose signature appears on this report has reviewed all diagnostic slides and has edited the gross and/or microscopic portion of the report in rendering the final pathologic diagnosis. DANIEL NAM 02/14/2009 11:3 1 AM EST Corinne Ruiz MD PATHOLOGY/CYTOLOGY O RDERABLES DANIEL NAM documented in this encounter Visit Diagnoses Not on filedocumented in this encounter Care Teams Wood Mill Supervisor Relationship Specialty Start Date End Date Sheree Deng APRN [address] [place] [address] PCP - General Internal Medicine 08/12/19 documented as of this encounter
--- OUTSIDE RECORDS SUMMARY | 2023-11-18 17:38 | XMS_ITS | Encounter Summary ---
Author Organization [facility] Address [address] [place] [address] Care Team Providers Care Distribution Tech Name Role Phone Unavailable Primary Care Provider Unavailabl e Encounter Details Date Type Department Care Team (Late st Contact Info) Description 12/07/2008 Orders Only [facility] Laboratory Services - [facility] [place] [address] [place] [address] Romy Morrow, WORK ENVIRONMENT SAFETY INSPECTOR [address] [facility] [address] [place] [address] Social History Tobacco Use Types Packs/Day Years Used Date Smoking Tobacco: Never Assessed Sex and Gender Information Value Date Recorded Sex Assigned at Not on file Gender Identity Not on file Sexual Orientation Not on file documented as of this encounter Plan of Treatment Not on file documented as of this encounter Procedures Procedure Name Priority Date/Time Associated Diagnosis Comments CYTOPATHOLOGY Routine 12/07/2008 0:00 EDT documented in this encounter Results * CYTOPATHOLOGY (12/07/2008 0:00 EDT) Pathology Report: CYTOPATHOLOGY REPORT ? Reports generated via electronic interface contain original data; ? however they are lacking the format of the original report. ? Caution should be taken when reading/interpreti ng unformatted reports. ? Name: ? CHAYO PARKER ? Accession #: ? [id number] ? : ? 1950 (Age: 58) ??F ?Collect Date: ? 12/07/2008 ? Location: ? [facility] ? Receive Date: ? 12/08/2008 ? Provider: ?ROMY L MORROW WORK ENVIRONMENT SAFETY INSPECTOR ? Copy to: ? Specimen/Source: ?Pap Test, Cervix, ThinPrep Imaging System with manual ?? evaluation ? Last Menstrual Period: ? 2006 ? Other: ? Additional clinical information: 3 cervical polyps, slight friable ? HPVA - HPV testing requested if ASC-US on the current ThinPrep Pap test. ? SPECIMEN ADEQUACY ? Satisfactory for Evaluation ? - transformation zone component present ? GENERAL CATEGORIZATION ? Negative for Intraepithelial Lesion or Malignancy ? Document reviewed and electronically signed by: ? Mya Armani, CT(ASCP) ? Report Date: ??12/14/2008 12:19 ? End of Report ? [facility] 12/07/2008 12/08/2008 Romy Morrow NP PATHOLOGY ORDERABLE S [facility] [address] [place] [address] documented in this encounter Visit Diagnoses Not on filedocumented in this encounter
--- OUTSIDE RECORDS SUMMARY | 2023-11-18 17:38 | XMS_ITS | Encounter Summary ---
Author Organization [facility] Address [address] [place] [address] Care Team Providers Care Manager Of Clinical Name Role Phone Unavailable Primary Care Provider Unavailabl e Encounter Details Date Type Department Care Team (Late st Contact Info) Description 05/09/2003 Results Only [facility] - [facility] [address] [place] [address] Romy Morrow NP [address] [place] [address] [address] [place] [address] Social History Tobacco Use Types Packs/Day Years Used Date Smoking Tobacco: Never Assessed Sex and Gender Information Value Date Recorded Sex Assigned at Not on file Gender Identity Not on file Sexual Orientation Not on file documented as of this encounter Plan of Treatment Not on file documented as of this encounter Procedures Procedure Name Priority Date/Time Associated Diagnosis Comments HPV DETECTION, HIGH RISK TYPES Routine 05/09/2003 11:00 EST CYTOPATHOLOGY Routine 05/09/2003 0:00 EST documented in this encounter Results * HUMAN PAPILLOMA VIRUS DNA TEST (05/09/2003 11:00 EST) Specimen Description Cervix, ThinPrep vial [facility] Result Negative for HPV types 16, 18, 31, 33, 35, 39, 45, 51, 52, 56, 58, 59, and 68. [facility] Report Status Final [id number] [facility] 05/09/2003 11:0 0 EST 05/17/2003 11:00 EST Romy Morrow NP MICROBIOLOGY - GENE RAL ORDERABLES Performing Organization Address [facility] Co de Phone Number [facility] [address] [place] [address] * CYTOPATHOLOGY (05/09/2003 0:00 EST) Pathology Report: CYTOPATHOLOGY REPORT Reports generated via electronic interface contain original data; however they are lacking the format of the original report. Caution should be taken when reading/interpreti ng unformatted reports. Name: ? CHAYO PARKER ? Accession #: ? [id number] : ? 1950 (Age: 53) ??F ?Collect Date: ? 05/09/2003 Location: ? [facility] ? Receive Date: ? 05/11/2003 Provider: ?ROMY MORROW NP Copy to: ? Specimen/Source: ?ThinPrep Pap Test, Vagina/Cervix Last Menstrual Period: ? 3-4 months Other: ? HPVDX - HPV testing requested regardless of diagnosis on current ThinPrep Pap test. ? SPECIMEN ADEQUACY ? Satisfactory for Evaluation - transformation zone component present GENERAL CATEGORIZATION ? Negative for Intraepithelial Lesion or Malignancy ? Document reviewed and electronically signed by: ? RUBIA Samuel(ASCP) ? Report Date: ??05/16/2003 14:04 End of Report [facility] 05/09/2003 05/11/2003 Romy Morrow NP PATHOLOGY ORDERABLE S Performing Organization Address City/[facility]/ZIP Co de Phone Number [facility] [address] [place] [address] documented in this encounter Visit Diagnoses Not on filedocumented in this encounter
--- OUTSIDE RECORDS SUMMARY | 2023-11-18 17:38 | XMS_ITS | Encounter Summary ---
[place] [address] Care Team Providers Care Citizenship Instructor Name Role Phone Cortez Tipton MD Primary Care Provider [phone] Encounter Details Date Type Department Care Team (Late st Contact Info) Description 11/03/2013 12:57 PM EDT - 11/03/2013 11:59 PM EDT Hospital [place] [address] Social History Tobacco Use Types Packs/Day Years [...] Diagnosis Comments MAMMO BREAST US LIMITED Routine 11/03/2013 2:17 PM EDT documented in this encounter Results * Mammo breast US unilateral bilateral (11/03/2013 2:17 PM EDT) Anatomical Region Laterality Modality Breast N/A Mammography 11/03/2013 2:17 PM EDT Impressions 11/07/2013 12:37 PM EDT IMPRESSION: This is a (BIRADS Category 2) BENIGN mammogram and ultrasound: ??Stable 8 x 9 x 6mm island of fibroglandular tissue unchanged since 07/23/2010 .The palpable area of concern indicated by the patient today is located more medial to this area where fatty tissue only is seen. Assuming no further clinical concerns, routine annual mammography is recommended . Above findings discussed with the patient by Dr. Birmingham at the time of this evaluation. Clinical follow-up is advised and the patient would like clinical follow-up in the Comprehensive Breast Care Program. The patient was instructed that she will be called with that appointment. Narrative 11/07/2013 12:37 PM EDT RIGHT UNILATERAL DIAGNOSTIC MAMMOGRAM AND RIGHT BREAST ULTRASOUND ON 11/03/2013: CLINICAL INDICATION: Prior Left mastectomy with palpable lump in the lateral Right breast found on recent clinical breast exam. Patient notes the area of concern variously at 0900, 11cm to the nipple and 0800, 11cm to the nipple. TECHNIQUE: 2D/3D RCC, RMLO, RML and RXCCL 2D views obtained with direct digital capture. Targeted Right breast ultrasound. FINDINGS: The mammogram shows a scattered and stable fibroglandular pattern. Scar and areas of soft tissue asymmetry ??from a reduction mammoplasty are stable. Predominantly fatty tissue is seen in the indicated area of clinical concern on both mammogram and on ultrasound. Closer to the nipple in the same quadrant at 0830, 8cm to the nipple there is a stable, hypoechoic lobulated mass or focal breast tissue measuring approximately 8 x 9 x 6mm (ultrasound measurement) which is unchanged as compared to multiple prior mammograms dating back to 07/23/2010 as well as a prior Right breast ultrasound of this area of 07/23/2010. The long term acute care registered nurse mammographic and sonographic ??stability is consistent with a benign island of fibroglandular tissue. Procedure Note Elizabeth Birmingham MD - 11/07/2013 RIGHT UNILATERAL DIAGNOSTIC MAMMOGRAM AND RIGHT BREAST ULTRASOUND ON11/03/2013: CLINICAL INDICATION: Prior Left mastectomy with palpable lump in thelateral Right breast found on recent clinical breast exam. Patient notes the areaof concern variously at 0900, 11cm to the nipple and 0800, 11cm to thenipple. TECHNIQUE: 2D/3D RCC, RMLO, RML and RXCCL 2D views obtained with directdigital capture. Targeted Right breast ultrasound. FINDINGS: The mammogram shows a scattered and stable fibroglandularpattern. Scar and areas of soft tissue asymmetry from a reduction mammoplasty are stable. Predominantly fatty tissue is seen in the indicated area ofclinical concern on both mammogram and on ultrasound. Closer to the nipple in thesame quadrant at 0830, 8cm to the nipple there is a stable, hypoechoiclobulated mass or focal breast tissue measuring approximately 8 x 9 x 6mm(ultrasound measurement) which is unchanged as compared to multiple prior mammogramsdating back to 07/23/2010 as well as a prior Right breast ultrasound of this areaof 07/23/2010. The long term acute care registered nurse mammographic and sonographic stability isconsistent with a benign island of fibroglandular tissue. IMPRESSION IMPRESSION: This is a (BIRADS Category 2) BENIGN mammogram and ultrasound: Stable 8 x9 x 6mm island of fibroglandular tissue unchanged since 07/23/2010 .Thepalpable area of concern indicated by the patient today is located more medial tothis area where fatty tissue only is seen. Assuming no further clinicalconcerns, routine annual mammography is recommended . Above findings discussed with the patient by Dr. Birmingham at the time of this evaluation. Clinical follow-up is advised and the patient would likeclinical follow-up in the Comprehensive Breast Care Program. The patient wasinstructed that she will be called with that appointment. Romy L Bolaños BOAT WORKER IMG MAMMO ORDERAB LES documented in this encounter Visit Diagnoses Not on filedocumented in this encounter Care Teams Citizenship Instructor Relationship Specialty Start Date End Date Cortez Tipton MD [address] [place] [address] PCP - General 03/05/10 08/11/19 documented as of this encounter
--- OUTSIDE RECORDS SUMMARY | 2023-11-18 17:38 | XMS_ITS | Encounter Summary ---
Author Organization [facility] Address [address] [place] [address] Care Team Providers Care Training And Development Officer Name Role Phone Cortez Tipton MD Primary Care Provider Unav ailable Encounter Details Date Type Department Care Team (Late st Contact Info) Description 02/03/2020 Lab Requisition [facility] Pathology & Laboratory Medicine - [facility] [address] [place], [place] [address] Outr Resulting Lab, Provider Social History Tobacco Use Types Packs/Day Years Used Date Smoking Tobacco: Never Assessed Sex and Gender Information Value Date Recorded Sex Assigned at Not on file Gender Identity Not on file Sexual Orientation Not on file documented as of this encounter Plan of Treatment Not on file documented as of this encounter Procedures Procedure Name Priority Date/Time Associated Diagnosis Comments ZZCOVID-19 TEST [facility] PCR Today 02/03/2020 14:27 EDT COVID-19 TESTING Routine 02/03/2020 14:2 7 EDT documented in this encounter Results * COVID-19 TEST [facility] PCR (02/03/2020 14:27 EDT) Swab ENTIRE NASOPHARYNX / Unknown 02/03/2020 14:27 EDT 02/03/2020 21:07 EDT Provider Outr Resulting Lab MICROBIOLOGY - GENERAL ORDERABLES [facility] [address] [place] [address] * COVID-19 TESTING (02/03/2020 14:27 EDT) COVID-19 rt-PCR Result Negative Negative 02/04/2020 2:07 EDT [facility] Comment: This test has not been FDA cleared or approved. This test has been authorized by FDA under an EUA for use by authorized laboratories. This test has been authorized only for detection of nucleic acid from 2019-nCoV, not for any other viruses or pathogens. This test is only authorized for the duration of the declaration that circumstances exist justifying the authorization of emergency use of in vitro diagnostic tests for detection and/or diagnosis of 2019-nCoV under section 564(b)(1) of Act, 21 U.S.C ?? 360bbb-3(b) (1), unless the authorization is terminated or revoked sooner. Negative results do not preclude 2019-nCoV infection and should not be used as the sole basis for treatment or other patient management decisions. Negative results must be combined with clinical observations, patient history, and epidemiological information. Performed on the Arigoher Fusion instrument Performing Lab [facility] 02/04/2020 2:07 EDT [facility] Swab 02/03/2020 14:2 7 EDT 02/03/2020 21:07 EDT Provider Outr Resulting Lab MICROBIOLOGY - GENERAL ORDERABLES [facility] [address] [place] [address] documented in this encounter Visit Diagnoses Not on filedocumented in this encounter Care Teams Training And Development Officer Relationship Specialty Start Date End Date Cortez Tipton MD PCP - General 10/06/11 documented as of this encounter
--- OUTSIDE RECORDS SUMMARY | 2023-11-18 17:38 | XMS_ITS | Encounter Summary ---
Author Organization [facility] [place] [address] Care Team Providers Care Motor Room Controller Name Role Phone Cortez Tipton MD Primary Care Provider [phone] Encounter Details Date Type Department Care Team (Late st Contact Info) Description 07/23/2010 Orders Only [address] [address] Elizabeth Birmingham MD [facility] [place] [address] Abnormal mammogram, unspecified (Primary Dx) Social History Tobacco Use Types Packs/Day Years Used Date Smoking Tobacco: Never Assessed Sex and Gender Information Value Date Recorded Sex Assigned at Not on file Gender Identity Not on file Sexual Orientation Not on file documented as of this encounter Plan of Treatment Not on file documented as of this encounter Results * Mammo direct digital unilateral (01/22/2011 3:47 PM EDT) Anatomical Region Laterality Modality Breast N/A Mammography 01/22/2011 3:47 PM EDT Narrative 01/24/2011 8:48 AM EDT RIGHT UNILATERAL MAMMOGRAM ON 01/22/11: ?? CC, MLO and laterally extended CC views. ?? The is a six month follow-up of a Category 3 exam for post surgical changes and residual fibroglandular tissue, S/P reduction mammoplasty, 04/22. ? FINDINGS: Repeat imaging today compared to prior exams of 07/02/10 and 07/23/10 show decreasing post surgical changes in the Right breast. There is a focal area of fibroglandular tissue superiorly which is unchanged compared to 07/23/10 and decreased as compared to 07/02/10. There is an inferior scar which is also stable. Comparison to older exams is somewhat limited due to the intervening surgery. However, allowing for this, there are no concerning changes in the fibroglandular pattern. Because of the decreasing density associated with the recent surgery and no current concerns, a repeat ultrasound was not performed today. ? CONCLUSION: ?? The current exam is considered a BI-RADS Category 2 for BENIGN scar. The patient may return to routine screening. The above findings were discussed with the patient by Dr. Birmingham at the time of this evaluation. Procedure Note Elizabeth Birmingham MD - 01/24/2011 RIGHT UNILATERAL MAMMOGRAM ON 01/22/11: CC, MLO and laterally extended CC views. The is a six month follow-up of a Category 3 exam for post surgicalchanges and residual fibroglandular tissue, S/P reduction mammoplasty, 04/22. FINDINGS: Repeat imaging today compared to prior exams of 07/02/10 and07/23/10 show decreasing post surgical changes in the Right breast. There is afocal area of fibroglandular tissue superiorly which is unchanged compared to 07/23/10 and decreased as compared to 07/02/10. There is an inferior scarwhich is also stable. Comparison to older exams is somewhat limited due to the intervening surgery. However, allowing for this, there are no concerning changes in the fibroglandular pattern. Because of the decreasing density associated with the recent surgery and no current concerns, a repeatultrasound was not performed today. CONCLUSION: The current exam is considered a BI-RADS Category 2 for BENIGN scar. The patient may return to routine screening. The above findings were discussedwith the patient by Dr. Birmingham at the time of this evaluation. Elizabeth Birmingham MD IMG MAMMO ORDERABLES documented in this encounter Visit Diagnoses Diagnosis Abnormal mammogram, unspecified- Primary Abnormal mammogram, unspecified documented in this encounter Care Teams Motor Room Controller Relationship Specialty Start Date End Date Cortez Tipton MD [address] [place] [id number] PCP - General 03/05/10 08/11/19 documented as of this encounter
--- OUTSIDE RECORDS SUMMARY | 2023-11-18 17:38 | XMS_ITS | Encounter Summary ---
Author Organization [facility] [place] [address] Care Team Providers Care Creative Services Designer Name Role Phone Ish Sheree Espino APRN Primary Care Provider [phone] Encounter Details Date Type Department Care Team (Latest Contact Info) Description 10/12/2019 9:22 PM EDT - 10/12/2019 11:59 PM EDT [place] [address] Discharge Disposition: Home Social History Tobacco Use [...] complex vitamins (VITAMIN B COMPLEX) tablet 12/20/2009 aspirin EC 81 mg Tablet, Delayed Release (E.C.) Take 81 mg by mouth daily. 08/07/2020 furosemide (Lasix) 20 mg Tablet Take 1 tablet by mouth daily. 30 tablet 08/19/2019 08/07/2020 rosuvastatin (Crestor) 5 mg Tablet Take 5 mg by mouth daily. 08/07/2020 levothyroxine (SYNTHROID) 75 mcg tablet Take 75 [...] Associated Diagnosis Comments SURGICAL PATHOLOGY REPORT Routine 10/12/2019 11:37 AM EDT documented in this encounter Results * Surgical Pathology Report (10/12/2019 11:37 AM EDT) Final Diagnosis ? Location: [facility] The signing pathologist has (i) examined the relevant preparation(s) for the specimen(s) and (ii) rendered or confirmed the diagnosis(es). . ?Surgical Pathology DIAGNOSIS A - Cecum, ??polypectomy: - Fragments of tubular adenoma. B - Transverse colon, ?? polypectomy: - Fragments of tubular adenoma. CR-PX Electronically signed by: ??Arsen Forrester MD Verified: ??10/19/2019 ?Pathologist Performed at: ??-[facility] Dept. of Pathology, [place], [place] SPECIMEN(S) SUBMITTED A - Cecum polyp, biopsy ?? (not provided) B - Transverse colon polyp, biopsy ?? (not provided) Referring Identifier: ?(not provided) CLINICAL INFORMATION Screening colonoscopy SPECIMEN PROCESSING A - Labeled/Fixativ e: #1 cecum polyp, formalin. Quantity/Size: Two, ranging 0.3-0.7 cm. Tissue Description: Soft, watson-pink tissues. Sections/Proces sing: Submitted en toto ??in 1 cassettes as follows: ?A1: ??Include 0.3 cm watson-pink polypoid tissue and 0.7 cm watson-pink inked and ? bisected polypoid tissue B - Labeled/Fixativ e: #2 transverse colon polyp, formalin. Quantity/Size: Three, averaging 0.1 cm. Tissue Description: Soft, watson-pink tissues. Sections/Proces sing: Submitted en toto ??in 1 cassette labeled B1. ??MLL 10/19/2019 4:02 PM EDT [facility] GI Biopsy 10/12/2019 11:3 7 AM EDT 10/12/2019 11:37 AM EDT GI Biopsy 10/12/2019 11:3 7 AM EDT 10/12/2019 11:37 AM EDT Neo Leahy DO PATHOLOGY/CYT OLOGY ORDERABLES Performing Organization Address City/State/[facility] Co de Phone Number [facility] [place] [place] [address] documented in this encounter Visit Diagnoses Not on filedocumented in this encounter Care Teams Creative Services Designer Relationship Specialty Start Date End Date Sheree Deng APRN [address] [place] [address] PCP - General Internal Medicine 08/12/19 documented as of this encounter
--- OUTSIDE RECORDS SUMMARY | 2023-11-18 17:38 | XMS_ITS | Clinical Summary ---
Author Organization [facility] Address [address] [place] [address] Care Team Providers Care Caster Operator Name Role Phone Cortez Tipton MD Primary Care Provider Unav ailable Encounters Date Type Department Care Team Description 09/23/2023 Lab Requisition [facility] Pathology & Laboratory Medicine - [address] [address] Outr Resulting Lab, Provider from Last 3 Months Social History Tobacco Use Types Packs/Day Years Used Date Smoking Tobacco: Never Assessed Sex and Gender Information Value Date Recorded Sex Assigned at Not on file Gender Identity Not on file Sexual Orientation Not on file Plan of Treatment Health Maintenance Due Date Last Done Comments Hepatitis C Screen 1950 RSV Immunization ( o r 60+ Years) (1 - 1-dose 60+ series) 2011 Fall Risk Screening 01/24/2016 COVID-19 Vaccine ( season) 2022 Procedures Procedure Name Priority Date/Time Associated Diagnosis Comments LYME AB Routine 09/22/2023 16:20 EDT from Last 3 Months Results * LYME AB (09/22/2023 16:20 EDT) Lyme Ab Negative Negative 09/24/2023 11:55 EDT [facility] Blood VENOUS BLOOD / Unknown 09/22/2023 16:20 EDT 09/23/2023 16:54 EDT Provider Outr Resulting Lab IMMUNOLOGY A ND SEROLOGY ORDERABLES [facility] [address] [place] [address] [phone] from Last 3 Months Care Teams Caster Operator Relationship Specialty Start Date End Date Cortez Tipton MD PCP - General 10/06/11
--- OUTSIDE RECORDS SUMMARY | 2023-11-18 17:38 | XMS_ITS | Referral Summary ---
Author Organization [facility] Address [address] [place] [address] Care Team Providers Care Film Loader Name Role Phone Cortez Tipton MD Primary Care Provider Unav ailable Encounters Date Type Department Care Team Description 09/23/2023 Lab Requisition [facility] Pathology & Laboratory Medicine - [facility] [address], [place] [id number] Outr Resulting Lab, Provider from Last 3 Months Social History Tobacco Use Types Packs/Day Years Used Date Smoking Tobacco: Never Assessed Sex and Gender Information Value Date Recorded Sex Assigned at Not on file Gender Identity Not on file Sexual Orientation Not on file Plan of Treatment Not on file Procedures Procedure Name Priority Date/Time Associated Diagnosis Comments LYME AB Routine 09/22/2023 16:20 EDT from Last 3 Months Results * LYME AB (09/22/2023 16:20 EDT) Lyme Ab Negative Negative 09/24/2023 11:55 EDT [facility] Blood VENOUS BLOOD / Unknown 09/22/2023 16:20 EDT 09/23/2023 16:54 EDT Provider Outr Resulting Lab IMMUNOLOGY A ND SEROLOGY ORDERABLES [facility] [address] [place], [place] [phone] from Last 3 Months Care Teams Film Loader Relationship Specialty Start Date End Date Cortez Tipton MD PCP - General 10/06/11
--- OUTSIDE RECORDS SUMMARY | 2023-11-18 17:38 | XMS_ITS | Encounter Summary ---
Author Organization [facility] Address [address] [place] [address] Care Team Providers Care Optometry Professor Name Role Phone Cortez Tipton MD Primary Care Provider Unav ailable Encounter Details Date Type Department Care Team (Late st Contact Info) Description 09/06/2019 Lab Requisition [facility] Pathology & Laboratory Medicine - [facility] [address] [place], [place] [id number] Outr Resulting Lab, Provider Social History Tobacco [...] Comments ZZCOVID-19 TEST [facility] PCR Today 09/06/2019 12:49 EDT COVID-19 TESTING Routine 09/06/2019 12:4 9 EDT documented in this encounter Results * COVID-19 TEST [facility] PCR (09/06/2019 12:49 EDT) Swab ENTIRE NASOPHARYNX / Unknown 09/06/2019 12:49 EDT 09/06/2019 21:18 EDT Provider Outr Resulting Lab MICROBIOLOGY - GENERAL ORDERABLES [facility] [address] [place] [address] * COVID-19 TESTING (09/06/2019 12:49 EDT) COVID-19 rt-PCR Result Negative Negative 09/07/2019 14:39 EDT [facility] Comment: This test [...] history, and epidemiological information. Performed on the [employer] Fusion instrument Performing Lab [facility] 09/07/2019 14:39 EDT [facility] Swab ENTIRE NASOPHARYNX / Unknown 09/06/2019 12:49 EDT 09/06/2019 21:18 EDT Provider Outr Resulting Lab MICROBIOLOGY - GENERAL ORDERABLES [facility] [address] [place] [address] documented in this encounter Visit Diagnoses Not on filedocumented in this encounter Care Teams Optometry Professor Relationship Specialty Start Date End Date Cortez Tipton MD PCP - General 10/06/11 documented as of this encounter
--- OUTSIDE RECORDS SUMMARY | 2023-11-18 17:38 | XMS_ITS | Encounter Summary ---
Author Organization [facility] [place] [address] Care Team Providers Care Nibbler Operator Name Role Phone Cortez Tipton MD Primary Care Provider [phone] Reason for Visit * Reason Comments Advice Only possible leak in lef t breast implant/ dr badillo pt Encounter Details Date Type Department Care Team (Latest Contact Info) Description 01/26/2013 8:00 AM EDT Office [place] [address] Angela Teixeira MD [facility] [place] [address] Breast reconstruction deformity (Primary Dx); H/O breast reconstruction, left Discharge Disposition: Home Social History Tobacco Use [...] Sign Reading Time Taken Comments Blood Pressure 129/63 01/26/2013 8:35 AM EDT Pulse 62 01/26/2013 8:35 AM EDT Temperature - - Respiratory Rate - - Oxygen Saturation - - Inhaled Oxygen Concentration - - Weight 94 kg (207 lb 3.2 oz) 01/26/2013 8:35 AM EDT Height 167.6 cm (5' 6) 01/26/2013 8:35 AM EDT Body Mass Index 33.44 01/26/2013 8:35 AM EDT documented in this encounter Patient Instructions * Patient Instructions* Veronica Andrew RN - 01/26/2013 9:16 AM EDT Follow up after ultrasound. documented in this encounter Progress Notes * Angela Teixeira MD - 01/26/2013 8:33 AM EDT Plastic Surgery Consultation Note Provider: MD CORTEZ Dang MD Requesting physician: as above Reason for visit: Complications of breast implant reconstruction HPI: Karen Stratton is a 63 y.o. woman seen in our office today for evaluation of her left breast reconstruction. Her PCP is CORTEZ TIPTON MD and has asked me to evaluate her. She is unaccompanied for today's visit. 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 Since the procedureshe has been happy with her implants however she believes one of them is leaking. Current Outpatient Prescriptions on File Prior to Visit Medication Sig Dispense Refill ??? levothyroxine (SYNTHROID) 75 mcg tablet Take 75 mcg by mouth daily. ??? citalopram (CELEXA) 20 mg tablet 20mg, PO, QD ??? SUMAtriptan (IMITREX) 50 mg tablet 50mg, PO, QID,PRN ??? atenolol (TENORMIN) 25 mg tablet 50mg, PO, QD ??? b complex vitamins (VITAMIN B COMPLEX) tablet ??? Calcium Carbonate-Vitamin D3 (CALCIUM 600 WITH VITAMIN D3) 600 mg(1,500mg) - 400 unit Cap ??? acetaminophen (TYLENOL) 325 mg tablet ??? ibuprofen (ADVIL) 200 mg tablet Allergies Allergen Reactions ??? Adhesive Tape Rash Past Medical History Diagnosis Date ??? Breast cancer ??? Migraines ??? Hypothyroidism Past Surgical History Procedure Date ??? 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 section ??? Breast reduction surgery 2009 ??? Breast reconstruction 2010 ROS: HEENT, GI, /Renal, Psych, Card, Pulm, Endo, Heme, Immun, Neuro: negative Examination: BP 129/63 Pulse 62 Ht 167.6 cm (5' 6) Wt 93.985 kg (207 lb 3.2 oz) BMI 33.44 kg/m2 Healthy looking woman in no acute distress who asked appropriate questions throughout the consultation. Anatomic Measurements: Symmetry: left larger than right Breast Measurements Right Left Olvera Grade na 1 SN-N (cm) 21.5 - IMF-N (cm) 11.5 - Masses absent absent Ptosis (+ above IMF, - below IMF in cm) 1 - Areolar diameter (cm) 40 mm - Surgical Scars 1 The breasts are asymmetrical in shape with left size reater than right. Impression: Left breast implants, 3 years old, with increasing left breast pain and change in shapeper patient suspicious for rupture. Recommendations: Ms. Stratton and John spent the majority of this visit discussing her concerns and her options. We talked about decision making with regards to obtaining USG vs MRI and then the options of leaving the implants in place, removing them (+/- the scar capsule) as well as replacing them. She is feeling uncomfortable enough that she wants to consider replacement. We talked about the risks of surgery including infection, bleeding, need for drains, seroma, delayed healing, implant failure, and interference with mammography. We talked about possible persistent ptosis and desire to proceed with mastopexy in a second stage. We talked about implant replacement type and she prefers to stay with the silicone gel implant if possible. Recommendations (alternate): Ms. Stratton and John spent the majority of this visit discussing her concerns and her options. I cannot crematory operator from the examination whether she has lost volume in her implants, whether the implants are ruptured/leaking but can reassure her that all seems to be well confined to the intracapsular position. We talked about the possible use of ultrasound and MRI and their limitations with respect sensitivity and specificity. We talked about the current scientific evidence and lack of association between ruptured implants and systemic disease. We talked about decision making with regards to leaving the implants in place, removing them (+/- the scar capsule) as well as replacing them. She did state that the [facility] not as clear to her now as it was when she made the decision to have a breast augmentation. I have stressed that surgery to replace the implants carries with it all the jail consequen ts of having an implant and that she needs to view it as signing up for additional surgeries in the future. With simple removal of the implants there are risks for contour deformities of the chest well and more so if the scar capsule is removed also. She will consider our discussion and let me know if she wishes to pursue a surgical option. Treatments options discussed included: 1. USG to r/o rupture I have suggested that she review the written materials and return to our office post the ultrasoundto review the result and for a final visit prior to surgery if desired. This will provide her with an opportunity to consider the decision and ask any additional questions. I, Leatha Darby, am acting as scribe for Dr Teixeira. All work documented was performed by Dr Teixeira. ???I performed the above scribed service and agree with the accuracy of the note?? ANGELA TEIXEIRA MD documented in this encounter Miscellaneous Notes * Miscellaneous - Provider, Scanning - 02/14/2013 9:57 AM EST documented in this encounter Plan of Treatment Not on file documented as of this encounter Visit Diagnoses Diagnosis Breast reconstruction deformity- Primary Deformity of reconstructed breast H/O breast reconstruction, left Breast replaced by other means documented in this encounter Care Teams Nibbler Operator Relationship Specialty Start Date End Date Cortez Tipton MD [address] [place] [address] PCP - General 03/05/10 08/11/19 documented as of this encounter
--- OUTSIDE RECORDS SUMMARY | 2023-11-18 17:38 | XMS_ITS | Encounter Summary ---
Author Organization [facility] [place] [address] Care Team Providers Care Comparative Sociology Professor Name Role Phone Sheree Deng APRN Primary Care Provider [phone] Encounter Details Date Type Department Care Team (Late st Contact Info) Description 10/13/2019 External Results [place] [id number] Provider, Scanning Social History Tobacco Use Types [...] Associated Diagnosis Comments SURGICAL PATHOLOGY SCAN Routine 10/13/2019 documented in this encounter Results * Scan Doc: Surgical Pathology (10/13/2019) Historical Provider MD VÁZQUEZ MGR SCAN EX T ORDR/RSLT documented in this encounter Visit Diagnoses Not on filedocumented in this encounter Care Teams Comparative Sociology Professor Relationship Specialty Start Date End Date Sheree Deng APRN [address] [place] [address] PCP - General Internal Medicine 08/12/19 documented as of this encounter
--- OUTSIDE RECORDS SUMMARY | 2023-11-18 17:38 | XMS_ITS | Encounter Summary ---
Author Organization [facility] Address [address] [place] [address] Care Team Providers Care Tree Marker Name Role Phone Unavailable Primary Care Provider Unavailabl e Encounter Details Date Type Department Care Team (Late st Contact Info) Description 05/03/2002 Results Only [facility] - Maple conversion [address] [place] [address] Romy Morrow, MAGISTRATE JUDGE [address] [place] [address] Social History Tobacco Use Types [...] Priority Date/Time Associated Diagnosis Comments CYTOPATHOLOGY Routine 05/03/2002 0:00 EST documented in this encounter Results * CYTOPATHOLOGY (05/03/2002 0:00 EST) Pathology Report: CYTOPATHOLOGY REPORT Reports generated via electronic interface contain original data; however they are lacking the format of the original report. Caution should be taken when reading/interpreti ng unformatted reports. Name: ? CHAYO PARKER ? Accession #: ? [id number] : ? 1950 (Age: 52) ??F ?Collect Date: ? 05/03/2002 Location: ? [facility] ? Receive Date: ? 05/05/2002 Provider: ?ROMY MORROW MAGISTRATE JUDGE Copy to: ? Specimen/Source: ?ThinPrep Pap Test, Cervix/Endocervix Last Menstrual Period: ? 04/16/02 ? SPECIMEN ADEQUACY ? Satisfactory for Evaluation - transformation zone component present GENERAL CATEGORIZATION ? Negative for Intraepithelial Lesion or Malignancy INTERPRETATION ? Fungal organisms present morphologically consistent with Cinthia species. ? Document reviewed and electronically signed by: ? Fritz Abel, CT(ASCP) ? Report Date: ??05/06/2002 12:25 End of Report CHRISSIE BAUTISTA 05/03/2002 05/05/2002 Romy Morrow NP PATHOLOGY ORDERABLE S CHRISSIE BAUTISTA [address] [place] [address] documented in this encounter Visit Diagnoses Not on filedocumented in this encounter
--- OUTSIDE RECORDS SUMMARY | 2023-11-18 17:38 | XMS_ITS | Encounter Summary ---
Author Organization [facility] Address [facility] [place] [address] Care Team Providers Care Refrigerating Technician Name Role Phone Sheree Deng APRN Primary Care Provider [phone] Encounter Details Date Type Department Care Team (Late st Contact Info) Description 03/05/2009 Orders Only [place] [address] Domingo Pires MD [facility] [place] [address] Social History Tobacco Use Types Packs/Day Years Used Date Smoking Tobacco: Never Assessed [facility] Utilities Answer Date Recorded In the [...] place to sleep or slept in a care home (including now)? No 03/11/2023 [facility] IPV Inpatient [...] Associated Diagnosis Comments SURGICAL PATHOLOGY REPORT Routine 03/05/2009 2:08 PM EST documented in this encounter Results * Surgical Pathology Report (03/05/2009 2:08 PM EST) Surgical Pathology Report [id number] ? Location: [facility] The signing pathologist has (i) examined the relevant preparation(s) for the specimen(s) and (ii) rendered or confirmed the diagnosis(es). . ?Pathology Surgical Pathology Final Report Clinical Information Specimen Submitted: A - Left axillary sentinel lymph node, left breast Clinical History: Not provided Clinical Diagnosis: Multicentric DCIS of the left breast Gross Description Labeled/Fixative: ? Left axillary sentinel lymph node, breast; fresh. Qty/Size/Weight: ?Multiple, 2.5 x 2.3 x 0.5 cm. Tissue Description: ?? Yellow, lobular adipose tissue. ??Sectioning ?reveals two lymph nodes, lymph node #1 measuring ?1.3 cm, lymph node #2 measuring 0.7 cm. Sections/Processing: ??The tips of lymph node #1 are submitted for PCR, the ?remainder submitted in (A1). ??Lymph node #2 is ?bisected and submitted in (A2). ?? (R2) aje/OVD Microscopic Description Slides reviewed, microscopic description not recorded. For the sentinel nodes NEGATIVE by H&E stain: ?Node ID: ? 1 ?Cassette: ?A1 ?PCR result: ?Negative ??(Positive, Negative) ?Cytokeratin IHC result*: ? Negative ??(Positive, Negative) ?Node ID: ? 2 ?Cassette: ?A2 ?PCR result: ?Not Submitted ??(Positive, Negative) ?Cytokeratin IHC result*: ? Negative ??(Positive, Negative) Note*: ?? The two cytokeratin (CK) antibodies routinely used in the immunohistochemical evaluation of sentinel nodes are 5D3 and AE1/3. The clinical significance of cytokeratin (CK) only immunoreactivity in a sentinel node is currently unknown. The immunohistochemical studies provide ancillary information and are used only in conjunction with standard diagnostic procedures. Note: [employer] ? Breast Lymph Node Test: THE FOLLOWING TESTS WERE PERFORMED ON 1 SENTINEL LYMPH NODE(S). RNA stabilization and cell lysis solution was added to the sentinel lymph node(s). RNA was isolated and three real time reverse transcriptase PCR reactions were performed using the [employer] ? Breast Lymph Node test. The sentinel lymph node(s) was/were tested for the expression of mammoglobin, CK19 and PBGD (internal control) using gene specific primers for amplification and probes for detection on the [employer] Smartcycler. Interpretation: ??Positive expression of the mammoglobin and CK19 genes is associated with the presence of metastasized breast epithelial cells. (Am J Surgery 194:426-432, 2007 & J. Molecular Diagnostics 7(3):237-336, 2005) . Microscopic Description This test has been approved by the U.S. Food and Drug Administration. ??Its interpretation is based on the current understanding of the metastatic nature of breast cancer cells. While DNA testing is very accurate, rare diagnostic errors due to various pre- and post-analytical variables do occur. Diagnosis Axillary lymph nodes: ?Left axillary sentinel lymph node Total no. nodes sampled: ?2 ?? No. sentinel nodes: ? 2 ?? No. positive for carcinoma: ?? 0 (H&E and cytokeratin IHC) ?? No. with IHC (+) cells only: ??0 (cells not seen by H&E, see Note*) ?? No. negative for carcinoma: ?? 2 (both H&E and cytokeratin IHC) *See microscopy for PCR results AJCC Nicole stage (based on the information in this case only) ??pN0 CR-0 NOTE: ??The clinical significance of cytokeratin (CK) only immunoreactivity in a sentinel node is currently unknown. The two cytokeratin (CK) antibodies routinely used in the evaluation of sentinel nodes are 5D3 and AE1/3. ??The immunohistochemical studies provide ancillary information and are used only in conjunction with standard diagnostic procedures. 03/07/09 XL 03/07/09 Verified by: ? Haseeb RAUSCH, Gracie ?Pathologist ?(Electronic Signature) The attending pathologist whose signature appears on this report has reviewed all diagnostic slides and has edited the gross and/or microscopic portion of the report in rendering the final pathologic diagnosis. DANIEL NAM 03/05/2009 2:08 PM EST Domingo Pires MD PATHOLOGY/CYTOLOGY ORDERABLES Performing Organization Address City/State/[facility] Co de Phone Number DANIEL NAM documented in this encounter Visit Diagnoses Not on filedocumented in this encounter Care Teams Refrigerating Technician Relationship Specialty Start Date End Date Sheree Deng, BECK [address] [place] [address] PCP - General Internal Medicine 08/12/19 documented as of this encounter
--- OUTSIDE RECORDS SUMMARY | 2023-11-18 17:38 | XMS_ITS | Encounter Summary ---
[place] [address] Care Team Providers Care Reverse Logistics Analyst Name Role Phone Cortez Tipton MD Primary Care Provider [phone] Encounter Details Date Type Department Care Team (Latest Contact Info) Description 11/03/2013 12:57 PM EDT - 11/03/2013 11:59 PM EDT Hospital [place] [address] CLINIC, Cortez Villanueva MD [address] [place], [place] [id number] Discharge Disposition: Home Social History Tobacco Use [...] Name Priority Date/Time Associated Diagnosis Comments MAMMO DIRECT DIGITAL UNILATERAL Routine 11/03/2013 1:49 PM EDT documented in this encounter Results * Mammo direct digital unilateral (11/03/2013 1:49 PM EDT) Anatomical Region Laterality Modality Breast N/A Mammography 11/03/2013 1:49 PM EDT Impressions 11/04/2013 6:03 PM EDT IMPRESSION: This is a (BIRADS [...] will be called with that appointment. Narrative 11/04/2013 6:03 PM EDT RIGHT UNILATERAL DIAGNOSTIC MAMMOGRAM AND [...] ultrasound of this area of 07/23/2010. The [facility] mammographic and sonographic ??stability is consistent with [...] breast ultrasound of this areaof 07/23/2010. The [facility] mammographic and sonographic stability isconsistent with a [...] will be called with that appointment. Romy Bolaños APRN IMG MAMMO ORDERAB LES documented in this encounter Visit Diagnoses Not on filedocumented in this encounter Care Teams Reverse Logistics Analyst Relationship Specialty Start Date End Date Cortez Tipton MD [address] [place] [address] PCP - General 03/05/10 08/11/19 documented as of this encounter
--- OUTSIDE RECORDS SUMMARY | 2023-11-18 17:38 | XMS_ITS | Encounter Summary ---
Author Organization [facility] Address [address] [place] [address] Care Team Providers Care Pressurised Container Filler Name Role Phone Unavailable Primary Care Provider Unavailabl e Encounter Details Date Type Department Care Team (Late st Contact Info) Description 12/31/2000 Results Only [facility] - Maple conversion [address] [place] [address] Romy Morrow, PEER FINANCIAL COUNSELOR [address] [place] [address] Social History Tobacco Use Types [...] Priority Date/Time Associated Diagnosis Comments CYTOPATHOLOGY Routine 12/31/2000 0:00 EDT documented in this encounter Results * CYTOPATHOLOGY (12/31/2000 0:00 EDT) Pathology Report: CYTOPATHOLOGY REPORT Reports generated via electronic interface contain original data; however they are lacking the format of the original report. Caution should be taken when reading/interpreti ng unformatted reports. Name: ? CHAYO PARKER ? Accession #: ? [id number] : ? 1950 (Age: 50) ??F ?Collect Date: ? 12/31/2000 Location: ? [facility] ? Receive Date: ? 01/05/2001 Provider: ?ROMY MORROW PEER FINANCIAL COUNSELOR Copy to: ? Specimen/Source: ?ThinPrep Pap Test, Cervix Last Menstrual Period: ? 12/30/00 ? SPECIMEN ADEQUACY ? Satisfactory for evaluation. GENERAL CATEGORIZATION ? Within Normal Limits ? Document reviewed and electronically signed by: ? Mel Love, CT(ASCP) ? Report Date: ??01/07/2001 09:13 End of Report CHRISSIE BAUTISTA 12/31/2000 01/05/2001 Romy Morrow NP PATHOLOGY ORDERABLE S CHRISSIE BAUTISTA [address] [place] [address] documented in this encounter Visit Diagnoses Not on filedocumented in this encounter
--- OUTSIDE RECORDS SUMMARY | 2023-11-18 17:38 | XMS_ITS | Encounter Summary ---
[facility] Organization [facility] [place] [address] Care Team Providers Care Chef French Name Role Phone Cortez Tipton MD Primary Care Provider [phone] Encounter Details Date Type Department Care Team (Late st Contact Info) Description 07/14/2010 [place] [address] Louann Cazares MD [facility] [place] [address] Abnormal mammogram, unspecified (Primary Dx) Social History Tobacco Use Types Packs/Day Years Used Date Smoking Tobacco: Never Assessed Sex and Gender Information Value Date Recorded Sex Assigned at Not on file Gender Identity Not on file Sexual Orientation Not on file documented as of this encounter Plan of Treatment Not on file documented as of this encounter Visit Diagnoses Diagnosis Abnormal mammogram, unspecified- Primary documented in this encounter Care Teams Chef French Relationship Specialty Start Date End Date Cortez Tipton MD [address] [place] [address] PCP - General 03/05/10 08/11/19 documented as of this encounter
--- OUTSIDE RECORDS SUMMARY | 2023-11-18 17:38 | XMS_ITS | Encounter Summary ---
Author Organization [facility] Address [address] [place] [address] Care Team Providers Care Day Care Provider Name Role Phone Unavailable Primary Care Provider Unavailabl e Encounter Details Date Type Department Care Team (Late st Contact Info) Description 12/10/1999 Results Only [facility] [address] [place] [address] Romy Morrow, HOME APPRAISER [address] [place] [address] Social History Tobacco Use Types [...] Priority Date/Time Associated Diagnosis Comments CYTOPATHOLOGY Routine 12/10/1999 0:00 EDT documented in this encounter Results * CYTOPATHOLOGY (12/10/1999 0:00 EDT) Pathology Report: CYTOPATHOLOGY REPORT Reports generated via electronic interface contain original data; however they are lacking the format of the original report. Caution should be taken when reading/interpreti ng unformatted reports. Name: ? CHAYO PARKER ? Accession #: ? [id number] : ? 1950 (Age: 49) ??F ?Collect Date: ? 12/10/1999 Location: ? [facility] ? Receive Date: ? 12/13/1999 Provider: ?ROMY MORROW HOME APPRAISER Copy to: ? Specimen/Source: ?ThinPrep Pap Test, Cervix Last Menstrual Period: ? 11/25/99 ? SPECIMEN ADEQUACY ? Satisfactory for evaluation. GENERAL CATEGORIZATION ? Within Normal Limits ? Document reviewed and electronically signed by: ? CINDY Siddiqui(ASCP) ? Report Date: ??12/17/1999 15:23 End of Report CHRISSIE BAUTISTA 12/10/1999 12/13/1999 Romy Morrow NP PATHOLOGY ORDERABLE S CHRISSIE BAUTISTA [address] [place] [address] documented in this encounter Visit Diagnoses Not on filedocumented in this encounter
--- OUTSIDE RECORDS SUMMARY | 2023-11-18 17:38 | XMS_ITS | Encounter Summary ---
Author Organization [facility] Address [facility] [place] [address] Care Team Providers Care Environmental Adviser Name Role Phone Cortez Tipton MD Primary Care Provider [phone] Encounter Details Date Type Department Care Team (Latest Contact Info) Description 02/10/2013 3:32 PM EDT - 02/10/2013 11:59 PM EDT Hospital [place] [address] CLINIC, Angela Velez MD [facility] [place] [address] Breast implant rupture Discharge Disposition: Home Social History Tobacco Use [...] 12/20/2009 03/11/2023 documented as of this encounter Miscellaneous Notes * Miscellaneous - Provider, Scanning - 03/07/2013 1:21 PM EST documented in this encounter Plan of Treatment Not on file documented as of this encounter Procedures Procedure Name Priority Date/Time Associated Diagnosis Comments MRI BREAST UNILATERAL WO CONTRAST Routine 02/10/2013 4:42 PM EDT documented in this encounter Results * MRI breast unilateral WO contrast (02/10/2013 4:42 PM EDT) Anatomical Region Laterality Modality Breast N/A Magnetic Resonan ce 02/10/2013 4:42 PM EDT Narrative 02/11/2013 1:11 PM EDT Examination Mr Breast Unilat without GD+ Clinical History left breast reconstruction r/o implant rupture Comparison Breast ultrasound January 26, 2013. ?? Technique An MRI of the left breast was performed without the use of intravenous contrast. Findings The left breast prosthesis appears intact. ??No evidence for intra- or extracapsular rupture. Impression 1. The left breast prosthesis is intact. Film and interpretation reviewed by the attending Procedure Note Elizabeth Birmingham MD - 02/11/2013 Examination Mr Breast Unilat without GD+ Clinical History left breast reconstruction r/o implant rupture Comparison Breast ultrasound January 26, 2013. Technique An MRI of the left breast was performed without the use of intravenous contrast. Findings The left breast prosthesis appears intact. No evidence for intra- or extracapsular rupture. Impression 1. The left breast prosthesis is intact. Film and interpretation reviewed by the attending Angela Teixeira MD [facility] MRI ORDERABLES documented in this encounter Visit Diagnoses Diagnosis Breast implant rupture Mechanical complication due to breast prosthesis documented in this encounter Care Teams Environmental Adviser Relationship Specialty Start Date End Date Cortez Tipton MD [address] [place] [address] PCP - General 03/05/10 08/11/19 documented as of this encounter
--- OUTSIDE RECORDS SUMMARY | 2023-11-18 17:38 | XMS_ITS | Encounter Summary ---
[place] [address] Care Team Providers Care Heavy Equipment Sales Associate Name Role Phone Cortez Tipton MD Primary Care Provider [phone] Encounter Details Date Type Department Care Team (Late st Contact Info) Description 07/10/2010 Orders [place] [id number] Romy Bolaños, HAND SIGN WRITER [address] [place], [place] [id number] Social History Tobacco Use Types Packs/Day Years Used Date Smoking Tobacco: Never Assessed Sex and Gender Information Value Date Recorded Sex Assigned at Not on file Gender Identity Not on file Sexual Orientation Not on file documented as of this encounter Plan of Treatment Not on file documented as of this encounter Procedures Procedure Name Priority Date/Time Associated Diagnosis Comments REQUEST FOR 2ND READ MAMMO Routine 07/10/2010 2:30 PM EDT documented in this encounter Results * REQUEST FOR 2ND READ MAMMO (07/10/2010 2:30 PM EDT) Anatomical Region Laterality Modality Other 07/10/2010 2:30 PM EDT Narrative 07/15/2010 11:24 AM EDT INTERPRETATION OF OUTSIDE MAMMOGRAMS (PERFORMED ON 07/02/10) DATED 07/12/10: ?? DIAGNOSTIC IMAGING SUMMARY: ?? RIGHT BREAST: ASSESSMENT IS INCOMPLETE (BIRADS Category 0). ?? Recommendation: Repeat imaging with repeat ultrasound. We will call the patient to schedule this. ?? NARRATIVE: ?? CLINICAL INDICATION: I have been asked to consult on this patient by Dr. Cortez Tipton and SAY Davis because they believe a review of this study may change or alter the care of this patient. Patient with Right breast nodule. The patient has had a Left breast mastectomy. ?? TECHNIQUE: Soft copy digital images provided from [facility] including bilateral screening views from 2004, 2006, 2008. Magnification views of the Left breast and subsequent stereotactic biopsy and specimen from 01/19 and 02/19 and currently CC, MLO, ML and compression ML views from 07/02/10 are obtained. ?? FINDINGS: The patient has a scattered fibroglandular tissue pattern. The patient has had interval breast reduction surgery resulting in expected architectural distortion. On the MLO view there is an area of nodularity that on compression view becomes less noticeable. There is an associated ultrasound which shows post-surgical change inferiorly. I do not feel that this represents the area on the mammogram. ? Procedure Note Louann Cazares MD - 07/15/2010 INTERPRETATION OF OUTSIDE MAMMOGRAMS (PERFORMED ON 07/02/10) DATED 07/12/10: DIAGNOSTIC IMAGING SUMMARY: RIGHT BREAST: ASSESSMENT IS INCOMPLETE (BIRADS Category 0). Recommendation: Repeat imaging with repeat ultrasound. We will call thepatient to schedule this. NARRATIVE: CLINICAL INDICATION: I have been asked to consult on this patient by Dr.Thomas Tipton and SAY Davis because they believe a review of this study may change or alter the care of this patient. Patient with Rightbreast nodule. The patient has had a Left breast mastectomy. TECHNIQUE: Soft copy digital images provided from [facility] including bilateral screening views from 2004, 2006, 2008. Magnification views of the Leftbreast and subsequent stereotactic biopsy and specimen from 01/19 and 02/19 and currently CC, MLO, ML and compression ML views from 07/02/10 are obtained. FINDINGS: The patient has a scattered fibroglandular tissue pattern. The patient has had interval breast reduction surgery resulting in expected architectural distortion. On the MLO view there is an area of nodularitythat on compression view becomes less noticeable. There is an associatedultrasound which shows post-surgical change inferiorly. I do not feel that thisrepresents the area on the mammogram. Romy Bolaños APRN IMG OUTSIDE INTER PRETATION ORDERABLES documented in this encounter Visit Diagnoses Not on filedocumented in this encounter Care Teams Heavy Equipment Sales Associate Relationship Specialty Start Date End Date Cortez Tipton MD [address] [place] [address] PCP - General 03/05/10 08/11/19 documented as of this encounter
--- OUTSIDE RECORDS SUMMARY | 2023-11-18 17:38 | XMS_ITS | Encounter Summary ---
[place] [address] Care Team Providers Care Engineer Systems Name Role Phone Sheree Deng APRN Primary Care Provider [phone] Encounter Details Date Type Department Care Team (Late st Contact Info) Description 08/25/2019 Telephone Cardiology at [address] [phone] Ernestina Moreno RN Social History Tobacco Use Types Packs/Day Years Used Date Smoking Tobacco: Never Alcohol Use Standard Drinks/Week Comments No 0 (1 standard drink = 0.6 oz pur e alcohol) Sex and Gender Information Value Date Recorded Sex Assigned at Not on file Gender Identity Not on file Sexual Orientation Not on file documented as of this encounter Miscellaneous Notes * Telephone Encounter - Ernestina Moreno RN - 08/25/2019 10:13 AM EDT Received VM prompt, pleasant connection, called to request TTE results so pt can proceed with steroid shot for arthritis. Informed pt of TTE summary. Pt expressed much appreciation and will fax summary to PCP per pt request. Ernestina Moreno briar wood sorter Team Nurse [facility] Ambulatory Cardiology documented in this encounter Plan of Treatment Not on file documented as of this encounter Visit Diagnoses Not on filedocumented in this encounter Care Teams Engineer Systems Relationship Specialty Start Date End Date Sheree Deng APRN [address] [place] [address] PCP - General Internal Medicine 08/12/19 documented as of this encounter
--- OUTSIDE RECORDS SUMMARY | 2023-11-18 17:38 | XMS_ITS | Encounter Summary ---
[place] [address] Care Team Providers Care Sql Consultant Name Role Phone Cortez Tipton MD Primary Care Provider [phone] Encounter Details Date Type Department Care Team (Late st Contact Info) Description 01/08/2014 Notes Only [place] [phone] Felipa Oates RN Social History Tobacco Use Types Packs/Day Years Used Date Smoking Tobacco: Never Alcohol Use Standard Drinks/Week Comments No 0 (1 standard drink = 0.6 oz pur e alcohol) Sex and Gender Information Value Date Recorded Sex Assigned at Not on file Gender Identity Not on file Sexual Orientation Not on file documented as of this encounter Progress Notes * Felipa Oates RN - 01/08/2014 9:32 AM EDT Comprehensive Breast [facility] Surgery Follow Up Note Range of motion of surgical arm complete Lymphedema present No Cosmesis-surgeon reported Cosmesis-patient reported Local or regional recurrence No Contralateral cancer present No Distant recurrence present No Date of last follow up 11-03-2013- mammo/ultrasound FELIPA OATES RN 01/08/2014 documented in this encounter Plan of Treatment Not on file documented as of this encounter Visit Diagnoses Not on filedocumented in this encounter Care Teams Sql Consultant Relationship Specialty Start Date End Date Cortez Tipton MD [address] [place] [address] PCP - General 03/05/10 08/11/19 documented as of this encounter
--- OUTSIDE RECORDS SUMMARY | 2023-11-18 17:38 | XMS_ITS | Encounter Summary ---
[place] [address] Care Team Providers Care Customer Counter Associate Name Role Phone Cortez Tipton MD Primary Care Provider [phone] Encounter Details Date Type Department Care Team (Late st Contact Info) Description 07/23/2010 2:58 PM EDT - 07/23/2010 11:59 PM EDT Hospital [place] [address] Social History Tobacco Use Types Packs/Day Years [...] complex vitamins (VITAMIN B COMPLEX) tablet 12/20/2009 citalopram (CELEXA) 20 mg tablet 20mg, PO, QD 12/20/2009 01/07/2023 levothyroxine (LEVOXYL) 100 mcg tablet 12/20/2009 01/24/2013 Calcium Carbonate-Vitamin D3 (CALCIUM 600 WITH VITAMIN [...] Diagnosis Comments MAMMO BREAST US LIMITED Routine 07/23/2010 4:35 PM EDT documented in this encounter Results * MAMMO BREAST US UNILATERAL BILATERAL (07/23/2010 4:35 PM EDT) Anatomical Region Laterality Modality Breast N/A Mammography 07/23/2010 4:35 PM EDT Narrative 07/24/2010 11:32 AM EDT RIGHT UNILATERAL DIAGNOSTIC MAMMOGRAM AND RIGHT BREAST ULTRASOUND ON 07/23/10: DIAGNOSTIC IMAGING SUMMARY: RIGHT BREAST: PROBABLY BENIGN mammogram of the Right breast (BIRADS Category 3). Finding: Post-surgical changes and residual fibroglandular tissue. Recommendation: Diagnostic mammogram in six months and diagnostic ultrasound for the post-surgical change at 0700, 11cm to the nipple and the 12mm hypoechoic lesion at 0800, 8cm to the nipple. This has been scheduled for 01/22/11 at 3:00pm. Preliminary report E-mailed to SAY Davis on 07/24/10. NARRATIVE: CLINICAL INDICATION: This is a callback from interpretation of outside mammogram given 07/10/10 on digital imaging of the Right breast 07/02/10 with accompanying Right breast ultrasound and report. TECHNIQUE: RCC, 50-degree RMLO, 30-degree RMLO, RML, RSMLO and RSML views obtained with direct digital capture as well as a Right breast ultrasound. Our imaging today is compared to the outside digital exam of 07/02/10, screening exams 01/16/09, 03/19/07, 06/06/04 and also [facility] [place] 02/16/09. The patient underwent Left mastectomy and reconstruction and Right breast reduction mammoplasty 04/22. FINDINGS: The breast is of scattered density. Mammographically there is stable nodularity in the lower, inner quadrant of the Right breast and also in the upper, outer quadrant of the Right breast. Both areas have decreased in size and conspicuity as compared to prior mammograms of 2004 and 2006. There is a new post-surgical scar inferiorly at 0600. By ultrasound there is an approximately 12 x 7mm hypoechoic region of diminished attenuation at 0800, 8cm to the nipple which corresponds to the focally asymmetric breast tissue seen on mammogram in the upper, outer quadrant. Inferiorly in the Right breast at 0700, 11cm to the nipple there is a lenticular fluid collection and within this a centrally located oval approximately 4 x 15mm avascular, hyperechoic mass which is believed to represent a post-surgical change. As this is a new baseline since the patient's reduction mammoplasty, a short interval mammographic and sonographic follow-up is recommended to establish a new baseline . Procedure Note Elizabeth Birmingham MD - 07/24/2010 RIGHT UNILATERAL DIAGNOSTIC MAMMOGRAM AND RIGHT BREAST ULTRASOUND ON07/23/10: DIAGNOSTIC IMAGING SUMMARY: RIGHT BREAST: PROBABLY BENIGN mammogram of the Right breast (BIRADSCategory 3). Finding: Post-surgical changes and residual fibroglandular tissue. Recommendation: Diagnostic mammogram in six months and diagnosticultrasound for the post-surgical change at 0700, 11cm to the nipple and the 12mm hypoechoic lesion at 0800, 8cm to the nipple. This has been scheduled for 01/22/11 at 3:00pm. Preliminary report E-mailed to SAY Davis on 07/24/10. NARRATIVE: CLINICAL INDICATION: This is a callback from interpretation of outside mammogram given 07/10/10 on digital imaging of the Right breast 07/02/10with accompanying Right breast ultrasound and report. TECHNIQUE: RCC, 50-degree RMLO, 30-degree RMLO, RML, RSMLO and RSML views obtained with direct digital capture as well as a Right breast ultrasound.Our imaging today is compared to the outside digital exam of 07/02/10,screening exams 01/16/09, 03/19/07, 06/06/04 and also [facility] [place]02/16/09. The patient underwent Left mastectomy and reconstruction and Right breastreduction mammoplasty 04/22. FINDINGS: The breast is of scattered density. Mammographically there is stable nodularity in the lower, inner quadrantof the Right breast and also in the upper, outer quadrant of the Right breast.Both areas have decreased in size and conspicuity as compared to priormammograms of 2004 and 2006. There is a new post-surgical scar inferiorly at 0600. By ultrasound there is an approximately 12 x 7mm hypoechoic region ofdiminished attenuation at 0800, 8cm to the nipple which corresponds to the focally asymmetric breast tissue seen on mammogram in the upper, outer quadrant. Inferiorly in the Right breast at 0700, 11cm to the nipple there is a lenticular fluid collection and within this a centrally located oval approximately 4 x 15mm avascular, hyperechoic mass which is believed to represent a post-surgical change. As this is a new baseline since thepatient's reduction mammoplasty, a short interval mammographic and sonographicfollow-up is recommended to establish a new baseline . Romy Bolaños APRN IMG MAMMO ORDERAB LES documented in this encounter Visit Diagnoses Not on filedocumented in this encounter Care Teams Customer Counter Associate Relationship Specialty Start Date End Date Cortez Tipton MD [address] [place] [address] PCP - General 03/05/10 08/11/19 documented as of this encounter
--- OUTSIDE RECORDS SUMMARY | 2023-11-18 17:38 | XMS_ITS | Encounter Summary ---
Author Organization [facility] [place] [address] Care Team Providers Care Polisher Eyeglass Frames Name Role Phone Cortez Tipton MD Primary Care Provider [phone] Encounter Details Date Type Department Care Team (Late st Contact Info) Description 01/26/2013 External Results XRay at [address] [place] [id number] Provider, Scanning Social History Tobacco Use Types [...] Procedure Name Priority Date/Time Associated Diagnosis Comments MAMMOGRAM SCAN Routine 02/18/2012 MAMMOGRAM SCAN Routine 02/18/2012 MAMMOGRAM SCAN Routine 07/02/2010 MAMMOGRAM SCAN Routine 01/24/2009 MAMMOGRAM SCAN Routine 01/16/2009 documented in this encounter Results * Scan Doc: Mammogram (02/18/2012) Anatomical Region Laterality Modality Other Scanning Provider MEDIA MGR SCAN EXT O RDR/RSLT * Scan Doc: Mammogram (02/18/2012) Anatomical Region Laterality Modality Other Scanning Provider MEDIA MGR SCAN EXT O RDR/RSLT * Scan Doc: Mammogram (07/02/2010) Anatomical Region Laterality Modality Other Scanning Provider MEDIA MGR SCAN EXT O RDR/RSLT * Scan Doc: Mammogram (01/24/2009) Anatomical Region Laterality Modality Other Scanning Provider MEDIA MGR SCAN EXT O RDR/RSLT * Scan Doc: Mammogram (01/16/2009) Anatomical Region Laterality Modality Other Scanning Provider MEDIA MGR SCAN EXT O RDR/RSLT documented in this encounter Visit Diagnoses Not on filedocumented in this encounter Care Teams Polisher Eyeglass Frames Relationship Specialty Start Date End Date Cortez Tipton MD [address] [address] PCP - General 03/05/10 08/11/19 documented as of this encounter
--- OUTSIDE RECORDS SUMMARY | 2023-11-18 17:38 | XMS_ITS | Encounter Summary ---
Author Organization [facility] Address [address] [place] [address] Care Team Providers Care Plush Brusher Name Role Phone Cortez Tipton MD Primary Care Provider Unav ailable Encounter Details Date Type Department Care Team (Late st Contact Info) Description 09/23/2023 Lab Requisition [facility] Pathology & Laboratory Medicine - [facility] [address], [place] [id number] Outr Resulting Lab, Provider Social History Tobacco [...] Comments LYME AB Routine 09/22/2023 16:20 EDT documented in this encounter Results * LYME AB (09/22/2023 16:20 EDT) Lyme Ab Negative Negative 09/24/2023 11:55 EDT [facility] Blood VENOUS BLOOD / Unknown 09/22/2023 16:20 EDT 09/23/2023 16:54 EDT Provider Outr Resulting Lab IMMUNOLOGY A ND SEROLOGY ORDERABLES [facility] [address], [place] [id number] documented in this encounter Visit Diagnoses Not on filedocumented in this encounter Care Teams Plush Brusher Relationship Specialty Start Date End Date Cortez Tipton MD PCP - General 10/06/11 documented as of this encounter
--- OUTSIDE RECORDS SUMMARY | 2023-11-18 17:38 | XMS_ITS | Encounter Summary ---
[place] [address] Care Team Providers Care Manager Of Case Name Role Phone Ish Sheree Espino APRN Primary Care Provider [phone] Reason for Visit * Auth/Cert Specialty Diagnoses / Procedures Referred By Contac t Referred To Contact Diagnoses Chest discomfort [R07.89]/Abnormal stress test [R94.39] Procedures PRG CATH PLMT LEFT HEART CATH & ARTS W/INJ & ANGIO IMG S&I CARDIAC CATHETERIZATION CORONARY ANGIOGRAPHY; W LHC,POSSIBLE PCI Referral ID Status Reason Start Date Expiration Date Visits Re quested Visits Authorized [id number] 1 1 Encounter Details Date Type Department Care Team (Latest Contact Info) Description 08/19/2019 12:10 PM EDT - 08/19/2019 11:59 PM EDT Hospital Encounter Non[place] [id number] Discharge Disposition: Home Social History Tobacco Use [...] Procedure Name Priority Date/Time Associated Diagnosis Comments ECHO COMPLETE Routine 08/19/2019 2:52 PM EDT Chest discomfort documented in this encounter Results * ECHO COMPLETE (08/19/2019 2:52 PM EDT) EF 65 HEARTLAB SYSTEM Anatomical Region Laterality Modality Other 08/19/2019 Narrative 08/19/2019 3:14 PM EDT Procedure: ?Transthoracic Echocardiogram Patient: ?ELENA KRISHNAMURTHYE S ? (Age): 1950(69y) Med Rec#: ? [id number] ?Sex: ?F ? [place] [facility] [place]Ht / Wt: ??168(cm)/84(kg) Pt. Loc: ?PACU ?BSA: ?1.94 Study Date: ?? 08/19/2019 ?Pt. Type: Same-Day Patient Tape: ? Referring: PERITZDAVIDC Reading: Derrick Leung ([id number]) Primary Therapist: Niki Martinez Interpreting Fellow: Lakshmi Tobin ([id number]) Diagnosis: *Other chest pain (R07.89) BP: ? 138/74 SUMMARY: 1. The left ventricular chamber size, wall thickness and global systolic function are normal with a visually estimated ejection fraction of 65%. There are no left ventricular segmental wall motion abnormalities. 2. The right ventricular chamber size, wall thickness, and systolic function are within normal limits. 3. There is normal bi-atrial size. 4. There is no hemodynamically significant valvular disease. 5. See report for remainder of findings. 6. No prior study available for comparison. Findings ? : Study Quality: ? Adequate Left Ventricle: ? The left ventricular chamber size is normal. ?There is no evidence of LVOT obstruction. ?No ventricular septal defect is visualized. ?There is normal global left ventricular systolic function. ??Ejection fraction is estimated to be 65%. ?The quantitative left ventricular ejection fraction by 3-D rendering is 69%.Avg GLS -20% (GE) ?There are no left ventricular segmental wall motion abnormalities. ?Left ventricular diastolic function is normal. ?Doppler assessment is consistent with normal left sided filling pressure. Left Atrium: ? The left atrium is normal in size. ?No atrial septal defect is visualized. Right Ventricle: ? Right ventricular chamber size, wall thickness, and systolic function are within normal limits. ?No pulmonary hypertension is noted. ?The estimated pulmonary artery systolic pressure is 20.9 mmHg. ?The estimated right atrial pressure is 3 mmHg. Right Atrium: ? The right atrium appears normal. Aortic Valve: ? The aortic valve is trileaflet. The leaflets are thin with normal excursion. There is no aortic stenosis or regurgitation present. Mitral Valve: ? The mitral valve appears normal in structure and function. ?There is no evidence of mitral valve leaflet prolapse. ?There is mild (1+/4+) mitral regurgitation present. Tricuspid Valve: ? The tricuspid valve appears normal in structure and function. ?There is trace tricuspid regurgitation present. Pulmonic Valve: ? The pulmonic valve appears normal in structure and function. Pericardium: ? The pericardium appears normal and there is no evidence of a pericardial effusion. Aorta: ? The aortic root is normal in size. ?The ascending aorta is normal in size. ?There is no evidence of coarctation of the aorta. Pulmonary Artery: ? The main pulmonary artery appears normal. Venous: ? The inferior vena cava appears normal in size. ?There is a greater than 50% respiratory change in the inferior vena cava dimension. Misc: ? See remainder of report for additional findings. ?Two-dimensional echo, spectral Doppler and color Doppler performed. ?Three-dimensional echocardiogram performed. ?SURYA performed ?Myocardial Strain Imaging Chambers 2D ?Value ?Units (Range) ? IVSd (2D) ? 0.89 ? cm ? LVPWd (2D) ?0.85 ? cm ? IVS:LVPW ratio (2D) 1.04 ? ratio ? RWT (2D) ?0.41 ? ratio ? RWT PW (2D) ? 0.4 ?ratio ? LVIDd (2D) ?4.25 ? cm ? LVIDs (2D) ?2.94 ? cm ? LVIDd (2D) index ?2.19 ? cm/m2 ? LVIDs (2D) index ?1.52 ? cm/m2 ? LV FS (2D) ?30.81 ?% ? EF Teichholz (2D) ?? 58.75 ?% ? Ao root diameter (2D3.16 ? cm (2.1 - 3.6) ? Ascending Ao ?2.88 ? cm (2 - 3.5) ? Volumes/Mass ?Value ?Units (Range) ? LA Area 4 CH ?11 ? cm2 (<21) ? LA ESV BP (A/L) inde13.21 ?ml/m2 ? RA AREA 4CH ? 11 ? cm2 ? LV mass (2D) ?115.77 ? g ? LV mass (2D) index ??59.71 ?g/m2 ? Diastolic/Systolic Function ?Value ?Units (Range) ? MV E-wave Vmax ?0.68 ? m/sec ? MV deceleration wlcd686.38 ? msec ? MV A-wave Vmax ?0.59 ? m/sec ? MV E:A ratio ?1.16 ? ratio ? LV septal e' Vmax ?? 0.1 ?m/sec ? LV lateral e' Vmax ??0.1 ?m/sec ? LV average e' Vmax ??0.1 ?m/sec ? LV E:e' septal ratio6.8 ?ratio ? LV E:e' lateral rati6.8 ?ratio ? LV average E:e' rati6.8 ?ratio ? Tricuspid Valve ?Value ?Units (Range) ? TR Vmax ? 2.12 ? m/sec ? TR peak gradient ?17.94 ?mmHg ? RAP ? 3 ?mmHg ? RVSP ?20.9 ? mmHg ? Measurement Trending Name ? 08/19/2019 ? RAP ?3 RVSP ? 20.9 Wall Motion: Segment Name ?Rest ? Base-Anteroseptal ?? Normal ? Base-Anterior ? Normal ? Base-Anterolateral ??Normal ? Base-Posterolateral Normal ? Base-Inferior ? Normal ? Base-Inferoseptal ?? Normal ? Mid-Anteroseptal ?Normal ? Mid-Anterior ?Normal ? Mid-Anterolateral ?? Normal ? Mid-Posterolateral ??Normal ? Mid-Inferior ?Normal ? Mid-Inferoseptal ?Normal ? [place]-Septal ? Normal ? [place]-Anterior ? Normal ? [place]-Lateral ?Normal ? [place]-Inferior ? Normal ? [place]-Tip ?Normal ? This report has been electronically signed by: Derrick Leung M.D. ? 08/19/2019 15:14:00 Images reviewed and interpretation verified [facility] Cardiac Ultrasound Laboratory Procedure Note Derrick Leung MD - 08/19/2019 Procedure: Transthoracic Echocardiogram Patient: ELENA Hector (Age): 1950(69y) Med Rec#: [id number] Sex: F [place] [facility] [place]t / Wt: 168(cm)/84(kg) Pt. Loc: PACU BSA: 1.94 Study Date: 08/19/2019 Pt. Type: Same-Day Patient Tape: Referring: [facility] Reading: Derrick Leung ([id number]) Primary Therapist: Niki Martinez Interpreting Fellow: Lakshmi Tobin ([id number]) Diagnosis: *Other chest pain (R07.89) BP: 138/74 SUMMARY: 1. The left ventricular chamber size, wall thickness and global systolic function are normal with a visually estimated ejection fraction of 65%. There are no left ventricular segmental wall motion abnormalities. 2. The right ventricular chamber size, wall thickness, and systolic function are within normal limits. 3. There is normal bi-atrial size. 4. There is no hemodynamically significant valvular disease. 5. See report for remainder of findings. 6. No prior study available for comparison. Findings : Study Quality: Adequate Left Ventricle: The left ventricular chamber size is normal. There is no evidence of LVOT obstruction. No ventricular septal defect is visualized. There is normal global left ventricular systolic function. Ejection fraction is estimated to be 65%. The quantitative left ventricular ejection fraction by 3-D rendering is 69%.Avg GLS -20% (GE) There are no left ventricular segmental wall motion abnormalities. Left ventricular diastolic function is normal. Doppler assessment is consistent with normal left sided filling pressure. Left Atrium: The left atrium is normal in size. No atrial septal defect is visualized. Right Ventricle: Right ventricular chamber size, wall thickness, and systolic function are within normal limits. No pulmonary hypertension is noted. The estimated pulmonary artery systolic pressure is 20.9 mmHg. The estimated right atrial pressure is 3 mmHg. Right Atrium: The right atrium appears normal. Aortic Valve: The aortic valve is trileaflet. The leaflets are thin with normal excursion. There is no aortic stenosis or regurgitation present. Mitral Valve: The mitral valve appears normal in structure and function. There is no evidence of mitral valve leaflet prolapse. There is mild (1+/4+) mitral regurgitation present. Tricuspid Valve: The tricuspid valve appears normal in structure and function. There is trace tricuspid regurgitation present. Pulmonic Valve: The pulmonic valve appears normal in structure and function. Pericardium: The pericardium appears normal and there is no evidence of a pericardial effusion. Aorta: The aortic root is normal in size. The ascending aorta is normal in size. There is no evidence of coarctation of the aorta. Pulmonary Artery: The main pulmonary artery appears normal. Venous: The inferior vena cava appears normal in size. There is a greater than 50% respiratory change in the inferior vena cava dimension. Misc: See remainder of report for additional findings. Two-dimensional echo, spectral Doppler and color Doppler performed. Three-dimensional echocardiogram performed. SURYA performed Myocardial Strain Imaging Chambers 2D Value Units (Range) IVSd (2D) 0.89 cm LVPWd (2D) 0.85 cm IVS:LVPW ratio (2D) 1.04 ratio RWT (2D) 0.41 ratio RWT PW (2D) 0.4 ratio LVIDd (2D) 4.25 cm LVIDs (2D) 2.94 cm LVIDd (2D) index 2.19 cm/m2 LVIDs (2D) index 1.52 cm/m2 LV FS (2D) 30.81 % EF Teichholz (2D) 58.75 % Ao root diameter (2D3.16 cm (2.1 - 3.6) Ascending Ao 2.88 cm (2 - 3.5) Volumes/Mass Value Units (Range) LA Area 4 CH 11 cm2 (<21) LA ESV BP (A/L) inde13.21 ml/m2 RA AREA 4CH 11 cm2 LV mass (2D) 115.77 g LV mass (2D) index 59.71 g/m2 Diastolic/Systolic Function Value Units (Range) MV E-wave Vmax 0.68 m/sec MV deceleration gogx504.38 msec MV A-wave Vmax 0.59 m/sec MV E:A ratio 1.16 ratio LV septal e' Vmax 0.1 m/sec LV lateral e' Vmax 0.1 m/sec LV average e' Vmax 0.1 m/sec LV E:e' septal ratio6.8 ratio LV E:e' lateral rati6.8 ratio LV average E:e' rati6.8 ratio Tricuspid Valve Value Units (Range) TR Vmax 2.12 m/sec TR peak gradient 17.94 mmHg RAP 3 mmHg RVSP 20.9 mmHg Measurement Trending Name 08/19/2019 RAP 3 RVSP 20.9 Wall Motion: Segment Name Rest Base-Anteroseptal Normal Base-Anterior Normal Base-Anterolateral Normal Base-Posterolateral Normal Base-Inferior Normal Base-Inferoseptal Normal Mid-Anteroseptal Normal Mid-Anterior Normal Mid-Anterolateral Normal Mid-Posterolateral Normal Mid-Inferior Normal Mid-Inferoseptal Normal [place]-Septal Normal [place]-Anterior Normal [place]-Lateral Normal [place]-Inferior Normal [place]-Tip Normal This report has been electronically signed by: Derrick Leung M.D. 08/19/2019 15:14:00 Images reviewed and interpretation verified [facility] Cardiac Ultrasound Laboratory Aristides Jurado MD ECHO ORDERABLES documented in this encounter Visit Diagnoses Not on filedocumented in this encounter Care Teams Manager Of Case Relationship Specialty Start Date End Date Sheree Deng APRN [address] [facility] [address] PCP - General Internal Medicine 08/12/19 documented as of this encounter
--- OUTSIDE RECORDS SUMMARY | 2023-11-18 17:38 | XMS_ITS | Encounter Summary ---
Author Organization [facility] [place] [address] Care Team Providers Care Shirt Ironer Supervisor Name Role Phone Cortez Tipton MD Primary Care Provider [phone] Encounter Details Date Type Department Care Team (Late st Contact Info) Description 08/11/2019 Orders [place] [id number] Linden Kulkarni PA [facility] [place] [place] [address] Chest discomfort; Abnormal stress test Social History Tobacco Use Types Packs/Day Years [...] Procedure Name Priority Date/Time Associated Diagnosis Comments CARDIAC CATHETERIZATION Routine 08/19/19 20 11:05 AM EDT Chest discomfort Abnormal stress test documented in this encounter Results * CARDIAC CATHETERIZATION (08/19/2019 11:05 AM EDT) Anatomical Region Laterality Modality Other Narrative 08/19/2019 11:19 AM EDT ?[facility] ? Cardiac Catheterization/Intervention Report ? Patient Name: Stratton, Karen S. ? Procedure Date: 08/19/2019 ? A #: [id number] ? Primary Physician: Rhiannon, Aristides E ? Case #: [id number] ? File Name: [id number] ? Catheterization Order Number: [id number] ? [facility] ? Final Report [place], [place] ? Patient Name: ? Karen S. Stratton ? ID#: ?[id number] ? : ?1950 ? Procedure Date: ? August 19, 2019 ?Case #: ? [id number] ? Room: ? 6 ? Case Physician: ? Aristides Jurado M.D. ? Start: ?10:49 ?Fellow: ? Derrick Campos M.D. ? Admission: ??08/19/2019 ?Nimisha Leigh D.O. ? Referring ? Sheree Ish, P.A. ? Physicians: ?Nolan Waterman M.D. ? Procedures: ?* Coronary Angiography ?* Left Heart Catheterization ? History ?Karen Stratton is a 69 year old woman. She has hypertension. The ?patient's smoking status is Never. She has hypercholesterolemia. The ?patient also has a prior history of coronary artery disease. Prior to the ?initiation of this procedure, the patient was designated as ASA Class II. ?The CSHA clinical frailty scale is 3: Managing Well. ? Diagnostic Tests: ?Electrocardiography: ? EKG was assessed by ECG. EKG was Normal. ?Stress or Imaging Studies: ? A stress test without imaging was performed on 08/11/2019 and was ? Positive with High results. ?Medications Prior to Procedure: ? ASA, Beta Parth and Statin. ? Indications for Diagnostic Cath: ?The priority of the diagnostic procedure was Elective. The indication for ?the track laborer visit is suspected CAD. Chest pain symptom assessment was: ?Atypical Angina. ? Technique: ?A 6 SLFr sheath was inserted in the right radial artery utilizing the ?Seldinger technique. The left coronary artery was injected utilizing a ?5Fr TIG 4.0 catheter. A 5Fr TIG 4.0 catheter was used to inject the right ?coronary artery. Left ventricular pressure was performed with a 5Fr TIG ?4.0 catheter. 4,000 units of heparin were administered. A total of 100cc ?of Omnipaque were opened, 75cc of Omnipaque were administered and 25cc of ?Omnipaque were wasted. Radiation: Fluoro time was 5.5 minutes, dose area ?product was 16 mGYcm2 and air kerma was 263 mGY. See the case log for ?additional details. ?The patient received the following medications prior to and during the ?procedure: ? Low Molecular Weight Heparin and Unfractionated Heparin. ? Hemodynamics: ?Left Heart Pressures ? Resting: ? Syst Diast ? EDP ?a ?v ? m ?Ao 142 ?? 63 ?96 ?LV 139 ? 20 ? Coronary Angiography: ?Dominance: Right ?Left Main ? The left main was normal, free of disease. ?Left Anterior Descending ? The left anterior descending (LAD) was normal, free of disease. ?Left Circumflex ? The left circumflex (LCX) was normal, free of disease. ?Right Coronary Artery ? The right coronary artery (RCA) was normal, free of disease. ?Ramus ? The ramus was normal, free of disease. ? Vascular Access: ?Vascular Access Management: ? Mechanical Compression of the right radial artery access site was ? performed. ? Conclusions: ?* Normal coronary arteries ?* Elevated left ventricular end diastolic pressure ? Complications/Events: ?The patient had no complications during these procedures. ?The attending physician was present for the entire procedure. ?Dr. Aristides Jurado M.D. was present during the moderate sedation ?intraservice time as documented by the sedation nurse. ??Case time = 00:13. ?Dr. Aristides Jurado M.D. performed the coronary angiography and left heart ?catheterization. ? Aristides Jurado M.D. ? Electronically Signed by: Aristides Jurado M.D. ? Report Finalized: 08/19/2019 ??11:13 ? Procedure Note Aristides Jurado MD - 08/19/2019 [facility] Cardiac Catheterization/Intervention Report Patient Name: Karen Stratton Procedure Date: 08/19/2019 A #: [id number] Primary Physician: Aristides Jurado Case #: [id number] File Name: [id number] Catheterization Order Number: [id number] [facility] FinalReport [place], [place] Patient Name: Karen Stratton ID#:[id number] :1950 Procedure Date: August 19, 2019 Case #: [id number] Room: 6 Case Physician: Aristides Jurado M.D. Start: 10:49 Fellow: Derrick Campos M.D. Admission:08/19/2019 Nimisha Leigh D.O. Referring Carolyn Severino Physicians: Nolan Waterman M.D. Procedures: * Coronary Angiography * Left Heart Catheterization History Karen Stratton is a 69 year old woman. She has hypertension. The patient's smoking status is Never. She has hypercholesterolemia. The patient also has a prior history of coronary artery disease. Priorto the initiation of this procedure, the patient was designated as ASAClass II. The [facility] clinical frailty scale is 3: Managing Well. Diagnostic Tests: Electrocardiography: EKG was assessed by ECG. EKG was Normal. Stress or Imaging Studies: A stress test without imaging was performed on 08/11/2019 andwas Positive with High results. Medications Prior to Procedure: ASA, Beta Parth and Statin. Indications for Diagnostic Cath: The priority of the diagnostic procedure was Elective. Theindication for the track laborer visit is suspected CAD. Chest pain symptom assessmentwas: Atypical Angina. Technique: A 6 SLFr sheath was inserted in the right radial artery utilizingthe Seldinger technique. The left coronary artery was injected utilizinga 5Fr TIG 4.0 catheter. A 5Fr TIG 4.0 catheter was used to inject theright coronary artery. Left ventricular pressure was performed with a 5FrTIG 4.0 catheter. 4,000 units of heparin were administered. A total mg081qc of Omnipaque were opened, 75cc of Omnipaque were administered zrl32ya of Omnipaque were wasted. Radiation: Fluoro time was 5.5 minutes, dosearea product was 16 mGYcm2 and air kerma was 263 mGY. See the case logfor additional details. The patient received the following medications prior to and duringthe procedure: Low Molecular Weight Heparin and Unfractionated Heparin. Hemodynamics: Left Heart Pressures Resting: Syst Diast EDP a v m Ao 142 63 96 LV 139 20 Coronary Angiography: Dominance: Right Left Main The left main was normal, free of disease. Left Anterior Descending The left anterior descending (LAD) was normal, free of disease. Left Circumflex The left circumflex (LCX) was normal, free of disease. Right Coronary Artery The right coronary artery (RCA) was normal, free of disease. Ramus The ramus was normal, free of disease. Vascular Access: Vascular Access Management: Mechanical Compression of the right radial artery access sitewas performed. Conclusions: * Normal coronary arteries * Elevated left ventricular end diastolic pressure Complications/Events: The patient had no complications during these procedures. The attending physician was present for the entire procedure. Dr. Aristides Jurado M.D. was present during the moderate sedation intraservice time as documented by the sedation nurse. Case time =00:13. Dr. Aristides Jurado M.D. performed the coronary angiography and leftheart catheterization. Aristides Jurado M.D. Electronically Signed by: Aristides Jurado M.D. Report Finalized: 08/19/2019 11:13 Aristides Jurado MD CARDIAC CATH ORDERAB LES documented in this encounter Visit Diagnoses Diagnosis Chest discomfort Other chest pain Abnormal stress test Other nonspecific abnormal cardiovascular system function study Chest discomfort Other chest pain Abnormal stress test Other nonspecific abnormal cardiovascular system function study documented in this encounter Care Teams Shirt Ironer Supervisor Relationship Specialty Start Date End Date Cortez Tipton MD [address] [place] [address] PCP - General 03/05/10 08/11/19 documented as of this encounter
--- OUTSIDE RECORDS SUMMARY | 2023-11-18 17:38 | XMS_ITS | Encounter Summary ---
Author Organization [facility] Address [address] [place] [address] Care Team Providers Care Motion Pictures Cartoonist Name Role Phone Unavailable Primary Care Provider Unavailabl e Encounter Details Date Type Department Care Team (Late st Contact Info) Description 02/10/2007 Results Only [facility] - Maple conversion [address] [place] [address] Romy Morrow, PAINTER ORDNANCE [address] [place] [address] Social History Tobacco Use Types [...] Priority Date/Time Associated Diagnosis Comments CYTOPATHOLOGY Routine 02/10/2007 0:00 EDT documented in this encounter Results * CYTOPATHOLOGY (02/10/2007 0:00 EDT) Pathology Report: CYTOPATHOLOGY REPORT Reports generated via electronic interface contain original data; however they are lacking the format of the original report. Caution should be taken when reading/interpreti ng unformatted reports. Name: ? CHAYO PARKER ? Accession #: ? [id number] : ? 1950 (Age: 57) ??F ?Collect Date: ? 02/10/2007 Location: ? [facility] ? Receive Date: ? 02/11/2007 Provider: ?ROMY MORROW PAINTER ORDNANCE Copy to: ? Specimen/Source: ?ThinPrep Pap Test, Cervix, processed on [employer] Self Storage ThinPrep Imaging System, with manual evaluation Last Menstrual Period: ? 04/2004 Other: ? HPVA - HPV testing requested if ASC-US on the current ThinPrep Pap test. ? SPECIMEN ADEQUACY ? Satisfactory for Evaluation - transformation zone component present GENERAL CATEGORIZATION ? Negative for Intraepithelial Lesion or Malignancy ? Document reviewed and electronically signed by: ? Mel Love, CT(ASCP) ? Report Date: ??02/16/2007 10:49 End of Report CHRISSIE BAUTISTA 02/10/2007 02/11/2007 Romy Morrow NP PATHOLOGY ORDERABLE S CHRISSIE BAUTISTA [address] [place] [address] documented in this encounter Visit Diagnoses Not on filedocumented in this encounter
--- OUTSIDE RECORDS SUMMARY | 2023-11-18 17:38 | XMS_ITS | Encounter Summary ---
[place] [address] Care Team Providers Care Thermit Welding Machine Operator Name Role Phone Cortez Tipton MD Primary Care Provider [phone] Encounter Details Date Type Department Care Team (Late st Contact Info) Description 02/18/2012 [place] [address] Luis Alberto English MD [facility] [place] [address] Social History Tobacco Use Types Packs/Day Years [...] Associated Diagnosis Comments FILM LIBRARY STORAGE ONLY MAMMO Routine 02/18/2012 11:45 AM EST documented in this encounter Results * Film Library- Storage only Mammo (02/18/2012 11:45 AM EST) Anatomical Region Laterality Modality Other 02/18/2012 11:4 5 AM EST Narrative 06/02/2013 11:44 PM EST This is a non-reportable exam. Procedure Note [place] - 06/02/2013 This is a non-reportable exam. Luis Alberto English MD IMG FILM LIBRARY ORD ERABLES documented in this encounter Visit Diagnoses Not on filedocumented in this encounter Care Teams Thermit Welding Machine Operator Relationship Specialty Start Date End Date Cortez Tipton MD [address] [place] [address] PCP - General 03/05/10 08/11/19 documented as of this encounter
--- OUTSIDE RECORDS SUMMARY | 2023-11-18 17:38 | XMS_ITS | Encounter Summary ---
Author Organization [facility] Address [address] [place] [address] Care Team Providers Care Guest Services Ambassador Name Role Phone Unavailable Primary Care Provider Unavailabl e Encounter Details Date Type Department Care Team (Late st Contact Info) Description 09/29/2011 Results Only [facility] Laboratory Services - [facility] ([facility]) [address] [place] [address] Caleb Toro MD [address] [facility] [place] [address] Social History Tobacco Use Types Packs/Day Years Used Date Smoking Tobacco: Never Assessed Sex and Gender Information Value Date Recorded Sex Assigned at Not on file Gender Identity Not on file Sexual Orientation Not on file documented as of this encounter Plan of Treatment Not on file documented as of this encounter Procedures Procedure Name Priority Date/Time Associated Diagnosis Comments SURGICAL PATHOLOGY Routine 09/29/2011 0:00 EDT documented in this encounter Results * SURGICAL PATHOLOGY (09/29/2011 0:00 EDT) Pathology Report: SURGICAL PATHOLOGY REPORT Reports generated via electronic interface contain original data; however they are lacking the format of the original report. Caution should be taken when reading/interpreti ng unformatted reports. Name: ? CHAYO PARKER ? Accession #: ? [id number] ? : ? 1950 (Age: 61) ??F ? Collect Date: ? 09/29/2011 ? Location: ? [facility] ? Receive Date: ? 09/30/2011 ? Provider: CALEB TORO MD Copy to: ANTONINA BRAXTON MD ? Final Pathologic Diagnosis: ? Labia minora, right, excision: - Hidradenoma papilliferum. ?? Microscopic Description: ? Sections consist of an excision of skin. ??The overlying mucosa and stratum corneum are unremarkable. ??Within the dermis is a nodule composed of anastomosing papillary structures and tubules. The cells have apocrine features with associated decapitation secretion. (Dr. Maya)/[facility] Document reviewed and electronically signed by: ALEJANDRINA MAYA MD Report ??Date: 10/01/2011 13:37 By the signature above, the attending physician certifies that he/she has personally conducted a gross and/or microscopic examination of the described specimens and rendered or confirmed the above diagnosis. Specimen(s) Received: ? Excised vulvar lesion Clinical History: ? Vulvar lesion R labia minora Gross Description: ? Received in formalin labelled Parker, Chayo and Rt labia minora is a 0.9 x 0.7 x 0.7 cm ovoid, sanches-white, and smooth, firm nodule with a 0.5 x 0.4 cm central, ovoid, slightly depressed, watson, crusted area. ??The margins are inked. The specimen is trisected and entirely submitted in a single cassette. ??(Malorie Godinez)/amarilis End of Report [facility] 09/29/2011 09/30/2011 8:4 5 EDT Caleb Toro MD PATHOLOGY ORDERABLES [facility] [address] [place] [address] documented in this encounter Visit Diagnoses Not on filedocumented in this encounter
--- OUTSIDE RECORDS SUMMARY | 2023-11-18 17:38 | XMS_ITS | Encounter Summary ---
Author Organization [facility] [place] [address] Care Team Providers Care Staff Occupational Therapist Name Role Phone Sheree Deng APRN Primary Care Provider [phone] Encounter Details Date Type Department Care Team (Late st Contact Info) Description 04/18/2009 Orders Only [place] [address] Domingo Pires MD [facility] [place] [address] Social History Tobacco Use Types Packs/Day Years Used Date Smoking Tobacco: Never Assessed [facility] Utilities Answer Date Recorded In the [...] Associated Diagnosis Comments SURGICAL PATHOLOGY REPORT Routine 04/18/2009 6:10 PM EST documented in this encounter Results * Surgical Pathology Report (04/18/2009 6:10 PM EST) Surgical Pathology Report [id number] ? Location: [place]; [facility]; B The signing pathologist has (i) examined the relevant preparation(s) for the specimen(s) and (ii) rendered or confirmed the diagnosis(es). . ?Pathology Surgical Pathology Final Report Clinical Information Specimen Submitted: A - Left mastectomy tissue 1105 grams; Left breast B - Right breast tissue 490 grams; Right breast Clinical History: Stitch is long lateral, short superior Clinical Diagnosis: Left breast DCIS Gross Description A - Labeled/Fixative: Left mastectomy tissue 1105 grams, left breast; ?fresh. Qty/Size/Weight: ?Single, 25.0 x 19.0 x 5.0 cm, 1117 g. Tissue Description: ?? Left simple skin-sparing mastectomy. ?? Skin: ?14.5 x 4.3 cm. ??Surface is vo-pink and unremarkable. ?? Nipple: ?2.1 x 1.7 cm. ??Everted. ?? Deep Margin: ? Contains vo-yellow adipose tissue without obvious ?muscle fibers. ??No lesions are seen at the deep ?margin. ?? Possible lesion #1:No lesion is obviously identified. ??Inferior half of ?the specimen is thoroughly searched revealing only vo-yellow adipose tissue with very minimal white-love fibrous tissue. ??No signs of a healing biopsy site. ??The inferior half of the most medial five slices are x-rayed, and no biopsy clip is seen. ?? Lesion #2: ? Consists of scant, vo-yellow, firm parenchyma and ?necrotic fat with a minimal area of hemorrhage and ?surrounding fibrosis. ?Size: ? 1.6 x 0.8 x 0.5 cm. ?Location: ? Roughly 12 o'clock, 8.5 cm from the nipple. ?Relationship: ?? 5.3 cm to the superficial margin, 3.2 cm to deep margin. ?? Lesion #3: ? There is a vo-white, slightly firm fibrous area. ?Size: ? 1.5 x 0.6 x 0.5 cm. ?Location: ? Roughly 9 o'clock, about 10.5 cm to the nipple. ?Relationship: ?? 2.5 cm from the superficial margin, and 3.7 cm from the deep margin. ??Lesion 2 and lesion 3 are by about 8.0 cm. ??Residual parenchyma is vo-yellow with very minimal white-love fibrous tissue. Sections/Processing : ??(1-2) nipple; (3-5) regional sales representative sections of lesion ?2; (6) deep margin nearest lesion 2; (7) superficial margin nearest lesion 2; (8-9) regional sales representative sections of questionable lesion 3; (10) deep margin nearest lesion 3; (11) superficial margin nearest lesion 3; (12-21) extensive sections from 6 o'clock region ; (23-25) remainder of lesion 2; (26-30) remainder of lesion 3. ??(R30) B - Labeled/Fixative: Right breast tissue 490 grams, right breast; fresh. Qty/Size/Weight: ?Multiple fragments, aggregating 23.0 x 15.0 x 3.5 cm, ?484 g. Tissue Description: ?? Fibrofatty breast tissue with an attached ellipse of ?vo-pink skin, 8.0 x 7.3 cm. ?? Skin: ?Surface is unremarkable. ?? Sectioning: ?Vo-yellow adipose tissue with a moderate amount of ?intermixed, white-love fibrous tissue with grossly ?evident love-blue cysts. . Gross Description Sections/Processing : ??(R3) aje/LCS Microscopic Description Slides reviewed, microscopic description not recorded. Diagnosis Specimen: ? Left breast, simple skin-sparing mastectomy. (specimen A) Histologic Type: ?Ductal carcinoma in situ (DCIS)(lesion #2). ?? Grade: ? Low to intermediate (High, Intermediate, Low) ?? Necrosis: ?Present (Present / Absent) ?? Pattern(s): ?Micropapillary and cribriform. Tumor Size: ? 1.6 cm (slide A3,A5, A23 and A24)(greatest dimension). Resection Margins (RM): ?? Distance, RM(s): ? Greater than 1.0 cm from superficial and deep RM Microcalcifications : ?Present and associated with DCIS Nipple Involvement: ? Not identified Correlation Bx's/Cytology: [id number] Other findings: ? - Atypical ductal hyperplasia. ?- Intraductal papilloma. ?- Previous biopsy site changes. ?- Tissue sections from possible lesion #1 reveals radial sclerosing lesion with usual ductal hyperplasia and few ectatic ducts and stromal fibrosis. Estrogen/progestin receptors: Performed on Block A4 ?? ER immunoreactivity: ? Positive (see Diagnostic [place]*) ?? [place] immunoreactivity: ? Positive (see Diagnostic [place]*) Histologic Type: ?Ductal carcinoma in situ (DCIS)(lesion #3). ?? Grade: ? Low (High, Intermediate, Low) ?? Necrosis: ?Absent (Present / Absent) ?? Pattern(s): ?Cribriform and micropapillary Tumor Size: ? 0.7 cm span slide measurement(A8)(gre atest dimension). Resection Margins (RM): ?? Distance, RM(s): ? Greater than 1.0 cm from superficial and deep RM Microcalcifications : ?Present and associated with DCIS Nipple Involvement: ? Not identified Correlation Bx's/Cytology: ?[id number] Other findings: ? - Fibrocystic change and sclerosing adenosis. ? - Previous biopsy site changes Estrogen/progestin receptors: Performed on Block A8 ?? ER immunoreactivity: ? Positive (see Diagnostic [place]*) ?? [place] immunoreactivity: ? Positive (see Diagnostic [place]*) ?pTNM: --- ?? pTis(DCIS), pNx, PMx(AJCC, 6th edition, 2003) ? -------- *DIAGNOSIS [place] ?? Negative immunoreactivity (no staining). ?? Equivocal immunoreactivity (1-15% staining). ?? Positive immunoreactivity (>15% staining). B - Right breast tissue 490 grams: . Diagnosis ?- Fibrocystic change, usual ductal hyperplasia, sclerosing papilloma and sclerosing adenosis associated with microcalcifications . 04/25/09 XL 04/25/09 Verified by: ? Haseeb RAUSCH, Gracie ?Pathologist ?(Electronic Signature) The attending pathologist whose signature appears on this report has reviewed all diagnostic slides and has edited the gross and/or microscopic portion of the report in rendering the final pathologic diagnosis. Comment Dr. Juhi Shipley has kindly reviewed the case and concurs with the above diagnosis of specimen A. DANIEL NAM 04/18/2009 6:10 PM EST Domingo Pires MD PATHOLOGY/CYTOLOGY ORDERABLES Performing Organization Address [facility]/State/[facility] Co de Phone Number DANIEL NAM documented in this encounter Visit Diagnoses Not on filedocumented in this encounter Care Teams Staff Occupational Therapist Relationship Specialty Start Date End Date Sheree Deng, ENDOCRINOLOGY PHYSICIAN [address] [place] [address] PCP - General Internal Medicine 08/12/19 documented as of this encounter
--- OUTSIDE RECORDS SUMMARY | 2023-11-18 17:38 | XMS_ITS | Encounter Summary ---
Author Organization [facility] Address [address] [place] [address] Care Team Providers Care Cutting And Boning Supervisor Name Role Phone Cortez Tipton MD Primary Care Provider Unav ailable Encounter Details Date Type Department Care Team (Late st Contact Info) Description 10/12/2013 Results Only [facility] Laboratory Services - [facility] ([facility]) [address] [place], [place] [id number] Romy Morrow, MASSOTHERAPIST [facility] [address] [place] [address] Social History Tobacco Use Types Packs/Day Years Used Date Smoking Tobacco: Never Assessed Sex and Gender Information Value Date Recorded Sex Assigned at Not on file Gender Identity Not on file Sexual Orientation Not on file documented as of this encounter Plan of Treatment Not on file documented as of this encounter Procedures Procedure Name Priority Date/Time Associated Diagnosis Comments PAP TEST- RESULT ONLY Routine 10/12/2013 0:00 EDT documented in this encounter Results * PAP TEST- RESULT ONLY (10/12/2013 0:00 EDT) Pathology Report: CYTOPATHOLOGY REPORT Reports generated via electronic interface contain original data; however they are lacking the format of the original report. Caution should be taken when reading/interpreti ng unformatted reports. Name: ? CHAYO PARKER ? Accession #: ? [id number] ? : ? 1950 (Age: 63) ??F ?Collect Date: ? 10/12/2013 ? Location: ? [facility] ? Receive Date: ? 10/17/2013 ? Provider: ROMY MORROW MASSOTHERAPIST Copy to: ? Final Report SPECIMEN ADEQUACY ? Satisfactory for Evaluation - transformation zone component present - scant squamous epithelial component secondary to excessive mucus GENERAL CATEGORIZATION ? Negative for Intraepithelial Lesion or Malignancy ?? Menstrual/Pregnanc y Status: ??Post Menopausal Specimen/Source: ??Pap Test, Cervix/Endocervix, ThinPrep Imaging System with manual evaluation Document reviewed and electronically signed by: ? Mel Love, CT(ASCP) ? Report ??Date: 10/21/2013 13:54 HPV with Pap Test ? Date Ordered: ? 10/21/2013 ? Status: ?? Signed Out ?Date Complete: ? 10/25/2013 ? By: ??System Interface ? Date Reported: ? 10/25/2013 ? Interpretation RESULT: Negative for HPV. No E6 or E7 mRNA is detected from HPV types 16,18,31,33,35, 39,45,51,52,56,58, 59,66, and 68 by pumper helper mediated amplification. Comments Document reviewed and electronically signed by: ? System Interface ? Report date: 10/25/2013 By the signature above, the attending physician certifies that he/she has personally conducted a gross and/or microscopic examination of the described specimens and rendered or confirmed the above diagnosis. End of Report [facility] 10/12/2013 10/17/2013 Romy Morrow MASSOTHERAPIST PATHOLOGY ORDERABLE S Performing Organization Address City/State/[facility] Co de Phone Number [id number] [address] documented in this encounter Visit Diagnoses Not on filedocumented in this encounter Care Teams Cutting And Boning Supervisor Relationship Specialty Start Date End Date Cortez Tipton MD PCP - General 10/06/11 documented as of this encounter
--- OUTSIDE RECORDS SUMMARY | 2023-11-18 17:38 | XMS_ITS | Encounter Summary ---
Author Organization [facility] Address [address] [place] [address] Care Team Providers Care Technical Training Manager Name Role Phone Unavailable Primary Care Provider Unavailabl e Encounter Details Date Type Department Care Team (Late st Contact Info) Description 05/16/2004 Results Only [facility] - [facility] [address] [place] [address] Romy Morrow, CEMENTER MACHINE JOINER [address] [place] [address] Social History Tobacco Use Types [...] Priority Date/Time Associated Diagnosis Comments CYTOPATHOLOGY Routine 05/16/2004 0:00 EST documented in this encounter Results * CYTOPATHOLOGY (05/16/2004 0:00 EST) Pathology Report: CYTOPATHOLOGY REPORT Reports generated via electronic interface contain original data; however they are lacking the format of the original report. Caution should be taken when reading/interpreti ng unformatted reports. Name: ? CHAYO PARKER ? Accession #: ? [id number] : ? 1950 (Age: 54) ??F ?Collect Date: ? 05/16/2004 Location: ? [facility] ? Receive Date: ? 05/17/2004 Provider: ?ROMY MORROW CEMENTER MACHINE JOINER Copy to: ? Specimen/Source: ?ThinPrep Pap Test, Cervix Last Menstrual Period: ? 05/09/04 ? SPECIMEN ADEQUACY ? Satisfactory for Evaluation - transformation zone component present GENERAL CATEGORIZATION ? Negative for Intraepithelial Lesion or Malignancy ? Document reviewed and electronically signed by: ? Bella Peters, SCT(ASCP) ? Report Date: ??05/23/2004 09:21 End of Report [facility] 05/16/2004 05/17/2004 Romy Morrow NP PATHOLOGY ORDERABLE S [facility] [address] [place] [address] documented in this encounter Visit Diagnoses Not on filedocumented in this encounter
--- OUTSIDE RECORDS SUMMARY | 2023-11-18 17:38 | XMS_ITS | Encounter Summary ---
[place] [address] Care Team Providers Care Utility Assembler Name Role Phone Cortez Tipton MD Primary Care Provider [phone] Encounter Details Date Type Department Care Team (Latest Contact Info) Description 01/22/2011 2:56 PM EDT - 01/22/2011 11:59 PM EDT Hospital En[place] [address] CLINIC, Cortez Villanueva MD [address] [place], [place] [phone] Abnormal mammogram, unspecified Discharge Disposition: Home Social History Tobacco Use [...] Diagnosis Comments MAMMO DIRECT DIGITAL UNILATERAL Routine 01/22/2011 3:47 PM EDT Abnormal mammogram, unspecified documented in this encounter Results * Mammo [...] this encounter Visit Diagnoses Diagnosis Abnormal mammogram, unspecified documented in this encounter Care Teams Utility Assembler Relationship Specialty Start Date End Date Cortez Tipton MD [address] [place] [address] PCP - General 03/05/10 08/11/19 documented as of this encounter
--- OUTSIDE RECORDS SUMMARY | 2023-11-18 17:38 | XMS_ITS | Encounter Summary ---
[place] [address] Care Team Providers Care Food Assembler Kitchen Name Role Phone Cortez Tipton MD Primary Care Provider [phone] Encounter Details Date Type Department Care Team (Latest Contact Info) Description 07/23/2010 2:58 PM EDT - 07/23/2010 11:59 PM EDT Hospital [place] [address] CLINIC, Cortez Villanueva MD [address] [place], [place] [id number] Discharge Disposition: Home Social History Tobacco Use [...] Diagnosis Comments MAMMO DIRECT DIGITAL UNILATERAL Routine 07/23/2010 4:41 PM EDT documented in this encounter Results * MAMMO DIRECT DIGITAL UNILATERAL (07/23/2010 4:41 PM EDT) Anatomical Region Laterality Modality Breast N/A Mammography 07/23/2010 4:41 PM EDT Narrative 07/24/2010 11:32 AM EDT [...] screening exams 01/16/09, 03/19/07, 06/06/04 and also [facility] bilateral breast MRI 02/16/09. The patient underwent [...] 07/02/10,screening exams 01/16/09, 03/19/07, 06/06/04 and also [facility] bilateral breast MRI02/16/09. The patient underwent Left [...] on filedocumented in this encounter Care Teams Food Assembler Kitchen Relationship Specialty Start Date End Date Cortez Tipton MD [address] [place] [address] PCP - General 03/05/10 08/11/19 documented as of this encounter
--- OUTSIDE RECORDS SUMMARY | 2023-11-18 17:38 | XMS_ITS | Encounter Summary ---
[place] [address] Care Team Providers Care Administrative Medical Director Name Role Phone Cortez Tipton MD Primary Care Provider [phone] Encounter Details Date Type Department Care Team (Late st Contact Info) Description 01/24/2013 Abstract [place] [id number] Kanika Edwards RN Social History Tobacco Use Types Packs/Day [...] Sign Reading Time Taken Comments Blood Pressure 110/64 01/24/2013 7:37 PM EDT pt reported Pulse - - Temperature - - Respiratory Rate - - Oxygen Saturation - - Inhaled Oxygen Concentration - - Weight 93.9 kg (207 lb) 01/24/2013 7:37 PM EDT p t reported Height 167.6 cm (5' 6) 01/24/2013 7:37 PM EDT p t reported Body Mass Index 33.41 01/24/2013 7:37 PM EDT documented in this encounter Plan of Treatment Not on file documented as of this encounter Visit Diagnoses Not on filedocumented in this encounter Care Teams Administrative Medical Director Relationship Specialty Start Date End Date Cortez Tipton MD [address] [place], [place] [address] PCP - General 03/05/10 08/11/19 documented as of this encounter
--- OUTSIDE RECORDS SUMMARY | 2023-11-18 17:38 | XMS_ITS | Encounter Summary ---
Author Organization [facility] Address [address] [place] [address] Care Team Providers Care Data Transcriber Name Role Phone Cortez Tipton MD Primary Care Provider Unav ailable Encounter Details Date Type Department Care Team (Late st Contact Info) Description 12/17/2022 Lab Requisition [facility] Pathology & Laboratory Medicine - [facility] [address] [place] [address] Mike Ca MD [address] [place] [address] [phone] Nontoxic goiter, unspecified; Nontoxic single thyroid nodule Social History Tobacco Use Types Packs/Day Years Used Date Smoking Tobacco: Never Assessed Sex and Gender Information Value Date Recorded Sex Assigned at Not on file Gender Identity Not on file Sexual Orientation Not on file documented as of this encounter Plan of Treatment Not on file documented as of this encounter Procedures Procedure Name Priority Date/Time Associated Diagnosis Comments NON TAPER AND FLOATER/FNA CYTOLOGY Today 12/16/2022 12:50 EDT Nontoxic goiter, unspecified Nontoxic single thyroid nodule documented in this encounter Results * NON TAPER AND FLOATER/FNA CYTOLOGY (12/16/2022 12:50 EDT) Addendum Comment This addendum report is issued to provide the Afirma Gene Sequencing Security Trainer results. There are two separate Afirma results. Part B from the right thyroid was received by the testing laboratory on a separate day and reported separately. Please see the attached documentation. 2023 9:28 EDT [facility] Addendum electronically signed by Cate Darby MD PhD on 2023 at 0928 Note to Patient The following pathology results have been interpreted by your pathologist and may be available to you before your health provider has had the opportunity to review them. Please allow time for your provider to receive these results and explore management options, if applicable. 2023 9:28 [facility] Final Diagnosis A. THYROID NODULE (5.2 CM), LEFT, ULTRASOUND-GUIDED FINE NEEDLE ASPIRATION: - Highly suspicious for papillary thyroid carcinoma. See comment. B. THYROID NODULE, (2.4 CM), RIGHT, ULTRASOUND-GUIDED FINE NEEDLE ASPIRATION: - Atypia of undetermined significance (AUS). See comment. 2023 9:28 [facility] Diagnosis Comment A: The aspirate is cellular and consists of crowded groups/sheets of monotonous appearing follicular cells in a background devoid of colloid. The follicular cells have round to oval shaped nuclei with somewhat pale chromatin and focal contour irregularities including occasional nuclear grooves and rare intranuclear inclusions. 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 B: The aspirate is adequate with scattered groups of follicular cells arranged in follicles of variable size. Many of the groups exhibit nuclear crowding and disarray. Follicular cells exhibit variable increase in nuclear to cytoplasmic ratios. Hemosiderin laden macrophages and thick colloid are noted in the background. Findings are classifiable as atypia of undetermined significance (AUS). The Afirma vials (A and B) will be sent for molecular testing, addendum to follow. . The technical component of the specimen processing was performed at the [facility] Pathology Department, [address] [place] [address] (CLIA [id number]). The professional component of the specimen evaluation (slide review and issuing of the final diagnosis) was performed at [facility], [address] [place] [address] (CLIA License Number [id number]). 2023 9:28 [facility] Attestation By the signature below, the attending physician certifies that they have personally conducted a gross and/or microscopic examination of the described specimens and rendered or confirmed the above diagnosis. 2023 9:28 [facility] at 1636 Rapid Diagnosis A.LEFT THYROID NODULE,5.2CM, ULTRASOUND GUIDED FINE NEEDLE ASPIRATION: Evaluation Episode 1: Pass 1: Adequate follicular epithelium present for evaluation. Pass 2&3: to Afirma B. RIGHT THYROID NODULE, 2.4 CM, ULTRASOUND GUIDED FINE NEEDLE ASPIRATION: Evaluation Episode 1: Pass 1: Scant follicular epithelium present. Colloid present Evaluation Episode 2: Pass 2: Predominately blood Evaluation Episode 3: Pass 3: Predominately blood Pass 4&5: To Afirma The above rapid on site evaluation was performed by pathologist Dr. Tori Valencia assisting Dr. Tiffanie Ca at , [address] [place] [address]. 12/16/2022; 1250 2023 9:28 [facility] Clinical History 5.2cm left thyroid nodule. 2.4cm right thyroid nodule. E04.1, E04.9. 2023 9:28 [facility] Gross Description A. 2 fixed prepared slides, 1 air dried prepared slide, and 1 tube of Cytolyt processed by selective cellular enhancement were received. 1 FNAprotect tube for possible Afirma testing was also received and will be held for 60 days from date of collection. B. 6 fixed prepared slides, 3 air dried prepared slides, and 1 tube of Cytolyt processed by selective cellular enhancement were received. 1 FNAprotect tube for possible Afirma testing was also received and will be held for 60 days from date of collection. 2023 9:28 [facility] Performing Lab [facility] 2023 9:28 [facility] Scanned Images 2023 9:28 [facility] Fine Needle Aspirate STRUCTURE OF RIGHT LOBE OF THYROID GLAND / Unknown 12/16/2022 12:50 EDT 12/17/2022 6:17 EDT Specimen obtained by fine needle aspiration procedure (specimen) STRUCTURE OF RIGHT LOBE OF THYROID GLAND / Unknown 12/16/2022 12:50 EDT 12/17/2022 6:17 EDT Mike Lanny MD PATHOLOGY ORDERABLES [facility] [address] [place] [address] documented in this encounter Visit Diagnoses Diagnosis Nontoxic goiter, unspecified Nontoxic single thyroid nodule Nontoxic uninodular goiter documented in this encounter Care Teams Data Transcriber Relationship Specialty Start Date End Date Cortez Tipton MD PCP - General 10/06/11 documented as of this encounter
--- OUTSIDE RECORDS SUMMARY | 2023-11-18 17:38 | XMS_ITS | Encounter Summary ---
Author Organization [facility] Address [address] [place] [address] Care Team Providers Care Band Ripsaw Operator Name Role Phone Unavailable Primary Care Provider Unavailabl e Encounter Details Date Type Department Care Team (Late st Contact Info) Description 12/24/2009 Results Only [facility] Laboratory Services - [facility] [place] [address] [place] [address] Romy Morrow, RN PRACTITIONER [address] [place] [address] Social History Tobacco Use Types [...] Priority Date/Time Associated Diagnosis Comments CYTOPATHOLOGY Routine 12/24/2009 0:00 EDT documented in this encounter Results * CYTOPATHOLOGY (12/24/2009 0:00 EDT) Pathology Report: CYTOPATHOLOGY REPORT ? Reports generated via electronic interface contain original data; ? however they are lacking the format of the original report. ? Caution should be taken when reading/interpreti ng unformatted reports. ? Name: ? CHAYO PARKER ? Accession #: ? [id number] ? : ? 1950 (Age: 59) ??F ?Collect Date: ? 12/24/2009 ? Location: ? [facility] ? Receive Date: ? 12/25/2009 ? Provider: ROMY MORROW NP ? Copy to: ? Final Report ? SPECIMEN ADEQUACY ? Satisfactory for Evaluation ? - transformation zone component present ? GENERAL CATEGORIZATION ? Negative for Intraepithelial Lesion or Malignancy ? Last Menstural Period: 2002 ? Other: HPVDX - HPV testing requested regardless of diagnosis on current ThinPrep Pap test. ? Specimen/Source: ??Pap Test, Cervix, ThinPrep Imaging System with manual ? evaluation ? Document reviewed and electronically signed by: ? Barby Verville,CT(ASCP) ? Report ??Date: 12/26/2009 13:34 ? HPV with Pap Test ? Date Ordered: ? 12/26/2009 ? Status: ?? Signed Out ?Date Complete: ? 01/01/2010 ? By: ??User Misys ? Date Reported: ? 01/01/2010 ? Interpretation ? RESULT: Negative for HPV types 16, 18, 31, 33, 35, 39, 45, 51, ??with ? dysplasia and some cervical cancers. ? Comments ? Document reviewed and electronically signed by: ? User Misys ? Report date: 01/01/2010 ? By the signature above, the attending physician certifies that he/she has ? personally conducted a gross and/or microscopic examination of the described ? specimens and rendered or confirmed the above diagnosis. ? End of Report ? CHRISSIE BAUTISTA 12/24/2009 12/25/2009 Romy Morrow RN PRACTITIONER PATHOLOGY ORDERABLE S Performing Organization Address City/State/[facility] Co de Phone Number CHRISSIE [facility] [address] [place] [address] documented in this encounter Visit Diagnoses Not on filedocumented in this encounter
--- OUTSIDE RECORDS SUMMARY | 2023-11-18 17:38 | XMS_ITS | Encounter Summary ---
Author Organization [facility] [place] [address] Care Team Providers Care Regional Merchandising Manager Name Role Phone Ish Sheree Espino APRN Primary Care Provider [phone] Reason for Visit * Auth/Cert Specialty Diagnoses / Procedures Referred By Contac t Referred To Contact Diagnoses Chest discomfort [R07.89]/Abnormal stress test [R94.39] Procedures PRG CATH PLMT LEFT HEART CATH & ARTS W/INJ & ANGIO IMG S&I CARDIAC CATHETERIZATION CORONARY ANGIOGRAPHY; W LHC,POSSIBLE PCI Referral ID Status Reason Start Date Expiration Date Visits Re quested Visits Authorized [id number] 1 1 Encounter Details Date Type Department Care Team (Late st Contact Info) Description 08/19/2019 10:00 AM EDT - 08/19/2019 11:00 AM EDT [place] [address] Elma Almonte MD [facility] [place] [address] CARDIAC CATHETERIZATION Social History Tobacco Use Types Packs/Day Years [...] Sign Reading Time Taken Comments Blood Pressure 140/75 08/19/2019 9:42 AM EDT Pulse 57 08/19/2019 9:42 AM EDT Temperature 36.6 ??C (97.9 ??F) 08/19/2019 9:42 AM ED T Respiratory Rate 16 08/19/2019 9:42 AM EDT Oxygen Saturation 97% 08/19/2019 9:42 AM EDT Inhaled Oxygen Concentration - - Weight 83 kg (183 lb) 08/19/2019 9:42 AM EDT Height - - Body Mass Index 29.54 01/26/2013 8:35 AM EDT documented in this encounter Discharge Instructions * Discharge Instructions* Asia Dyson RN - 08/19/2019 2:34 PM EDT Radial Access for Heart Cath Activity If you are discharged the same day as your procedure, do not drive yourself home. Arrange to have another person drive. You may walk around when you get home, but keep your activity at a minimum until the morning. Try to avoid bending your wrist for the first 12-24 hours after the procedure to allow the artery to fully heal. Do not participate in active sports for 48 hours. Do not lift anything greater than 5 lbs. You may engage in sexual activity after 48 hours. Catheter Insertion Area Care Take the dressing off of the catheter insertion site the morning following the procedure. Leave thesite open to air. If the site is oozing you may cover it with a band aid. You may take a shower if you wish. Look for signs of infection over the next several days. It is uncommon to have any visible blood at the site, any obvious bleeding is abnormal. A bruise around the wrist or small lump under the skin is normal: they generally disappear in 3-5 days. Expect some mild tenderness over the area where the catheter was inserted. You will notice this after the local anesthetic (numbing medicine) wears off. This should improve during the 24-48 hours after the procedure. You may use acetaminophen (tylenol) if needed. Contact your doctor if the discomfort worsens. Problems to Watch for If there is bright red blood flowing from the catheter insertion area: *stop what you are doing *hold pressure steadily on the area for 15 minutes *call for help *if the bleeding does not stop in 15 minutes call 911 for an ambulance. If there is swelling with black and blue color at the catheter insertion site, there may be bleeding inside. Contact the doctor if there is any increase in size. Look at the insertion site for the first few days at home. Signs of infection are: *redness *swelling *yellow, white, green or brown foul smelling drainage. *increased soreness If you think there is an infection, take your temperature. Then call your doctor. The limb on the side where you had your catheterization should look and feel normal in color, sensation, and temperature. If your hand or fingers become cool, pale, blue or change color contact your doctor. If you are having numbness or tingling in your fingers or hand contact your doctor. If you feel faint or dizzy, lie down with your feet elevated. Have someone call the doctor. If you are alert, drink fluids. How to Deal with Chest Pain If you had only the cardiac catheterization, treat any angina or chest discomfort as instructed. Stop what you are doing, and sit or lie down. If prescribed, take nitroglycerin under your tongue. If the angina isn't relieved, take another nitroglycerin in 5 minutes. After another 5 minutes, a third nitroglycerin may be taken. If the angina isn't improved you should call for an ambulance to bring you to the nearest hospital emergency room. If your angina is more frequent or severe than before, contact your doctor. We usually would not expect you to have angina after an angioplasty. If you do get angina, treat itas you did before, but also contact your doctor. Return to Work The doctor will usually have told you when to return to work. If you do not perform heavy physical labor, most people can return to work in a few days. Diet Follow your previous diet unless otherwise instructed. Cardiac Risk Factor If you have coronary artery disease, it is important that you help control it by reducing your cardiac risk factors. If you smoke, we urge you to stop now. If you think this is going to be a problem,let us know so that we may help you. We have dieticians who can help you learn about a low fat, lowcholesterol diet. Cardiac rehabilitation programs can help you set up a regular exercise program. Work with your doctor if you have high blood pressure or sugar diabetes to keep these under control. Medications Take your usual medications medication changes If you are taking medications prescribed by your doctor, do not take any oltz-lxu-allkywi medicinesor herbal preparations without first discussing this with your doctor or pharmacist. There is the possibility of side effects and interactions when these are combined. Follow Up Care Who to call with questions or problems If there are any questions or problems that you think might be related to your cardiac cath or angioplasty, contact the plan checker distribution coordinator by calling [facility] at . documented in this encounter Medications at Time [...] as of this encounter Progress Notes * Asia Dyson RN - 08/19/2019 3:05 PM EDT Patient Name: Chayo Parker Patient Age: 69 y.o. Birthdate: 1950 Admit date: 08/19/2019 Attending Physician: No att. providers found documented in this encounter H&P Notes * Derrick Campos - 08/19/2019 10:03 AM EDT Images from the original note were not included. Chayo Parker is a 69 y.o. female referred for cardiac catheterization for evaluation of angina. Briefly,she has a history of no cardiac RF's. Over the course of the past few months, she has been experiencing shortness of breath. Due to this, they were sent for non imaging exercise stress testing, which revealed STD. After further discussion, they were sent for cardiac catheterization for further evaluation. There have not been any changes in health status since last seen in clinic. No intercurrent illnesses. Patient denies fevers, chills. Patient denies any history of bleeding issues and specifically denies hematochezia, melena, hematemesis, intraabdominal bleeding, intracranial bleeding. Denies any history of kidney disease or diabetes. Aspirin/clopidogrel/warfarin: last asa was today Diabetic medications: none NPO status: since yesterday Outpatient Medications Marked as Taking for the 08/19/19 encounter (Hospital Encounter) Medication Sig Dispense Refill ??? aspirin EC 81 mg Tablet, Delayed Release (E.C.) Take 81 mg by mouth daily. ??? rosuvastatin (Crestor) 5 mg Tablet Take 5 mg by mouth daily. ??? levothyroxine (SYNTHROID) 75 mcg tablet Take [...] tablet ??? ibuprofen (ADVIL) 200 mg tablet BP 140/75 (BP Location (NBP): Left arm) Pulse 57 Temp 36.6 ??C (97.9 ??F) (Tympanic) Resp 16 Wt 83 kg (183 lb) SpO2 97% BMI 29.54 kg/m?? PE NAD CV: RRR, S1 S2 physiologic, no murmurs, JVP estimated @ 7 cm H2O Pulm: Non-labored, CTAB, no w/r/r Abd: soft, NT, ND, +BS, no bruits Vasc: 2+ bilat radial with favorable Justin's test on the R, 2+ bilat femoral pulses w/o bruits, 2+ bilat DP pulses Extr: wwp, no edema ASA: 2: Patient with mild systemic disease Mallampati: I: soft palate, fauces, tonsillar pillars and uvula can be seen Labs reviewed and notable for: Labs pending Cardiac testing reviewed, of note: stress test as above A/P 69 y.o. female here for cardiac catheterization for evaluation of angina. A discussion was held reviewing the benefits and attendant risks of diagnostic or therapeutic catheterization. The risks include, but are not limited to: stroke, , myocardial infarction, bleeding, limb loss, infection, dye reaction, vascular injury, arrhythmias. If an intervention is performed, risks would include the potential for vessel closure, need for emergency CABG, subacute closure, restenosis. After a discussion about the above, and having answered all questions posed, the patient was provided with a consent which was reviewed and signed. - Proceed as planned - Consent reviewed and signed - No obvious CI to DAPT - Sedation plan: moderate/conscious sedation - FULL CODE Derrick Campos MD 08/19/2019 10:03 AM documented in this encounter Miscellaneous Notes * Brief Op Note - Elma Almonte MD - 08/19/2019 11:04 AM EDT Preliminary Cardiac Catheterization Procedure Note: Patient Name: Chayo Parker : [id number] MR#: [id number] Case Date: 08/19/2019 Water Registrar: Surgeon(s) and Role: * Elma Almonte MD - Primary * Derrick Campos MD - Fellow Preoperative diagnosis: Chest discomfort [R07.89]/Abnormal stress test [R94.39] Postoperative diagnosis: chest pain , uncertain etiology Procedure(s) performed: Coronary angiography, left heart cath Access: 6 SL R radial => TR band A time-out was conducted prior to the start of the procedure to verify the correct patient and procedure, procedure location, and all relevant critical information. Preliminary findings: R dominant circulation, normal coronaries with large ramus, LVEDP 20. The patient tolerated the procedures smoothly and was transferred from the cardiac catheterization lab to the next level of care in stable condition. No evident early complications. Full report to follow. ELMA ALMONTE MD documented in this encounter Plan of Treatment Not on file documented as of this encounter Procedures Procedure Name Priority Date/Time Associated Diagnosis Comments ECHO COMPLETE Routine 08/19/2019 2:52 PM EDT Chest discomfort EKG 12-LEAD Routine 08/19/2019 10:25 AM EDT Chest discomfort Abnormal stress test HC VENIPUNCTURE STAT 08/19/2019 9:33 AM EDT HEMOGRAM STAT 08/19/2019 9:33 AM EDT DIFFERENTIAL, AUTOMATED STAT 08/19/2019 9:33 AM EDT HC CBC,PLT & AUTO DIFF STAT 08/19/2019 9:33 AM EDT documented in this encounter Results * ECHO COMPLETE (08/19/2019 2:52 PM EDT) [facility] Signature EF 65 HEARTLAB SYSTEM Anatomical Region Laterality Modality Other 08/19/2019 Narrative 08/19/2019 3:14 PM EDT Procedure: ?Transthoracic Echocardiogram Patient: ?PARKER CHAYO S ? (Age): 1950(69y) Med Rec#: ? [id number] ?Sex: ?F ? Site Loc: ? [facility] ?Ht / Wt: ??168(cm)/84(kg) Pt. Loc: ?PACU ?BSA: ?1.94 Study Date: ?? 08/19/2019 ?Pt. Type: Same-Day Patient Tape: ? Referring: [email or web address] Reading: Derrick Leung ([id number]) Linemarker: Niki Martinez Interpreting Fellow: Lakshmi Tobin ([id number]) Diagnosis: *Other chest pain (R07.89) BP: ? [...] Vmax ?0.68 ? m/sec ? MV deceleration [id number] ? msec ? MV A-wave Vmax ?0.59 [...] ? Mid-Inferior ?Normal ? Mid-Inferoseptal ?Normal ? [place]-Septal ? Normal ? [place]-Anterior ? Normal ? [place]-Lateral ?Normal ? [place]-Inferior ? Normal ? [place]-Tip ?Normal ? This report has been electronically signed by: Derrick Leung M.D. ? 08/19/2019 15:14:00 Images reviewed and interpretation verified [facility] Ultrasound [facility] Procedure Note Derrick Leung MD - 08/19/2019 Procedure: Transthoracic Echocardiogram Patient: VIRAL Hector DOB(Age): 1950(69y) Med Rec#: [id number] Sex: F Site Loc: [facility] Ht / Wt: 168(cm)/84(kg) Pt. Loc: PACU BSA: 1.94 Study Date: 08/19/2019 Pt. Type: Same-Day Patient Tape: Referring: [facility] Reading: Derrick Leung ([id number]) Linemarker: Niki Martinez Interpreting Fellow: Lakshmi Tobin ([id number]) Diagnosis: *Other chest pain (R07.89) BP: 138/74 [...] MV E-wave Vmax 0.68 m/sec MV deceleration [id number] msec MV A-wave Vmax 0.59 m/sec MV [...] Normal Mid-Posterolateral Normal Mid-Inferior Normal Mid-Inferoseptal Normal [place]-Septal Normal [place]-Anterior Normal [place]-Lateral Normal [place]-Inferior Normal [place]-Tip Normal This report has been electronically signed by: Derrick Leung M.D. 08/19/2019 15:14:00 Images reviewed and interpretation verified [facility] Ultrasound [facility] Elma Almonte MD ECHO ORDERABLES * EKG 12 Lead (08/19/2019 10:25 AM EDT) Ventricular rate 51 BPM MUSE SYSTEM Atrial Rate 51 BPM MUSE SYSTEM P-R Interval 192 ms MUSE SYSTEM QRS Duration 92 ms MUSE SYSTEM Q-T Interval 436 ms MUSE SYSTEM QTC Calculated (Bezet) 401 ms MUSE SYSTEM Calculated P [place] 68 degrees MUSE SYSTEM Calculated R [place] 62 degrees MUSE SYSTEM Calculated T [place] 68 degrees MUSE SYSTEM INTERPRETATION Sinus bradycardia Otherwise normal ECG When compared with ECG of 20-FEB-2009 15:55, No significant change was found Confirmed by Melissa Lema ([id number]) on 08/19/2019 1:13:27 PM MUSE SYSTEM 08/19/2019 10:2 5 AM EDT 08/19/2019 1:13 PM EDT Elma Almonte MD ECG ORDERABLES MUSE SYSTEM * Differential, Automated (08/19/2019 9:33 AM EDT) Neutrophil % 51.1 % [facility] Neutrophil Absolute 2.03 1.70 - 6.10 x10(3)/[facility] Lymph % 31.2 % [facility] Lymphocytes Abs 1.2 0.9 - 3.2 x10(3)/[facility] LAB[facility] Monocyte % 8.8 % [facility] Monocyte Abs 0.4 0.3 - 0.9 x10(3)/[facility] Eos % 8.1 % [facility] Eosinophils Abs 0.3 0.0 - 0.4 x10(3)/[facility] Basophil % 0.5 % [facility] Baso Absolute 0.0 0.0 - 0.1 x10(3)/[facility] LABOR[facility] Immature Gran % 0.30 % [facility] Comment: Immature granulocytes(IG's)percentage and absolute count will include metamyelocytes, myelocytes, and promyelocytes. Blood smears from CBCs yielding IG's will be scanned manually for concordance. If this scan disagrees with the automated IG or if promyelocytes are noted, a manual differential will be performed. Immature Gran Absolute 0.01 0.00 - 0.04 x10(3)/[facility] Blood specimen (specimen) 08/19/2019 9:33 AM EDT 08/19/2019 9:50 AM EDT Narrative Resulting Agency Comment Spec In Lab [facility] ORDERABLE S [facility] [place] [address] * (ABNORMAL) Hemogram (08/19/2019 9:33 AM EDT) White Blood Cell 4.0 4.0 - 9.5 x10(3)/mc L [facility] Red Blood Cell 4.06 4.00 - 5.21 x10(6)/mc L [facility] Hemoglobin 12.1 11.7 - 15.5 gm/dL [facility] Hematocrit 38.9 35.7 - 45.8 % [facility] Mean Cell Volume 95.8(H) 82.6 - 94.4 fL [facility] Mean Cell Hemoglobin 29.8 27.1 - 32.0 pg [facility] Mean Cell Hemoglobin Concentration 31.1(L) 31.7 - 35.0 gm/dL [facility] Platelet 256 145 - 357 x10(3)/mc L [facility] RDW Standard Deviation 43.9 37.0 - 46.0 fL [facility] RDW coefficient of variation 12.4 11.5 - 14.1 % [facility] Mean Platelet Volume 10.7 7.6 - 12.9 fL [facility] NRBC% auto 0.0 % [facility] NRBC Absolute 0.000 0.000 - 0.000 x10(3)/mc L [facility] Blood specimen (specimen) 08/19/2019 9:33 AM EDT 08/19/2019 9:50 AM EDT Narrative Resulting Agency Comment Spec In Lab [facility] ORDERABLE S Performing Organization Address City/State/[facility] Co de Phone Number [facility] [place] [phone] * (ABNORMAL) BMP w/fasting Glucose (08/19/2019 9:33 AM EDT) Glucose Fasting 100(H) 65 - 99 mg/dL [facility] Comment: ?Fasting* Glucose Interpretive Criteria Normal [...] of Diabetes Mellitus, Position Statement from the [place] [employer]. ??Diabetes Care, Volume 33, Supplement 1, Apr 2009 Blood Urea Nitrogen 19(H) 8 - 18 mg/dL [facility] Creatinine 0.75 0.70 - 1.20 mg/dL [facility] Sodium 145 135 - 145 mmol/L [facility] Potassium 4.4 3.5 - 5.0 mmol/L [facility] Comment: Please note: ??Patients with WBC >100,000 may have falsely elevated Potassium levels. ??For accurate Potassium quantification in these patients send serum separator tube (gold top) for subsequent determinations. ??Contact the Clinical Chemistry Laboratory if there are any questions. Chloride 106 98 - 107 mmol/L [facility] Carbon Dioxide 26 22 - 31 mmol/L [facility] Anion Gap 13 5 - 15 mmol/L [facility] Calcium 9.4 8.5 - 10.5 mg/dL [facility] Est Glomerular Filtration Rate 82 >=60 mL/min/1. 73 m?? [facility] Comment: The eGFR was calculated using the CKD-EPI equation. As with all creatinine based estimates of kidney function, eGFR values calculated with the CKD-EPI equation are not accurate in patients with acute kidney failure, extremes of body mass or the acutely ill. [email or web address] eGFR 95 >=60 mL/min/1. 73 m?? [facility] Comment: The eGFR was calculated using the CKD-EPI equation. As with all creatinine based estimates of kidney function, eGFR values calculated with the CKD-EPI equation are not accurate in patients with acute kidney failure, extremes of body mass or the acutely ill. [email or web address] Blood specimen (specimen) 08/19/2019 9:33 AM EDT 08/19/2019 9:50 AM EDT Narrative Resulting Agency Comment Spec In Lab Elma Almonte MD CHEMISTRY ORDERABLES [facility] [place] [address] documented in this encounter Visit Diagnoses Diagnosis Chest discomfort Other chest pain Abnormal stress test Other nonspecific abnormal cardiovascular system function study Chest discomfort Other chest pain Abnormal stress test Other nonspecific abnormal cardiovascular system function study documented in this encounter Administered Medications Inactive Administered Medications - up to 3 most recent administrations Medication Order MAR Action Action Date Dose Rate Site fentaNYL 50 mcg/mL multi-dose injection ONCE PRN, Starting on Thu08/19/19 at 1043, Until Thu08/19/19 at 1537, Cath (Intra-Procedure), Routine Given 08/19/2019 10:43 AM EDT 25 mcg heparin (porcine) 1,000 unit/mL injection ONCE PRN, Starting on Thu08/19/19 at 1051, Until Thu08/19/19 at 1537, Cath (Intra-Procedure), Routine Given 08/19/2019 10:51 AM EDT 4,000 Units midazolam (PF) (VERSED) multi-dose injection ONCE PRN, Starting on Thu08/19/19 at 1043, Until Thu08/19/19 at 1537, Cath (Intra-Procedure), Routine Given 08/19/2019 10:43 AM EDT 1 mg nitroGLYcerin 100 mcg/mL intracoronary dilution ONCE PRN, Starting on Thu08/19/19 at 1052, Until Thu08/19/19 at 1537, Cath (Intra-Procedure), Routine Given 08/19/2019 10:52 AM EDT 150 mcg verapamiL (ISOPTIN) injection ONCE PRN, Starting on Thu08/19/19 at 1052, Until Thu08/19/19 at 1537, Administer over 2 Minutes, Cath (Intra-Procedure) Given 08/19/2019 10:52 AM EDT 2.5 mg documented in this encounter Active and Recently Administered Medications Times are shown in EDT. PRN Medication Order 08/17/2019 08/18/2019 08/19/2019 fentaNYL 50 mcg/mL multi-dose injection (CANCELED) ONCE PRN, Starting on Thu08/19/19 at 1043, Until Thu08/19/19 at 1537, Cath (Intra-Procedure), Routine 1043 (Given - Provid er: Elma Connell RN) heparin (porcine) 1,000 unit/mL injection (CANCELED) ONCE PRN, Starting on Thu08/19/19 at 1051, Until Thu08/19/19 at 1537, Cath (Intra-Procedure), Routine 1051 (Given - Provid er: Elma Connell RN) midazolam (PF) (VERSED) multi-dose injection (CANCELED) ONCE PRN, Starting on Thu08/19/19 at 1043, Until Thu08/19/19 at 1537, Cath (Intra-Procedure), Routine 1043 (Given - Provid er: Elma Connell RN) nitroGLYcerin 100 mcg/mL intracoronary dilution (CANCELED) ONCE PRN, Starting on Thu08/19/19 at 1052, Until Thu08/19/19 at 1537, Cath (Intra-Procedure), Routine 1052 (Given - Provid er: Derrick Campos) verapamiL (ISOPTIN) injection (CANCELED) ONCE PRN, Starting on Thu08/19/19 at 1052, Until Thu08/19/19 at 1537, Administer over 2 Minutes, Cath (Intra-Procedure) 1052 (Given - Provid er: Derrick Campos) documented in this encounter Care Teams Regional Merchandising Manager Relationship Specialty Start Date End Date Sheree Deng, BECK [address] [place] [address] PCP - General Internal Medicine 08/12/19 documented as of this encounter
--- OUTSIDE RECORDS SUMMARY | 2023-11-18 17:38 | XMS_ITS | Encounter Summary ---
Author Organization [facility], Located Within [facility] [place] [address] Care Team Providers Care Brush And Broom Clipper Name Role Phone Ish Sheree Espino APRN Primary Care Provider [phone] Reason for Visit * Auth/Cert Specialty Diagnoses / Procedures Referred By Contac t Referred To Contact Diagnoses Chest discomfort [R07.89]/Abnormal stress test [R94.39] Procedures PRG CATH PLMT LEFT HEART CATH & ARTS W/INJ & ANGIO IMG S&I CARDIAC CATHETERIZATION CORONARY ANGIOGRAPHY; W LHC,POSSIBLE PCI Referral ID Status Reason Start Date Expiration Date Visits Re quested Visits Authorized [id number] 1 1 Encounter Details Date Type Department Care Team (Latest Contact Info) Description 08/19/2019 8:59 AM EDT - 08/19/2019 3:05 PM EDT Hospital Encounter [place] [address] Elma Almonte MD [facility] [place] [address] Chest discomfort; Abnormal stress test Discharge Disposition: Home Social History Tobacco Use [...] Sign Reading Time Taken Comments Blood Pressure 138/74 08/19/2019 2:00 PM EDT Pulse 56 08/19/2019 1:05 PM EDT Temperature 36.8 ??C (98.2 ??F) 08/19/2019 1:29 PM ED T Respiratory Rate 16 08/19/2019 2:00 PM EDT Oxygen Saturation 97% 08/19/2019 2:00 PM EDT Inhaled Oxygen Concentration - - [...] by your doctor, do not take any tzgy-hrp-icyhatj medicinesor herbal preparations without first discussing this with your doctor or pharmacist. There is the possibility of side effects and interactions when these are combined. Follow Up Care Who to call with questions or problems If there are any questions or problems that you think might be related to your cardiac cath or angioplasty, contact the furnace combustion analyst button station worker by calling [facility] at . documented in this [...] - 08/19/2019 3:05 PM EDT Patient Name: Karen Stratton Patient Age: 69 y.o. Birthdate: 1950 Admit date: 08/19/2019 Attending Physician: No att. providers found documented in this encounter H&P Notes * Derrick Campos - 08/19/2019 10:03 AM EDT Images from the original note were not included. Karen Stratton is a 69 y.o. female referred for [...] Preliminary Cardiac Catheterization Procedure Note: Patient Name: Karen Stratton : [id number] MR#: [id number] Case Date: 08/19/2019 Lesson Instructor: Surgeon(s) and Role: * Elma Almonte MD [...] evident early complications. Full report to follow. ELAM ALMONTE MD documented in this encounter Plan [...] * ECHO COMPLETE (08/19/2019 2:52 PM EDT) Pathologist [facility] EF 65 HEARTLAB SYSTEM Anatomical Region Laterality Modality Other 08/19/2019 Narrative 08/19/2019 3:14 PM EDT Procedure: ?Transthoracic Echocardiogram Patient: ?VIRAL DOMINGO S ? (Age): 1950(69y) Med Rec#: ? [id number] ?Sex: ?F ? Site Loc: ? [facility] ?Ht / Wt: ??168(cm)/84(kg) Pt. Loc: ?PACU ?BSA: ?1.94 Study Date: ?? 08/19/2019 ?Pt. Type: Same-Day Patient Tape: ? Referring: PERITZDAVIND Reading: Derrick Leung ([id number]) Law Instructor: Niki Martinez Interpreting Fellow: Lakshmi Tobin ([id number]) Diagnosis: *Other chest pain (R07.89) BP: ? [...] Vmax ?0.68 ? m/sec ? MV deceleration [id number] ? msec ? MV A-wave Vmax ?0.59 [...] ? Mid-Inferior ?Normal ? Mid-Inferoseptal ?Normal ? Sewell-Septal ? Normal ? Sewell-Anterior ? Normal ? Sewell-Lateral ?Normal ? Sewell-Inferior ? Normal ? Sewell-Tip ?Normal ? This report has been electronically signed by: Derrick Leung M.D. ? 08/19/2019 15:14:00 Images reviewed and interpretation verified [facility] Cardiac Ultrasound Laboratory Procedure Note Derrick Leung MD - 08/19/2019 Procedure: Transthoracic Echocardiogram Patient: VIRAL LEBLANC(Age): 1950(69y) Med Rec#: [id number] Sex: F Site Loc: [facility] Ht / Wt: 168(cm)/84(kg) Pt. Loc: PACU BSA: 1.94 Study Date: 08/19/2019 Pt. Type: Same-Day Patient Tape: Referring: [facility] Reading: Derrick Leung ([id number]) Law Instructor: Niki Martinez Interpreting Fellow: Lakshmi Tobin ([id number]) Diagnosis: *Other chest pain (R07.89) BP: 138/74 [...] MV E-wave Vmax 0.68 m/sec MV deceleration [id number] msec MV A-wave Vmax 0.59 m/sec MV [...] Normal Mid-Posterolateral Normal Mid-Inferior Normal Mid-Inferoseptal Normal Sewell-Septal Normal Sewell-Anterior Normal Sewell-Lateral Normal Sewell-Inferior Normal Sewell-Tip Normal This report has been electronically signed by: Derrick Leung M.D. 08/19/2019 15:14:00 Images reviewed and interpretation verified [facility] Cardiac Ultrasound Laboratory Elma Almonte MD ECHO ORDERABLES * EKG 12 Lead (08/19/2019 10:25 AM EDT) Ventricular rate 51 BPM MUSE SYSTEM Atrial Rate 51 BPM MUSE SYSTEM P-R Interval 192 ms MUSE SYSTEM QRS Duration 92 ms MUSE SYSTEM Q-T Interval 436 ms MUSE SYSTEM QTC Calculated (Bezet) 401 ms MUSE SYSTEM Calculated P [place] 68 degrees MUSE SYSTEM Calculated R [place] 62 degrees MUSE SYSTEM Calculated T [place] 68 degrees MUSE SYSTEM INTERPRETATION Sinus bradycardia Otherwise normal ECG When compared with ECG of 20-FEB-2009 15:55, No significant change was found Confirmed by Melissa Lema ([id number]) on 08/19/2019 1:13:27 PM MUSE SYSTEM 08/19/2019 10:2 5 AM EDT 08/19/2019 1:13 PM EDT Elma Almonte MD ECG ORDERABLES MUSE SYSTEM * Differential, Automated (08/19/2019 9:33 AM EDT) Neutrophil % 51.1 % [facility] Neutrophil Absolute 2.03 1.70 - 6.10 x10(3)/[facility] Lymph % 31.2 % [facility] Lymphocytes Abs 1.2 0.9 - 3.2 x10(3)/[facility] Monocyte % 8.8 % [facility] Monocyte Abs 0.4 0.3 - 0.9 x10(3)/[facility] Eos % 8.1 % [facility] Eosinophils Abs 0.3 0.0 - 0.4 x10(3)/[facility] Basophil % 0.5 % [facility] Baso Absolute 0.0 0.0 - 0.1 x10(3)/[facility] Immature Gran % 0.30 % [facility] Comment: Immature granulocytes(IG's)percentage and absolute count will include metamyelocytes, myelocytes, and promyelocytes. Blood smears from CBCs yielding IG's will be scanned manually for concordance. If this scan disagrees with the automated IG or if promyelocytes are noted, a manual differential will be performed. Immature Gran Absolute 0.01 0.00 - 0.04 x10(3)/[facility] Blood specimen (specimen) 08/19/2019 9:33 AM EDT 08/19/2019 9:50 AM EDT Narrative Resulting Agency Comment Spec In Lab [place] [facility] ORDERABLE S [facility] [place] [address] * (ABNORMAL) Hemogram (08/19/2019 9:33 AM EDT) White Blood Cell 4.0 4.0 - 9.5 x10(3)/ L [facility] Red Blood Cell 4.06 4.00 - 5.21 x10(6)/ L [facility] Hemoglobin 12.1 11.7 - 15.5 gm/dL [facility] Hematocrit 38.9 35.7 - 45.8 % [facility] Mean Cell Volume 95.8(H) 82.6 - 94.4 fL [facility] Mean Cell Hemoglobin 29.8 27.1 - 32.0 pg [facility] Mean Cell Hemoglobin Concentration 31.1(L) 31.7 - 35.0 gm/dL [facility] Platelet 256 145 - 357 x10(3)/mc L [facility] RDW Standard Deviation 43.9 37.0 - 46.0 fL [facility] RDW coefficient of variation 12.4 11.5 - 14.1 % [facility] Mean Platelet Volume 10.7 7.6 - 12.9 fL [facility] NRBC% auto 0.0 % [facility] NRBC Absolute 0.000 0.000 - 0.000 x10(3)/mc L [facility] Blood specimen (specimen) 08/19/2019 9:33 AM EDT 08/19/2019 9:50 AM EDT Narrative Resulting Agency Comment Spec In Lab [place] [facility] ORDERABLE S Performing Organization Address City/State/[facility] Co de Phone Number [facility] [place] [place] [address] * (ABNORMAL) BMP w/fasting Glucose (08/19/2019 9:33 AM EDT) Glucose Fasting 100(H) 65 - 99 mg/dL [facility] Comment: ?Fasting* Glucose Interpretive [...] of Diabetes Mellitus, Position Statement from the [place] [employer]. ??Diabetes Care, Volume 33, Supplement 1, Apr 2009 Blood Urea Nitrogen 19(H) 8 - 18 mg/dL [facility] Creatinine 0.75 0.70 - 1.20 mg/dL [facility] Sodium 145 135 - 145 mmol/L [facility] Potassium 4.4 3.5 - 5.0 mmol/L [facility] Comment: Please note: ??Patients with WBC >100,000 may have falsely elevated Potassium levels. ??For accurate Potassium quantification in these patients send serum separator tube (gold top) for subsequent determinations. ??Contact the Clinical Chemistry Laboratory if there are any questions. Chloride 106 98 - 107 mmol/L [facility] Carbon Dioxide 26 22 - 31 mmol/L [facility] Anion Gap 13 5 - 15 mmol/L [facility] Calcium 9.4 8.5 - 10.5 mg/dL [facility] Est Glomerular Filtration Rate 82 >=60 mL/min/1. 73 m?? [facility] Comment: The eGFR was calculated using the CKD-EPI equation. As with all creatinine based estimates of kidney function, eGFR values calculated with the CKD-EPI equation are not accurate in patients with acute kidney failure, extremes of body mass or the acutely ill. http://[employer]eebrite/DHMCnkf eGFR 95 >=60 mL/min/1. 73 m?? [facility] Comment: The eGFR was calculated using the CKD-EPI equation. As with all creatinine based estimates of kidney function, eGFR values calculated with the CKD-EPI equation are not accurate in patients with acute kidney failure, extremes of body mass or the acutely ill. http://[employer]eebr[employer]/DHMCnkf Blood specimen (specimen) 08/19/2019 9:33 AM EDT 08/19/2019 9:50 AM EDT Narrative Resulting Agency Comment Spec In Lab Elma Almonte MD CHEMISTRY ORDERABLES [facility] [place] [place] [address] documented in this encounter Visit Diagnoses Diagnosis Chest discomfort Other chest pain Abnormal stress test Other nonspecific abnormal cardiovascular system function study documented in this encounter Active and Recently [...] Campos) documented in this encounter Care Teams Brush And Broom Clipper Relationship Specialty Start Date End Date Sheree Deng, WIRE INSULATOR [address] [place] [address] PCP - General Internal Medicine 08/12/19 documented as of this encounter
--- OUTSIDE RECORDS SUMMARY | 2023-11-18 17:38 | XMS_ITS | Encounter Summary ---
Author [facility] [place] [address] Care Team Providers Care Color Receiver Name Role Phone Sheree Deng APRN Primary Care Provider [phone] Encounter Details Date Type Department Care Team (Late st Contact Info) Description 06/12/2004 Orders Only Dermatology at [place] [address] [facility] [place] [address] Issac Evans MD [address] [facility] [place] [address] Social History Tobacco Use Types Packs/Day Years Used Date Smoking Tobacco: Never Assessed [facility] Utilities Answer Date Recorded In the [...] Associated Diagnosis Comments SURGICAL PATHOLOGY REPORT Routine 06/12/2004 8:32 PM EST documented in this encounter Results * Surgical Pathology Report (06/12/2004 8:32 PM EST) Surgical Pathology Report [id number] ? Location: The signing pathologist has (i) examined the relevant preparation(s) for the specimen(s) and (ii) rendered or confirmed the diagnosis(es). . ?Pathology Surgical Pathology Final Report Clinical Information Specimen Submitted: A - (R) Upper back, 6 mm punch Clinical History: Atypical mole, irritated. ??Atypical nevus, irritated Gross Description Labeled/Fixativ e: ? Labeled with the patient's name, formalin. Qty/Size/Weight : ?Single punch, 0.6 cm, of rubbery, watson skin, excised ?to a depth of 0.2 cm with an eccentric, 0.2 x 0.2-cm, ?ovoid, symmetrical, watson-brown macule. Sections/Proces sing: ??Bisected through the macule. ??(T1) ??aje/EJR Microscopic Description Slides reviewed, microscopic description not recorded. Diagnosis Right upper back, punch biopsy: ??Dermatofibrom a, focally present at a peripheral edge and at the deep edge of the specimen. CR-0 06/13/04 MIMI 06/13/04 Verified by: ? Abhishek Lopez MD ?Dermatopathol ogist ?(Electronic Signature) The attending pathologist whose signature appears on this report has reviewed all diagnostic slides and has edited the gross and/or microscopic portion of the report in rendering the final pathologic diagnosis. DANIEL NAM 06/12/2004 8:32 PM EST Issac Evans MD PATHOLOGY/CYTOLOGY O RDERABLES Performing Organization Address City/State/[facility] Co de Phone Number DANIEL NAM documented in this encounter Visit Diagnoses Not on filedocumented in this encounter Care Teams Color Receiver Relationship Specialty Start Date End Date Sheree Deng, TRAIN BRAKEMAN [address] [place] [address] PCP - General Internal Medicine 08/12/19 documented as of this encounter
--- OUTSIDE RECORDS SUMMARY | 2023-11-18 17:39 | XMS_ITS | Continuity of Care Document ---
Author Name [facility] Organization [facility] Care Team Providers Care Coil Spring Assembler Name Role Phone [facility] Unavailable Unavailable Social History Combined list of available smoking, tobacco, and other social history from Department of Defense and Veterans Affairs facilities. Social History Type Response Date Comment Sourc e This section is an empty social history section. [facility]
[2023-11-19 11:46] LABS: Hemoglobin A1C 5.7 % (<5.7)
[2023-11-20 15:45] LABS: Albumin 60.3 % (55.8-66.1); Comment (See Note); Total Protein 6.6 g/dL (6.3-8.2)
[2023-11-20 16:42] LABS: Immunotyping, Serum (See Note)
== END 2023-11-18 17:36 | disposition home or self-care (01) ==
LOC: LBO 17:36
PROVIDERS: PCP Nurse Practitioner; Visit Provider Nurse Practitioner Adult Health
DX: G62.9 Polyneuropathy, unspecified (principal)
CPT/HCPCS: 36415; 82607; 83036; 84165; 86320

== ENCOUNTER 2024-01-08 00:44 | Outpatient (CLI) | payer OTHER, SELFPAY ==
--- OUTSIDE RECORDS SUMMARY | 2024-01-08 00:46 | XMS_ITS | Encounter Summary ---
[place] [address] Care Team Providers Care Egg Caser Name Role Phone Sheree Deng APRN Primary Care Provider [phone] Encounter Details Date Type Department Care Team (Late st Contact Info) Description 12/31/2022 External [place] [id number] Provider, Scanning Social History Tobacco Use Types [...] on filedocumented in this encounter Care Teams Egg Caser Relationship Specialty Start Date End Date Sheree Deng APRN [address] [place] [address] PCP - General Internal Medicine 08/12/19 documented as of this encounter
--- OUTSIDE RECORDS SUMMARY | 2024-01-08 00:46 | XMS_ITS | Encounter Summary ---
[place] [address] Care Team Providers Care Design Printing Machine Set Up Operator Name Role Phone IshKathryne Kenzie SOLARES Primary Care Provider [phone] Reason for Referral * Consultation (Routine) - Closed Specialty Diagnoses / Procedures Referred By Tom eaton Referred To Contact Endocrinology Diagnoses Primary thyroid cancer Ita Mueller MD [facility] [place] [address] [facility] [address] [place] [phone] Referral ID Status Reason Start Date Expiration Date V isits Requested Visits Authorized [id number] Closed Consult, Test & Treat 02/11/2023 02/11/2024 1 1 * Consultation (Routine) - Closed Specialty Diagnoses / Procedures Referred By Contac t Referred To Contact Radiation Oncology Diagnoses Primary thyroid cancer Ita Mueller MD [facility] [place] [address] Bethel Prater MD [facility] [place] [address] Referral ID Status Reason Start Date Expiration Date V isits Requested Visits Authorized [id number] Closed Consult, Test & Treat 02/11/2023 02/11/2024 1 1 Encounter Details Date Type Department Care Team (Late st Contact Info) Description 02/11/2023 Telephone [place] [address] Ita Mueller MD [facility] [place] [address] Social History Tobacco Use Types Packs/Day Years Used Date Smoking Tobacco: Never Smokeless Tobacco: Never Alcohol Use Standard Drinks/Week Comments No 0 (1 standard drink = 0.6 oz pur e alcohol) once in a while [facility] Inpatient Questions Answer Date Recorded Does Anyone [...] gland documented in this encounter Care Teams Design Printing Machine Set Up Operator Relationship Specialty Start Date End Date Sheree Deng, MANAGER DATA WAREHOUSE [address] [place] [address] PCP - General Internal Medicine 08/12/19 documented as of this encounter
--- OUTSIDE RECORDS SUMMARY | 2024-01-08 00:46 | XMS_ITS | Encounter Summary ---
Author Organization [facility] [place] [address] Care Team Providers Care Winch Driver Name Role Phone Aleida Dengyce Kenzie SOLARES Primary Care Provider [phone] Reason for Visit * Auth/Cert (Routine) Specialty Diagnoses / Procedures Referred By Contac t Referred To Contact Diagnoses Malignant neoplasm of thyroid gland Nontoxic multinodular goiter THYROID CANCER Procedures PRO THYROIDECTOMY, MALIG, LTD NECK SURG PRG EMG, LARYNX THYROIDECTOMY, FOR MALIGNANCY, LIMITED NECK DISSECTION (WRVU 22.01) FACIAL NERVE MONITORING, SETUP LARYNGEAL (WRVU 1.57) Sophia Mcwilliams MD [facility] [address] [facility] Referral ID Status Reason Start Date Expiration Date Visits Re quested Visits Authorized [id number] 1 1 Encounter Details Date Type Department Care Team (Late st Contact Info) Description 2023 1:00 PM EDT - 2023 5:45 PM EDT [place] [id number] Sophia Mcwilliams MD [facility] [address] THYROIDECTOMY, FOR MALIGNANCY, LIMITED NECK DISSECTION (WRVU [...] nodule suspicious for malignancy who presents to [facility] for total thyroidectomy and central neck dissection. [...] Hospital Course: Karen Stratton was admitted to [facility] on 2023 viathe Same Day Program. [...] [place] 03/13/2023 11:00 AM Lisa Cortes APRN [facility] SURG [facility] Outpatient Services/Studies: PTH Standing Status: Future Standing [...] Take NSAIDS and/or Tylenol every 6 hours edjhrz-avb-okspd for the first 3-5 days following surgery [...] will be mailed to you Please call [phone] to confirm the date and time of [...] is just fine. Phone number for questions: [phone] before 5 PM on weekdays [phone] after 5 PM and on weekends/holidays. Ask for the general surgery resident vector control assistant. General Instructions None Future Appointments and Orders Future Appointments and Orders Future Appointments Provider Department Dept Phone 03/13/2023 10:00 AM LAB, THREE L Lab 3L [facility] Arrive at: Recreation Establishment Manager Area 3L [phone] 03/13/2023 11:00 AM Lisa Cortes APRN General Surgery at [facility] Arrive at: Recreation Establishment Manager Area 4L [phone] Future Orders Complete By Expires Calcium [LAB53 Custom] 02/23/2023 (Approximate) 08/25/2023 Process Instructions: Scheduling Instructions: Comments: Questions: PTH [[id number] Custom] 02/23/2023 (Approximate) 01/24/2024 Process Instructions: Interpretation of PTH results should include a recent calcium concentration Scheduling Instructions: Comments: Questions: Thyroglobulin [IZX002 Custom] 02/23/2023 (Approximate) 08/25/2023 Process Instructions: This order includes both Thyroglobulin and Thyroglobulin Antibody assays. Scheduling Instructions: Comments: Questions: TSH [[id number] Custom] 02/23/2023 (Approximate) 08/25/2023 Process Instructions: Scheduling Instructions: Comments: Questions: Discharge References/Attachments: Discharge References/Attachments None Follow-up Recommendations for Providers: Medication changes: Synthroid dose increased to 125mcg daily to reflect full thyroid hormone replacement dose Diet changes: None Other: N/A CC: Sheree Deng APRN [phone] Signed: Pio Ray MD Endocrine Surgery Service Team Pager #[phone] 01/24/2023 9:14 AM For questions regarding this document or issues relating to this hospitalization on the Endocrine Surgery Service, please contact Radha Nichols MD's office at [phone] (Endocrine Surgery) documented in this encounter Discharge [...] Take NSAIDS and/or Tylenol every 6 hours gohbuk-gsk-shpqp for the first 3-5 days following surgery [...] will be mailed to you Please call [phone] to confirm the date and time of [...] is just fine. Phone number for questions: [phone] before 5 PM on weekdays [phone] after 5 PM and on weekends/holidays. Ask for the general surgery resident vector control assistant. documented in this encounter Medications at Time [...] Rice RN - 01/24/2023 11:15 AM EDT [facility] Short Stay Unit Discharge Note All [...] no signs of bleeding or swelling A/P: aKren Stratton is a 73 y.o. female patient s/p thyroidectomy with limited left central neck dissection. Currently recovering well, no complaints. Physical exam non-concerning. Has had urinary void since surgery. 1. Pain- controlled 2. Nausea- denies 3. Specific c/o- none 4. Diet: Regular Angela Edgar MD General Surgery * Prosper Rice RN - 2023 7:19 PM EDT [facility] Short Stay Unit Shift Note The [...] nodule suspicious for malignancy who presents to [facility] for total thyroidectomy andcentral neck dissection. Please see Dr. Lua's 01/07 clinic note for additional information. 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 silicon implant BREAST RECONSTRUCTION 04/13/2009 BREAST [...] Operative Note Patient Name: Karen Stratton : [id number] MR#: [id number] Case Date: 2023 Surgeon: Surgeon(s) and Role: [...] Mcwilliams MD - 2023 2:09 PM EDT [facility] Operative Note Patient Name: Karen Stratton : [id number] MR#: [id number] Case Date: 2023 Surgeon: Surgeon(s) and Role: [...] months, and FNA demonstrating suspicious for malignancy ([place] 5) cytology on the left and AUS [...] anesthesia was achieved by anesthesiology with the [employer] recurrent laryngeal nerve monitoring system. A natural [...] 3:28 PM EDT Needle Electromyography, Larynx Global ([id number]) Yes 2023 1:30 PM EDT THYROID CANCER Thyroidectomy, Malig, Ltd Neck Surg ([id number]) Yes 2023 1:30 PM EDT THYROID CANCER documented in this encounter Results * (ABNORMAL) Thyroglobulin (03/09/2023 1:54 PM EST) Thyroglobulin 0.2(L) 1.3 - 31.8 ng/mL [facility] Comment: INTERPRETIVE INFORMATION: Thyroglobulin, Serum or Plasma Specimens negative for thyroglobulin antibodies (TgAb) are tested for thyroglobulin (Tg) by chemiluminescent immunoassay (ELENI) using the Lyndon Doorman Access DxI method. Specimens with TgAb results [...] Ab <0.9 0.0 - 4.0 IU/mL [facility] Comment: INTERPRETIVE INFORMATION: Thyroglobulin Antibody A value of 4.0 IU/mL or less indicates a negative result for thyroglobulin antibodies. The Thyroglobulin Antibody assay is being performed using the Lyndon Beverly Access DxI method. Please note that as 01/08/22 this testing is performed at [facility]. This change is associated with a change in testing method and reference intervals. Values from other methods may not correlate with this method. Please review the results of this test in assocaition with the posted reference intervals. Thyroglobulin by LC-MS/MS Not Applicable 1.3 - 31.8 ng/mL [facility] Comment: INTERPRETIVE INFORMATION: Thyroglobulin by LC-MS/MS, Serum/Plasma Lower limit of detection for Thyroglobulin by LC-MS/MS is 0.5 ng/mL. This test was developed and its performance characteristics determined by [facility]. It has not been cleared or approved by the [place] Food and Drug Administration. This test was performed in a CLIA certified laboratory and is intended for clinical purposes. Performed By: [facility] [address] [place] [address] Tax[employer]ab Coordinator: Harish Fernandez MD, PhD CLIA Number: [id number] Blood 03/09/2023 1:54 PM EST 03/10/2023 1:42 PM EST Narrative Resulting Agency Comment Spec In Lab Sophia Mcwilliams MD LAB SEND OUT ORDE RABLES Performing Organization Address [facility] Co de Phone Number [facility] [address] * Calcium (03/09/2023 1:54 PM EST) Calcium 9.2 8.5 - 10.5 mg/dL [facility] Blood 03/09/2023 1:54 PM EST 03/09/2023 2:13 PM EST Narrative Resulting Agency Comment Spec In Lab Sophia Mcwilliams MD CHEMISTRY ORDERAB LES Performing Organization Address [facility] Phone Number [facility] [place] [address] * (ABNORMAL) TSH (03/09/2023 1:54 PM EST) Thyroid Stimulating Hormone 9.04(H) 0.27 - 4.20 mcIU/mL [facility] Comment: Reference Interval (mcIU/mL): Females: ??First Trimester: 0.23-3.88 ??Second Trimester: 0.22-3.90 ??Third Trimester: 0.44-4.66 Blood 03/09/2023 1:54 PM EST 03/09/2023 2:13 PM EST Narrative Resulting Agency Comment Spec In Lab Sophia Mcwilliams MD CHEMISTRY ORDERAB LES Performing Organization Address [facility]/ZIP Co de Phone Number [facility] [place] [address] * PTH (03/09/2023 1:54 PM EST) Parathyroid Hormone 57 15 - 65 pg/mL [facility] Blood 03/09/2023 1:54 PM EST 03/09/2023 2:13 PM EST Narrative Resulting Agency Comment Spec In Lab Sophia Mcwilliams MD CHEMISTRY ORDERAB LES Performing Organization Address [facility] Co de Phone Number [facility] [place] [address] * Specimen to Pathology (2023 3:31 PM EDT) AP Specimen 2023 3:31 PM EDT 2023 3:[address] [facility] - 2023 3:31 PM EDT Specimen requisition ordered. ??Separate Pathology report to follow Sophia Mcwilliams MD PATHOLOGY/CYTOLOG Y ORDERABLES Performing Organization Address [facility] Co de Phone Number [facility] [place] [address] * Specimen to Pathology (2023 3:29 PM EDT) AP Specimen 2023 3:29 PM EDT 2023 3:[address] [facility] - 2023 3:29 PM EDT Specimen requisition ordered. ??Separate Pathology report to follow Sophia Mcwilliams MD PATHOLOGY/CYTOLOG Y ORDERABLES Performing Organization Address [facility] Co de Phone Number [facility] [place] [address] * (ABNORMAL) Surgical Pathology Report (2023 3:28 PM EDT) Final Diagnosis [id number] ? Location: SSU; SS08; A The signing [...] ?EMILY STILES Verified: ??02/05/2023 13:41 Performed at: ??-[facility] Dept. of Pathology, [place] [address] Heading And Priming Tool Setter: Boby Sanders MD, FCAP, ??CLIA Certificate: [id number] SYNOPTIC Specimen ? Procedure: ??Total thyroidectomy Tumor [...] ? Tumor Block(s): ??A30, A33 ? [facility] 2021 Q2 Release . DISCUSSION Nuclear [...] black. Sections/Processing: Blocks submitted for decalcification: A71-A82. Bullion Weigher sections in 83 cassettes as follows: ?A1-A6: ??Nodule located on the superior pole left serially sectioned and entirely ? submitted ?A7-A13: ??Bayard of left lobe perpendicularly sectioned and entirely submitted to ? include lesion ?A14-A66: ??Capsule surrounding the lesion in left lobe entirely submitted ?A67: ??Bullion Weigher normal appearing left lobe parenchyma ?A68: ??Bullion Weigher isthmus ?A69-A70: ??Bullion Weigher left lobe lesional parenchyma ?A71-A82: ??Right lobe lesion entirely submitted following decalcification ?A83: ??Bullion Weigher normal-appearing right lobe parenchyma . SPECIMEN PROCESSING [...] submitted ??kjs pps(A) 02/05/2023 1:41 PM EDT [facility] LYMPH NODE SPECIMEN / Unknown 2023 3:28 PM EDT 2023 3:28 PM EDT LYMPH NODE SPECIMEN / Unknown 2023 3:28 PM EDT 2023 3:28 PM EDT Sophia Mcwilliams MD PATHOLOGY/CYTOLOG Y ORDERABLES Performing Organization Address City/State/[facility] Co de Phone Number [facility] [place] [address] [facility] [place] [address] documented in this encounter Visit Diagnoses Not [...] Procedure), Routine 1159 (Given - Provider: Duran Smas RN) acetaminophen (Tylenol) tablet 975 mg 975 mg, Oral, EVERY 6 HOURS SCHEDULED, First dose on Thu01/23/23 at 1800, Until Discontinued, Maximum dose of acetaminophen is 4,000 mg from all sources in 24 hours. When ordered for pain, acetaminophen should be given even when other ordered pain medications are indicated. , Routine 1852 (Given - Provider: Prosper Rice RN)3168 (Given - Provider: Karo Mata, ASHISH) 0554 (Given - Provider: Karo Mata RN)1105 (Given - Provider: Prosper Riec RN) atenoloL (Tenormin) tablet 25 mg 25 [...] Routine documented in this encounter Care Teams Winch Driver Relationship Specialty Start Date End Date Sheree Deng, BECK [address] [place] [address] PCP - General Internal Medicine 08/12/19 documented as of this encounter
--- OUTSIDE RECORDS SUMMARY | 2024-01-08 00:46 | XMS_ITS | Encounter Summary ---
Author Organization [facility] Address [facility] [place] [address] Care Team Providers Care Supervisor Melt House Name Role Phone Sheree Deng APRN Primary Care Provider [phone] Encounter Details Date Type Department Care Team (Latest Contact Info) Description 08/17/2023 Travel Social History Tobacco Use Types Packs/Day Years Used Date Smoking Tobacco: Never Smokeless Tobacco: Never Alcohol Use Standard Drinks/Week Comments No 0 (1 standard drink = 0.6 oz pur e alcohol) once in a while [facility] Utilities Answer Date Recorded In the past [...] place to sleep or slept in a long term (including now)? No 03/11/2023 DH IPV Inpatient [...] on filedocumented in this encounter Care Teams Supervisor Melt House Relationship Specialty Start Date End Date Sheree Deng APRN [address] [place] [address] PCP - General Internal Medicine 08/12/19 documented as of this encounter
--- OUTSIDE RECORDS SUMMARY | 2024-01-08 00:46 | XMS_ITS | Encounter Summary ---
Author Organization [facility] Address [facility] [place] [address] Care Team Providers Care Business Process Analyst Name Role Phone IshSheree APRN Primary Care Provider + [phone] Reason for Visit * Reason Comments Establish Care * Consultation (Routine) - Closed Specialty Diagnoses / Procedures Referred By Tom eaton Referred To Contact General Surgery Diagnoses Malignant neoplasm of thyroid gland Mike Ca MD [address] [place] [id number] Ita Mueller MD [facility] [place] [address] Referral ID Status Reason Start Date Expiration Date V isits Requested Visits Authorized [id number] Closed Consult, Test & Treat 12/24/2022 12/24/2023 1 1 Encounter Details Date Type Department Care Team (Late st Contact Info) Description 01/07/2023 10:00 AM EDT Office Visit [place] [address] Ita Mueller MD [facility] GENERAL SURGERY [place], [place] [id number] Primary thyroid cancer; Multiple thyroid nodules Social [...] ultrasound performed most recently by radiology at [facility], which demonstrated a 2.9cm TR 3 nodule [...] Ca and cytology was suspicious for malignancy ([place] 5) on the left and AUS ([place] 3) on the right. Molecular testing was sent, but has not yet been done due to some sort of administrative issue at [facility]. She is now referred to me for consideration of surgical management of her thyroid disease. 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 Accompanied by her eipifb-fo-jqj. Her grandson lives with her. Good support--son and ddgarzsn-of-awe live close. Daughter in town. 7 grandkids. 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 She does not do any professional public speaking or singing. Review of Systems: 10 of 14 systems reviewed and all negative except as per HPI Vitals Flowsheet Row Office Visit from 01/07/2023 in General Surgery at [facility] Weight 77.1 kg (170 lb) Height 162.6 [...] months, and FNA demonstrating suspicious for malignancy ([place] 5) cytology on the left and AUS [...] of compression: YES FNA: yes FNA Classification: [place] V documented in this encounter Plan of Treatment Not on file documented as of this encounter Visit Diagnoses Diagnosis Primary thyroid cancer Malignant neoplasm of thyroid gland Multiple thyroid nodules Nontoxic multinodular goiter documented in this encounter Care Teams Business Process Analyst Relationship Specialty Start Date End Date Sheree Deng APRN [address] [place] [address] PCP - General Internal Medicine 08/12/19 documented as of this encounter
--- OUTSIDE RECORDS SUMMARY | 2024-01-08 00:46 | XMS_ITS | Encounter Summary ---
Author Organization [facility] [place] [address] Care Team Providers Care Clinical Director Name Role Phone Aleida Dengyce Kenzie SOLARES Primary Care Provider + [phone] Reason for Visit * Consultation (Routine) - Closed Specialty Diagnoses / Procedures Referred By Tom eaton Referred To Contact Endocrinology Diagnoses Primary thyroid cancer Ita Mueller MD [facility] [place] [address] [facility] Endocrinology [address] [place] [address] Referral ID Status Reason Start Date Expiration Date V isits Requested Visits Authorized [id number] Closed Consult, Test & Treat 02/11/2023 02/11/2024 1 1 Encounter Details Date Type Department Care Team (Late st Contact Info) Description 03/09/2023 1:00 PM EST Office Visit [place] [address] Fartun Sherwood MD [facility] [place] [address] Thyroid cancer Social History Tobacco Use Types Packs/Day Years Used Date Smoking Tobacco: Never Smokeless Tobacco: Never Alcohol Use Standard Drinks/Week Comments No 0 (1 standard drink = 0.6 oz pur e alcohol) once in a while [facility] Utilities Answer Date Recorded In the [...] place to sleep or slept in a correction (including now)? No 03/11/2023 DH IPV Inpatient [...] thyroid with FNA demonstrating suspicious for malignancy ([place] 5) cytology on the left and AUS [...] History: Procedure Laterality Date BREAST RECONSTRUCTION 04/13/2009 Seasonal Recruiter then silicon implant BREAST RECONSTRUCTION 04/13/2009 BREAST REDUCTION SURGERY 04/13/2009 SECTION LAPAROSCOPY LAPAROTOMY PRG EMG, LARYNX N/A 2023 FACIAL NERVE MONITORING, SETUP LARYNGEAL (WRVU 1.57) performed by Ita Mueller MD at [facility] MAIN OR PRO THYROIDECTOMY, MALIG, LTD NECK SURG N/A 2023 THYROIDECTOMY, FOR MALIGNANCY, LIMITED NECK DISSECTION (WRVU 22.01) performed by Randy Mueller MD at [facility] MAIN OR TOTAL KNEE ARTHROPLASTY Right [...] file Housing Stability: Not on file 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 Allergies Allergen Reactions Adhesive [...] EMILY STILES Verified: 02/05/2023 13:41 Performed at: -[facility] Dept. of Pathology, [place] [address] Government Property Inspector: Boby Sanders MD, FCAP, CLIA Certificate: [id number] SYNOPTIC Specimen Procedure: Total thyroidectomy Tumor Tumor [...] for Future Studies Tumor Block(s): A30, A33 [facility] 2021 Q2 Release DISCUSSION Nuclear features vary throughout the tumor, there are patchy areas with features of papillary thyroid carcinoma, including nuclear clearing, margination and nuclear grooves. Assessment and plan: Karen Stratton is a 73 y.o. female with a hx of multinodular thyroid with FNA demonstrating suspicious for malignancy ([place] 5) cytology on the left and AUS [...] Street. Fartun Sherwood, PGY6 Endocrinology Fellow Pager: [phone] * [address] MD - 03/09/2023 1:00 [...] gland documented in this encounter Care Teams Clinical Director Relationship Specialty Start Date End Date Sheree Deng APRN [address] [place] [address] PCP - General Internal Medicine 08/12/19 documented as of this encounter
--- OUTSIDE RECORDS SUMMARY | 2024-01-08 00:46 | XMS_ITS | Clinical Summary ---
Author Organization Formerly [facility], [facility] Address [facility] [place] [address] Care Team Providers Care Side Stapler Name Role Phone Aleida Dengyce Kenzie SOLARES Primary Care Provider [phone] Allergies Active Allergy Reactions Criticality Noted Date [...] 08/03/2020 H/O breast reconstruction, left 01/26/2013 08/03/2020 Social History Tobacco Use Types Packs/Day Years Used Date Smoking Tobacco: Never Smokeless Tobacco: Never Tobacco Cessation:Counseling Given: Not Answered Alcohol Use Standard Drinks/Week Comments No 0 (1 standard drink = 0.6 oz pur e alcohol) once in a while [facility] Utilities Answer Date Recorded In the past 12 months has th e [employer], gas, oil, or water [employer] threatened to shut off services in your [...] Hepatitis C Screening 1969 Lipid Screening 1969 Tetanus/Diphtheria/Pertussis Vaccines (1 - Tdap) 01/23 Breast Cancer Share Decision Needed 1991 Breast Cancer screening 1991 Zoster vaccine (1 of 2) 2001 Advance Directive 2006 Bone Density Scan 01/24/2016 Pneumoccocal Vaccine: 65+ (1 of 1 - PCV) 01/24/2016 Covid-19 Vaccine ( season) 2023 Influenza (Flu) vaccine (1 o f 1 - Influenza standard series) 12/13/2023 Diabetes Screening (HgbA1C or Glucose) Discontinued Procedures Procedure Name Priority Date/Time Associated Diagnosis Comments HC VENIPUNCTURE STAT 08/19/2019 9:33 AM EDT from Last 3 Months or Most Recently Relevant to Health Maintenance Results * (ABNORMAL) BMP w/fasting Glucose (08/19/2019 9:33 AM EDT) Glucose Fasting 100(H) 65 - 99 mg/dL [facility] Comment: ?Fasting* Glucose Interpretive [...] of Diabetes Mellitus, Position Statement from the [place] [employer]. ??Diabetes Care, Volume 33, Supplement 1, Apr 2009 Blood Urea Nitrogen 19(H) 8 - 18 mg/dL [facility] Creatinine 0.75 0.70 - 1.20 mg/dL [facility] Sodium 145 135 - 145 mmol/L [facility] Potassium 4.4 3.5 - 5.0 mmol/L [facility] Comment: Please note: ??Patients with WBC >100,000 may have falsely elevated Potassium levels. ??For accurate Potassium quantification in these patients send serum separator tube (gold top) for subsequent determinations. ??Contact the Clinical Chemistry Laboratory if there are any questions. Chloride 106 98 - 107 mmol/L [facility] Carbon Dioxide 26 22 - 31 mmol/L [facility] Anion Gap 13 5 - 15 mmol/L [facility] Calcium 9.4 8.5 - 10.5 mg/dL [facility] Est Glomerular Filtration Rate 82 >=60 mL/min/1. 73 m?? [facility] Comment: The eGFR was calculated using the CKD-EPI equation. As with all creatinine based estimates of kidney function, eGFR values calculated with the CKD-EPI equation are not accurate in patients with acute kidney failure, extremes of body mass or the acutely ill. http://[employer]/[facility] eGFR 95 >=60 mL/min/1. 73 m?? [facility] Comment: The eGFR was calculated using the CKD-EPI equation. As with all creatinine based estimates of kidney function, eGFR values calculated with the CKD-EPI equation are not accurate in patients with acute kidney failure, extremes of body mass or the acutely ill. http://[employer]/[facility]nkf Blood specimen (specimen) 08/19/2019 9:33 AM EDT 08/19/2019 9:50 AM EDT Narrative Resulting Agency Comment Spec In Lab Aristides Jurado MD CHEMISTRY ORDERABLES [facility] [place] [address] from Last 3 Months or Most Recently [...] capacity to make decision: Yes Care Teams Side Stapler Relationship Specialty Start Date End Date Sheree Deng APRN [address] [place] [address] PCP - General Internal Medicine 08/12/19
--- OUTSIDE RECORDS SUMMARY | 2024-01-08 00:46 | XMS_ITS | Encounter Summary ---
Author [place] [address] Care Team Providers Care Drum Worker Name Role Phone Sheree Deng APRN Primary Care Provider [phone] Encounter Details Date Type Department Care Team [...] on filedocumented in this encounter Care Teams Drum Worker Relationship Specialty Start Date End Date Sheree Deng APRN [address] [place] [address] PCP - General Internal Medicine 08/12/19 documented as of this encounter
--- OUTSIDE RECORDS SUMMARY | 2024-01-08 00:46 | XMS_ITS | Encounter Summary ---
Author Organization [facility] Address [facility] [place] [address] Care Team Providers Care Golf Caddie Name Role Phone Aleida Dengyce Kenzie SOLARES Primary Care Provider [phone] Reason for Visit * Consultation (Routine) - Closed Specialty Diagnoses / Procedures Referred By Tom t Referred To Contact Radiation Oncology Diagnoses Primary thyroid cancer Ita Mueller MD [facility] [place] [address] Bethel Prater MD [facility] [place] [address] Referral ID Status Reason Start Date Expiration Date V isits Requested Visits Authorized [id number] Closed Consult, Test & Treat 02/11/2023 02/11/2024 1 1 Encounter Details Date Type Department Care Team (Late st Contact Info) Description 03/11/2023 10:00 AM EST Office Visit Radiation Oncology at [address] [phone] Bethel Prater MD [facility] [place] [address] Thyroid cancer Social History Tobacco Use Types Packs/Day Years Used Date Smoking Tobacco: Never Smokeless Tobacco: Never Alcohol Use Standard Drinks/Week Comments No 0 (1 standard drink = 0.6 oz pur e alcohol) once in a while [facility] Utilities Answer Date Recorded In the [...] Expect a call from your healthcare provider retail team leader after 24 hours. In case of a medical emergency, call one of the following numbers: Days 8AM - 5PM: [phone] Nights 5PM - 8AM: [phone] and ask to speak with Radiation Oncology doctor databases computer consultant. MEALS You will continue to follow a [...] You can use your normal soap and can cleaner. Have a private bathroom and toilet [...] patients with control of radioiodine during treatment. 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 We discussed the risks of therapy, including but not limited to short term sequelae (fatigue, esophagitis, skin erythema, cough, parotitis, dysgeusia, nausea/vomiting, cytopenias) and custodial sequelae (radiation pneumonitis, alteration of anterior neck [...] of Karen Stratton. Bethel Prater MD, PhD [facility] Radiation oncology [phone] No orders of the defined types were placed in this encounter. The following information is automatically imported from [facility]. It has been reviewed, and pertinent information [...] No family history on file. National Cancer Stacy (NCI) Comprehensive Cancer Center [employer] [place] [employer] Commission on Cancer (ACS Rudy) Accredited Cancer Program [place] [employer] (ACR) Accredited Radiation Oncology [...] Systems: Barriers to treatment: None identified. Referrals/Interventions: MANAGER TALENT per routine. RADIATION SPECIFIC TEACHING: NCI Radiation Therapy and You Site specific teaching : Other: PLAN: Per Dr. Prater Answers submitted by the patient for this visit: (Submitted on 03/11/2023) Distress: 2 documented in this encounter Plan of Treatment Not on file documented as of this encounter Visit Diagnoses Diagnosis Thyroid cancer Malignant neoplasm of thyroid gland documented in this encounter Care Teams Golf Caddie Relationship Specialty Start Date End Date Sheree Deng APRN [address] [place] [address] PCP - General Internal Medicine 08/12/19 documented as of this encounter
--- OUTSIDE RECORDS SUMMARY | 2024-01-08 00:46 | XMS_ITS | Encounter Summary ---
Author [facility] [place] [address] Care Team Providers Care Bottle House Quality Control Technician Name Role Phone Sheree Deng BECK Primary Care Provider [phone] Encounter Details Date Type Department Care Team (Late st Contact Info) Description 02/19/2023 Multidisciplinary Ca re Committee [place] [id number] Ita Mueller MD [facility] [place] [address] Social History Tobacco Use Types Packs/Day Years Used Date Smoking Tobacco: Never Smokeless Tobacco: Never Alcohol Use Standard Drinks/Week Comments No 0 (1 standard drink = 0.6 oz pur e alcohol) once in a while [facility] Inpatient Questions Answer Date Recorded Does Anyone [...] months, and FNA demonstrating suspicious for malignancy ([place] 5) cytology on the left and AUS [...] on filedocumented in this encounter Care Teams Bottle House Quality Control Technician Relationship Specialty Start Date End Date Sheree Deng, BECK [address] [place] [address] PCP - General Internal Medicine 08/12/19 documented as of this encounter
--- OUTSIDE RECORDS SUMMARY | 2024-01-08 00:46 | XMS_ITS | Encounter Summary ---
Author Organization [facility] [place] [address] Care Team Providers Care Phlebotomy Services Representative Name Role Phone Aleida Dengyce Kenzie SOLARES Primary Care Provider [phone] Reason for Visit * Auth/Cert (Routine) Specialty Diagnoses / Procedures Referred By Contac t Referred To Contact Diagnoses Malignant neoplasm of thyroid gland Nontoxic multinodular goiter THYROID CANCER Procedures PRO THYROIDECTOMY, MALIG, LTD NECK SURG PRG EMG, LARYNX THYROIDECTOMY, FOR MALIGNANCY, LIMITED NECK DISSECTION (WRVU 22.01) FACIAL NERVE MONITORING, SETUP LARYNGEAL (WRVU 1.57) Sophia Mcwilliams MD [facility] [place] [place] [address] [facility] Referral ID Status Reason Start Date Expiration Date Visits Re quested Visits Authorized [id number] 1 1 Encounter Details Date Type Department Care Team (Latest Contact Info) Description 2023 11:13 AM EDT - 01/24/2023 11:35 AM EDT Hospital Encounter [place] [address] Sophia Mcwilliams MD [facility] [place] [address] Thyroid cancer Discharge Disposition: Home Social History [...] nodule suspicious for malignancy who presents to [facility] for total thyroidectomy and central neck [...] Hospital Course: Karen Stratton was [facility] vi[facility] Day [facility]. [...] AM LAB, THREE L Lab 3[facility] 03/13/2023 11:00 AM Lisa Cortes APRN [facility] SURG [facility] Outpatient Services/Studies: PTH Standing Status: Future [...] Take NSAIDS and/or Tylenol every 6 hours [id number] for the first 3-5 days following surgery [...] will be mailed to you Please call [phone] to confirm the date and time of [...] is just fine. Phone number for questions: [phone] before 5 PM on weekdays [phone] after 5 PM and on weekends/holidays. Ask for the general surgery resident data integration analyst. General Instructions None Future Appointments and Orders Future Appointments and Orders Future Appointments Provider Department Dept Phone 03/13/2023 10:00 AM LAB, THREE L Lab 3L [facility] Arrive at: [facility] [facility] 03/13/2023 11:00 AM Lisa Cortes APRN General Surgery at [facility] Arrive at: [facility] 4L [phone] Future Orders Complete By Expires Calcium [LAB53 Custom] 02/23/2023 (Approximate) 08/25/2023 Process Instructions: Scheduling Instructions: Comments: Questions: PTH [[id number] Custom] 02/23/2023 (Approximate) 01/24/2024 Process Instructions: Interpretation of PTH results should include a recent calcium concentration Scheduling Instructions: Comments: Questions: Thyroglobulin [ODZ601 Custom] 02/23/2023 (Approximate) 08/25/2023 Process Instructions: This order includes both Thyroglobulin and Thyroglobulin Antibody assays. Scheduling Instructions: Comments: Questions: TSH [QNP246 Custom] 02/23/2023 (Approximate) 08/25/2023 Process Instructions: Scheduling Instructions: Comments: Questions: Discharge References/Attachments: Discharge References/Attachments None Follow-up Recommendations for Providers: Medication changes: Synthroid dose increased to 125mcg daily to reflect full thyroid hormone replacement dose Diet changes: None Other: N/A CC: Sheree Deng, BECK [phone] Signed: Pio Ray MD Endocrine Surgery Service Team Pager #[phone] 01/24/2023 9:14 AM For questions regarding this document or issues relating to this hospitalization on the Endocrine Surgery Service, please contact Radha Nichols MD's office at [phone] (Endocrine Surgery) documented in this encounter Discharge [...] Take NSAIDS and/or Tylenol every 6 hours inlkas-pac-uieno for the first 3-5 days following surgery [...] will be mailed to you Please call [phone] to confirm the date and time of [...] is just fine. Phone number for questions: [phone] before 5 PM on weekdays [phone] after 5 PM and on weekends/holidays. Ask for the general surgery resident data integration analyst. documented in this encounter Medications at [...] Rice RN - 01/24/2023 11:15 AM EDT [facility] Short Stay Unit Discharge Note All [...] Rice RN - 2023 7:19 PM EDT [facility] Short Stay Unit Shift Note The [...] nodule suspicious for malignancy who presents to [facility] for total thyroidectomy andcentral neck dissection. Please see Dr. Lua's 01/07 clinic note for additional information. Past Medical History: Diagnosis Date Abnormal cardiovascular stress test 08/03/2020 Toro's palsy Breast cancer Depression H/O breast reconstruction, left 01/26/2013 Hypothyroid Hypothyroidism Migraines Multiple melanocytic nevi Skin tag Status post total right knee replacement 02/08/2020 Past Surgical History: Procedure Laterality Date BREAST RECONSTRUCTION 04/13/2009 Etl Consultant then silicon implant BREAST RECONSTRUCTION 04/13/2009 BREAST [...] Operative Note Patient Name: Karen Stratton : [id number] MR#: [id number] Case Date: 2023 Surgeon: Surgeon(s) and Role: [...] Mcwilliams MD - 2023 2:09 PM EDT [facility] Operative Note Patient Name: Karen Stratton : [id number] MR#: [id number] Case Date: 2023 Surgeon: Surgeon(s) and Role: [...] months, and FNA demonstrating suspicious for malignancy ([place] 5) cytology on the left and AUS [...] anesthesia was achieved by anesthesiology with the mWatertr[employer] recurrent laryngeal nerve monitoring system. A natural [...] 3:28 PM EDT Needle Electromyography, Larynx Global ([id number]) Yes 2023 1:30 PM EDT THYROID CANCER Thyroidectomy, Malig, Ltd Neck Surg ([id number]) Yes 2023 1:30 PM EDT THYROID CANCER documented in this encounter Results * (ABNORMAL) Thyroglobulin (03/09/2023 1:54 PM EST) Thyroglobulin 0.2(L) 1.3 - 31.8 ng/mL [facility] Comment: INTERPRETIVE INFORMATION: Thyroglobulin, Serum or Plasma Specimens negative for thyroglobulin antibodies (TgAb) are tested for thyroglobulin (Tg) by chemiluminescent immunoassay (ELENI) using the [employer] Access DxI method. Specimens with TgAb results [...] Thyroglob Ab <0.9 0.0 - 4.0 IU/mL [facility] Comment: INTERPRETIVE INFORMATION: Thyroglobulin Antibody A value of 4.0 IU/mL or less indicates a negative result for thyroglobulin antibodies. The Thyroglobulin Antibody assay is being performed using the [place] Access DxI method. Please note that as 01/08/22 this testing is performed at [facility]. This change is associated with a change in testing method and reference intervals. Values from other methods may not correlate with this method. Please review the results of this test in assocaition with the posted reference intervals. Thyroglobulin by LC-MS/MS Not Applicable 1.3 - 31.8 ng/mL [facility] Comment: INTERPRETIVE INFORMATION: Thyroglobulin by LC-MS/MS, Serum/Plasma Lower limit of detection for Thyroglobulin by LC-MS/MS is 0.5 ng/mL. This test was developed and its performance characteristics determined by [facility]. It has not been cleared or approved by the [place] Food and Drug Administration. This test was performed in a CLIA certified laboratory and is intended for clinical purposes. Performed By: [facility] [address] [place] [id number] Stopperer Assembler: Harish Fernandez MD, PhD CLIA Number: [id number] Blood 03/09/2023 1:54 PM EST 03/10/2023 1:42 PM EST Narrative Resulting Agency Comment Spec In Lab Sophia Mcwilliams MD LAB SEND OUT ORDE RABLES Performing Organization Address [facility] Co de Phone Number [facility] [place] [address] * Calcium (03/09/2023 1:54 PM EST) Calcium 9.2 8.5 - 10.5 mg/dL [facility] Blood 03/09/2023 1:54 PM EST 03/09/2023 2:13 PM EST Narrative Resulting Agency Comment Spec In Lab Sophia Mcwilliams MD CHEMISTRY ORDERAB LES Performing Organization Address [facility] de Phone Number [facility] [place] [address] * (ABNORMAL) TSH (03/09/2023 1:54 PM EST) Thyroid Stimulating Hormone 9.04(H) 0.27 - 4.20 mcIU/mL [facility] Comment: Reference Interval (mcIU/mL): Females: ??First Trimester: 0.23-3.88 ??Second Trimester: 0.22-3.90 ??Third Trimester: 0.44-4.66 Blood 03/09/2023 1:54 PM EST 03/09/2023 2:13 PM EST Narrative Resulting Agency Comment Spec In Lab Sophia Mcwilliams MD CHEMISTRY ORDERAB LES Performing Organization Address [facility] Co de Phone Number [facility] [place] [address] * PTH (03/09/2023 1:54 PM EST) Parathyroid Hormone 57 15 - 65 pg/mL [facility] Blood 03/09/2023 1:54 PM EST 03/09/2023 2:13 PM EST Narrative Resulting Agency Comment Spec In Lab Sophia Mcwilliams MD CHEMISTRY ORDERAB LES Performing Organization Address [facility] Co de Phone Number [facility] [place] [address] * Specimen to Pathology (2023 3:31 PM EDT) AP Specimen 2023 3:31 PM EDT 2023 3:31 PM EDT Narrative [facility] - 2023 3:31 PM EDT Specimen requisition ordered. ??Separate Pathology report to follow Sophia Mcwilliams MD PATHOLOGY/CYTOLOG Y ORDERABLES Performing Organization Address [facility] Co de Phone Number [facility] [place] [address] * Specimen to Pathology (2023 3:29 PM EDT) AP Specimen 2023 3:29 PM EDT 2023 3:29 PM EDT Narrative [facility] - 2023 3:29 PM EDT Specimen requisition ordered. ??Separate Pathology report to follow Sophia Mcwilliams MD PATHOLOGY/CYTOLOG Y ORDERABLES Performing Organization Address [facility] Co de Phone Number [facility] [place] [address] * (ABNORMAL) Surgical Pathology Report (2023 3:28 PM EDT) Final Diagnosis [id number] ? Location: U; 08; A The signing [...] ?EMILY STILES Verified: ??02/05/2023 13:41 Performed at: ??-[facility] Dept. of Pathology, [place] [address] Electronic Device Repairer: Boby Sanders MD, FCAP, ??CLIA Certificate: [id number] SYNOPTIC Specimen ? Procedure: ??Total thyroidectomy Tumor ? Tumor Focality: ??Unifocal ? 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 Histologic Type Comment: ??With tumor necrosis and mitotic count >5 per 2 ?mm2, this tumor is best classified as differentiated high grade thyroid ?carcinoma ([facility]) ?Mitotic Rate: ??13 mitoses per 2 [...] Studies ? Tumor Block(s): ??A30, A33 ? [facility] 2021 Q2 Release . DISCUSSION Nuclear [...] black. Sections/Processing: Blocks submitted for decalcification: A71-A82. Pododermatologist sections in 83 cassettes as follows: ?A1-A6: ??Nodule located on the superior pole left serially sectioned and entirely ? submitted ?A7-A13: ??[place] of left lobe perpendicularly sectioned and entirely submitted to ? include lesion ?A14-A66: ??Capsule surrounding the lesion in left lobe entirely submitted ?A67: ??Pododermatologist normal appearing left lobe parenchyma ?A68: ??Pododermatologist isthmus ?A69-A70: ??Pododermatologist left lobe lesional parenchyma ?A71-A82: ??Right lobe lesion entirely submitted following decalcification ?A83: ??Pododermatologist normal-appearing right lobe parenchyma . SPECIMEN PROCESSING [...] submitted ??kjs pps(A) 02/05/2023 1:41 PM EDT [facility] LYMPH NODE SPECIMEN / Unknown 2023 3:28 PM EDT 2023 3:28 PM EDT LYMPH NODE SPECIMEN / Unknown 2023 3:28 PM EDT 2023 3:28 PM EDT Sophia Mcwilliams MD PATHOLOGY/CYTOLOG Y ORDERABLES [facility] [address] [place] [address] documented in this encounter Visit Diagnoses Diagnosis [...] Routine documented in this encounter Care Teams Phlebotomy Services Representative Relationship Specialty Start Date End Date Sheree Deng APRN [address] [place] [address] PCP - General Internal Medicine 08/12/19 documented as of this encounter
--- OUTSIDE RECORDS SUMMARY | 2024-01-08 00:46 | XMS_ITS | Encounter Summary ---
Author Organization [facility] [place] [address] Care Team Providers Care Rabbit Breeder Name Role Phone Aleida Dengyce Kenzie SOLARES Primary Care Provider [phone] Reason for Visit * Auth/Cert (Routine) Specialty Diagnoses / Procedures Referred By Contac t Referred To Contact Diagnoses Malignant neoplasm of thyroid gland Nontoxic multinodular goiter THYROID CANCER Procedures PRO THYROIDECTOMY, MALIG, LTD NECK SURG PRG EMG, LARYNX THYROIDECTOMY, FOR MALIGNANCY, LIMITED NECK DISSECTION (WRVU 22.01) FACIAL NERVE MONITORING, SETUP LARYNGEAL (WRVU 1.57) Ita Mueller MD [facility] [place] [address] [facility] Referral ID Status Reason Start Date Expiration Date Visits Re quested Visits Authorized [id number] 1 1 Encounter Details Date Type Department Care Team (Late st Contact Info) Description 2023 1:29 PM EDT Anesthesia [place] [address] Nimisha Carrillo MD [facility] [place] [address] Rakan Bañuelos MD [facility] [place] [address] Anesthesia Record Procedure Summary Procedure Name Responsible Anesthesiologist Anesthesia Start Time Anesthesia Stop Time THYROIDECTOMY, FOR MALIGNANCY, LIMITED [facility]EC[facility] DISSE[facility] (Neck) Nimisha Carrillo MD 01/23/23 1329 [...] 1157; median cubital vein (antecubital fossa), left; olqy-lav-uaoumk catheter system; 20 gauge; age-appropriate response; 01/24/23; [...] 1349; metacarpal vein (top of hand), right; keuc-fqp-zxwbhf catheter system; 18 gauge; Abraahn Haq CRNA; (under GA); 01/24/23; 1114 01/23/23 [...] Procedure Summary Date: 01/23/23 Room / Location: [facility] OR [address] [place] [address] MAIN OR Anesthesia Start: 1329 Anesthesia Stop: 1625 Procedures: THYROIDECTOMY, FOR MALIGNANCY, LIMITED NECK DISSECTION (WRVU 22.01) (Neck) FACIAL NERVE MONITORING, SETUP LARYNGEAL (WRVU 1.57) (Neck) Diagnosis: (THYROID CANCER) Surgeons: Ita Mueller MD Responsible Provider: Nimisha Carrillo MD Anesthesia Type: general ASA Status: 2 All Anesthesia Providers: Anesthesiologist: Nimisha Carrillo MD; Naina Cueto MD CARPET CUTTER: Karo Haq CRNA Vitals Value Taken Time BP 177/81 01/23/23 1648 Temp Pulse 76 01/23/23 1656 Resp 10 01/23/23 1656 SpO2 90 % 01/23/23 1656 Pain Level 5 01/23/23 1647 Vitals shown include unvalidated device data. Patient Location: PACU[facility] Level of Consciousness: Conscious but Sleepy Pain [...] History: Procedure Laterality Date BREAST RECONSTRUCTION 04/13/2009 Seaming Machine Operator then silicon implant BREAST RECONSTRUCTION 04/13/2009 [...] - Angina with abnormal stress test s/p [facility] Other notable medications: Atenolol (for migraine), [...] Stress test 2019- EKG evidence of ischemia [facility] 2019- normal coronary arteries, elevated LVEDP NPO status at time of surgery: NPO > 8 hours Anesthetic Plan: -GA w/ NIM ETT. No long-term NMBs (facial nerve monitoring) -Standard ASA monitoring -PIV access Rakan Bañuelos MD Cellular Phone Repairer, PGY2/CA1 Pager # [phone] Region - Other Informed Consent: Anesthetic plan [...] mg documented in this encounter Care Teams Rabbit Breeder Relationship Specialty Start Date End Date Sheree Deng APRN [address] [place] [address] PCP - General Internal Medicine 08/12/19 documented as of this encounter
--- OUTSIDE RECORDS SUMMARY | 2024-01-08 00:46 | XMS_ITS | Encounter Summary ---
Author Organization [facility] Address [facility] [place] [address] Care Team Providers Care Renal Dialysis Technician Name Role Phone Shreee Deng APRN Primary Care Provider [phone] Encounter Details Date Type Department Care Team (Late st Contact Info) Description 08/18/2023 [place] [phone] Fartun Sherwood MD [facility] [place] [address] Social History Tobacco Use Types Packs/Day Years Used Date Smoking Tobacco: Never Smokeless Tobacco: Never Alcohol Use Standard Drinks/Week Comments No 0 (1 standard drink = 0.6 oz pur e alcohol) once in a while [facility] Utilities Answer Date Recorded In the past 12 months has Puls[employer], gas, oil, or water I Like My Waitress threatened to shut off services in your [...] to 8 weeks. Lab orders faxed to [facility] per patient's request. Thyroglobulin from yesterday still [...] gland documented in this encounter Care Teams Renal Dialysis Technician Relationship Specialty Start Date End Date Sheree Deng APRN [address] [place] [address] PCP - General Internal Medicine 08/12/19 documented as of this encounter
--- OUTSIDE RECORDS SUMMARY | 2024-01-08 00:46 | XMS_ITS | Encounter Summary ---
[place] [address] Care Team Providers Care Seafood Fisherman Name Role Phone Sheree Deng APRN Primary Care Provider [phone] Encounter Details Date Type Department Care Team (Late st Contact Info) Description 12/31/2022 External [place] [phone] Provider, Scanning Social History Tobacco Use Types [...] on filedocumented in this encounter Care Teams Seafood Fisherman Relationship Specialty Start Date End Date Sheree Deng APRN [address] [place] [address] PCP - General Internal Medicine 08/12/19 documented as of this encounter
--- OUTSIDE RECORDS SUMMARY | 2024-01-08 00:46 | XMS_ITS | Encounter Summary ---
Author Organization [facility] Address [facility] [place] [address] Care Team Providers Care Enterprise Application Developer Name Role Phone Sheree Deng APRN Primary Care Provider [phone] Encounter Details Date Type Department Care Team (Late st Contact Info) Description 08/17/2023 3:00 PM EDT Office [place] [address] Fartun Sherwood MD [facility] [place] [address] Thyroid cancer Social History Tobacco Use Types Packs/Day Years Used Date Smoking Tobacco: Never Smokeless Tobacco: Never Alcohol Use Standard Drinks/Week Comments No 0 (1 standard drink = 0.6 oz pur e alcohol) once in a while [facility] Utilities Answer Date Recorded In the past 12 months has [employer], gas, oil, or water [employer] threatened to shut off services in your [...] place to sleep or slept in a nursing home (including now)? 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 Allergies Allergen Reactions Adhesive [...] EMILY STILES Verified: 02/05/2023 13:41 Performed at: -[facility] Dept. of Pathology, [place] [address] Dental Scheduler: Boby Sanders MD, FCAP, CLIA Certificate: [id number] SYNOPTIC Specimen Procedure: Total thyroidectomy Tumor Tumor [...] for Future Studies Tumor Block(s): A30, A33 [facility] 2021 Q2 Release DISCUSSION Nuclear features vary throughout the tumor, there are patchy areas with features of papillary thyroid carcinoma, including nuclear clearing, margination and nuclear grooves. Assessment and plan: Karen Stratton is a 73 y.o. female with a hx of multinodular thyroid with FNA demonstrating suspicious for malignancy ([place] 5) cytology on the left and AUS [...] Sebastian. Fartun Sherwood, PGY6 Endocrinology Fellow Pager: [phone] * Fartun Sherwood MD - 08/17/2023 3:00 PM EDT ENDOCRINOLOGY THYROID ULTRASOUND REPORT Patient:Karen Stratton, [id number] Date of exam: 08/17/2023 Indication: Hx of [...] EDT) Thyroglobulin 0.1(L) 1.3 - 31.8 ng/mL [facility] Comment: INTERPRETIVE INFORMATION: Thyroglobulin, Serum or Plasma Specimens negative for thyroglobulin antibodies (TgAb) are tested for thyroglobulin (Tg) by chemiluminescent immunoassay (ELENI) using the Lyndon Arion Access DxI method. Specimens with TgAb results [...] Thyroglob Ab <0.9 0.0 - 4.0 IU/mL [facility] Comment: INTERPRETIVE INFORMATION: Thyroglobulin Antibody A value of 4.0 IU/mL or less indicates a negative result for thyroglobulin antibodies. The Thyroglobulin Antibody assay is being performed using the Lyndon Beverly Access DxI method. Please note that as 01/08/22 this testing is performed at [facility]. This change is associated with a change in testing method and reference intervals. Values from other methods may not correlate with this method. Please review the results of this test in assocaition with the posted reference intervals. Thyroglobulin by LC-MS/MS Not Applicable 1.3 - 31.8 ng/mL [facility] Comment: INTERPRETIVE INFORMATION: Thyroglobulin by LC-MS/MS, Serum/Plasma Lower limit of detection for Thyroglobulin by LC-MS/MS is 0.5 ng/mL. This test was developed and its performance characteristics determined by [facility]. It has not been cleared or approved by the US Food and Drug Administration. This test was performed in a CLIA certified laboratory and is intended for clinical purposes. Performed By: [facility] [address] [place] [id number] Guest Attendant: Harish Fernandez MD, PhD CLIA Number: [id number] Blood 08/17/2023 4:08 PM EDT 08/18/2023 11:32 AM EDT Narrative Resulting Agency Comment Spec In Lab Harlan Sebastian MD LAB SEND OUT ORDER VENKATA Performing Organization Address City/[facility] Co de Phone Number [facility] [place] [address] * TSH (08/17/2023 4:08 PM EDT) Thyroid Stimulating Hormone 3.16 0.27 - 4.20 mcIU/mL [facility] Comment: Reference Interval (mcIU/mL): Females: ??First Trimester: 0.23-3.88 ??Second Trimester: 0.22-3.90 ??Third Trimester: 0.44-4.66 Blood 08/17/2023 4:08 PM EDT 08/17/2023 4:27 PM EDT Narrative Resulting Agency Comment Spec In Lab Harlan Sebastian MD CHEMISTRY ORDERABL ES Performing Organization Address City/[facility]/ZIP Co de Phone Number [facility] [place] [address] documented in this encounter Visit Diagnoses Diagnosis Thyroid cancer Malignant neoplasm of thyroid gland documented in this encounter Care Teams Enterprise Application Developer Relationship Specialty Start Date End Date Sheree Deng APRN [address] [place] [address] PCP - General Internal Medicine 08/12/19 documented as of this encounter
--- OUTSIDE RECORDS SUMMARY | 2024-01-08 00:46 | XMS_ITS | Encounter Summary ---
Author Organization [facility] Address [facility] [place] [address] Care Team Providers Care Coke Crusher Operator Name Role Phone Sheree Deng APRN Primary Care Provider [phone] Encounter Details Date Type Department Care Team [...] on filedocumented in this encounter Care Teams Coke Crusher Operator Relationship Specialty Start Date End Date Sheree Deng APRN [address] [place] [address] PCP - General Internal Medicine 08/12/19 documented as of this encounter
--- OUTSIDE RECORDS SUMMARY | 2024-01-08 00:46 | XMS_ITS | Encounter Summary ---
[place] [address] Care Team Providers Care Wage And Salary Specialist Name Role Phone Sheree Deng APRN Primary Care Provider [phone] Encounter Details Date Type Department Care Team (Latest Contact Info) Description 03/09/2023 2:00 PM EST Laboratory Appointment Lab [address] [place] [phone] Thyroid cancer Social History Tobacco Use Types Packs/Day Years Used Date Smoking Tobacco: Never Smokeless Tobacco: Never Alcohol Use Standard Drinks/Week Comments No 0 (1 standard drink = 0.6 oz pur e alcohol) once in a while [facility] Utilities Answer Date Recorded In the past [...] place to sleep or slept in a [facility] (including now)? No 03/11/2023 DH IPV Inpatient [...] Parathyroid Hormone 57 15 - 65 pg/mL [facility] Blood 03/09/2023 1:54 PM EST 03/09/2023 2:13 PM EST Narrative Resulting Agency Comment Spec In Lab Ita Mueller MD CHEMISTRY ORDERAB LES Performing Organization Address City/[facility] Co de Phone Number [facility] [place] [address] * (ABNORMAL) TSH (03/09/2023 1:54 PM EST) Thyroid Stimulating Hormone 9.04(H) 0.27 - 4.20 mcIU/mL [facility] Comment: Reference Interval (mcIU/mL): Females: ??First Trimester: 0.23-3.88 ??Second Trimester: 0.22-3.90 ??Third Trimester: 0.44-4.66 Blood 03/09/2023 1:54 PM EST 03/09/2023 2:13 PM EST Narrative Resulting Agency Comment Spec In Lab Ita Mueller MD CHEMISTRY ORDERAB LES Performing Organization Address [facility] Co de Phone Number [facility] [place] [address] * Calcium (03/09/2023 1:54 PM EST) Calcium 9.2 8.5 - 10.5 mg/dL [facility] Blood 03/09/2023 1:54 PM EST 03/09/2023 2:13 PM EST Narrative Resulting Agency Comment Spec In Lab Ita Mueller MD CHEMISTRY ORDERAB LES Performing Organization Address [facility] Co de Phone Number [facility] [place] [address] * (ABNORMAL) Thyroglobulin (03/09/2023 1:54 PM EST) Thyroglobulin 0.2(L) 1.3 - 31.8 ng/mL [facility] Comment: INTERPRETIVE INFORMATION: Thyroglobulin, Serum or Plasma Specimens negative for thyroglobulin antibodies (TgAb) are tested for thyroglobulin (Tg) by chemiluminescent immunoassay (ELENI) using the [employer] Access DxI method. Specimens with TgAb results [...] Thyroglob Ab <0.9 0.0 - 4.0 IU/mL [facility] Comment: INTERPRETIVE INFORMATION: Thyroglobulin Antibody A value of 4.0 IU/mL or less indicates a negative result for thyroglobulin antibodies. The Thyroglobulin Antibody assay is being performed using the [employer] Access DxI method. Please note that as 01/08/22 this testing is performed at [facility]. This change is associated with a change in testing method and reference intervals. Values from other methods may not correlate with this method. Please review the results of this test in assocaition with the posted reference intervals. Thyroglobulin by LC-MS/MS Not Applicable 1.3 - 31.8 ng/mL [facility] Comment: INTERPRETIVE INFORMATION: Thyroglobulin by LC-MS/MS, Serum/Plasma Lower limit of detection for Thyroglobulin by LC-MS/MS is 0.5 ng/mL. This test was developed and its performance characteristics determined by [facility]. It has not been cleared or approved by the US Food and Drug Administration. This test was performed in a CLIA certified laboratory and is intended for clinical purposes. Performed By: [facility] [address] [place] [id number] Senior Sales Manager: Harish Fernandez MD, PhD CLIA Number: [id number] Blood 03/09/2023 1:54 PM EST 03/10/2023 1:42 PM EST Narrative Resulting Agency Comment Spec In Lab Ita Mueller MD LAB SEND OUT JONH DU[facility] [place] [address] documented in this encounter Visit Diagnoses Diagnosis Thyroid cancer Malignant neoplasm of thyroid gland documented in this encounter Care Teams Wage And Salary Specialist Relationship Specialty Start Date End Date Sheree Deng APRN [address] [place] [address] PCP - General Internal Medicine 08/12/19 documented as of this encounter
--- OUTSIDE RECORDS SUMMARY | 2024-01-08 00:46 | XMS_ITS | Encounter Summary ---
Author Organization [place] [address] Care Team Providers Care Control Room Technician Name Role Phone Sheree Deng APRN Primary Care Provider [phone] Encounter Details Date Type Department Care Team (Latest Contact Info) Description 03/18/2023 5:50 PM EST - 03/18/2023 11:59 PM [facility] Hospital [place] [address] Discharge Disposition: Home Social History Tobacco Use Types Packs/Day Years Used Date Smoking Tobacco: Never Smokeless Tobacco: Never Alcohol Use Standard Drinks/Week Comments No 0 (1 standard drink = 0.6 oz pur e alcohol) once in a while [facility] Utilities Answer Date Recorded In the [...] Report (03/18/2023 4:03 PM EST) Final Diagnosis [id number] ? Location: [facility] The signing pathologist has (i) examined the relevant preparation(s) for the specimen(s) and (ii) rendered or confirmed the diagnosis(es). . ?Surgical Pathology DIAGNOSIS A - Sigmoid Polyp: - ??Hyperplastic polyp. CR-PX Electronically signed by: ?Jaime RAUSCH, Cynthia Verified: ??03/28/2023 18:03 ??Pathologist Performed at: ??-[facility] Dept. of Pathology, [place] [address] Chief Privacy Officer: Boby Sanders MD, FCAP, ??CLIA Certificate: [id number] SPECIMEN(S) SUBMITTED A - Sigmoid Polyp Referring Identifier: ?(not provided) Copy To: (not provided) CLINICAL INFORMATION History of colon polyps; sigmoid polyp SPECIMEN PROCESSING A - Labeled/Fixativ e: Sigmoid polyp, formalin. Quantity/Size: Single, 0.3 cm. Tissue Description: Soft, watson-pink tissue. Sections/Proces sing: Submitted in toto ??in 1 cassette labeled A1. ??sns 03/28/2023 6:03 PM EST [facility] GI Biopsy 03/18/2023 4:03 PM EST 03/18/2023 4:03 PM EST Neo Leahy DO PATHOLOGY/CYT OLOGY ORDERABLES [facility] [address] [place] [address] documented in this encounter Visit Diagnoses Not on filedocumented in this encounter Care Teams Control Room Technician Relationship Specialty Start Date End Date Sheree Deng APRN [address] [place] [address] PCP - General Internal Medicine 08/12/19 documented as of this encounter
--- OUTSIDE RECORDS SUMMARY | 2024-01-08 00:46 | XMS_ITS | Encounter Summary ---
Author Organization [facility] Address [facility] [place] [address] Care Team Providers Care Binder Coverstitch Name Role Phone Sheree Deng APRN Primary Care Provider [phone] Encounter Details Date Type Department Care Team (Latest Contact Info) Description 03/11/2023 Travel Social History Tobacco Use Types Packs/Day Years Used Date Smoking Tobacco: Never Smokeless Tobacco: Never Alcohol Use Standard Drinks/Week Comments No 0 (1 standard drink = 0.6 oz pur e alcohol) once in a while [facility] Utilities Answer Date Recorded In the [...] on filedocumented in this encounter Care Teams Binder Coverstitch Relationship Specialty Start Date End Date Sheree Deng APRN [address] [place] [address] PCP - General Internal Medicine 08/12/19 documented as of this encounter
--- OUTSIDE RECORDS SUMMARY | 2024-01-08 00:47 | XMS_ITS | Encounter Summary ---
[place] [address] Care Team Providers Care Data Technical Lead Name Role Phone Cortez Tipton MD Primary Care Provider [phone] Encounter Details Date Type Department Care Team (Late st Contact Info) Description 01/24/2013 Abstract [place] [phone] Kanika Edwards RN Social History Tobacco Use [...] on filedocumented in this encounter Care Teams Data Technical Lead Relationship Specialty Start Date End Date Cortez Tipton MD [address] [place], [place] [address] PCP - General 03/05/10 08/11/19 documented as of this encounter
--- OUTSIDE RECORDS SUMMARY | 2024-01-08 00:47 | XMS_ITS | Encounter Summary ---
Author Organization [facility] [place] [address] Care Team Providers Care Car Supervisor Name Role Phone Cortez Tipton MD Primary Care Provider [phone] Encounter Details Date Type Department Care Team (Late st Contact Info) Description 08/11/2019 Orders [place] [address] Linden Kulkarni PA [facility] [place] [address] Chest discomfort; Abnormal stress test Social History [...] Modality Other Narrative 08/19/2019 11:19 AM EDT ?[facility] ? Cardiac Catheterization/Intervention Report ? Patient Name: Stratton, Karen S. ? Procedure Date: 08/19/2019 ? A #: [id number] ? Primary Physician: Rhiannon, Aristides E ? Case #: [id number] ? File Name: [id number] ? Catheterization Order Number: [id number] ? [facility] ? Final Report [place], [place] ? Patient Name: ? Karen S. Stratton ? ID#: ?[id number] ? : ?1950 ? Procedure Date: ? [...] procedure was Elective. The indication for ?the laboratory mechanic helper visit is suspected CAD. Chest pain symptom [...] Procedure Note Aristides Jurado MD - 08/19/2019 [facility] Cardiac Catheterization/Intervention Report Patient Name: Karen Stratton Procedure Date: 08/19/2019 A #: [id number] Primary Physician: Aristides Jurado Case #: [id number] File Name: [id number] Catheterization Order Number: [id number] [facility] FinalReport [place], [place] Patient Name: Karen Stratton ID#:[id number] :1950 Procedure Date: August 19, 2019 Case [...] patient was designated as ASAClass II. The [facility] clinical frailty scale is 3: Managing Well. Diagnostic Tests: Electrocardiography: EKG was assessed by ECG. EKG was Normal. Stress or Imaging Studies: A stress test without imaging was performed on 08/11/2019 andwas Positive with High results. Medications Prior to Procedure: ASA, Beta Parth and Statin. Indications for Diagnostic Cath: The priority of the diagnostic procedure was Elective. Theindication for the laboratory mechanic helper visit is suspected CAD. Chest pain symptom [...] units of heparin were administered. A total ui662ye of Omnipaque were opened, 75cc of Omnipaque were administered ddr22iv of Omnipaque were wasted. Radiation: Fluoro time [...] study documented in this encounter Care Teams Car Supervisor Relationship Specialty Start Date End Date Cortez Tipton MD [address] [place] [address] PCP - General 03/05/10 08/11/19 documented as of this encounter
--- OUTSIDE RECORDS SUMMARY | 2024-01-08 00:47 | XMS_ITS | Encounter Summary ---
Author Organization [facility] Address [facility] [place] [address] Care Team Providers Care Picker Tender Name Role Phone Sheree Deng APRN Primary Care Provider [phone] Encounter Details Date Type Department Care Team (Late st Contact Info) Description 06/12/2004 Orders Only Dermatology at [place] [address] [facility] [place] [address] Issac Evans MD [address] [facility], [address] Kenzie DERMATOLOGY [place], [place] [id number] Social History Tobacco Use Types Packs/Day Years Used Date Smoking Tobacco: Never Assessed [facility] Utilities Answer Date Recorded [...] place to sleep or slept in a fdc (including now)? No 03/11/2023 DH IPV Inpatient [...] (06/12/2004 8:32 PM EST) Surgical Pathology Report [id number] ? Location: The signing pathologist has (i) [...] MD PATHOLOGY/CYTOLOGY O RDERABLES Performing Organization Address City/State/[facility] Co de Phone Number DANIEL NAM documented in this encounter Visit Diagnoses Not on filedocumented in this encounter Care Teams Picker Tender Relationship Specialty Start Date End Date Sheree Deng, TOOTH CUTTER PINION [address] [place] [address] PCP - General Internal Medicine 08/12/19 documented as of this encounter
--- OUTSIDE RECORDS SUMMARY | 2024-01-08 00:47 | XMS_ITS | Encounter Summary ---
[place] [address] Care Team Providers Care Cds Sales Advisor Name Role Phone Cortez Tipton MD Primary Care Provider [phone] Encounter Details Date Type Department Care Team (Late st Contact Info) Description 02/18/2012 [place] [address] [facility] [address] [place] [address] Social History Tobacco Use Types Packs/Day Years [...] on filedocumented in this encounter Care Teams Cds Sales Advisor Relationship Specialty Start Date End Date Cortez Tipton MD [address] [place] [address] PCP - General 03/05/10 08/11/19 documented as of this encounter
--- OUTSIDE RECORDS SUMMARY | 2024-01-08 00:47 | XMS_ITS | Encounter Summary ---
[place] [address] Care Team Providers Care Meat Hanger Name Role Phone Cortez Tipton MD Primary Care Provider [phone] Encounter Details Date Type Department Care Team (Latest Contact Info) Description 07/23/2010 2:58 PM EDT - 07/23/2010 11:59 PM EDT Hospital [place] [address] CLINIC, Cortez Villanueva MD [address] [place], [place] [id number] Discharge Disposition: Home Social History Tobacco Use [...] screening exams 01/16/09, 03/19/07, 06/06/04 and [place] [facility] [place]. The patient underwent [...] 07/02/10,screening exams 01/16/09, 03/19/07, 06/06/04 and also [facility] [place]. The patient underwent Left [...] on filedocumented in this encounter Care Teams Meat Hanger Relationship Specialty Start Date End Date Cortez Tipton MD [address] [place] [address] PCP - General 03/05/10 08/11/19 documented as of this encounter
--- OUTSIDE RECORDS SUMMARY | 2024-01-08 00:47 | XMS_ITS | Encounter Summary ---
[place] [address] Care Team Providers Care Certified Recreational Therapist Name Role Phone Cortez Tipton MD Primary Care Provider [phone] Encounter Details Date Type Department Care Team (Latest Contact Info) Description 01/22/2011 2:56 PM EDT - 01/22/2011 11:59 PM EDT Hospital En[place] [address] CLINIC, Cortez Villanueva MD [address] [place], [place] [id number] Abnormal mammogram, unspecified Discharge Disposition: Home Social [...] unspecified documented in this encounter Care Teams Certified Recreational Therapist Relationship Specialty Start Date End Date Cortez Tipton MD [address] [place] [address] PCP - General 03/05/10 08/11/19 documented as of this encounter
--- OUTSIDE RECORDS SUMMARY | 2024-01-08 00:47 | XMS_ITS | Encounter Summary ---
[place] [address] Care Team Providers Care Photographers' Model Name Role Phone Cortez Tipton MD Primary Care Provider [phone] Encounter Details Date Type Department Care Team (Late st Contact Info) Description 07/23/2010 2:58 PM EDT - 07/23/2010 11:59 PM EDT Hospital En[place] [address] Social History Tobacco Use Types Packs/Day Years [...] screening exams 01/16/09, 03/19/07, 06/06/04 and also [facility] [place]. The patient underwent [...] 07/02/10,screening exams 01/16/09, 03/19/07, 06/06/04 and also [facility] [place]. The patient underwent Left [...] on filedocumented in this encounter Care Teams Photographers' Model Relationship Specialty Start Date End Date Cortez Tipton MD [address] [place] [address] PCP - General 03/05/10 08/11/19 documented as of this encounter
--- OUTSIDE RECORDS SUMMARY | 2024-01-08 00:47 | XMS_ITS | Encounter Summary ---
Author Organization [facility] [place] [address] Care Team Providers Care Sewer And Drain Technician Name Role Phone Ish Sheree Espino APRN Primary Care Provider [phone] Reason for Visit * Auth/Cert Specialty Diagnoses / Procedures Referred By Contac t Referred To Contact Diagnoses Chest discomfort [R07.89]/Abnormal stress test [R94.39] Procedures PRG CATH PLMT LEFT HEART CATH & ARTS W/INJ & ANGIO IMG S&I CARDIAC CATHETERIZATION CORONARY ANGIOGRAPHY; W LHC,POSSIBLE PCI Referral ID Status Reason Start Date Expiration Date Visits Re quested Visits Authorized [id number] 1 1 Encounter Details Date Type Department Care Team (Late st Contact Info) Description 08/19/2019 10:00 AM EDT - 08/19/2019 11:00 AM EDT Surgery [place] [address] Elma Almonte MD [facility] [place] [address] CARDIAC CATHETERIZATION Social History Tobacco Use Types [...] by your doctor, do not take any jdxj-apm-wvgjsjx medicinesor herbal preparations without first discussing this with your doctor or pharmacist. There is the possibility of side effects and interactions when these are combined. Follow Up Care Who to call with questions or problems If there are any questions or problems that you think might be related to your cardiac cath or angioplasty, contact the director of digital technology program manager environmental planning by calling [facility] at . documented in this encounter Medications [...] Procedure Note: Patient Name: Chayo Parker : [id number] MR#: [id number] Case Date: 08/19/2019 Power System Dispatcher: Surgeon(s) and Role: * Elma Almonte MD [...] * ECHO COMPLETE (08/19/2019 2:52 PM EDT) [facility] Signature EF 65 HEARTLAB SYSTEM Anatomical Region Laterality Modality Other 08/19/2019 Narrative 08/19/2019 3:14 PM EDT Procedure: ?Transthoracic Echocardiogram Patient: ?PARKER CHAYO S ? (Age): 1950(69y) Med Rec#: ? [id number] ?Sex: ?F ? [place] Loc: ? [facility] ?Ht / Wt: ??168(cm)/84(kg) Pt. Loc: ?PACU ?BSA: ?1.94 Study Date: ?? 08/19/2019 ?Pt. Type: Same-Day Patient Tape: ? Referring: PERITZDAVIDC Reading: Derrick Leung ([id number]) Clinical Neuropsychologist: Niki Martinez Interpreting Fellow: Lakshmi Tobin ([id number]) Diagnosis: *Other chest pain (R07.89) BP: ? [...] Vmax ?0.68 ? m/sec ? MV deceleration gkpc882.38 ? msec ? MV A-wave Vmax ?0.59 [...] ? Mid-Inferior ?Normal ? Mid-Inferoseptal ?Normal ? [place]-Septal ? Normal ? [place]-Anterior ? Normal ? [place]-Lateral ?Normal ? [place]-Inferior ? Normal ? [place]-Tip ?Normal ? This report has been electronically signed by: Derrick Leung M.D. ? 08/19/2019 15:14:00 Images reviewed and interpretation verified [facility] Cardiac Ultrasound Laboratory Procedure Note Derrick Leung MD - 08/19/2019 Procedure: Transthoracic Echocardiogram Patient: VIRAL Hector DOB(Age): 1950(69y) Med Rec#: [id number] Sex: F Site Loc: [facility] Ht / Wt: 168(cm)/84(kg) Pt. Loc: PACU BSA: 1.94 Study Date: 08/19/2019 Pt. Type: Same-Day Patient Tape: Referring: [facility] Reading: Derrick Leung ([id number]) Clinical Neuropsychologist: Niki Martinez Interpreting Fellow: Lakshmi Tobin ([id number]) Diagnosis: *Other chest pain (R07.89) BP: 138/74 [...] MV E-wave Vmax 0.68 m/sec MV deceleration bhte810.38 msec MV A-wave Vmax 0.59 m/sec MV [...] Normal Mid-Posterolateral Normal Mid-Inferior Normal Mid-Inferoseptal Normal [place]-Septal Normal [place]-Anterior Normal [place]-Lateral Normal [place]-Inferior Normal [place]-Tip Normal This report has been electronically signed by: Derrick Leung M.D. 08/19/2019 15:14:00 Images reviewed and interpretation verified [facility] Cardiac Ultrasound Laboratory Elma Almonte MD ECHO ORDERABLES * EKG 12 Lead (08/19/2019 10:25 AM EDT) Ventricular rate 51 BPM MUSE SYSTEM Atrial Rate 51 BPM MUSE SYSTEM P-R Interval 192 ms MUSE SYSTEM QRS Duration 92 ms MUSE SYSTEM Q-T Interval 436 ms MUSE SYSTEM QTC Calculated (Bezet) 401 ms MUSE SYSTEM Calculated P [place] 68 degrees MUSE SYSTEM Calculated R [place] 62 degrees MUSE SYSTEM Calculated T [place] 68 degrees MUSE SYSTEM INTERPRETATION Sinus bradycardia Otherwise normal ECG When compared with ECG of 20-FEB-2009 15:55, No significant change was found Confirmed by Melissa Lema ([id number]) on 08/19/2019 1:13:27 PM MUSE SYSTEM 08/19/2019 10:2 5 AM EDT 08/19/2019 1:13 PM EDT Elma Almonte MD ECG ORDERABLES MUSE SYSTEM * Differential, Automated (08/19/2019 9:33 AM EDT) Neutrophil % 51.1 % [facility] Neutrophil Absolute 2.03 1.70 - 6.10 x10(3)/[facility] Lymph % 31.2 % [facility] Lymphocytes Abs 1.2 0.9 - 3.2 x10(3)/[facility] Monocyte % 8.8 % [facility] Monocyte Abs 0.4 0.3 - 0.9 x10(3)/[facility] Eos % 8.1 % [facility] Eosinophils Abs 0.3 0.0 - 0.4 x10(3)/[facility] Basophil % 0.5 % [facility] Baso Absolute 0.0 0.0 - 0.1 x10(3)/[facility] Immature Gran % 0.30 % [facility] Comment: Immature granulocytes(IG's)percentage and absolute count will include metamyelocytes, myelocytes, and promyelocytes. Blood smears from CBCs yielding IG's will be scanned manually for concordance. If this scan disagrees with the automated IG or if promyelocytes are noted, a manual differential will be performed. Immature Gran Absolute 0.01 0.00 - 0.04 x10(3)/[facility] Blood specimen (specimen) 08/19/2019 9:33 AM EDT 08/19/2019 9:50 AM EDT Narrative Resulting Agency Comment Spec In Lab [place] [facility] ORDERABLE S [facility] [place] [address] * (ABNORMAL) Hemogram (08/19/2019 9:33 AM EDT) White Blood Cell 4.0 4.0 - 9.5 x10(3)/mc L [facility] Red Blood Cell 4.06 4.00 - 5.21 x10(6)/mc L [facility] Hemoglobin 12.1 11.7 - 15.5 gm/dL [facility] Hematocrit 38.9 35.7 - 45.8 % [facility] Mean Cell Volume 95.8(H) 82.6 - 94.4 fL [facility] Mean Cell Hemoglobin 29.8 27.1 - 32.0 pg [facility] Mean Cell Hemoglobin Concentration 31.1(L) 31.7 - 35.0 gm/dL [facility] Platelet 256 145 - 357 x10(3)/mc L [facility] RDW Standard Deviation 43.9 37.0 - 46.0 fL [facility] RDW coefficient of variation 12.4 11.5 - 14.1 % [facility] Mean Platelet Volume 10.7 7.6 - 12.9 fL [facility] NRBC% auto 0.0 % [facility] NRBC Absolute 0.000 0.000 - 0.000 x10(3)/mc L [facility] Blood specimen (specimen) 08/19/2019 9:33 AM EDT 08/19/2019 9:50 AM EDT Narrative Resulting Agency Comment Spec In Lab [place] [facility] ORDERABLE S Performing Organization Address City/State/[facility] Co de Phone Number [facility] [place] [phone] * (ABNORMAL) BMP w/fasting Glucose (08/19/2019 9:33 AM EDT) Glucose Fasting 100(H) 65 - 99 mg/dL [facility] Comment: ?Fasting* Glucose Interpretive Criteria [...] of Diabetes Mellitus, Position Statement from the [place] [employer]. ??Diabetes Care, Volume 33, Supplement 1, Apr 2009 Blood Urea Nitrogen 19(H) 8 - 18 mg/dL [facility] Creatinine 0.75 0.70 - 1.20 mg/dL [facility] Sodium 145 135 - 145 mmol/L [facility] Potassium 4.4 3.5 - 5.0 mmol/L [facility] Comment: Please note: ??Patients with WBC >100,000 may have falsely elevated Potassium levels. ??For accurate Potassium quantification in these patients send serum separator tube (gold top) for subsequent determinations. ??Contact the Clinical Chemistry Laboratory if there are any questions. Chloride 106 98 - 107 mmol/L [facility] Carbon Dioxide 26 22 - 31 mmol/L [facility] Anion Gap 13 5 - 15 mmol/L [facility] Calcium 9.4 8.5 - 10.5 mg/dL [facility] Est Glomerular Filtration Rate 82 >=60 mL/min/1. 73 m?? [facility] Comment: The eGFR was calculated using the CKD-EPI equation. As with all creatinine based estimates of kidney function, eGFR values calculated with the CKD-EPI equation are not accurate in patients with acute kidney failure, extremes of body mass or the acutely ill. http://[employer]/[facility] eGFR 95 >=60 mL/min/1. 73 m?? [facility] Comment: The eGFR was calculated using the CKD-EPI equation. As with all creatinine based estimates of kidney function, eGFR values calculated with the CKD-EPI equation are not accurate in patients with acute kidney failure, extremes of body mass or the acutely ill. http://[employer]/DHnkf Blood specimen (specimen) 08/19/2019 9:33 AM EDT 08/19/2019 9:50 AM EDT Narrative Resulting Agency Comment Spec In Lab Elma Almonte MD CHEMISTRY ORDERABLES [facility] [place] [address] documented in this encounter Visit Diagnoses Diagnosis [...] Campos) documented in this encounter Care Teams Sewer And Drain Technician Relationship Specialty Start Date End Date Sheree Deng, BECK [address] [place] [address] PCP - General Internal Medicine 08/12/19 documented as of this encounter
--- OUTSIDE RECORDS SUMMARY | 2024-01-08 00:47 | XMS_ITS | Encounter Summary ---
Author Organization [facility] [place] [address] Care Team Providers Care Associate Embalmer/Funeral Director Name Role Phone Sheree Deng APRN Primary Care Provider [phone] Encounter Details Date Type Department Care Team (Late st Contact Info) Description 08/08/2020 External [place] [address] Provider, Scanning Social History Tobacco Use Types [...] on filedocumented in this encounter Care Teams Associate Embalmer/Funeral Director Relationship Specialty Start Date End Date Sheree Deng APRN [address] [place] [address] PCP - General Internal Medicine 08/12/19 documented as of this encounter
--- OUTSIDE RECORDS SUMMARY | 2024-01-08 00:47 | XMS_ITS | Encounter Summary ---
[place] [address] Care Team Providers Care Telecommunications Consultant Name Role Phone Sheree Deng APRN Primary Care Provider [phone] Encounter Details Date Type Department Care Team (Late st Contact Info) Description 08/25/2019 Telephone Cardiology at [address] [phone] Ernestina Moreno RN Social History Tobacco Use [...] to PCP per pt request. Ernestina Moreno coin counter and wrapper Team Nurse [facility] documented in this encounter Plan of Treatment Not on file documented as of this encounter Visit Diagnoses Not on filedocumented in this encounter Care Teams Telecommunications Consultant Relationship Specialty Start Date End Date Sheree Deng APRN [address] [place] [address] PCP - General Internal Medicine 08/12/19 documented as of this encounter
--- OUTSIDE RECORDS SUMMARY | 2024-01-08 00:47 | XMS_ITS | Encounter Summary ---
Author Organization [facility] [place] [address] Care Team Providers Care Workforce Services Representative Name Role Phone Sheree Deng APRN Primary Care Provider [phone] Encounter Details Date Type Department Care Team (Late st Contact Info) Description 10/13/2019 External [place] [address] Provider, Scanning Social History Tobacco Use Types [...] on filedocumented in this encounter Care Teams Workforce Services Representative Relationship Specialty Start Date End Date Sheree Deng APRN [address] [place] [address] PCP - General Internal Medicine 08/12/19 documented as of this encounter
--- OUTSIDE RECORDS SUMMARY | 2024-01-08 00:47 | XMS_ITS | Encounter Summary ---
Author Organization [facility] [place] [address] Care Team Providers Care Metal Framer Name Role Phone Cortez Tipton MD Primary Care Provider [phone] Encounter Details Date Type Department Care Team (Late st Contact Info) Description 01/26/2013 External Results XRay at [address] [place] [address] Provider, Scanning Social History Tobacco Use Types [...] on filedocumented in this encounter Care Teams Metal Framer Relationship Specialty Start Date End Date Cortez Tipton MD [address] [facility] [place] [address] PCP - General 03/05/10 08/11/19 documented as of this encounter
--- OUTSIDE RECORDS SUMMARY | 2024-01-08 00:47 | XMS_ITS | Encounter Summary ---
Author Organization [facility] [address] Care Team Providers Care Automotive Service Consultant Name Role Phone Cortez Tipton MD Primary Care Provider [phone] Encounter Details Date Type Department Care Team (Late st Contact Info) Description 07/14/2010 Orders [place] [address] Louann Cazares MD [facility] [place] [address] Abnormal mammogram, unspecified (Primary Dx) Social History [...] Primary documented in this encounter Care Teams Automotive Service Consultant Relationship Specialty Start Date End Date Cortez Tipton MD [address] [place] [address] PCP - General 03/05/10 08/11/19 documented as of this encounter
--- OUTSIDE RECORDS SUMMARY | 2024-01-08 00:47 | XMS_ITS | Encounter Summary ---
Author Organization [facility] Address [address] [place] [address] Care Team Providers Care Photofinishing Laboratory Worker Name Role Phone Cortez Tipton MD Primary Care Provider Unav ailable Encounter Details Date Type Department Care Team (Late st Contact Info) Description 02/03/2020 Lab Requisition [facility] Pathology & Laboratory Medicine - [facility] [address], [place] [address] Outr Resulting Lab, Provider Social History Tobacco [...] Outr Resulting Lab MICROBIOLOGY - GENERAL ORDERABLES [facility] [address] [place] [address] * COVID-19 TESTING (02/03/2020 14:27 EDT) COVID-19 rt-PCR Result Negative Negative 02/04/2020 2:07 EDT [facility] Comment: This test has [...] history, and epidemiological information. Performed on the [employer] Fusion instrument Performing Lab [place] [facility] Lab 02/04/2020 2:07 EDT [facility] Swab 02/03/2020 14:2 7 EDT 02/03/2020 21:07 EDT Provider Outr Resulting Lab MICROBIOLOGY - GENERAL ORDERABLES [facility] [address] [place] [address] documented in this encounter Visit Diagnoses Not on filedocumented in this encounter Care Teams Photofinishing Laboratory Worker Relationship Specialty Start Date End Date Cortez Tipton MD PCP - General 10/06/11 documented as of this encounter
--- OUTSIDE RECORDS SUMMARY | 2024-01-08 00:47 | XMS_ITS | Encounter Summary ---
[place] [address] Care Team Providers Care Cook Barbecue Name Role Phone Ish Sheree Espino APRN Primary Care Provider [phone] Reason for Visit * Auth/Cert Specialty Diagnoses / Procedures Referred By Contac t Referred To Contact Diagnoses Chest discomfort [R07.89]/Abnormal stress test [R94.39] Procedures PRG CATH PLMT LEFT HEART CATH & ARTS W/INJ & ANGIO IMG S&I CARDIAC CATHETERIZATION CORONARY ANGIOGRAPHY; W LHC,POSSIBLE PCI Referral ID Status Reason Start Date Expiration Date Visits Re quested Visits Authorized [id number] 1 1 Encounter Details Date Type Department Care Team (Latest Contact Info) Description 08/19/2019 12:10 PM EDT - 08/19/2019 11:59 PM EDT Hospital Encounter [place] [phone] Discharge Disposition: Home Social History Tobacco Use [...] S ? (Age): 1950(69y) Med Rec#: ? [id number] ?Sex: ?F ? [place] [facility] [place]Ht / Wt: ??168(cm)/84(kg) Pt. Loc: ?PACU ?BSA: ?1.94 Study Date: ?? 08/19/2019 ?Pt. Type: Same-Day Patient Tape: ? Referring: PERITZDAVIDC Reading: Derrick Leung ([id number]) Manager Hiv: Niki Martinez Interpreting Fellow: Lakshmi Tobin ([id number]) Diagnosis: *Other chest pain (R07.89) BP: ? [...] Vmax ?0.68 ? m/sec ? MV deceleration behr955.38 ? msec ? MV A-wave Vmax ?0.59 [...] ? Mid-Inferior ?Normal ? Mid-Inferoseptal ?Normal ? [place]-Septal ? Normal ? [place]-Anterior ? Normal ? [place]-Lateral ?Normal ? [place]-Inferior ? Normal ? [place]-Tip ?Normal ? This report has been electronically signed by: Derrick Leung M.D. ? 08/19/2019 15:14:00 Images reviewed and interpretation verified [facility] Cardiac Ultrasound Laboratory Procedure Note Derrick Leung MD - 08/19/2019 Procedure: Transthoracic Echocardiogram Patient: ELENA Hector (Age): 1950(69y) Med Rec#: [id number] Sex: F [place] [facility] Ht / Wt: 168(cm)/84(kg) Pt. Loc: PACU BSA: 1.94 Study Date: 08/19/2019 Pt. Type: Same-Day Patient Tape: Referring: [facility] Reading: Derrick Leung ([id number]) Manager Hiv: Niki Martinez Interpreting Fellow: Lakshmi Tobin ([id number]) Diagnosis: *Other chest pain (R07.89) BP: 138/74 [...] MV E-wave Vmax 0.68 m/sec MV deceleration gslg389.38 msec MV A-wave Vmax 0.59 m/sec MV [...] Normal Mid-Posterolateral Normal Mid-Inferior Normal Mid-Inferoseptal Normal [place]-Septal Normal [place]-Anterior Normal [place]-Lateral Normal [place]-Inferior Normal [place]-Tip Normal This report has been electronically signed by: Derrick Leung M.D. 08/19/2019 15:14:00 Images reviewed and interpretation verified [facility] Cardiac Ultrasound Laboratory Aristides Jurado MD ECHO ORDERABLES documented in this encounter Visit Diagnoses Not on filedocumented in this encounter Care Teams Cook Barbecue Relationship Specialty Start Date End Date Sheree Deng APRN [address] [facility] [place] [address] PCP - General Internal Medicine 08/12/19 documented as of this encounter
--- OUTSIDE RECORDS SUMMARY | 2024-01-08 00:47 | XMS_ITS | Encounter Summary ---
Author Organization [facility] [place] [address] Care Team Providers Care Hip Hop Performers Name Role Phone Sheree Deng APRN Primary Care Provider [phone] Encounter Details Date Type Department Care Team (Late st Contact Info) Description 10/31/2022 Ancillary Procedure Radiology Library at [facility] [place] [id number] Sheree Deng, TIMBER KILLER [address] [place], [place] [address] Social History Tobacco Use Types Packs/Day Years [...] Ultrasound Study (10/31/2022 12:00 AM EDT) Narrative [facility] - 01/05/2023 4:48 PM EDT This exam is auto-finalizing. It's purpose is for storage only. Sheree Deng APRN IMG FILM LIBRARY ORD ERABLES [facility] RAD [place], [place] documented in this encounter Visit Diagnoses Not on filedocumented in this encounter Care Teams Hip Hop Performers Relationship Specialty Start Date End Date Sheree Deng APRN [address] [place] [address] PCP - General Internal Medicine 08/12/19 documented as of this encounter
--- OUTSIDE RECORDS SUMMARY | 2024-01-08 00:47 | XMS_ITS | Encounter Summary ---
Author Organization [facility] Address [address] [place] [address] Care Team Providers Care Beamer Operator Name Role Phone Cortez Tipton MD Primary Care Provider Unav ailable Encounter Details Date Type Department Care Team (Late st Contact Info) Description 09/23/2023 Lab Requisition [facility] Pathology & Laboratory Medicine - [facility] [address] [place], [place] [id number] Outr Resulting Lab, Provider Social History Tobacco [...] Lyme Ab Negative Negative 09/24/2023 11:55 EDT [facility] Blood VENOUS BLOOD / Unknown 09/22/2023 16:20 EDT 09/23/2023 16:54 EDT Provider Outr Resulting Lab IMMUNOLOGY A ND SEROLOGY ORDERABLES [facility] [address] [place], [place] [id number] documented in this encounter Visit Diagnoses Not on filedocumented in this encounter Care Teams Beamer Operator Relationship Specialty Start Date End Date Cortez Tipton MD PCP - General 10/06/11 documented as of this encounter
--- OUTSIDE RECORDS SUMMARY | 2024-01-08 00:47 | XMS_ITS | Encounter Summary ---
Author Organization [facility] Address [facility] [place] [address] Care Team Providers Care Toppiece Cutter Name Role Phone Sheree Deng Kenzie SOLARES Primary Care Provider + [phone] Reason for Referral * Consultation (Routine) - Closed Specialty Diagnoses / Procedures Referred By Contakua t Referred To Contact General Surgery Diagnoses Malignant neoplasm of thyroid gland Mike Ca MD [address] [place] [address] [place] [address] [place] [address] Referral ID Status Reason Start Date Expiration Date V isits Requested Visits Authorized [id number] Closed Consult, Test & Treat 12/24/2022 12/24/2023 1 1 Encounter Details Date Type Department Care Team (Late st Contact Info) Description 12/24/2022 Transcribe Orders eDH Incoming Referrals [phone] Mike Ca MD [address] [place] [address] [place], [place] [phone] Malignant neoplasm of thyroid gland Social History [...] gland documented in this encounter Care Teams Toppiece Cutter Relationship Specialty Start Date End Date Sheree Deng APRN [address] [place] [address] PCP - General Internal Medicine 08/12/19 documented as of this encounter
--- OUTSIDE RECORDS SUMMARY | 2024-01-08 00:47 | XMS_ITS | Encounter Summary ---
Author Organization [facility] Address [address] [place] [address] Care Team Providers Care Lens Polisher Hand Name Role Phone Cortez Tipton MD Primary Care Provider Unav ailable Encounter Details Date Type Department Care Team (Late st Contact Info) Description 11/19/2023 Lab Requisition [facility] Pathology & Laboratory Medicine - [facility] [address] [place], [place] [phone] Outr Resulting Lab, Provider Social History Tobacco [...] Procedure Name Priority Date/Time Associated Diagnosis Comments SPEP, INCLUDES QUANTITATION OF MONOCLONAL SPIKE PERFORMABLE Today 11/18/2023 15:15 EDT IMMUNOTYPING, SERUM Today 11/18/2023 1 5:15 EDT SPEP, INCLUDES QUANTITATION OF MONOCLONAL SPIKE Routine 11/18/2023 15:15 EDT PROTEIN, TOTAL Today 11/18/2023 15:15 EDT documented in this encounter Results * IMMUNOTYPING, SERUM (11/18/2023 15:15 EDT) Immunotyping , Serum Current Interpretation: 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 Confirmed by immunofixation. Interpreted by: Yayo Mejia MD 11/20/2023 1527 11/20/2023 15:39 EDT [facility] Blood VENOUS BLOOD / Unknown 11/18/2023 15:15 EDT 11/19/2023 20:27 EDT Provider Outr Resulting Lab CHEMISTRY & BLOOD GAS ORDERABLES [facility] [address] [place], [place] [phone] * SPEP, INCLUDES QUANTITATION OF MONOCLONAL SPIKE PERFORMABLE (11/18/2023 15:15 EDT) Albumin % 60.3 55.8 - 66.1 % 11/20/2023 15:39 T [facility] Albumin g/dL 4.0 3.6 - 5.2 g/dL 11/20/2023 15:39 [facility] Alpha-1 % 4.0 2.9 - 4.9 % 11/20/2023 15:39 [facility] Alpha-1 g/dL 0.30 0.15 - 0.40 g/dL 11/20/2023 15:39 [facility] Alpha-2 % 10.5 7.1 - 11.8 % 11/20/2023 15:39 [facility] Alpha-2 g/dL 0.70 0.50 - 1.00 g/dL 11/20/2023 15:39 [facility] Beta % 11.8 8.4 - 13.1 % 11/20/2023 15:39 [facility] Beta g/dL 0.80 0.60 - 1.20 g/dL 11/20/2023 15:39 [facility] Gamma % 13.4 11.1 - 18.8 % 11/20/2023 15:39 [facility] Gamma g/dL 0.90 0.60 - 1.60 g/dL 11/20/2023 15:39 [facility] SPEP Comment Suspicious pattern seen on protein electrophoresis, immunotyping added by reflex. Monoclonal protein present, too small to quantitate. 11/20/2023 15:39 [facility] Comment:See scanned/suppleme ntary report. Total Protein 6.6 6.3 - 8.2 g/dL 11/20/2023 15:39 EDT [facility] Blood VENOUS BLOOD / Unknown 11/18/2023 15:15 EDT 11/19/2023 20:27 EDT Provider Outr Resulting Lab CHEMISTRY & BLOOD GAS ORDERABLES Performing Organization Address [facility] Phone Number [facility] [address] [place], [place] [address] * PROTEIN, TOTAL (11/18/2023 15:15 EDT) Blood VENOUS BLOOD / Unknown 11/18/2023 15:15 EDT 11/19/2023 20:27 EDT Provider Outr Resulting Lab CHEMISTRY & BLOOD GAS ORDERABLES Performing Organization Address City/[facility] Co de Phone Number [facility] [address] [place] [address] documented in this encounter Visit Diagnoses Not on filedocumented in this encounter Care Teams Lens Polisher Hand Relationship Specialty Start Date End Date Cortez Tipton MD PCP - General 10/06/11 documented as of this encounter
--- OUTSIDE RECORDS SUMMARY | 2024-01-08 00:47 | XMS_ITS | Encounter Summary ---
Author Organization [facility] [place] [address] Care Team Providers Care Director Of Labor Relations Name Role Phone Cortez Tipton MD Primary Care Provider [phone] Encounter Details Date Type Department Care Team (Late st Contact Info) Description 07/23/2010 Orders Only [address] [address] Elizabeth Birmingham MD [facility] [place] [address] Abnormal mammogram, unspecified (Primary Dx) Social History [...] unspecified documented in this encounter Care Teams Director Of Labor Relations Relationship Specialty Start Date End Date Cortez Tipton MD [address] [place] [id number] PCP - General 03/05/10 08/11/19 documented as of this encounter
--- OUTSIDE RECORDS SUMMARY | 2024-01-08 00:47 | XMS_ITS | Encounter Summary ---
Author Organization [facility] Address [address] [place] [address] Care Team Providers Care Kindergartner Name Role Phone Unavailable Primary Care Provider Unavailabl e Encounter Details Date Type Department Care Team (Late st Contact Info) Description 09/29/2011 Results Only [facility] Laboratory Services - [facility] ([facility] [place] [address] [place] [address] Caleb Toro MD [address] [facility] [place] [address] Social History Tobacco Use Types [...] ? CHAYO PARKER ? Accession #: ? [id number] ? : ? 1950 (Age: 61) ??F [...] apocrine features with associated decapitation secretion. (Dr. Maya)/[facility] Document reviewed and electronically signed by: [...] Toro MD PATHOLOGY ORDERABLES [facility] [address] [place] [address] documented in this encounter Visit Diagnoses Not on filedocumented in this encounter
--- OUTSIDE RECORDS SUMMARY | 2024-01-08 00:47 | XMS_ITS | Encounter Summary ---
Author Organization [facility] Address [facility] [place] [address] Care Team Providers Care Employee Relations Consultant Name Role Phone Sheree Deng APRN Primary Care Provider [phone] Encounter Details Date Type Department Care Team (Late st Contact Info) Description 03/05/2009 Orders [place] [address] Domingo Pires MD [facility] [place] [address] Social History Tobacco Use Types Packs/Day Years Used Date Smoking Tobacco: Never Assessed [facility] Utilities Answer Date Recorded In the [...] 2:08 PM EST) Surgical Pathology Report [id number] ? Location: [facility] The signing pathologist has (i) examined [...] transcriptase PCR reactions were performed using the LoiLo ? Breast Lymph Node test. The sentinel lymph node(s) was/were tested for the expression of mammoglobin, CK19 and PBGD (internal control) using gene specific primers for amplification and probes for detection on the Muzzley Smartcycler. Interpretation: ??Positive expression of the mammoglobin [...] Pires MD PATHOLOGY/CYTOLOGY ORDERABLES Performing Organization Address City/State/[facility] Co de Phone Number DANIEL NAM documented in this encounter Visit Diagnoses Not on filedocumented in this encounter Care Teams Employee Relations Consultant Relationship Specialty Start Date End Date Sheree Deng, BECK [address] [place] [address] PCP - General Internal Medicine 08/12/19 documented as of this encounter
--- OUTSIDE RECORDS SUMMARY | 2024-01-08 00:47 | XMS_ITS | Encounter Summary ---
[place] [address] Care Team Providers Care Election Watcher Name Role Phone Cortez Tipton MD Primary Care Provider [phone] Encounter Details Date Type Department Care Team (Latest Contact Info) Description 11/03/2013 12:57 PM EDT - 11/03/2013 11:59 PM EDT Hospital [place] [address] CLINIC, Cortez Villanueva MD [address] [place], [place] [phone] Discharge Disposition: Home Social History Tobacco Use [...] ultrasound of this area of 07/23/2010. The intermediate school teacher mammographic and sonographic ??stability is consistent with [...] breast ultrasound of this areaof 07/23/2010. The intermediate school teacher mammographic and sonographic stability isconsistent with a [...] on filedocumented in this encounter Care Teams Election Watcher Relationship Specialty Start Date End Date Cortez Tipton MD [address] [place] [address] PCP - General 03/05/10 08/11/19 documented as of this encounter
--- OUTSIDE RECORDS SUMMARY | 2024-01-08 00:47 | XMS_ITS | Encounter Summary ---
Author Organization [facility] Address [address] [place] [address] Care Team Providers Care Picker And Sorter Load And Unload Name Role Phone Cortez Tipton MD Primary Care Provider Unav ailable Encounter Details Date Type Department Care Team (Late st Contact Info) Description 10/12/2013 Results Only [facility] Laboratory Services - [facility] ([facility]) [address] [place], [place] [phone] Romy Morrow, FARM EQUIPMENT TECHNICIAN [facility] [address] [place] [address] Social History Tobacco Use Types [...] ? CHAYO PARKER ? Accession #: ? [id number] ? : ? 1950 (Age: 63) ??F ?Collect Date: ? 10/12/2013 ? Location: ? [facility] ? Receive Date: ? 10/17/2013 ? Provider: ROMY MORROW FARM EQUIPMENT TECHNICIAN Copy to: ? Final Report SPECIMEN ADEQUACY [...] types 16,18,31,33,35, 39,45,51,52,56,58, 59,66, and 68 by barrel cleaner mediated amplification. Comments Document reviewed and electronically signed by: ? System Interface ? Report date: 10/25/2013 By the signature above, the attending physician certifies that he/she has personally conducted a gross and/or microscopic examination of the described specimens and rendered or confirmed the above diagnosis. End of Report [facility] 10/12/2013 10/17/2013 Romy Morrow FARM EQUIPMENT TECHNICIAN PATHOLOGY ORDERABLE S Performing Organization Address City/State/[facility] Co de Phone Number [address] [address] documented in this encounter Visit Diagnoses Not on filedocumented in this encounter Care Teams Picker And Sorter Load And Unload Relationship Specialty Start Date End Date Cortez Tipton MD PCP - General 10/06/11 documented as of this encounter
--- OUTSIDE RECORDS SUMMARY | 2024-01-08 00:47 | XMS_ITS | Encounter Summary ---
Author Organization [facility] Address [address] [place] [address] Care Team Providers Care Social Service Liaison Name Role Phone Cortez Tipton MD Primary Care Provider Unav ailable Encounter Details Date Type Department Care Team (Late st Contact Info) Description 12/17/2022 Lab Requisition [facility] Pathology & Laboratory Medicine - [facility] [address] [place] [address] Mike Ca MD [address] [place] [phone] Nontoxic goiter, unspecified; Nontoxic single thyroid nodule [...] Name Priority Date/Time Associated Diagnosis Comments NON PHYSICIAN/INTERNIST/FNA CYTOLOGY Today 12/16/2022 12:50 EDT Nontoxic goiter, unspecified Nontoxic single thyroid nodule documented in this encounter Results * NON PHYSICIAN/INTERNIST/FNA CYTOLOGY (12/16/2022 12:50 EDT) Addendum Comment This addendum report is issued to provide the Afirma Gene Sequencing Line Manager results. There are two separate Afirma results. Part B from the right thyroid was received by the testing laboratory on a separate day and reported separately. Please see the attached documentation. 2023 9:28 EDT [facility] Addendum electronically signed by Cate Darby MD PhD on 2023 at 0928 Note to Patient The following pathology results have been interpreted by your pathologist and may be available to you before your health provider has had the opportunity to review them. Please allow time for your provider to receive these results and explore management options, if applicable. 2023 9:28 [facility] Final Diagnosis A. THYROID NODULE (5.2 CM), LEFT, ULTRASOUND-GUIDED FINE NEEDLE ASPIRATION: - Highly suspicious for papillary thyroid carcinoma. See comment. B. THYROID NODULE, (2.4 CM), RIGHT, ULTRASOUND-GUIDED FINE NEEDLE ASPIRATION: - Atypia of undetermined significance (AUS). See comment. 2023 9:28 [facility] Diagnosis Comment A: The [...] the specimen processing was performed at the [facility] Pathology Department, [address] [place] [address] (CLIA [id number]). The professional component of the specimen evaluation (slide review and issuing of the final diagnosis) was performed at [facility], [address] [place] [address] (CLIA License Number [id number]). 2023 9:28 [facility] Attestation By the signature below, the attending physician certifies that they have personally conducted a gross and/or microscopic examination of the described specimens and rendered or confirmed the above diagnosis. 2023 9:28 [facility] at 1636 Rapid Diagnosis [...] Tori Valencia assisting Dr. Tiffanie Ca at [facility], [address] [place] [address]. 12/16/2022; 1250 2023 9:28 [facility] Clinical History 5.2cm left thyroid nodule. 2.4cm right thyroid nodule. E04.1, E04.9. 2023 9:28 [facility] Gross Description A. 2 [...] days from date of collection. 2023 9:28 [facility] Performing Lab [facility] 2023 9:28 [facility] Scanned Images 2023 9:28 [facility] Fine Needle Aspirate STRUCTURE OF RIGHT LOBE OF THYROID GLAND / Unknown 12/16/2022 12:50 EDT 12/17/2022 6:17 EDT Specimen obtained by fine needle aspiration procedure (specimen) STRUCTURE OF RIGHT LOBE OF THYROID GLAND / Unknown 12/16/2022 12:50 EDT 12/17/2022 6:17 EDT Mike East Feliciana MD PATHOLOGY ORDERABLES [facility] [address] [place] [address] documented in this encounter Visit Diagnoses Diagnosis Nontoxic goiter, unspecified Nontoxic single thyroid nodule Nontoxic uninodular goiter documented in this encounter Care Teams Social Service Liaison Relationship Specialty Start Date End Date Cortez Tipton MD PCP - General 10/06/11 documented as of this encounter
--- OUTSIDE RECORDS SUMMARY | 2024-01-08 00:47 | XMS_ITS | Encounter Summary ---
[place] [address] Care Team Providers Care Mess Attendant Name Role Phone Cortez Tipton MD Primary Care Provider [phone] Encounter Details Date Type Department Care Team (Late st Contact Info) Description 07/10/2010 Orders [place] [phone] Romy Bolaños, CARDIOLOGIST [address] [place], [place] [phone] Social History Tobacco Use Types Packs/Day Years [...] TECHNIQUE: Soft copy digital images provided from [facility] including bilateral screening views from 2004, 2006, [...] TECHNIQUE: Soft copy digital images provided from [facility] including bilateral screening views from 2004, 2006, [...] on filedocumented in this encounter Care Teams Mess Attendant Relationship Specialty Start Date End Date Cortez Tipton MD [address] [place] [address] PCP - General 03/05/10 08/11/19 documented as of this encounter
--- OUTSIDE RECORDS SUMMARY | 2024-01-08 00:47 | XMS_ITS | Encounter Summary ---
[place] [address] Care Team Providers Care Qa Tester Name Role Phone Cortez Tipton MD Primary Care Provider [phone] Encounter Details Date Type Department Care Team (Late st Contact Info) Description 01/08/2014 Notes [place] [phone] Felipa Oates RN Social History Tobacco Use [...] on filedocumented in this encounter Care Teams Qa Tester Relationship Specialty Start Date End Date Cortez Tipton MD [address] [place] [address] PCP - General 03/05/10 08/11/19 documented as of this encounter
--- OUTSIDE RECORDS SUMMARY | 2024-01-08 00:47 | XMS_ITS | Encounter Summary ---
Author Organization [facility] Address [address] [place] [address] Care Team Providers Care Sergeant Of Officers Name Role Phone Cortez Tipton MD Primary Care Provider Unav ailable Encounter Details Date Type Department Care Team (Late st Contact Info) Description 09/06/2019 Lab Requisition [facility] Pathology & Laboratory Medicine - [facility] [address] [place], [place] [phone] Outr Resulting Lab, Provider Social History Tobacco [...] Outr Resulting Lab MICROBIOLOGY - GENERAL ORDERABLES [facility] [address] [place] [address] * COVID-19 TESTING (09/06/2019 12:49 EDT) COVID-19 rt-PCR Result Negative Negative 09/07/2019 14:39 EDT [facility] Comment: This test has not [...] history, and epidemiological information. Performed on the Cloud Enginesher Fusion instrument Performing Lab [place] [facility] 09/07/2019 14:39 EDT [facility] Swab ENTIRE NASOPHARYNX / Unknown 09/06/2019 12:49 EDT 09/06/2019 21:18 EDT Provider Outr Resulting Lab MICROBIOLOGY - GENERAL ORDERABLES [facility] [address] [place] [address] documented in this encounter Visit Diagnoses Not on filedocumented in this encounter Care Teams Sergeant Of Officers Relationship Specialty Start Date End Date Cortez Tipton MD PCP - General 10/06/11 documented as of this encounter
--- OUTSIDE RECORDS SUMMARY | 2024-01-08 00:47 | XMS_ITS | Encounter Summary ---
Author Organization [facility] [place] [address] Care Team Providers Care Compound Mixer Name Role Phone Cortez Tpiton MD Primary Care Provider [phone] Reason for Visit * Reason Comments Advice Only possible leak in lef t breast implant/ dr badillo pt Encounter Details Date Type Department Care Team (Latest Contact Info) Description 01/26/2013 8:00 AM EDT Office [place] [address] Angela Teixeira MD [facility] [place] [address] Breast reconstruction deformity (Primary Dx); H/O breast [...] History Procedure Date ??? Breast reconstruction 2010 Cantilever Crane Operator then silicon implant ??? section ??? Breast [...] her concerns and her options. I cannot hand plug shaper from the examination whether she has lost [...] [facility] as [facility] her now as it was when she made the decision to have a breast augmentation. I have stressed that surgery to replace the implants carries with it all the retirement consequen ts of having an implant and [...] means documented in this encounter Care Teams Compound Mixer Relationship Specialty Start Date End Date Cortez Tipton MD [address] [place] [address] PCP - General 03/05/10 08/11/19 documented as of this encounter
--- OUTSIDE RECORDS SUMMARY | 2024-01-08 00:47 | XMS_ITS | Encounter Summary ---
[place] [address] Care Team Providers Care Ice Cream Maker Name Role Phone IshSheree APRN Primary Care Provider [phone] Encounter Details Date Type Department Care Team (Latest Contact Info) Description 08/07/2020 9:49 PM EDT - 08/07/2020 11:59 PM EDT Hospital [place] [address] Discharge Disposition: Home Social History Tobacco Use [...] on filedocumented in this encounter Care Teams Ice Cream Maker Relationship Specialty Start Date End Date Sheree Deng APRN [address] [place] [address] PCP - General Internal Medicine 08/12/19 documented as of this encounter
--- OUTSIDE RECORDS SUMMARY | 2024-01-08 00:47 | XMS_ITS | Encounter Summary ---
[place] [address] Care Team Providers Care Talent Consultant Name Role Phone Cortez Tipton MD Primary Care Provider [phone] Encounter Details Date Type Department Care Team (Latest Contact Info) Description 01/26/2013 1:14 PM EDT - 01/26/2013 11:59 PM EDT Hospital [place] [address] Breast reconstruction deformity Social History Tobacco Use [...] breast documented in this encounter Care Teams Talent Consultant Relationship Specialty Start Date End Date Cortez Tipton MD [address] [place] [address] PCP - General 03/05/10 08/11/19 documented as of this encounter
--- OUTSIDE RECORDS SUMMARY | 2024-01-08 00:47 | XMS_ITS | Encounter Summary ---
Author Organization [facility] [place] [address] Care Team Providers Care Operations Lieutenant Name Role Phone Ish Sheree Espino APRN Primary Care Provider [phone] Encounter Details Date Type Department Care Team (Latest Contact Info) Description 10/12/2019 9:22 PM EDT - 10/12/2019 11:59 PM EDT [place] [address] Discharge Disposition: Home Social History Tobacco Use [...] Forrester MD Verified: ??10/19/2019 ?Pathologist Performed at: ??-[facility] Dept. of Pathology, [place], [place] SPECIMEN(S) SUBMITTED A - Cecum polyp, [...] DO PATHOLOGY/CYT OLOGY ORDERABLES Performing Organization Address City/State/[facility] Co de Phone Number [facility] [place] [address] documented in this encounter Visit Diagnoses Not on filedocumented in this encounter Care Teams Operations Lieutenant Relationship Specialty Start Date End Date Sheree Deng APRN [address] [place] [address] PCP - General Internal Medicine 08/12/19 documented as of this encounter
--- OUTSIDE RECORDS SUMMARY | 2024-01-08 00:47 | XMS_ITS | Encounter Summary ---
[place] [address] Care Team Providers Care Boxer Operator Name Role Phone Sheree Deng Kenzie SOLARES Primary Care Provider [phone] Reason for Visit * Reason Comments Skin Lesion bilateral upper ches t, right groin, right shoulder blade, right shoulder, bilateral arms Encounter Details Date Type Department Care Team (Late st Contact Info) Description 08/07/2020 10:45 AM EDT Office Visit Dermatology at [place] [address] [facility] [place] [id number] Issac Evans MD [address] [facility] [place] [address] Nevus; Seborrheic keratosis Social History Tobacco Use [...] Report (08/07/2020 11:30 AM EDT) Final Diagnosis [id number] ? Location: LID The signing pathologist has [...] Verified: ??08/14/2020 17:14 ??Dermatopatholo gist Performed at: ??-[facility] Dept. of Pathology, [place], [place] ADDITIONAL STUDIES A - Examination of [...] labeled B1. ??ajw 08/14/2020 5:14 PM EDT [facility] SPECIMEN FROM SKIN / Unknown 08/07/2020 11:30 AM EDT 08/07/2020 11:30 AM EDT SPECIMEN FROM SKIN / Unknown 08/07/2020 11:30 AM EDT 08/07/2020 11:30 AM EDT Issac Evans MD PATHOLOGY/CYTOLOGY O [facility] [place] [address] documented in this encounter Visit Diagnoses Diagnosis Nevus Benign neoplasm of skin, site unspecified Seborrheic keratosis Other seborrheic keratosis documented in this encounter Care Teams Boxer Operator Relationship Specialty Start Date End Date Sheree Deng, PRODUCT ADVISOR [address] [place] [address] PCP - General Internal Medicine 08/12/19 documented as of this encounter
--- OUTSIDE RECORDS SUMMARY | 2024-01-08 00:47 | XMS_ITS | Encounter Summary ---
Author Organization [facility] [place] [address] Care Team Providers Care Systems Analysis Manager Name Role Phone Ish Sheree Espino APRN Primary Care Provider [phone] Reason for Visit * Auth/Cert Specialty Diagnoses / Procedures Referred By Contac t Referred To Contact Diagnoses Chest discomfort [R07.89]/Abnormal stress test [R94.39] Procedures PRG CATH PLMT LEFT HEART CATH & ARTS W/INJ & ANGIO IMG S&I CARDIAC CATHETERIZATION CORONARY ANGIOGRAPHY; W LHC,POSSIBLE PCI Referral ID Status Reason Start Date Expiration Date Visits Re quested Visits Authorized [id number] 1 1 Encounter Details Date Type Department Care Team (Latest Contact Info) Description 08/19/2019 8:59 AM EDT - 08/19/2019 3:05 PM EDT Hospital Encounter [place] [address] Elma Almonte MD [facility] [place] [address] Chest discomfort; Abnormal stress test Discharge Disposition: [...] by your doctor, do not take any gwkm-bwl-zmhdbjy medicinesor herbal preparations without first discussing this with your doctor or pharmacist. There is the possibility of side effects and interactions when these are combined. Follow Up Care Who to call with questions or problems If there are any questions or problems that you think might be related to your cardiac cath or angioplasty, contact the landscaping crew leader consulting group analyst by calling [facility] at . documented in this encounter [...] Procedure Note: Patient Name: Karen Stratton : [id number] MR#: [id number] Case Date: 08/19/2019 Glaucoma Specialist: Surgeon(s) and Role: * Elma Almonte MD [...] ECHO COMPLETE (08/19/2019 2:52 PM EDT) Pathologist [facility] EF 65 HEARTLAB SYSTEM Anatomical Region Laterality Modality Other 08/19/2019 Narrative 08/19/2019 3:14 PM EDT Procedure: ?Transthoracic Echocardiogram Patient: ?VIRAL DOMINGO S ? (Age): 1950(69y) Med Rec#: ? [id number] ?Sex: ?F ? [place] Loc: ? [facility] ?Ht / Wt: ??168(cm)/84(kg) Pt. Loc: ?PACU ?BSA: ?1.94 Study Date: ?? 08/19/2019 ?Pt. Type: Same-Day Patient Tape: ? Referring: [email or web address] Reading: Derrick Leung ([id number]) Brick Dropper: Niki Martinez Interpreting Fellow: Lakshmi Tobin ([id number]) Diagnosis: *Other chest pain (R07.89) BP: ? [...] Vmax ?0.68 ? m/sec ? MV deceleration wymi489.38 ? msec ? MV A-wave Vmax ?0.59 [...] ? Mid-Inferior ?Normal ? Mid-Inferoseptal ?Normal ? Karval-Septal ? Normal ? Karval-Anterior ? Normal ? Karval-Lateral ?Normal ? Karval-Inferior ? Normal ? Karval-Tip ?Normal ? This report has been electronically signed by: Derrick Leung M.D. ? 08/19/2019 15:14:00 Images reviewed and interpretation verified [facility] Procedure Note Derrick Leung MD - 08/19/2019 Procedure: Transthoracic Echocardiogram Patient: VIRAL LEBLANC(Age): 1950(69y) Med Rec#: [id number] Sex: F [place] Loc: [facility] Ht / Wt: 168(cm)/84(kg) Pt. Loc: PACU BSA: 1.94 Study Date: 08/19/2019 Pt. Type: Same-Day Patient Tape: Referring: [facility] Reading: Derrick Leung ([id number]) Brick Dropper: Niki Martinez Interpreting Fellow: Lakshmi Tobin ([id number]) Diagnosis: *Other chest pain (R07.89) BP: 138/74 [...] MV E-wave Vmax 0.68 m/sec MV deceleration meqr007.38 msec MV A-wave Vmax 0.59 m/sec MV [...] Normal Mid-Posterolateral Normal Mid-Inferior Normal Mid-Inferoseptal Normal Karval-Septal Normal Karval-Anterior Normal Karval-Lateral Normal Karval-Inferior Normal Karval-Tip Normal This report has been electronically signed by: Derrick Leung M.D. 08/19/2019 15:14:00 Images reviewed and interpretation verified [facility] Elma Almonte MD ECHO ORDERABLES * EKG 12 Lead (08/19/2019 10:25 AM EDT) Ventricular rate 51 BPM MUSE SYSTEM Atrial Rate 51 BPM MUSE SYSTEM P-R Interval 192 ms MUSE SYSTEM QRS Duration 92 ms MUSE SYSTEM Q-T Interval 436 ms MUSE SYSTEM QTC Calculated (Bezet) 401 ms MUSE SYSTEM Calculated P Plains 68 degrees MUSE SYSTEM Calculated R [place] 62 degrees MUSE SYSTEM Calculated T [place] 68 degrees MUSE SYSTEM INTERPRETATION Sinus bradycardia Otherwise normal ECG When compared with ECG of 20-FEB-2009 15:55, No significant change was found Confirmed by Melissa Lema ([id number]) on 08/19/2019 1:13:27 PM MUSE SYSTEM 08/19/2019 10:2 5 AM EDT 08/19/2019 1:13 PM EDT Elma Almonte MD ECG ORDERABLES MUSE SYSTEM * Differential, Automated (08/19/2019 9:33 AM EDT) Neutrophil % 51.1 % [facility] Neutrophil Absolute 2.03 1.70 - 6.10 x10(3)/[facility] Lymph % 31.2 % [facility] Lymphocytes Abs 1.2 0.9 - 3.2 x10(3)/[facility] Monocyte % 8.8 % [facility] Monocyte Abs 0.4 0.3 - 0.9 x10(3)/[facility] Eos % 8.1 % [facility] Eosinophils Abs 0.3 0.0 - 0.4 x10(3)/[facility] Basophil % 0.5 % [facility] Baso Absolute 0.0 0.0 - 0.1 x10(3)/[facility] Immature Gran % 0.30 % [facility] Comment: Immature granulocytes(IG's)percentage and absolute count will include metamyelocytes, myelocytes, and promyelocytes. Blood smears from CBCs yielding IG's will be scanned manually for concordance. If this scan disagrees with the automated IG or if promyelocytes are noted, a manual differential will be performed. Immature Gran Absolute 0.01 0.00 - 0.04 x10(3)/[facility] Blood specimen (specimen) 08/19/2019 9:33 AM EDT 08/19/2019 9:50 AM EDT Narrative Resulting Agency Comment Spec In Lab [place] BAUER HEMATOLOGY ORDERABLE S [facility] [place] [address] * (ABNORMAL) Hemogram (08/19/2019 9:33 AM EDT) White Blood Cell 4.0 4.0 - 9.5 x10(3)/ L [facility] Red Blood Cell 4.06 4.00 - 5.21 x10(6)/ L [facility] Hemoglobin 12.1 11.7 - 15.5 gm/dL [facility] Hematocrit 38.9 35.7 - 45.8 % [facility] Mean Cell Volume 95.8(H) 82.6 - 94.4 fL [facility] Mean Cell Hemoglobin 29.8 27.1 - 32.0 pg [facility] Mean Cell Hemoglobin Concentration 31.1(L) 31.7 - 35.0 gm/dL [facility] Platelet 256 145 - 357 x10(3)/mc L [facility] RDW Standard Deviation 43.9 37.0 - 46.0 fL [facility] RDW coefficient of variation 12.4 11.5 - 14.1 % [facility] Mean Platelet Volume 10.7 7.6 - 12.9 fL [facility] NRBC% auto 0.0 % [facility] NRBC Absolute 0.000 0.000 - 0.000 x10(3)/mc L [facility] Blood specimen (specimen) 08/19/2019 9:33 AM EDT 08/19/2019 9:50 AM EDT Narrative Resulting Agency Comment Spec In Lab [place]en BAUER HEMATOLOGY ORDERABLE S Performing Organization Address City/State/[facility] Co de Phone Number [facility] [place] [address] * (ABNORMAL) BMP w/fasting Glucose (08/19/2019 9:33 AM EDT) Glucose Fasting 100(H) 65 - 99 mg/dL [facility] Comment: ?Fasting* Glucose [...] of Diabetes Mellitus, Position Statement from the [employer]. ??Diabetes Care, Volume 33, Supplement 1, Apr 2009 Blood Urea Nitrogen 19(H) 8 - 18 mg/dL [facility] Creatinine 0.75 0.70 - 1.20 mg/dL [facility] Sodium 145 135 - 145 mmol/L [facility] Potassium 4.4 3.5 - 5.0 mmol/L [facility] Comment: Please note: ??Patients with WBC >100,000 may have falsely elevated Potassium levels. ??For accurate Potassium quantification in these patients send serum separator tube (gold top) for subsequent determinations. ??Contact the Clinical Chemistry Laboratory if there are any questions. Chloride 106 98 - 107 mmol/L [facility] Carbon Dioxide 26 22 - 31 mmol/L [facility] Anion Gap 13 5 - 15 mmol/L [facility] Calcium 9.4 8.5 - 10.5 mg/dL [facility] Est Glomerular Filtration Rate 82 >=60 mL/min/1. 73 m?? [facility] Comment: The eGFR was calculated using the CKD-EPI equation. As with all creatinine based estimates of kidney function, eGFR values calculated with the CKD-EPI equation are not accurate in patients with acute kidney failure, extremes of body mass or the acutely ill. http://Future Domain/DHMCnkf eGFR 95 >=60 mL/min/1. 73 m?? [facility] Comment: The eGFR was calculated using the CKD-EPI equation. As with all creatinine based estimates of kidney function, eGFR values calculated with the CKD-EPI equation are not accurate in patients with acute kidney failure, extremes of body mass or the acutely ill. http://Future Domain/DHMCnkf Blood specimen (specimen) 08/19/2019 9:33 AM EDT 08/19/2019 9:50 AM EDT Narrative Resulting Agency Comment Spec In Lab Elma Almonte MD CHEMISTRY ORDERABLES [facility] [place] [address] documented in this encounter Visit Diagnoses Diagnosis [...] Campos) documented in this encounter Care Teams Systems Analysis Manager Relationship Specialty Start Date End Date Sheree Deng, FLIGHT ENGINEER MANAGER [address] [place] [address] PCP - General Internal Medicine 08/12/19 documented as of this encounter
--- OUTSIDE RECORDS SUMMARY | 2024-01-08 00:47 | XMS_ITS | Encounter Summary ---
Author Organization [facility] [place] [address] Care Team Providers Care Dermatology Physician Assistant Name Role Phone Sheree Deng APRN Primary Care Provider [phone] Encounter Details Date Type Department Care Team (Late st Contact Info) Description 04/18/2009 Orders Only [place] [address] Domingo Pires MD [facility] [place] [address] Social History Tobacco Use Types Packs/Day Years Used Date Smoking Tobacco: Never Assessed [facility] Utilities Answer Date Recorded In the [...] place to sleep or slept in a fci (including now)? No 03/11/2023 DH IPV Inpatient [...] 6:10 PM EST) Surgical Pathology Report [id number] ? Location: [place]; [facility]; B The signing pathologist has (i) [...] fibrous tissue. Sections/Processing : ??(1-2) nipple; (3-5) inside technical sales representative sections of lesion ?2; (6) deep margin nearest lesion 2; (7) superficial margin nearest lesion 2; (8-9) inside technical sales representative sections of questionable lesion 3; [...] Nipple Involvement: ? Not identified Correlation Bx's/Cytology: [id number] Other findings: ? - Atypical ductal hyperplasia. ?- Intraductal papilloma. ?- Previous biopsy site changes. ?- Tissue sections from possible lesion #1 reveals radial sclerosing lesion with usual ductal hyperplasia and few ectatic ducts and stromal fibrosis. Estrogen/progestin receptors: Performed on Block A4 ?? ER immunoreactivity: ? Positive (see Diagnostic [place]*) ?? HI immunoreactivity: ? Positive (see Diagnostic [place]*) Histologic [...] Nipple Involvement: ? Not identified Correlation Bx's/Cytology: ?[id number] Other findings: ? - Fibrocystic change and sclerosing adenosis. ? - Previous biopsy site changes Estrogen/progestin receptors: Performed on Block A8 ?? ER immunoreactivity: ? Positive (see Diagnostic [place]*) ?? HI immunoreactivity: ? Positive (see Diagnostic [place]*) ?pTNM: [...] Pires MD PATHOLOGY/CYTOLOGY ORDERABLES Performing Organization Address [facility]/State/[facility] Co de Phone Number DANIEL NAM documented in this encounter Visit Diagnoses Not on filedocumented in this encounter Care Teams Dermatology Physician Assistant Relationship Specialty Start Date End Date Sheree Deng, HULL SORTER [address] [place] [address] PCP - General Internal Medicine 08/12/19 documented as of this encounter
--- OUTSIDE RECORDS SUMMARY | 2024-01-08 00:47 | XMS_ITS | Encounter Summary ---
Author Organization [facility] Address [facility] [place] [address] Care Team Providers Care Back Shoe Operator Name Role Phone Sheree Deng APRN Primary Care Provider [phone] Encounter Details Date Type Department Care Team (Late st Contact Info) Description 02/14/2009 [place] [address] Corinne Ruiz MD [facility] [place] [address] Social History Tobacco Use Types Packs/Day Years Used Date Smoking Tobacco: Never Assessed [facility] Utilities Answer Date Recorded In the [...] place to sleep or slept in a [place] facility (including now)? No 03/11/2023 DH IPV Inpatient [...] 11:31 AM EST) Surgical Pathology Report [id number] ? Location: [facility] The signing pathologist has [...] DCIS, FCD, FAD Report to: SAY Davis [facility] [address] [place] [address] Gross Description A - Specimen: ?Received in [...] on filedocumented in this encounter Care Teams Back Shoe Operator Relationship Specialty Start Date End Date Sheree Deng APRN [address] [place] [address] PCP - General Internal Medicine 08/12/19 documented as of this encounter
--- OUTSIDE RECORDS SUMMARY | 2024-01-08 00:47 | XMS_ITS | Encounter Summary ---
Author Organization [facility] [place] [address] Care Team Providers Care Brand Planner Name Role Phone Sheree Deng APRN Primary Care Provider [phone] Encounter Details Date Type Department Care Team (Late st Contact Info) Description 09/27/2022 Ancillary Procedure Radiology Library at [facility] [place] [id number] Sheree Deng, EMPLOYMENT INTERVIEWER [address] [place], [place] [address] Social History Tobacco Use Types Packs/Day Years [...] CT Chest (09/27/2022 12:00 AM EDT) Narrative [facility] - 01/05/2023 4:48 PM EDT This exam is auto-finalizing. It's purpose is for storage only. Sheree Deng APRN IMG FILM LIBRARY ORD ERABLES [facility] [place], [place] documented in this encounter Visit Diagnoses Not on filedocumented in this encounter Care Teams Brand Planner Relationship Specialty Start Date End Date Sheree Deng APRN [address] [place] [address] PCP - General Internal Medicine 08/12/19 documented as of this encounter
--- OUTSIDE RECORDS SUMMARY | 2024-01-08 00:47 | XMS_ITS | Clinical Summary ---
Author Organization [facility] Address [address] [place] [address] Care Team Providers Care Migratory Game Bird Biologist Name Role Phone Cortez Tipton MD Primary Care Provider Unav ailable Encounters Date Type Department Care Team Description 11/19/2023 Lab Requisition [facility] & Laboratory Medicine - [facility] [address] [place] [address] Outr Resulting Lab, Provider from Last 3 [...] Procedure Name Priority Date/Time Associated Diagnosis Comments IMMUNOTYPING, SERUM Today 11/18/2023 1 5:15 EDT SPEP, INCLUDES QUANTITATION OF MONOCLONAL SPIKE PERFORMABLE Today 11/18/2023 15:15 EDT PROTEIN, TOTAL Today 11/18/2023 15:15 EDT SPEP, INCLUDES QUANTITATION OF MONOCLONAL SPIKE Routine 11/18/2023 15:15 EDT from Last 3 Months Results * SPEP, INCLUDES QUANTITATION OF MONOCLONAL SPIKE PERFORMABLE (11/18/2023 15:15 EDT) Albumin % 60.3 55.8 - 66.1 % 11/20/2023 15:39 [facility] Albumin g/dL 4.0 3.6 - 5.2 g/dL 11/20/2023 15:39 [facility] Alpha-1 % 4.0 2.9 - 4.9 % 11/20/2023 15:39 [facility] Alpha-1 g/dL 0.30 0.15 - 0.40 g/dL 11/20/2023 15:39 [facility] Alpha-2 % 10.5 7.1 - 11.8 % 11/20/2023 15:39 [facility] Alpha-2 g/dL 0.70 0.50 - 1.00 g/dL 11/20/2023 15:39 [facility] Beta % 11.8 8.4 - 13.1 % 11/20/2023 15:39 [facility] Beta g/dL 0.80 0.60 - 1.20 g/dL 11/20/2023 15:39 [facility] Gamma % 13.4 11.1 - 18.8 % 11/20/2023 15:39 [facility] Gamma g/dL 0.90 0.60 - 1.60 g/dL 11/20/2023 15:39 [facility] SPEP Comment Suspicious pattern seen on protein electrophoresis, immunotyping added by reflex. Monoclonal protein present, too small to quantitate. 11/20/2023 15:39 [facility] Comment:See scanned/suppleme ntary report. Total Protein 6.6 6.3 - 8.2 g/dL 11/20/2023 15:39 [facility] Blood VENOUS BLOOD / Unknown 11/18/2023 15:15 EDT 11/19/2023 20:27 EDT Provider Outr Resulting Lab CHEMISTRY & BLOOD GAS ORDERABLES [facility] [address] [place], [place] [id number] * IMMUNOTYPING, SERUM (11/18/2023 15:15 EDT) Immunotyping , Serum Current Interpretation: 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 Confirmed by immunofixation. Interpreted by: Yayo Mejia MD 11/20/2023 1527 11/20/2023 15:39 EDT [facility] Blood VENOUS BLOOD / Unknown 11/18/2023 15:15 EDT 11/19/2023 20:27 EDT Provider Outr Resulting Lab CHEMISTRY & BLOOD GAS ORDERABLES Performing Organization Address [facility] Co de Phone Number [facility] [address] [place] [address] * PROTEIN, TOTAL (11/18/2023 15:15 EDT) Blood VENOUS BLOOD / Unknown 11/18/2023 15:15 EDT 11/19/2023 20:27 EDT Provider Outr Resulting Lab CHEMISTRY & BLOOD GAS ORDERABLES Performing Organization Address City/[facility] Co de Phone Number [facility] [address] [place] [address] from Last 3 Months Care Teams Migratory Game Bird Biologist Relationship Specialty Start Date End Date Cortez Tipton MD PCP - General 10/06/11
--- OUTSIDE RECORDS SUMMARY | 2024-01-08 00:47 | XMS_ITS | Encounter Summary ---
[facility] Address [facility] [place] [address] Care Team Providers Care Chiller Tender Name Role Phone Cortez Tipton MD Primary Care Provider [phone] Encounter Details Date Type Department Care Team (Latest Contact Info) Description 02/10/2013 3:32 PM EDT - 02/10/2013 11:59 PM EDT Hospital [place] [address] CLINIC, Angela Velez MD [facility] [place] [address] Breast implant rupture Discharge Disposition: Home Social [...] prosthesis documented in this encounter Care Teams Chiller Tender Relationship Specialty Start Date End Date Cortez Tipton MD [address] [place] [address] PCP - General 03/05/10 08/11/19 documented as of this encounter
--- OUTSIDE RECORDS SUMMARY | 2024-01-08 00:47 | XMS_ITS | Encounter Summary ---
[place] [address] Care Team Providers Care Daycare Assistant Name Role Phone Cortez Tipton MD Primary Care Provider [phone] Encounter Details Date Type Department Care Team (Late st Contact Info) Description 11/03/2013 12:57 PM EDT - 11/03/2013 11:59 PM EDT Hospital [place] [address] Social History Tobacco Use Types Packs/Day Years [...] ultrasound of this area of 07/23/2010. The senior living mammographic and sonographic ??stability is consistent with [...] breast ultrasound of this areaof 07/23/2010. The parts counterman mammographic and sonographic stability isconsistent with a [...] called with that appointment. Romy L Bolaños LAWN CARE PROFESSIONAL IMG MAMMO ORDERAB LES documented in this encounter Visit Diagnoses Not on filedocumented in this encounter Care Teams Daycare Assistant Relationship Specialty Start Date End Date Cortez Tipton MD [address] [place] [address] PCP - General 03/05/10 08/11/19 documented as of this encounter
--- OUTSIDE RECORDS SUMMARY | 2024-01-08 00:47 | XMS_ITS | Referral Summary ---
Author Organization [facility] Address [address] [place] [address] Care Team Providers Care Whipped Topping Mixer Name Role Phone Cortez Tipton MD Primary Care Provider Unav ailable Encounters Date Type Department Care Team Description 11/19/2023 Lab Requisition [facility] Pathology & Laboratory Medicine - [facility] [address] [place] [address] Outr Resulting Lab, Provider from Last 3 [...] 60.3 55.8 - 66.1 % 11/20/2023 15:39 EDT [facility] Albumin g/dL 4.0 3.6 - 5.2 g/dL 11/20/2023 15:39 EDT [facility] Alpha-1 % 4.0 2.9 - 4.9 % 11/20/2023 15:39 [facility] Alpha-1 g/dL 0.30 0.15 - 0.40 g/dL 11/20/2023 15:39 [facility] Alpha-2 % 10.5 7.1 - 11.8 % 11/20/2023 15:39 [facility] Alpha-2 g/dL 0.70 0.50 - 1.00 g/dL 11/20/2023 15:39 [facility] Beta % 11.8 8.4 - 13.1 % 11/20/2023 15:39 [facility] Beta g/dL 0.80 0.60 - 1.20 g/dL 11/20/2023 15:39 [facility] Gamma % 13.4 11.1 - 18.8 % 11/20/2023 15:39 [facility] Gamma g/dL 0.90 0.60 - 1.60 g/dL 11/20/2023 15:39 [facility] SPEP Comment Suspicious pattern seen on protein electrophoresis, immunotyping added by reflex. Monoclonal protein present, too small to quantitate. 11/20/2023 15:39 [facility] Comment:See scanned/suppleme ntary report. Total Protein 6.6 6.3 - 8.2 g/dL 11/20/2023 15:39 [facility] Blood VENOUS BLOOD / Unknown 11/18/2023 15:15 EDT 11/19/2023 20:27 EDT Provider Outr Resulting Lab CHEMISTRY & BLOOD GAS ORDERABLES [facility] [address] [place] [address] * IMMUNOTYPING, SERUM (11/18/2023 15:15 EDT) Pathologist [facility] Immunotyping , Serum Current Interpretation: 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 Confirmed by immunofixation. Interpreted by: Yayo Mejia MD 11/20/2023 1527 11/20/2023 15:39 EDT [facility] Blood VENOUS BLOOD / Unknown 11/18/2023 15:15 EDT 11/19/2023 20:27 EDT Provider Outr Resulting Lab CHEMISTRY & BLOOD GAS ORDERABLES Performing Organization Address [facility] Co de Phone Number [facility] [address] [place] [address] * PROTEIN, TOTAL (11/18/2023 15:15 EDT) Blood VENOUS BLOOD / Unknown 11/18/2023 15:15 EDT 11/19/2023 20:27 EDT Provider Outr Resulting Lab CHEMISTRY & BLOOD GAS ORDERABLES Performing Organization Address [facility] de Phone Number [facility] [address] [place] [address] from Last 3 Months Care Teams Whipped Topping Mixer Relationship Specialty Start Date End Date Cortez Tipton MD PCP - General 10/06/11
--- OUTSIDE RECORDS SUMMARY | 2024-01-08 00:47 | XMS_ITS | Encounter Summary ---
[place] [address] Care Team Providers Care Blow Down Helper Name Role Phone IshSheree APRN Primary Care Provider [phone] Encounter Details Date Type Department Care Team (Latest Contact Info) Description 12/31/2022 10:27 AM EDT - 12/31/2022 11:59 PM EDT [place] [address] Discharge Disposition: Home Social History Tobacco Use [...] Procedure Name Priority Date/Time Associated Diagnosis Comments NON-PHARMACY RESIDENT FINAL REPORT Routine 12/31/2022 10:27 AM EDT documented in this encounter Results * Non-Wind Tunnel Engineer Final Report (12/31/2022 10:27 AM EDT) Non-Wind Tunnel Engineer Final Report [id number] ? Location: [facility] The signing pathologist has (i) examined the relevant preparation(s) for the specimen(s) and (ii) rendered or confirmed the diagnosis(es). . ? Non-Wind Tunnel Engineer Final DIAGNOSIS See Discussion Electronically signed by: ?Vidya RAUSCH, Maxime Ireland Verified: ??01/16/2023 15:22 ??Cytopathologist Performed at: ??-[facility] Dept. of Pathology, [place] [address] Manager Epic: Boby Sanders MD, FCAP, ??CLIA Certificate: [id number] DISCUSSION A. Thyroid nodule (5.2cm): left (US-guided [...] left thyroid nodule. Received 4 slide(s) labeled [id number] Received 0 block(s). B. Thyroid nodule (2.4cm): right (US-guided FNA) Clinical History: ?2.4cm right thyroid nodule. Received 10 slide(s) labeled [id number] Received 0 block(s). Specimen collection date: ? 12/16/2022. For the full text of the [facility] report(s), please refer to eDH. . CLINICAL INFORMATION [facility] Tracking #: ? [id number] . Report to: [facility] Cytopathology [address] [place], [place] [address] [facility] 12/31/2022 10:2 7 AM EDT Ita Mueller MD PATHOLOGY/CYTOLOG Y ORDERABLES [facility] [place] [address] documented in this encounter Visit Diagnoses Not on filedocumented in this encounter Care Teams Blow Down Helper Relationship Specialty Start Date End Date Sheree Deng APRN [address] [place] [address] PCP - General Internal Medicine 08/12/19 documented as of this encounter
--- OUTSIDE RECORDS SUMMARY | 2024-01-08 00:48 | XMS_ITS | Encounter Summary ---
Author Organization [facility] Address [address] [place] [address] Care Team Providers Care Senior Power Plant Operator Name Role Phone Unavailable Primary Care Provider Unavailabl e Encounter Details Date Type Department Care Team (Late st Contact Info) Description 12/31/2000 Results Only [facility] - Maple conversion [address] [place] [address] Romy Morrow, TRANSPORTATION DESIGN ENGINEER [address] [place] [address] Social History Tobacco Use Types [...] ? CHAYO PARKER ? Accession #: ? [id number] : ? 1950 (Age: 50) ??F ?Collect Date: ? 12/31/2000 Location: ? [facility] ? Receive Date: ? 01/05/2001 Provider: ?ROMY MORROW TRANSPORTATION DESIGN ENGINEER Copy to: ? Specimen/Source: ?ThinPrep Pap Test, Cervix Last Menstrual Period: ? 12/30/00 ? SPECIMEN ADEQUACY ? Satisfactory for evaluation. GENERAL CATEGORIZATION ? Within Normal Limits ? Document reviewed and electronically signed by: ? Mel Love, CT(ASCP) ? Report Date: ??01/07/2001 09:13 End of Report [facility] 12/31/2000 01/05/2001 Romy Morrow NP PATHOLOGY ORDERABLE S [facility] [address] [place] [address] documented in this encounter Visit Diagnoses Not on filedocumented in this encounter
--- OUTSIDE RECORDS SUMMARY | 2024-01-08 00:48 | XMS_ITS | Encounter Summary ---
Author Organization [facility] Address [address] [place] [address] Care Team Providers Care Injection Molder Name Role Phone Unavailable Primary Care Provider Unavailabl e Encounter Details Date Type Department Care Team (Late st Contact Info) Description 05/16/2004 Results Only [facility] - Maple conversion [address] [place] [address] Romy Morrow, MANAGER OF INTERNAL [address] [place] [address] Social History Tobacco Use Types [...] ? CHAYO PARKER ? Accession #: ? [id number] : ? 1950 (Age: 54) ??F ?Collect Date: ? 05/16/2004 Location: ? [facility] ? Receive Date: ? 05/17/2004 Provider: ?ROMY MORROW MANAGER OF INTERNAL Copy to: ? Specimen/Source: ?ThinPrep Pap Test, [...] NP PATHOLOGY ORDERABLE S [facility] [address] [place] [address] documented in this encounter Visit Diagnoses Not on filedocumented in this encounter
--- OUTSIDE RECORDS SUMMARY | 2024-01-08 00:48 | XMS_ITS | Encounter Summary ---
Author Organization [facility] Address [address] [place] [address] Care Team Providers Care Retail And Restaurant Associate Name Role Phone Unavailable Primary Care Provider Unavailabl e Encounter Details Date Type Department Care Team (Late st Contact Info) Description 12/24/2009 Results Only [facility] Laboratory Services - [facility] [address] [place] [address] Romy Morrow, OPERATIONS PROCESSOR [address] [facility] [facility] [place] [address] Social History Tobacco Use Types [...] ? CHAYO PARKER ? Accession #: ? [id number] ? : ? 1950 (Age: 59) ??F [...] ? [facility] 12/24/2009 12/25/2009 Romy Morrow OPERATIONS PROCESSOR PATHOLOGY ORDERABLE S Performing Organization Address City/State/[facility] Co de Phone Number [facility] [address] [place] [address] documented in this encounter Visit Diagnoses Not on filedocumented in this encounter
--- OUTSIDE RECORDS SUMMARY | 2024-01-08 00:48 | XMS_ITS | Encounter Summary ---
Author Organization [facility] Address [address] [place] [address] Care Team Providers Care Drive In Waiter/Waitress Name Role Phone Unavailable Primary Care Provider Unavailabl e Encounter Details Date Type Department Care Team (Late st Contact Info) Description 12/07/2008 Orders Only [facility] Laboratory Services - [facility] [address] [place] [address] Romy Morrow, BOOKING PRIZER [address] [address] [place] [address] Social History Tobacco Use Types [...] ? CHAYO PARKER ? Accession #: ? [id number] ? : ? 1950 (Age: 58) ??F ?Collect Date: ? 12/07/2008 ? Location: ? [facility] ? Receive Date: ? 12/08/2008 ? Provider: ?ROMY L MORROW BOOKING PRIZER ? Copy to: ? Specimen/Source: ?Pap Test, [...] NP PATHOLOGY ORDERABLE S [facility] [address] [place] [address] documented in this encounter Visit Diagnoses Not on filedocumented in this encounter
--- OUTSIDE RECORDS SUMMARY | 2024-01-08 00:48 | XMS_ITS | Encounter Summary ---
Author Organization [facility] Address [address] [place] [address] Care Team Providers Care Longshore Equipment Operator Name Role Phone Unavailable Primary Care Provider Unavailabl e Encounter Details Date Type Department Care Team (Late st Contact Info) Description 05/03/2002 Results Only [facility] - Maple conversion [address] [place] [address] Romy Morrow, SLAB TRIPPER [address] [place] [address] Social History Tobacco Use Types [...] ? CHAYO PARKER ? Accession #: ? [id number] : ? 1950 (Age: 52) ??F ?Collect Date: ? 05/03/2002 Location: ? [facility] ? Receive Date: ? 05/05/2002 Provider: ?ROMY MORROW SLAB TRIPPER Copy to: ? Specimen/Source: ?ThinPrep Pap Test, [...] NP PATHOLOGY ORDERABLE S [facility] [address] [place] [address] documented in this encounter Visit Diagnoses Not on filedocumented in this encounter
--- OUTSIDE RECORDS SUMMARY | 2024-01-08 00:48 | XMS_ITS | Encounter Summary ---
Author Organization [facility] Address [address] [place] [address] Care Team Providers Care Air Sampling And Monitoring Name Role Phone Unavailable Primary Care Provider Unavailabl e Encounter Details Date Type Department Care Team (Late st Contact Info) Description 12/10/1999 Results Only [facility] - Maple conversion [address] [place] [address] Romy Morrow, DIGITAL ADVERTISING ANALYST [address] [place] [address] Social History Tobacco Use Types [...] ? CHAYO PARKER ? Accession #: ? [id number] : ? 1950 (Age: 49) ??F ?Collect Date: ? 12/10/1999 Location: ? [facility] ? Receive Date: ? 12/13/1999 Provider: ?ROMY MORROW DIGITAL ADVERTISING ANALYST Copy to: ? Specimen/Source: ?ThinPrep Pap Test, Cervix Last Menstrual Period: ? 11/25/99 ? SPECIMEN ADEQUACY ? Satisfactory for evaluation. GENERAL CATEGORIZATION ? Within Normal Limits ? Document reviewed and electronically signed by: ? CINDY Siddiqui(ASCP) ? Report Date: ??12/17/1999 15:23 End of Report [facility] 12/10/1999 12/13/1999 Romy Morrow NP PATHOLOGY ORDERABLE S [facility] [address] [place] [address] documented in this encounter Visit Diagnoses Not on filedocumented in this encounter
--- OUTSIDE RECORDS SUMMARY | 2024-01-08 00:48 | XMS_ITS | Encounter Summary ---
Author Organization [facility] Address [address] [place] [address] Care Team Providers Care Nursing Education Consultant Name Role Phone Unavailable Primary Care Provider Unavailabl e Encounter Details Date Type Department Care Team (Late st Contact Info) Description 05/09/2003 Results Only [facility] - Maple conversion [address] [place] [address] Romy Morrow NP [address] [place] [address] [address] [place] [address] Social History Tobacco Use Types [...] 68. [facility] Report Status Final [id number] [facility] 05/09/2003 11:0 0 EST 05/17/2003 11:00 EST Romy Morrow NP MICROBIOLOGY - GENE RAL ORDERABLES Performing Organization Address [facility] Co de Phone Number [facility] [address] [place] [address] * CYTOPATHOLOGY (05/09/2003 0:00 EST) Pathology Report: CYTOPATHOLOGY REPORT Reports generated via electronic interface contain original data; however they are lacking the format of the original report. Caution should be taken when reading/interpreti ng unformatted reports. Name: ? CHAYO PARKER ? Accession #: ? [id number] : ? 1950 (Age: 53) ??F ?Collect [...] NP PATHOLOGY ORDERABLE S Performing Organization Address City/[facility]/ZIP Co de Phone Number [facility] [address] [place] [address] documented in this encounter Visit Diagnoses Not on filedocumented in this encounter
--- OUTSIDE RECORDS SUMMARY | 2024-01-08 00:48 | XMS_ITS | Encounter Summary ---
Author Organization [facility] Address [address] [place] [address] Care Team Providers Care Assistive Technology Trainer Name Role Phone Unavailable Primary Care Provider Unavailabl e Encounter Details Date Type Department Care Team (Late st Contact Info) Description 02/10/2007 Results Only [facility] - Maple conversion [address] [place] [address] Romy Morrow, LANGUAGE TEACHER [address] [place] [address] Social History Tobacco Use Types [...] ? CHAYO PARKER ? Accession #: ? [id number] : ? 1950 (Age: 57) ??F ?Collect Date: ? 02/10/2007 Location: ? [facility] ? Receive Date: ? 02/11/2007 Provider: ?ROMY MORROW LANGUAGE TEACHER Copy to: ? Specimen/Source: ?ThinPrep Pap Test, Cervix, processed on [employer] ThinPrep Imaging System, with manual evaluation Last [...] NP PATHOLOGY ORDERABLE S [facility] [address] [place] [address] documented in this encounter Visit Diagnoses Not on filedocumented in this encounter
--- NOTE | 2024-01-08 11:05 | DI.MAMMO_ITS ---
Exam(s) MG MAMMO SCREENING 60 MIN DUR EXAM: MG MAMMO SCREENING 60 MIN DUR CLINICAL HISTORY: breast cancer screening,PERSONAL H/O BREAST CA AND MASTECTOMY,Z12.39 TECHNIQUE: Right full field digital CC and MLO mammographic images were obtained with 3D tomosynthes is and utilizing computer aided detection (CAD). COMPARISON: Available for comparison. FINDINGS: The patient has had a prior left mastectomy. Masses/Architectural Distortion: Stable fibroglandular pattern of the right breast is noted. No area s of architectural distortion are present. Microcalcifications: No suspicious pleomorphic-type are seen. Skin Thickening/Nipple Retraction: None. IMPRESSION: 1. No significant interval change with no specific features of malignancy noted. 2. Unless there is more urgent need, screening mammography is recommended, as per [employer] guidelines. 3. Findings were discussed with the patient on the date of the examination. BI-RADS Category 2 - Benign Findings Breast Density - Category B - Scattered areas of fibroglandular density Breast density category C or D implies that the patient has dense breast tissue. Dense breast tissue is very common and is not abnormal but dense breast tissue can make it harder to find cancer on a ma mmogram. Also, dense breast tissue may increase their breast cancer risk. This information about the result of the mammogram report was provided to the patient to raise their awareness. Use this report when you speak with the patient about their risks for breast cancer, which includes their family hist ory. At that time, you may recommend for more screening tests (Ultrasound or MRI) as they might be us eful based on their risk. A negative radiographic report should not delay biopsy if a dominant or clinically suspicious mass is present. Up to ten percent of cancers are not identified on mammography. A negative report may reinforce clinical impression. Adenosis and dense breasts may obscure an underlying neoplasm. False positive reports average 6 to 10%. Patient will receive a letter notifying them of these results.
== END 2024-01-08 01:04 ==
LOC: DI 00:44
PROVIDERS: PCP Nurse Practitioner; Visit Provider Nurse Practitioner
DX: Z12.31 Encounter for screening mammogram for malignant neoplasm of breast (principal)
CPT/HCPCS: 77063; 77067

== ENCOUNTER 2024-03-03 02:08 | Outpatient (CLI) | payer OTHER, SELFPAY ==
--- NOTE | 2024-03-03 | DI.DEXA_ITS ---
Exam(s) XR DEXA BONE DENSITY W/WO ANGIE EXAM: XR DEXA BONE DENSITY W/WO ANGIE CLINICAL HISTORY: THYROID CANCER C73, OSTEOPOROSIS SCREENING TECHNIQUE: Hologic Horizon C densitometer analysis of left hip, lumbar spine and left forearm. Lat eral survey image of the thoracic and lumbar spine. COMPARISON: CR XR CHEST 2V PA LATERAL from 09/23/2023 FINDINGS: Lateral view of the thoracic and lumbar spine shows no evidence of compression fractures. There is accentuation of the normal thoracic kyphosis as seen on previous chest x-ray. Bone mineral density measurements of the lumbar spine correspond to a total T-score of -0.8, in the normal range. Bone mineral density measurements of the left hip correspond to a total T-score of -1.2. The femora l neck T-score is -2.2, in the osteopenic range.. Theleft forearm bone mineral density measurements correspond to a T-score of the distal 3rd of -2.5, at the borderline of osteoporosis.. IMPRESSION: Normal bone mineral density of the spine. Osteopenia of the hip. Borderline osteoporosis of the for earm.
== END 2024-03-03 02:28 ==
LOC: DI 02:08
PROVIDERS: PCP Nurse Practitioner; Visit Provider Internal Medicine
DX: Z13.820 Encounter for screening for osteoporosis (principal); C73 Malignant neoplasm of thyroid gland; M85.88 Other specified disorders of bone density and structure, other site
CPT/HCPCS: 77080

== ENCOUNTER 2024-07-20 09:36 | Emergency (ER) | payer OTHER, SELFPAY ==
[2024-07-20 09:38] VITALS: BP 132/65; PULSE 72; RESP 15; TEMP 37; O2SAT 94
[2024-07-20 09:42] VITALS: BP 132/65; PULSE 72; RESP 15; TEMP 37; O2SAT 94
--- NOTE | 2024-07-20 09:44 | ED.GENADUL_ITS ---
Discharge Plan Disposition Patient Disposition: Home Condition: Stable Discharge Details Clinical Impression: Influenza A Primary Care Provider: Sheree Deng ED Provider: Moris Flowers Home Meds and New Rx's Prescriptions: Continued ibuprofen 200 mg capsule 200 mg PO Q6H PRN sumatriptan succinate [Imitrex] 100 mg tablet 100 mg PO as directed Qty: 27 6RF Patient Comments: pt took half a pill 0n 02/07/2020 Rx Instructions: for Headaches, as directed, may repeat x1:up to 3 days/wk levothyroxine [Synthroid] 150 mcg tablet 150 mcg PO DAILY ondansetron HCl 4 mg tablet 4 mg PO TID PRN (Reason: nausea and vomiting) Qty: 20 0RF Vitamins B Complex 1 EACH tablet 1 ea PO DAILY cholecalciferol (vitamin D3) 1,000 UNIT tablet 1,000 unit PO DAILY atenolol 25 mg tablet 25 mg PO DAILY Qty: 90 3RF Rx Instructions: migraine prevention sertraline 50 mg tablet 75 mg PO DAILY Qty: 135 3RF acetaminophen 500 mg tablet 500 mg PO Q6H PRN (Reason: pain) Qty: 60 2RF Inhaler, Assist Devices [Pocket Chamber] 1 ea miscellaneous DIRECTED Qty: 1 0RF Discharge Instructions Instructions: Flu, Adult ED Additional Instructions: You were seen in the emergency department for your respiratory illness for the past few days. You have tested positive for influenza A. Please take regular dose of Tylenol and ibuprofen, you were in no respiratory distress and there is no pneumonia seen on your chest x-ray, you should improve in the next 1 to 2 weeks. Please return for any profound increase in shortness of breath or respiratory distress or other emergent concerns. Referrals: Sheree Deng NP [Primary Care Provider] - Discharge Data Discharge Date/Time-TO BE ENTERED AT DEPARTURE: 07/20/24 11:34 HPI General Date/Time Provider Initiated Documentation: 07/20/24 09:44 . HPI Narrative: 74 year-old female presents to ED today by POV/ambulating with a chief complaint of 3 to 4 days of respiratory illness with cough, headache, mild fevers and sore throat. Quality described as generalized cold symptoms, no radiation to shortness of breath or respiratory distress, chest pain, profound lethargy, nausea or vomiting, diarrhea. Severity is described as moderate. Palliating factors include OTC cold medicines with some relief. Provoking factors include nothing specific. Events leading up to the incident/Associated Symptoms: Patient did not receive flu shot this year. Patient not anticoagulated. Related Data Home Medications ?Medication ?Instructions ?Recorded ?Confirmed vit B [id number] fum-vit E 1 ea PO DAILY 08/03/12 07/20/24 500 mg-400 mcg-18 mg iron tablet (Vitamins B Complex) cholecalciferol (vitamin D3) 25 1,000 unit PO DAILY 10/12/13 07/20/24 mcg (1,000 unit) tablet acetaminophen 500 mg tablet 500 mg PO Q6H PRN pain #60 tabs 02/08/20 07/20/24 ibuprofen 200 mg capsule 200 mg PO Q6H PRN 10/22/21 07/20/24 Inhaler, Assist Devices [Pocket 1 ea miscellaneous DIRECTED #1 09/27/22 07/20/24 Chamber] unit sumatriptan succinate 100 mg 100 mg PO as directed #27 tabs 07/08/23 07/20/24 tablet (Imitrex) levothyroxine 150 mcg tablet 150 mcg PO DAILY 09/22/23 07/20/24 (Synthroid) ondansetron HCl 4 mg tablet 4 mg PO TID PRN nausea and 09/22/23 07/20/24 vomiting #20 tabs atenolol 25 mg tablet 25 mg PO DAILY #90 tab-caps 03/04/24 07/20/24 sertraline 50 mg tablet 75 mg (1.5 x 50 mg) PO DAILY #135 06/13/24 07/20/24 tabs Previous Rx's ?Medication ?Instructions ?Recorded acetaminophen 500 mg tablet 500 mg PO Q6H PRN pain #60 tabs 02/08/20 Inhaler, Assist Devices [Pocket 1 ea miscellaneous DIRECTED #1 09/27/22 Chamber] unit sumatriptan succinate 100 mg 100 mg PO as directed #27 tabs 07/08/23 tablet (Imitrex) ondansetron HCl 4 mg tablet 4 mg PO TID PRN nausea and 09/22/23 vomiting #20 tabs atenolol 25 mg tablet 25 mg PO DAILY #90 tab-caps 03/04/24 sertraline 50 mg tablet 75 mg (1.5 x 50 mg) PO DAILY #135 06/13/24 tabs Allergies Allergy/AdvReac Type Severity Reaction Status Date / Time No Known Allergies Allergy Verified 07/20/24 09:43 General Stated Complaint: RespSymp ESTEFANI: 4 Review of Systems All systems reviewed & are unremarkable except as noted in HPI and below Exam Narrative Exam Narrative: GENERAL APPEARANCE: Well-nourished, non-toxic, awake and alert, atraumatic, no acute distress. SKIN: Warm, pink, dry, intact, without rashes/lesions/ulcerations. HEAD: Normocephalic, atraumatic, normal hair distribution for gender/age. EYES: Normal conjunctiva, no exudates on lids/lashes. ENT: Nares patent, no circumoral cyanosis, no facial swelling NECK: Supple, trachea midline, painless cervical ROM. LUNGS/CHEST: Lungs CTA bilaterally- no wheezes, no rales, mild rhonchi diffusely, non-labored respirations, normal A/P diameter, symmetrical expansion, no chest wall deformity HEART (CV/PV): Regular rate and rhythm without murmur, no peripheral edema, no JVD. ABDOMEN: Soft, non-distended, no guarding. MSK: Normal ROM, no swelling/deformity to bilateral UEs or LEs, moving all extremities without weakness, no cyanosis, spine midline without tenderness, normal curvature. NEURO: Mental Status AAOx4 - alert to person, place, time, events No facial droop, no forehead involvement. Motor: No focal weakness - strength 5/5 in bilateral UEs and LEs, proximal and distal, symmetric. Sensory: sensation intact to light touch globally. Gait normal: patient ambulated without ataxia into ED room. PSYCH: euthymic, cooperative, pleasant, appropriate speech Course Vital Signs Vital signs: Vital Signs Temperature 37.0 C 07/20/24 09:38 Pulse 72 07/20/24 09:38 Respiratory Rate 15 07/20/24 09:38 Blood Pressure 132/65 07/20/24 09:38 Pulse Oximetry 94 07/20/24 09:38 Temperature 37.0 C 07/20/24 09:42 Temperature Source Oral 07/20/24 09:42 Pulse 72 07/20/24 09:42 Respiratory Rate 15 07/20/24 09:42 Blood Pressure 132/65 07/20/24 09:42 Blood Pressure Position Sitting 07/20/24 09:42 Pulse Oximetry 94 07/20/24 09:42 Oxygen Delivery Method Room Air 07/20/24 09:42 Oxygen Flow Rate 0 07/20/24 09:42 Pain Level 6 07/20/24 09:42 Medical Decision Making This dictation utilizes [id number] dictation software and may contain unedited grammatical errors. 74 year-old female presents to ED today by POV/ambulating with a chief complaint of 3 to 4 days of respiratory illness with cough, headache, mild fevers and sore throat. Quality described as generalized cold symptoms, no radiation to shortness of breath or respiratory distress, chest pain, profound lethargy, nausea or vomiting, diarrhea. Severity is described as moderate. Palliating factors include OTC cold medicines with some relief. Provoking factors include nothing specific. Events leading up to the incident/Associated Symptoms: Patient did not receive flu shot this year. Patients' medical history: Noncontributory. Family and social history: Noncontributory. Pertinent exam findings / vital signs include mild rhonchi to the lungs, no respiratory distress, nontoxic vitals, no lethargy. Differential / pathologies of concern include viral syndrome, pneumonia, not hypoxic respiratory failure. Diagnostic studies of: - Respiratory PCR swab, chest x-ray. - PCR swab positive for influenza A - Chest x-ray shows no acute findings Interventions of: - 1 DuoNeb. ED Course/Assessment/Plan: 74-year-old female presents with about 4 days of respiratory illness, positive for influenza A without any respiratory distress or failure, counseled that is too late to start Tamiflu and recommend [id number] cold medicines as needed with strict return criteria for any severe acute worsening. Findings not consistent with hypoxic respiratory failure, sepsis, toxic presentation. Disposition of Influenza A. Patient verbalized understanding of the plan and return to ED criteria and engaged in shared decision making. Medical Records Medical records reviewed: Yes I reviewed the patient's medical records. Imaging Data Radiologic Study: Attestation: I personally reviewed and interpreted this imaging study as follows: Imaging: X-Ray Radiologist's impression: EXAM: XR CHEST 2V PA LATERAL CLINICAL HISTORY: cough TECHNIQUE: 2D digital imaging was performed of the chest. Two images were obtained. PA and lateral views were obtained. COMPARISON: CR XR CHEST 2V PA LATERAL from 09/23/2023 FINDINGS: MEDIASTINUM: Normal. HEART: Normal. PULMONARY VASCULATURE: Normal. LUNGS: Clear. PLEURAL SPACE: No pleural effusion or pneumothorax. BONE:Within normal limits for the patient's age. OTHER FINDINGS:Normal. IMPRESSION: No acute pulmonary findings. Lab Data Lab results reviewed: Yes I reviewed the patient's lab results. Labs: Laboratory Tests Range/Units 07/20/24 09:56 COVID-19 Source Nasopharynx SARS-CoV-2 (PCR) (Negative) Negative Influenza Type A (PCR) (Negative) Positive A Influenza Type B (PCR) (Negative) Negative RSV (PCR) (Negative) Negative Quality:SDOH Health Related Social Needs: No Data to Display PFSH All Active Problems (Updated 07/20/24 @ 11:20 by LIZETTE Wilkins) Influenza A (Acute) Peripheral neuropathy (Acute) Blood pressure instability (Acute) Osteopenia (Acute) per 2021 DEXA (hip)(worse from 2008, but still osteopenia) Rash (Acute) History of total thyroidectomy (Acute) with Central neck dissection [place]24/[place] [facility] [place] Papillary carcinoma of thyroid (Acute) Chronic pain of right knee (Acute 09/20/15) Cyst of Bartholin's gland duct (Acute 10/14/11) Depressive disorder (Chronic 02/11/02) [facility] 05/2021 Goiter (Acute 08/10/97) Hx of breast cancer (Acute 04/18/09) s/p L Mastectomy 04/18/2009 Hypothyroidism (Acute 12/06/98) Joint pain (Acute 05/27/11) Olvera's cyst R knee; DJD Migraine (Acute 04/12/93) ENT eval 2011 for vertigo; 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, UMASHANKAR Unspecified urinary incontinence (Acute 05/27/11) Primary osteoarthritis of right knee (Chronic) Posterior tibial tendon dysfunction (PTTD) of both lower extremities (Acute) Right hamstring muscle strain (Acute) Abnormal stress test (Acute) Fatigue (Acute) Tubular adenoma (Chronic 10/19/19) Status post total right knee replacement (Acute 02/08/20) Skin tag (Acute) Numerous moles (Acute) Screening for skin cancer (Acute) Contact dermatitis and eczema due to plant (Acute) Mild cognitive impairment (Acute) Osteoarthritis of right shoulder (Acute) Rotator cuff arthropathy of right shoulder (Acute) Multinodular thyroid (Acute) Medical History Generalized anxiety disorder (05/16/21) [facility] Migraine 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 Personal history of malignant neoplasm Colon CA, throat CA Father Emphysema lung Mother Arthritis Social History Smoking/Tobacco Use Status: Never Second Hand Exposure: No Smoking risk assessment performed?: Yes Alcohol Intake: current Alcohol Intake frequency: holidays/special occasions only Drug use: Never Substance use type: does not use Counseling given: Yes Adopted: No Caregiver/Support person: No Foster care: No Household members: none Housing: house Number of Children: 2 number of grandchildren: 7 Communication Needs: Corrective Lenses Education Level: vocational Do you need help understanding health information?: Rarely 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 Pets and animals: Yes Pets and animals: cat(s), dog(s) and other Details: r abbit Sexually active: No Do you think of yourself as: straight/heterosexual Current gender identity: female What is your relationship status?: How often do you talk on the phone with friends or family?: three or more times per week How often do you get together with friends or relatives?: twice per week Do you belong to any clubs or organized social groups?: no Panel score (0-1 are the most socially isolated patients): 1 What type of physical activity do you participate in: walking and other Details: Kayaking Duration: 15-30 minutes/day Frequency: 1-2 times per week Desire/Shinto: Buddhism Special desire needs: No Seatbelt use: always Helmet use: Yes Helmet use: never Drive intox or ride w/intox parts driver: No Working smoke detector in home: Yes Fire extinguisher in home: No Carbon monox detector in home: Yes Do you feel safe at home: Yes Do you feel safe in your relationship?: Yes
[2024-07-20] MEDS: Albuterol/Ipratropium 3 ML UPD VIAL UPD (09:58)
[2024-07-20 10:00] VITALS: PULSE 72; O2SAT 98
[2024-07-20 10:40] VITALS: BP 136/65; PULSE 79; O2SAT 99
[2024-07-20 10:43] LABS: COVID-19 PCR Negative (Negative); Influenza A PCR Positive (Negative); Influenza B PCR Negative (Negative); RSV PCR Negative (Negative)
[2024-07-20 10:52] LABS: Source Nasopharynx
== END 2024-07-20 11:34 | disposition home or self-care (01) ==
PROVIDERS: Emergency Provider Physician Assistant; PCP Nurse Practitioner
DX: J10.1 Influenza due to other identified influenza virus with other respiratory manifestations (principal); E03.9 Hypothyroidism, unspecified
CPT/HCPCS: 87637; 94640; 99284; 71046; J7620

== ENCOUNTER 2024-10-01 10:25 | Emergency (ER) | payer OTHER, SELFPAY ==
[2024-10-01] VITALS (17 sets, daily range): BP systolic 168–184; BP diastolic 60–96; PULSE 54–61; RESP 9–18; TEMP 36.6; O2SAT 95–99
--- NOTE | 2024-10-01 10:30 | RT.EKG_ITS ---
APPROVED REPORT Exam: Resting ECG Reason for Exam: syncope Patient Location: E HR:58 bpm ECG Measurements Heart Rate 58 AXIS NV 210 P 59 QRSd 76 QRS 57 QT 417 T 66 QTc 409 Conclusion Sinus bradycardia...rate< 60 Physician: No STEMI
--- NOTE | 2024-10-01 10:30 | DI.CT_ITS ---
Exam(s) CT ABDOMEN PELVIS W EXAM: CT ABDOMEN PELVIS W CLINICAL HISTORY: LUQ tenderness; ?divertic TECHNIQUE: Imaging Protocol: Axial computed tomography images with coronal and sagittal reformatted images were created and reviewed. CONTRAST MATERIAL: Intravenous: Omnipaque 350 Contrast volume:75 mL Oral: No COMPARISON: CT CT ABDOMEN PELVIS W from 07/12/[address] CHEST PE CTA from 09/27/[address] ABDOMEN PELVIS WO/W from 06/19/2023 FINDINGS: ABDOMEN: Lung Bases: The patient has a left breast implant is partially imaged. There is a small hiatal hernia. Liver: Normal density. There are several tiny hypodensities in the liver which are too small for further characterization. They are likely cysts. Portal, Superior Mesenteric, and Splenic Veins: Unremarkable. Gallbladder and Biliary Tract: No radiodense calculus or dilation. Pancreas: Normal density, no abnormal calcifications or inflammatory process. Spleen: Normal. Adrenals: No masses seen. Kidneys: Normal size, contour and axis. No radiodense stones or obstructive uropathy. No masses seen. Abdominal Aorta: Abdominal portion non-dilated. Atherosclerotic calcification is present. Bowel: There is thickening of the wall of the distal descending colon in the sigmoid colon. There is mild pericolonic inflammation. There is no evidence of bowel obstruction. The stomach is incompletely distended limiting evaluation. Appendix is unremarkable. Peritoneal Cavity: There is a trace amount of free fluid in the pelvis (series 8, image 77). No free air. Lymph Nodes: Within normal limits. Bones: Within normal limits for the patient's age. Soft Tissues: There is a small fat containing umbilical hernia. PELVIS: Bladder: Symmetric distention, no gross wall thickening. Reproductive Organs: Unremarkable as visualized. Lymph Nodes: Within normal limits. Bones: Within normal limits for the patient's age. IMPRESSION: 1. Thickening of the wall of the distal descending colon in the sigmoid colon which can be seen with an inflammatory or infectious colitis. No abscess or free air. 2. No evidence of nephrolithiasis or hydronephrosis. RADIATION DOSE DELIVERED: 738.19mGy.cm Total DLP DATA REPOSITORY: All CT scans at this facility are submitted to the National Radiology Data Registry (NRDR) Dose Index Registry (DIR) with the [employer] (ACR). RADIATION OPTIMIZATION: All CT scans at this facility use at least one of these dose optimization techniques: automated exposure control; mA and/or kV adjustment per patient size (includes targeted exams where dose is matched to clinical indication); or iterative reconstruction.
--- NOTE | 2024-10-01 10:38 | W.ED.GENAD ---
Discharge Plan Disposition Patient Disposition: Home Condition: Stable Discharge Details Clinical Impression: Colitis Primary Care Provider: Sheree Deng ED Provider: Moris Flowers Home Meds and New Rx's Prescriptions: Continued ibuprofen 200 mg capsule 200 mg PO Q6H PRN ondansetron HCl 4 mg tablet 4 mg PO TID PRN (Reason: nausea and vomiting) Qty: 20 0RF levothyroxine 137 mcg capsule 137 mcg PO DAILY sumatriptan succinate [Imitrex] 100 mg tablet 100 mg PO as directed Qty: 27 6RF Patient Comments: pt took half a pill 0n 02/07/2020 Rx Instructions: for Headaches, as directed, may repeat x1:up to 3 days/wk Vitamins B Complex 1 EACH tablet 1 ea PO DAILY cholecalciferol (vitamin D3) 1,000 UNIT tablet 1,000 unit PO DAILY atenolol 25 mg tablet 25 mg PO DAILY Qty: 90 3RF Rx Instructions: migraine prevention sertraline 50 mg tablet 75 mg PO DAILY Qty: 135 3RF codeine-guaifenesin 10-100 mg/5 mL liquid 5 ml PO Q4H Qty: 120 0RF acetaminophen 500 mg tablet 500 mg PO Q6H PRN (Reason: pain) Qty: 60 2RF Inhaler, Assist Devices [Pocket Chamber] 1 ea miscellaneous DIRECTED Qty: 1 0RF Discharge Instructions Instructions: Colitis, Diarrhea, Adult ED Additional Instructions: You were seen in the ED for your diarrhea with some blood/red loose stool - your CT shows a non-specific colitis- this may be viral or bacterial, we sent off stool studies- some will result by tomorrow, some will take a few more days. Your repeat hemoglobin was normal, please follow-up with your general surgeon at [facility] for possible updated colonoscopy. There was no other sign of infection, and your cardiac workup was negative. Please return to the ED for any emergent concerns, especially increased rectal bleeding. Referrals: Sheree Deng NP [Primary Care Provider, Medicine] HPI General Date/Time Provider Initiated Documentation: 10/01/24 10:34. HPI Narrative: 74 year-old female presents to ED today by POV/ambulating with a chief complaint of explosive bloody diarrhea for the past couple days, with some dark red stool or blood- then had a brief syncopal episode which she has had many in the past when getting up to use the toilet to have a BM around 0200 last night. Quality described as bumped her head on sink, denies any neurologic changes today, no radiation to severe headache, visual changes, numbness/tingling, chest pain, palpitations, shortness of breath, fever, hematemesis, coffee-ground emesis. Severity is described as moderate. Palliating factors include nothing specific attempted. Provoking factors include nothing specific. Events leading up to the incident/Associated Symptoms: Patient last had a colonoscopy at [facility] 1-1.5 years ago. Patient not anticoagulated. Related Data Home Medications ?Medication ?Instructions ?Recorded ?Confirmed vit B [id number] fum-vit E 1 ea PO DAILY 08/03/12 10/01/24 500 mg-400 mcg-18 mg iron tablet (Vitamins B Complex) cholecalciferol (vitamin D3) 25 1,000 unit PO DAILY 10/12/13 10/01/24 mcg (1,000 unit) tablet acetaminophen 500 mg tablet 500 mg PO Q6H PRN pain #60 tabs 02/08/20 10/01/24 ibuprofen 200 mg capsule 200 mg PO Q6H PRN 10/22/21 10/01/24 Inhaler, Assist Devices [Pocket 1 ea miscellaneous DIRECTED #1 09/27/22 10/01/24 Chamber] unit ondansetron HCl 4 mg tablet 4 mg PO TID PRN nausea and 09/22/23 10/01/24 vomiting #20 tabs atenolol 25 mg tablet 25 mg PO DAILY #90 tab-caps 03/04/24 10/01/24 sertraline 50 mg tablet 75 mg (1.5 x 50 mg) PO DAILY #135 06/13/24 10/01/24 tabs levothyroxine 137 mcg capsule 137 mcg PO DAILY 07/25/24 10/01/24 sumatriptan succinate 100 mg 100 mg PO as directed #27 tabs 07/25/24 10/01/24 tablet (Imitrex) codeine 10 mg-guaifenesin 100 mg/5 5 ml PO Q4H #120 mL 07/27/24 10/01/24 mL oral liquid Previous Rx's ?Medication ?Instructions ?Recorded acetaminophen 500 mg tablet 500 mg PO Q6H PRN pain #60 tabs 02/08/20 Inhaler, Assist Devices [Pocket 1 ea miscellaneous DIRECTED #1 09/27/22 Chamber] unit ondansetron HCl 4 mg tablet 4 mg PO TID PRN nausea and 09/22/23 vomiting #20 tabs atenolol 25 mg tablet 25 mg PO DAILY #90 tab-caps 03/04/24 sertraline 50 mg tablet 75 mg (1.5 x 50 mg) PO DAILY #135 06/13/24 tabs sumatriptan succinate 100 mg 100 mg PO as directed #27 tabs 07/25/24 tablet (Imitrex) codeine 10 mg-guaifenesin 100 mg/5 5 ml PO Q4H #120 mL 07/27/24 mL oral liquid Allergies Allergy/AdvReac Type Severity Reaction Status Date / Time No Known Allergies Allergy Verified 10/01/24 10:36 General Stated Complaint: Abd Prob ESTEFANI: 3 Review of Systems All systems reviewed & are unremarkable except as noted in HPI and below Exam Narrative Exam Narrative: GENERAL APPEARANCE: Well-nourished, non-toxic, awake and alert, atraumatic, no acute distress. SKIN: Warm, pink, dry, intact, without rashes/lesions/ulcerations. HEAD: Normocephalic, atraumatic, normal hair distribution for gender/age. EYES: Normal conjunctiva, no exudates on lids/lashes. ENT: Nares patent, no circumoral cyanosis, no facial swelling NECK: Supple, trachea midline, painless cervical ROM. LUNGS/CHEST: Lungs CTA bilaterally, non-labored respirations, normal A/P diameter, symmetrical expansion, no chest wall deformity HEART (CV/PV): Regular rate and rhythm without murmur, no peripheral edema, no JVD. ABDOMEN: Soft, non-distended, no guarding, LUQ tenderness without Hsu's/Rovsings. MSK: Normal ROM, no swelling/deformity to bilateral UEs or LEs, moving all extremities without weakness, no cyanosis, spine midline without tenderness, normal curvature. NEURO: Mental Status AAOx4 - alert to person, place, time, events No facial droop, no forehead involvement. Motor: No focal weakness - strength 5/5 in bilateral UEs and LEs, proximal and distal, symmetric. Sensory: sensation intact to light touch globally. Gait normal: patient ambulated without ataxia into ED room. PSYCH: euthymic, cooperative, pleasant, appropriate speech Course Vital Signs Vital signs: Vital Signs Temperature 36.6 C 10/01/24 10:30 Pulse 60 10/01/24 10:30 Respiratory Rate 16 10/01/24 10:30 Blood Pressure 180/76 H 10/01/24 10:30 Pulse Oximetry 98 10/01/24 10:30 Temperature 36.6 C 10/01/24 10:30 Temperature Source Oral 10/01/24 10:30 Pulse 60 10/01/24 10:30 Respiratory Rate 16 10/01/24 10:30 Blood Pressure 180/76 H 10/01/24 10:30 Blood Pressure Position Sitting 10/01/24 10:30 Pulse Oximetry 98 10/01/24 10:30 Oxygen Delivery Method Room Air 10/01/24 10:30 Oxygen Flow Rate 0 10/01/24 10:30 Pain Level 5 10/01/24 10:30 Medical Decision Making This dictation utilizes [id number] dictation software and may contain unedited grammatical errors. 74 year-old female presents to ED today by POV/ambulating with a chief complaint of explosive bloody diarrhea for the past couple days, with some dark red stool or blood- then had a brief syncopal episode which she has had many in the past when getting up to use the toilet to have a BM around 0200 last night. Quality described as bumped her head on sink, denies any neurologic changes today, no radiation to severe headache, visual changes, numbness/tingling, chest pain, palpitations, shortness of breath, fever, hematemesis, coffee-ground emesis. Severity is described as moderate. Palliating factors include nothing specific attempted. Provoking factors include nothing specific. Events leading up to the incident/Associated Symptoms: Patient last had a colonoscopy at [facility] 1-1.5 years ago. Patients' medical history: Migraine, Toro's palsy, breast cancer, peripheral neuropathy, history of thyroidectomy. Family and social history: Noncontributory. Pertinent exam findings / vital signs include left upper quadrant tenderness, no Rovsing's, negative Hsu sign, benign cardiopulmonary status, nontoxic and afebrile, neuro intact. Differential / pathologies of concern include inflammatory bowel disease, diverticulitis, viral gastroenteritis, infectious diarrhea, colitis, malignancy, syncope, unlikely ICH, unlikely ACS. Diagnostic studies of: - CBC, CMP, lactate, troponin, magnesium, lipase, TSH, EKG, CT ABD/pelvis with contrast. Added CRP/ESR with CT results, repeat H&H after 500 mL fluids, and added stool studies- which could be done outpatient if cannot provide sample. - CBC shows no acute abnormality, no anemia, no elevated white count - CMP shows only a mildly elevated BUN at 25 - Magnesium within normal limits - Troponin negative with reliable onset - Lipase negative - TSH is mildly low with normal T4 - Lactate 1.1 do not suspect sepsis - EKG shows sinus rhythm at 58 bpm with P waves followed by narrow complex QRS with normal axis, poor R wave progression, no ST changes of ischemia, no T wave abnormalities, normal intervals - CRP/ESR pending at time of sign-out - Stool studies collected and pending - Repeat H&H pending. - CT shows inflammatory changes of the sigmoid colon and rectum may be early colitis Interventions of: - 4 mg IVP Zofran, 500 mL IVF NS. ED Course/Assessment/Plan: 74 y/o F suffered a syncopal event toileting last night for BM, has some red stools - HgB normal on initial check. CT shows possible early colitis- no diverticulitis. Patient has stool studies pending- inflammatory markers pending due to possible inflammatory colitis on CT, repeat H&H after 500mL fluids. With normal repeat HgB and negative C. difficile PCR - reasonable to discahrge the patient with ondansetron for her nausea. Patient is followed by surgery at [facility] and gets her colonoscopies there. Recommend she reach out for timing of updated colonoscopy. Patient signed out to Shelbie Pierce NP at shift change with pending CRP/ESR, rpt HgB, and C. diff PCR. Findings not consistent with diverticulitis, GI hemorrhage, ulcerative colitis, sepsis, cardiac syncope. Disposition of Colitis. Patient verbalized understanding of the plan and return to ED criteria and engaged in shared decision making. Medical Records Medical records reviewed: Yes I reviewed the patient's medical records. Imaging Data Radiologic Study: Attestation: I personally reviewed and interpreted this imaging study as follows: Imaging: CT Scan Radiologist's impression: Exam: CT Abdomen And Pelvis With Contrast Exam date and time: 10/01/2024 12:21 PM Age: 74 years old Clinical indication: Pain; Other: Luq tenderness; ? Divertic TECHNIQUE: Imaging protocol: Computed tomography of the abdomen and pelvis with contrast. Contrast material: OMNI 350; Contrast volume: 75 ml; Contrast route: INTRAVENOUS (IV); COMPARISON: CT ABDOMEN PELVIS WO/W 11/14/2023 14:14 FINDINGS: Lungs: Mild reticular markings at the lung base. Diaphragm: Hiatal hernia. Liver: Multiple subcentimeter hypodensities in the liver similar to prior study consistent with hepatic cysts. Gallbladder and biliary ducts: Normal. No calcified stones. No ductal dilation. Pancreas: Normal. No ductal dilation. Spleen: Normal. No splenomegaly. Adrenal glands: Normal. No mass. Kidneys and ureters: Bilateral subcentimeter hypodensities involving the kidneys consistent with renal cysts. Stomach and bowel: Mucosal enhancement with bowel wall thickening and mild pericolonic fat infiltration of the sigmoid colon and rectum of concern for colitis. Normal caliber small bowel. Fluid within the stomach. Appendix: No evidence of appendicitis. Intraperitoneal space: Trace fluid in the cul de sac. Vasculature: Atherosclerotic disease. Lymph nodes: Unremarkable. No enlarged lymph nodes. Urinary bladder: Unremarkable as visualized. Reproductive: Unremarkable as visualized. Bones/joints: Multilevel degenerative changes of the spine. Decreased bone mineralization. Degenerative changes in the lumbar spine with the mild anterior wedging of L3 vertebral body similar to prior study. Mild anterior subluxation of L3 on L4. Soft tissues: Postsurgical changes of the left breast. Umbilical hernia with omental fat. IMPRESSION: Inflammatory changes of the sigmoid colon and rectum may represent early colitis. Trace fluid in the cul de sac. No free air. Dictated and Authenticated by: Sindi Colin MD. Lab Data Lab results reviewed: Yes I reviewed the patient's lab results. Labs: Laboratory Tests Range/Units 10/01/24 10/01/24 10:59 11:18 WBC (4.4-10.8) 10^3/uL 7.67 RBC (3.93-5.22) 10^6/uL 4.17 Hgb (11.2-15.7) g/dL 12.6 Hct (36.0-46.0) % 37.9 MCV (80-95) fL 91 MCH (27.0-33.0) pg 30.2 MCHC (32.0-36.0) % 33.2 RDW (11.7-14.6) % 12.8 Plt Count (130-400) 10^3/uL 247 MPV (8.0-11.0) fL 10.6 Immature Gran % % 0.3 Neutrophils % % 80.6 Lymphocytes % % 9.9 Monocytes % % 6.6 Eosinophils % % 2.5 Basophils % % 0.1 Nucleated RBC % (0.0-0.3) % 0.0 Absolute Neutrophils (1.2-6.7) 10^3/uL 6.18 Absolute Lymphocytes (1.2-3.4) 10^3/uL 0.76 L Absolute Monocytes (0.1-0.8) 10^3/uL 0.51 Absolute Eosinophils (0.0-0.7) 10^3/uL 0.19 Absolute Basophils (0.0-0.2) 10^3/uL 0.01 VBG Lactate (<or=2.0) mmol/L 1.1 Sodium Cancelled 143 Potassium Cancelled 3.7 Chloride Cancelled 107 Carbon Dioxide Cancelled 29.2 Anion Gap Cancelled 6.8 BUN Cancelled 25 H Creatinine Cancelled 0.7 Est GFR (CKD-EPI 2020) Cancelled 91.26 Glucose Cancelled 111 H Calcium Cancelled 8.7 Magnesium Cancelled 2.2 Total Bilirubin Cancelled 0.8 AST Cancelled 16 ALT Cancelled 18 Alkaline Phosphatase Cancelled 85 Troponin I Cancelled 6 Total Protein Cancelled 7.2 Albumin Cancelled 3.8 Lipase Cancelled 30 TSH Cancelled 0.30 L Free T4 (0.76-1.46) ng/dL 0.95 PFSH All Active Problems (Updated 10/01/24 @ 15:24 by LIZETTE Wilkins) Colitis (Acute) Peripheral neuropathy (Acute) Blood pressure instability (Acute) Osteopenia (Acute) per 2021 DEXA (hip)(worse from 2008, but still osteopenia) Rash (Acute) History of total thyroidectomy (Acute) with Central neck dissection 01/24/2023 at [facility] [place] Papillary carcinoma of thyroid (Acute) Chronic pain of right knee (Acute 09/20/15) Cyst of Bartholin's gland duct (Acute 10/14/11) Depressive disorder (Chronic 02/11/02) [facility] 05/2021 Goiter (Acute 08/10/97) Hx of breast cancer (Acute 04/18/09) s/p L Mastectomy 04/18/2009 Hypothyroidism (Acute 12/06/98) Joint pain (Acute 05/27/11) Olvera's cyst R knee; DJD Migraine (Acute 04/12/93) ENT eval 2011 for vertigo; 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, UMASHANKAR Unspecified urinary incontinence (Acute 05/27/11) Primary osteoarthritis of right knee (Chronic) Posterior tibial tendon dysfunction (PTTD) of both lower extremities (Acute) Right hamstring muscle strain (Acute) Abnormal stress test (Acute) Fatigue (Acute) Tubular adenoma (Chronic 10/19/19) Status post total right knee replacement (Acute 02/08/20) Skin tag (Acute) Numerous moles (Acute) Screening for skin cancer (Acute) Contact dermatitis and eczema due to plant (Acute) Mild cognitive impairment (Acute) Osteoarthritis of right shoulder (Acute) Rotator cuff arthropathy of right shoulder (Acute) Multinodular thyroid (Acute) Medical History Generalized anxiety disorder (05/16/21) [facility] Migraine Toro's palsy Breast cancer In remission 10 years Hypothyroidism Surgical History History of laparotomy (~1971) History of section (~1973) Status post left knee surgery For torn meniscus - unsure if arthroscopic or open Status post arthroscopy of right knee (12/12/15) Dr Archuleta - right knee w/partial medial menisectomy Breast, Mastectomy 2009 Family History Grandmother , Cancer at age 70. Personal history of malignant neoplasm Colon CA, throat CA Father Emphysema lung Mother Arthritis Social History (Updated 07/25/24 @ 13:58 by Stefanie Hendricks LPN) Smoking/Tobacco Use Status: Never Second Hand Exposure: No Smoking risk assessment performed?: Yes Alcohol Intake: current Alcohol Intake frequency: holidays/special occasions only Drug use: Never Substance use type: does not use Counseling given: Yes Adopted: No Caregiver/Support person: No Foster care: No Household members: none Housing: house Number of Children: 2 number of grandchildren: 7 Communication Needs: Corrective Lenses Education Level: vocational Do you need help understanding health information?: Rarely 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 Pets and animals: Yes Pets and animals: cat(s), dog(s) and other Details: rabbit Sexually active: No Do you think of yourself as: straight/heterosexual Current gender identity: female What is your relationship status?: How often do you talk on the phone with friends or family?: three or more times per week How often do you get together with friends or relatives?: twice per week Do you belong to any clubs or organized social groups?: no Panel score (0-1 are the most socially isolated patients): 1 What type of physical activity do you participate in: walking and other Details: Kayaking Duration: 15-30 minutes/day Frequency: 1-2 times per week Desire/Religious: [employer] Special desire needs: No Seatbelt use: always Helmet use: Yes Helmet use: never Drive 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
[2024-10-01 11:05] LABS: Lactate 1.1 mmol/L (<or=2.0)
[2024-10-01 11:07] LABS: Abs Immature Grans 0.02 10^3/uL (0.0-0.06); Absolute Basophil Count 0.01 10^3/uL (0.0-0.2); Absolute Eosinophil Count 0.19 10^3/uL (0.0-0.7); Absolute Lymphocyte Count 0.76 10^3/uL (1.2-3.4); Absolute Monocyte Count 0.51 10^3/uL (0.1-0.8); Absolute Neutrophil Count 6.18 10^3/uL (1.2-6.7); Basophils % 0.1 %; Eosinophils % 2.5 %; HCT 37.9 % (36.0-46.0); HGB 12.6 g/dL (11.2-15.7); Immature Grans % 0.3 %; Lymphocytes % 9.9 %; MCH 30.2 pg (27.0-33.0); MCHC 33.2 % (32.0-36.0); MCV 91 fL (80-95); MPV 10.6 fL (8.0-11.0); Monocytes % 6.6 %; Neutrophils % 80.6 %; Platelet Count 247 10^3/uL (130-400); RBC 4.17 10^6/uL (3.93-5.22); RDW 12.8 % (11.7-14.6); RDW-SD 42.5 fL; WBC 7.67 10^3/uL (4.4-10.8)
[2024-10-01] MEDS: Ondansetron 4 MG/2 ML VIAL IVP (11:28)
[2024-10-01 11:48] LABS: ALT 18 U/L (14-59); AST 16 U/L (15-37); Albumin 3.8 g/dL (3.4-5.0); Alkaline Phosphatase 85 U/L (46-116); Anion Gap 6.8 mmol/L (3-11); BUN 25 mg/dL (7-18); Bilirubin, Total 0.8 mg/dL (0.2-1.0); CO2 29.2 mmol/L (21.0-32.0); CREATININE 0.7 mg/dL (0.55-1.02); Calcium 8.7 mg/dL (8.5-10.1); Chloride 107 mmol/L (98-107); Estimated GFR 91.26 (mL/min/1.73m2); Glucose 111 mg/dL (74-106); Lipase 30 U/L (<78); Magnesium 2.2 mg/dL (1.8-2.4); Potassium 3.7 mmol/L (3.5-5.1); Sodium 143 mmol/L (136-145); Total Protein 7.2 g/dL (6.4-8.2); Troponin I 6 ng/L (<or=51)
[2024-10-01 12:06] LABS: FREE T4 0.95 ng/dL (0.76-1.46)
[2024-10-01] MEDS: Omnipaque 350 MG/ML 100 ML BTL IJ (12:23)
[2024-10-01] MEDS: Normal Saline - Diluent 50 ML VIAL IJ (12:23)
--- NOTE | 2024-10-01 13:43 | DI.VRAD_ITS ---
PROCEDURE INFORMATION: Exam: CT Abdomen And Pelvis With Contrast Exam date and time: 10/01/2024 12:21 PM Age: 74 years old Clinical indication: Pain; Other: Luq tenderness; ? Divertic TECHNIQUE: Imaging protocol: Computed tomography of the abdomen and pelvis with contrast. Contrast material: OMNI 350; Contrast volume: 75 ml; Contrast route: INTRAVENOUS (IV); COMPARISON: CT ABDOMEN PELVIS WO/W 11/14/2023 14:14 FINDINGS: Lungs: Mild reticular markings at the lung base. Diaphragm: Hiatal hernia. Liver: Multiple subcentimeter hypodensities in the liver similar to prior study consistent with hepatic cysts. Gallbladder and biliary ducts: Normal. No calcified stones. No ductal dilation. Pancreas: Normal. No ductal dilation. Spleen: Normal. No splenomegaly. Adrenal glands: Normal. No mass. Kidneys and ureters: Bilateral subcentimeter hypodensities involving the kidneys consistent with renal cysts. Stomach and bowel: Mucosal enhancement with bowel wall thickening and mild pericolonic fat infiltration of the sigmoid colon and rectum of concern for colitis. Normal caliber small bowel. Fluid within the stomach. Appendix: No evidence of appendicitis. Intraperitoneal space: Trace fluid in the cul de sac. Vasculature: Atherosclerotic disease. Lymph nodes: Unremarkable. No enlarged lymph nodes. Urinary bladder: Unremarkable as visualized. Reproductive: Unremarkable as visualized. Bones/joints: Multilevel degenerative changes of the spine. Decreased bone mineralization. Degenerative changes in the lumbar spine with the mild anterior wedging of L3 vertebral body similar to prior study. Mild anterior subluxation of L3 on L4. Soft tissues: Postsurgical changes of the left breast. Umbilical hernia with omental fat. IMPRESSION: Inflammatory changes of the sigmoid colon and rectum may represent early colitis. Trace fluid in the cul de sac. No free air. Dictated and Authenticated by: Sindi Coiln MD. Orderin Kristie Subramanian MD
[2024-10-01] MEDS: Normal Saline 500 ML IV (14:20)
--- NOTE | 2024-10-01 15:46 | ED.FU.B_ITS ---
Follow Up Plan: Handoff received from LIZETTE Rosales, daytime ETHAN. Please see his note for full HPI, ROS, PE, and interpretation of results. In short, Chayo is a 74-year-old female who presented to the emergency department today for evaluation of rectal bleeding and syncopal episode. She reports that she sat on the toilet at 2 AM and had an episode of syncope, hitting the left side of her head when she fell prior to having a large episode of diarrhea. Since then she has had 3-4 episodes of liquid stool, flecked with blood with the most recent one being entirely bloody appearing. She reports abdominal cramping since onset of symptoms. Has had a mild headache all day, took Imitrex this morning. Denies vision changes, balance problems, gait changes, extremity weakness, chest pain, palpitations, shortness of breath, neck pain, change in urine output. Denies fever/chills, nausea/vomiting, known trigger to diarrhea. She has had multiple colonoscopies, performed at [facility] by Dr. Leahy. She is not on any blood thinners. Physical exam reassuring, Chayo is overall well appearing. PERRL, EOMs intact. Cranial nerves II through XII intact as tested. No raccoon eyes or Burks sign. No C-spine step-off/tenderness/deformity. Mild ecchymosis noted above left eyebrow. No scalp hematomas or boggy spots/tenderness. 5/5 muscle strength to upper and lower extremities. In the emergency department Chayo received IV fluids and liv joni, has been able to tolerate p.o. without difficulty. Tylenol given for headache. CBC, CMP, magnesium, troponin, thyroid hormone C. difficile negative. Inflammatory markers negative. CT abdomen/pelvis concerning for possible early colitis, however infectious colitis unlikely due to negative inflammatory markers. Repeat H&H stable. Head CT and C-spine CT negative for intracranial hemorrhage or other acute abnormality. Unclear etiology of rectal bleeding, recommend close follow-up with general surgery for further evaluation/management. Stool culture results pending. Reviewed discharge instructions with patient, including red flags indicating need for return to emergency care. She voices agreement with plan of care. Imaging and Studies Imaging and Studies Study information below may be from another EMR and interpreted by another provider. Please see original notes in EMR for more complete details. EKG Image & Interpretation: EKG Interpretation Report Today, 10:30 Stress Test Interpretation: Exercise Stress Test 07/14/19, 09:00 CT Summary: PROCEDURE INFORMATION: Exam: CT Head Without Contrast Exam date and time: 10/01/2024 4:15 PM Age: 74 years old Clinical indication: Other: Syncope with head strike, ecchymosis L eye TECHNIQUE: Imaging protocol: Computed tomography of the head without contrast. COMPARISON: CT HEAD WO 09/23/2023 12:28 PM FINDINGS: Brain: No intracranial hemorrhage. No cerebral edema. No mass or mass effect. No large territory acute CVA. Mild cerebral atrophy. Cerebral ventricles: Ventriculomegaly concordant with atrophy. Paranasal sinuses: Visualized sinuses are unremarkable. No fluid levels. Mastoid air cells: Visualized mastoid air cells are well aerated. Bones: No skull fracture. Soft tissues: Scalp soft tissues are unremarkable. Minor contusion of the left forehead region. No foreign body or emphysema. IMPRESSION: 1. No intracranial hemorrhage. 2. Mild left forehead soft tissue contusion. No foreign body. 3. No skull fracture ------ PROCEDURE INFORMATION: Exam: CT Cervical Spine Without Contrast Exam date and time: 10/01/2024 4:15 PM Age: 74 years old Clinical indication: Other: Syncope with head strike, ecchymosis L eye TECHNIQUE: Imaging protocol: Computed tomography of the cervical spine without contrast. COMPARISON: CT HEAD WO 09/23/2023 12:28 PM FINDINGS: Bones: Multilevel degenerative cervical spine change. No acute fracture. No dislocation. Severe degenerative disc disease at C5-C6 and C6-C7. Mild degenerative retrolisthesis of C5 on C6 of 3 mm. Lungs: Lung apices are clear. Soft tissues: Soft tissues of the neck are unremarkable. IMPRESSION: 1. Degenerative cervical spine changes. 2. No acute fracture or dislocation. 3. Cervical soft tissues are unremarkable as visualized. 4. Lung apices are clear. PROCEDURE INFORMATION: Exam: CT Abdomen And Pelvis With Contrast Exam date and time: 10/01/2024 12:21 PM Age: 74 years old Clinical indication: Pain; Other: Luq tenderness; ? Divertic TECHNIQUE: Imaging protocol: Computed tomography of the abdomen and pelvis with contrast. Contrast material: OMNI 350; Contrast volume: 75 ml; Contrast route: INTRAVENOUS (IV); COMPARISON: CT ABDOMEN PELVIS WO/W 11/14/2023 14:14 FINDINGS: Lungs: Mild reticular markings at the lung base. Diaphragm: Hiatal hernia. Liver: Multiple subcentimeter hypodensities in the liver similar to prior study consistent with hepatic cysts. Gallbladder and biliary ducts: Normal. No calcified stones. No ductal dilation. Pancreas: Normal. No ductal dilation. Spleen: Normal. No splenomegaly. Adrenal glands: Normal. No mass. Kidneys and ureters: Bilateral subcentimeter hypodensities involving the kidneys consistent with renal cysts. Stomach and bowel: Mucosal enhancement with bowel wall thickening and mild p ericolonic fat infiltration of the sigmoid colon and rectum of concern for colitis. Normal caliber small bowel. Fluid within the stomach. Appendix: No evidence of appendicitis. Intraperitoneal space: Trace fluid in the cul de sac. Vasculature: Atherosclerotic disease. CHAYO PARKER Preliminary Radiology Report SENIOR QUALITY MANAGER (QA) DISCREPANCY? If there is a discrepancy between the preliminary and final interpretation, please notify [employer] via [email or web address] If you do not have access to our QA portal, call our QA team at [phone] CONFIDENTIALITY STATEMENT This report is intended only for the use of the referring physician, and only in accordance with law, If you received this in error, call [phone] Page 2 of 2 Lymph nodes: Unremarkable. No enlarged lymph nodes. Urinary bladder: Unremarkable as visualized. Reproductive: Unremarkable as visualized. Bones/joints: Multilevel degenerative changes of the spine. Decreased bone mineralization. Degenerative changes in the lumbar spine with the mild anterior wedging of L3 vertebral body similar to prior study. Mild anterior subluxation of L3 on L4. Soft tissues: Postsurgical changes of the left breast. Umbilical hernia with omental fat. IMPRESSION: Inflammatory changes of the sigmoid colon and rectum may represent early colitis. Trace fluid in the cul de sac. No free air.
[2024-10-01 15:59] LABS: C Diff PCR Negative (Negative); EPI 027-NAP1-B1 PRESUMPTIVE NEGATIVE
--- NOTE | 2024-10-01 16:00 | DI.CT_ITS ---
Exam(s) CT HEAD CERVICAL SPINE WO EXAM: CT HEAD CERVICAL SPINE WO CLINICAL HISTORY: syncope with head strike, ecchymosis L eye. TECHNIQUE: Imaging Protocol: Axial computed tomography images with coronal and sagittal reformatted images were created and reviewed COMPARISON: CT CT HEAD WO from 09/23/2023 FINDINGS: CT Head: Ventricles and Extra axial spaces: Normal in size and morphology for the patient's age. Hemorrhage: None. Cerebral parenchyma: There is no evidence of an acute territorial infarct. There is no evidence of a mass effect. There are subtle areas of decreased attenuation in the white matter most suggestive of chronic microvascular ischemic disease. Midline shift: None. Brainstem/Cerebellum: Normal. Calvarium: Normal. Visualized Paranasal sinuses/Mastoids: Clear. Soft Tissues: There is a small contusion overlying the left forehead. CT Cervical Spine: Bones: No acute fracture or subluxation. Age-appropriate degenerative changes are seen in the cervical spine. Soft Tissues: Unremarkable. Lung Apices: Clear. IMPRESSION: 1. No acute intracranial process. 2. No acute fracture or subluxation in the cervical spine. 3. The preliminary [facility] report was reviewed. RADIATION DOSE DELIVERED: 1,159.8mGy.cm Total DLP DATA REPOSITORY: All CT scans at this facility are submitted to the National Radiology Data Registry (NRDR) Dose Index Registry (DIR) with the [employer] (ACR). RADIATION OPTIMIZATION: All CT scans at this facility use at least one of these dose optimization techniques: automated exposure control; mA and/or kV adjustment per patient size (includes targeted exams where dose is matched to clinical indication); or iterative reconstruction.
[2024-10-01] MEDS: Acetaminophen 325 MG TAB 650 MG PO (16:40)
[2024-10-01 16:41] LABS: HCT 39.1 % (36.0-46.0); HGB 13.1 g/dL (11.2-15.7)
--- NOTE | 2024-10-01 17:14 | DI.[facility]_ITS ---
PROCEDURE INFORMATION: Exam: CT Head Without Contrast Exam date and time: 10/01/2024 4:15 PM Age: 74 years old Clinical indication: Other: Syncope with head strike, ecchymosis L eye TECHNIQUE: Imaging protocol: Computed tomography of the head without contrast. COMPARISON: CT HEAD WO 09/23/2023 12:28 PM FINDINGS: Brain: No intracranial hemorrhage. No cerebral edema. No mass or mass effect. No large territory acute CVA. Mild cerebral atrophy. Cerebral ventricles: Ventriculomegaly concordant with atrophy. Paranasal sinuses: Visualized sinuses are unremarkable. No fluid levels. Mastoid air cells: Visualized mastoid air cells are well aerated. Bones: No skull fracture. Soft tissues: Scalp soft tissues are unremarkable. Minor contusion of the left forehead region. No foreign body or emphysema. IMPRESSION: 1. No intracranial hemorrhage. 2. Mild left forehead soft tissue contusion. No foreign body. 3. No skull fracture PROCEDURE INFORMATION: Exam: CT Cervical Spine Without Contrast Exam date and time: 10/01/2024 4:15 PM Age: 74 years old Clinical indication: Other: Syncope with head strike, ecchymosis L eye TECHNIQUE: Imaging protocol: Computed tomography of the cervical spine without contrast. COMPARISON: CT HEAD WO 09/23/2023 12:28 PM FINDINGS: Bones: Multilevel degenerative cervical spine change. No acute fracture. No dislocation. Severe degenerative disc disease at C5-C6 and C6-C7. Mild degenerative retrolisthesis of C5 on C6 of 3 mm. Lungs: Lung apices are clear. Soft tissues: Soft tissues of the neck are unremarkable. IMPRESSION: 1. Degenerative cervical spine changes. 2. No acute fracture or dislocation. 3. Cervical soft tissues are unremarkable as visualized. 4. Lung apices are clear. Dictated and Authenticated by: Luis Alberto Banks MD. Orderin Harpreet Morfin MD
[2024-10-01 17:18] LABS: Lab Add On Test DONE
[2024-10-01 17:21] LABS: ESR 6 mm/hr (0-30)
[2024-10-01 17:28] LABS: C-Reactive Protein < 0.50 mg/dL (<or=0.5)
[2024-10-02 19:12] LABS: Campylobacter PCR Negative (Negative); Salmonella PCR Negative (Negative); Shiga Toxin PCR Negative (Negative); Shigella/Enteroinvasive Ecoli Negative (Negative)
[2024-10-04 22:18] LABS: Calprotectin 758 mcg/g
== END 2024-10-01 17:54 | disposition home or self-care (01) ==
PROVIDERS: Physician Assistant; Emergency Provider Nurse Practitioner Family; PCP Nurse Practitioner
DX: R55 Syncope and collapse (principal); K52.9 Noninfective gastroenteritis and colitis, unspecified; S00.12XA Contusion of left eyelid and periocular area, initial encounter; E03.9 Hypothyroidism, unspecified; W18.12XA Fall from or off toilet with subsequent striking against object, initial encounter; Y93.E8 Activity, other personal hygiene; Y92.012 Bathroom of single-family (private) house as the place of occurrence of the external cause
CPT/HCPCS: 36415; 80053; 83690; 85652; 87505; 93005; 96361; 96374; 99285; 70450; 72125; 74177; 83605; 83630; 83735; 83993; 84439; 84443; 84484; 85014; 85018; 85025; 86140; 93010; J2405; J3490

== ENCOUNTER → 2025-02-14 00:49 | Outpatient (CLI) | payer OTHER, SELFPAY ==
--- NOTE | 2025-02-14 07:15 | DI.MAMMO_ITS ---
Exam(s) MG MAMMO SCREENING 60 MIN DUR EXAM: MG MAMMO SCREENING 60 MIN DUR CLINICAL HISTORY: breast cancer screening,PERSONAL H/O BREAST CA,Z85.3 TECHNIQUE: Bilateral full field digital CC and MLO mammographic images were obtained with 3D tomosynthesis and utilizing computer aided detection (CAD). COMPARISON: Comparison is made with prior examinations. FINDINGS: The patient has had a prior left mastectomy. Masses/Architectural Distortion: No suspicious masses or areas of architectural distortion are present. Microcalcifications: No suspicious pleomorphic-type are seen. Skin Thickening/Nipple Retraction: None. IMPRESSION: 1. No significant interval change with no specific features of malignancy noted. 2. Unless there is more urgent need, screening mammography is recommended, as per [employer] guidelines. 3. The findings were discussed with the patient on the day of the examination. BI-RADS Category 1 - Negative Breast Density - Category B - There are scattered areas of fibroglandular density. Breast density Category C or D implies that the patient has dense breast tissue. Dense breast tissue can make it harder to find cancer on a mammogram. Dense breast tissue is also associated with an increased risk of breast cancer. This information about the result of the mammogram report was provided to the patient to raise their awareness. Use this report when you speak with the patient about their risks for breast cancer, which includes their family history. At that time, you may recommend additional screening tests (Ultrasound or MRI) as these tests may add significant information. A negative radiographic report should not delay biopsy if a dominant or clinically suspicious mass is present. Up to ten percent of cancers are not identified on mammography. A negative report may reinforce clinical impression. Adenosis and dense breasts may obscure an underlying neoplasm. False positive reports average 6 to 10%. Patient will receive a letter notifying them of these results.
== END ==
PROVIDERS: PCP Nurse Practitioner; Visit Provider Nurse Practitioner
DX: Z85.3 Personal history of malignant neoplasm of breast (principal); Z12.31 Encounter for screening mammogram for malignant neoplasm of breast
CPT/HCPCS: 77063; 77067